=== PATIENT | male | born 1935 | race African-American/Black ===

== ENCOUNTER 2021-07-13 09:31 | Inpatient (IN) | payer MEDICARE, OTHER ==
[~2021-07-13] VITALS: Ht 167.6 cm; Wt 68.5 kg
[~2021-07-13 09:31] MED LIST: ASPI-394 PO; ATOR20TA50 PO
[2021-07-13 10:20] LABS: Basophils # (auto) 0.2 10 ^3/uL (0-0.2); Basophils % (auto) 1.5 % (0.0-2.0); Eosinophils # (auto) 0.4 10 ^3/uL (0-0.8); Eosinophils % (auto) 3.6 % (0.0-7.0); Hematocrit 29.1 % (41.0-53.0); Hemoglobin 9.2 g/dL (13.5-17.5); Lymphocytes # (auto) 0.8 10 ^3/uL (0.4-5.4); Lymphocytes % (auto) 7.7 % (10.0-50.0); Mean Corpuscular Hemoglobin 29.3 pg (28.0-32.0); Mean Corpuscular Hgb Conc. 31.7 g/dL (32.0-36.0); Mean Corpuscular Volume 92.7 fL (80.0-100.0); Monocytes # (auto) 1.7 10 ^3/uL (0-1.3); Monocytes % (auto) 16.2 % (0.0-12.0); Neutrophils # (auto) 7.5 10 ^3/uL (1.6-8.6); Nucleated Red Blood Cells % 0.1 %; Red Blood Cells 3.14 10^6/uL (4.5-5.90); Red Cell Distribution Width 19.3 % (11.8-14.3); White Blood Cell 10.6 10^3/uL (4.4-10.8)
[2021-07-13 10:37] LABS: Albumin 2.1 g/dL (3.4-5.0); BUN/Creatinine Ratio 4.1; Calcium 7.5 mg/dL (8.5-10.1)
[2021-07-13 10:42] LABS: Bilirubin, Total 0.6 mg/dL (0.2-1.0); Total Protein 7.2 g/dL (6.4-8.2)
[2021-07-13] MEDS ORDERED: dilTIAZem 25 MG/5 ML VIAL IV ONE (11:15)
[2021-07-13] MEDS ORDERED: POTASSIUM CHL 20 Meq TABLET PO ONE (12:15)
[2021-07-13] MEDS ORDERED: POTASSIUM CHL 20MEQ/100ML 100 ML IV ONE (15:45)
[2021-07-13] MEDS ORDERED: NITROGLYCERIN 0.4 MG SL TAB SL PRN ×2 (15:45→19:15)
[2021-07-13] MEDS ORDERED: MORPHINE SULFATE INJECTION 2 MG/ML SYRG IV PRN ×3 (15:45→19:15)
[2021-07-13] MEDS ORDERED: hydrALAZINE HCL 20 MG/ML VL IV PRN (19:15)
[2021-07-13] MEDS ORDERED: DOCUSATE SOD 100 MG CAP PO PRN (19:15)
[2021-07-13] MEDS ORDERED: ONDANSETRON HCL 4 MG/2 ML VIAL IV PRN (19:15)
[2021-07-13] MEDS ORDERED: HYDROcodone-ACET 5/325MG TAB PO PRN (19:15)
[2021-07-13] MEDS ORDERED: DEXTROSE (50%) 50ML SYRG IV PRN (19:15)
[2021-07-13] MEDS ORDERED: VANCOMYCIN PER PHARMACY 1,000 MG IV SCH (19:15)
[2021-07-13] MEDS ORDERED: ALUM & MAG HYDROX-SIMETH LIQ(MAALOX) 30 ML PO PRN (19:15)
[2021-07-13] MEDS ORDERED: ACETAMINOPHEN 325 MG TAB PO PRN (19:15)
[2021-07-13] MEDS ORDERED: MORPHINE SULFATE 4 MG/ML SYR/VIAL IV PRN (19:15)
[2021-07-13] MEDS ORDERED: LORazepam 2MG/ML-1ML VIAL IV PRN (19:15)
[2021-07-13] MEDS ORDERED: VANCOMYCIN 750mg/250ml 250 ML IV ONE (20:00)
[2021-07-13] MEDS ORDERED: MAGNESIUM SULFATE 1GM/100ML 100 ML IV ONE (20:00)
[2021-07-13] MEDS ORDERED: METOPROLOL SUCCINATE XL 50 MG TAB PO ONE (20:15)
[2021-07-13 20:36] LABS: Cholesterol 125 mg/dL (< 200)
[2021-07-13 20:39] LABS: HDL Cholesterol 32 mg/dL (40-59); LDL Cholesterol 85 mg/dL (< 100); Triglycerides 74 mg/dL (< 150)
[2021-07-13] MEDS ORDERED: VANCOMYCIN 1GM/250ML 250 ML IV ONE (21:18)
[2021-07-13] MEDS: ATORVASTATIN 20 MG TAB PO SCH (21:30)
[2021-07-13] MEDS: InsuLIN REG 1unit/0.01ml Soln (100units/ml) SC SCH (21:30)
[2021-07-13] MEDS: ACCU-CHEK COMFORT CURVE STRIP VI SCH (21:30)
[2021-07-13 22:00] VITALS: BP 117/76
[2021-07-13] MEDS ORDERED: ENOXAPARIN SOD 30 MG/0.3 ML SYRINGE SC SCH (22:00)
[2021-07-13] MEDS: PIPERACILLIN-TAZOB 2.25GM 50 ML IV SCH (23:29)
[2021-07-14 01:49] VITALS: BP 117/76
[2021-07-14] MEDS ORDERED: GUAISYP6 PO (02:44)
[2021-07-14] MEDS ORDERED: CINA30TA2 PO (02:44)
[2021-07-14] MEDS ORDERED: LANT1000 PO (02:44)
[2021-07-14] MEDS ORDERED: LATA0.0020 EACHEYE (02:44)
[2021-07-14] MEDS ORDERED: MELA3TAB27 PO (02:44)
[2021-07-14] MEDS ORDERED: MONT5CHW23 PO (02:44)
[2021-07-14] MEDS ORDERED: METO-289 PO (02:44)
[2021-07-14] MEDS ORDERED: BRIM0.159 OP (02:44)
[2021-07-14] MEDS ORDERED: APIX2.5T PO (02:44)
[2021-07-14] MEDS ORDERED: SIME80CH6 PO (02:44)
[2021-07-14] MEDS ORDERED: B-COCAP23 PO (02:44)
[2021-07-14] MEDS ORDERED: FLUT0.05 NAS (02:44)
[2021-07-14] MEDS ORDERED: SEVE800T8 PO (02:44)
[2021-07-14] MEDS ORDERED: FERR1TAB17 PO (02:44)
[2021-07-14] MEDS ORDERED: ACET-1156 PO (02:44)
[2021-07-14] MEDS ORDERED: NIFE1TAB36 PO (02:44)
[2021-07-14 05:00] VITALS: BP 144/69
[2021-07-14] MEDS: InsuLIN REG 1unit/0.01ml Soln (100units/ml) SC SCH ×4 (06:14→22:00)
[2021-07-14] MEDS: ACCU-CHEK COMFORT CURVE STRIP VI SCH ×4 (06:14→22:25)
[2021-07-14 09:00] VITALS: BP 130/92
[2021-07-14] MEDS: ASPirin 81 mg TAB PO SCH (10:16)
[2021-07-14] MEDS: PIPERACILLIN-TAZOB 2.25GM 50 ML IV SCH ×3 (10:20→23:22)
[2021-07-14 11:25] LABS: Basophils # (auto) 0.1 10 ^3/uL (0-0.2); Eosinophils # (auto) 0.4 10 ^3/uL (0-0.8); Hemoglobin 8.9 g/dL (13.5-17.5); Lymphocytes # (auto) 0.7 10 ^3/uL (0.4-5.4); Monocytes # (auto) 1.7 10 ^3/uL (0-1.3); Red Cell Distribution Width 19.1 % (11.8-14.3)
[2021-07-14 11:28] LABS: Eosinophils % (auto) 3.3 % (0.0-7.0); Hematocrit 28.5 % (41.0-53.0); Mean Corpuscular Hgb Conc. 31.3 g/dL (32.0-36.0); Mean Corpuscular Volume 92.7 fL (80.0-100.0); Monocytes % (auto) 15.3 % (0.0-12.0); Neutrophils # (auto) 8.4 10 ^3/uL (1.6-8.6); Neutrophils % (auto) 74.4 % (37.0-80.0); Red Blood Cells 3.07 10^6/uL (4.5-5.90); White Blood Cell 11.2 10^3/uL (4.4-10.8)
[2021-07-14 11:45] LABS: INR 1.27 (0.9-1.15); Partial Thromboplastin Time 41.3 sec (23.6-33.0)
[2021-07-14 11:53] LABS: Potassium 4.6 mmol/L (3.5-5.1)
[2021-07-14 12:10] LABS: Albumin 1.9 g/dL (3.4-5.0); BUN/Creatinine Ratio 4.5; Bilirubin, Total 0.6 mg/dL (0.2-1.0); Calcium 7.8 mg/dL (8.5-10.1); Magnesium 2.7 mg/dL (1.6-2.6); Phosphorus 4.2 mg/dL (2.5-4.90); Total Protein 6.8 g/dL (6.4-8.2)
[2021-07-14 13:00] VITALS: BP 130/72
[2021-07-14] MEDS ORDERED: IOHEXOL 350 MG/ML 100ML IJ ONE (15:35)
[2021-07-14] MEDS ORDERED: SIMETHICONE 80 MG CHEWABLE TABLET PO PRN (16:00)
[2021-07-14 17:00] VITALS: BP 131/71
[2021-07-14] MEDS ORDERED: DIGOXIN (250MCG/ML) 2 ML AMPULE IV ONE (17:15)
[2021-07-14 22:00] VITALS: BP 129/63
[2021-07-14] MEDS: ATORVASTATIN 20 MG TAB PO SCH (22:24)
[2021-07-14] MEDS: APIXABAN 2.5 MG TAB PO SCH (22:24)
[2021-07-14] MEDS: METOPROLOL SUCCINATE XL 50 MG TAB PO SCH (22:26)
[2021-07-15 05:00] VITALS: BP 113/64
[2021-07-15 05:30] LABS: Basophils # (auto) 0.1 10 ^3/uL (0-0.2); Basophils % (auto) 1.1 % (0.0-2.0); Eosinophils # (auto) 0.4 10 ^3/uL (0-0.8); Eosinophils % (auto) 3.6 % (0.0-7.0); Hematocrit 27.2 % (41.0-53.0); Hemoglobin 8.6 g/dL (13.5-17.5); Lymphocytes # (auto) 0.7 10 ^3/uL (0.4-5.4); Lymphocytes % (auto) 6.3 % (10.0-50.0); Mean Corpuscular Hemoglobin 29.7 pg (28.0-32.0); Mean Corpuscular Hgb Conc. 31.6 g/dL (32.0-36.0); Mean Corpuscular Volume 93.9 fL (80.0-100.0); Monocytes # (auto) 1.5 10 ^3/uL (0-1.3); Monocytes % (auto) 13.3 % (0.0-12.0); Neutrophils # (auto) 8.3 10 ^3/uL (1.6-8.6); Neutrophils % (auto) 75.7 % (37.0-80.0); Nucleated Red Blood Cells % 0.1 %; Red Blood Cells 2.89 10^6/uL (4.5-5.90); Red Cell Distribution Width 19.2 % (11.8-14.3)
[2021-07-15 05:44] LABS: INR 1.32 (0.9-1.15)
[2021-07-15] MEDS: InsuLIN REG 1unit/0.01ml Soln (100units/ml) SC SCH ×4 (05:46→21:51)
[2021-07-15] MEDS: ACCU-CHEK COMFORT CURVE STRIP VI SCH ×4 (05:46→21:44)
[2021-07-15 05:54] LABS: Calcium 7.4 mg/dL (8.5-10.1); Magnesium 2.1 mg/dL (1.6-2.6); Potassium 4.7 mmol/L (3.5-5.1)
[2021-07-15] MEDS: PIPERACILLIN-TAZOB 2.25GM 50 ML IV SCH (06:17)
[2021-07-15 09:00] VITALS: BP 111/71
[2021-07-15] MEDS: APIXABAN 2.5 MG TAB PO SCH ×2 (09:10→21:43)
[2021-07-15] MEDS ORDERED: DIGOXIN 0.125 MG TAB PO SCH (10:00)
[2021-07-15] MEDS: ASPirin 81 mg TAB PO SCH (10:00)
[2021-07-15 12:40] VITALS: BP 114/83
[2021-07-15 16:40] VITALS: BP 122/59
[2021-07-15 20:42] VITALS: BP 116/59
[2021-07-15] MEDS: METOPROLOL SUCCINATE XL 50 MG TAB PO SCH (21:44)
[2021-07-15] MEDS: ATORVASTATIN 20 MG TAB PO SCH (21:44)
[2021-07-15] MEDS: ALUM & MAG HYDROX-SIMETH LIQ(MAALOX) 30 ML PO PRN (21:44)
[2021-07-15] MEDS: guaiFENesin-DM 100/10mg/5ml SYR PO PRN (21:45)
[2021-07-16 05:43] LABS: Basophils # (auto) 0.1 10 ^3/uL (0-0.2); Basophils % (auto) 0.9 % (0.0-2.0); Eosinophils # (auto) 0.8 10 ^3/uL (0-0.8); Eosinophils % (auto) 6.5 % (0.0-7.0); Hematocrit 28.1 % (41.0-53.0); Hemoglobin 8.9 g/dL (13.5-17.5); Lymphocytes # (auto) 1.1 10 ^3/uL (0.4-5.4); Lymphocytes % (auto) 9.6 % (10.0-50.0); Mean Corpuscular Hemoglobin 29.3 pg (28.0-32.0); Mean Corpuscular Hgb Conc. 31.7 g/dL (32.0-36.0); Mean Corpuscular Volume 92.2 fL (80.0-100.0); Monocytes # (auto) 1.8 10 ^3/uL (0-1.3); Monocytes % (auto) 15.5 % (0.0-12.0); Neutrophils # (auto) 7.9 10 ^3/uL (1.6-8.6); Neutrophils % (auto) 67.5 % (37.0-80.0); Nucleated Red Blood Cells % 0.1 %; Red Blood Cells 3.04 10^6/uL (4.5-5.90); Red Cell Distribution Width 18.7 % (11.8-14.3); White Blood Cell 11.8 10^3/uL (4.4-10.8)
[2021-07-16 05:54] LABS: Potassium 4.7 mmol/L (3.5-5.1)
[2021-07-16 06:00] LABS: BUN/Creatinine Ratio 4.7; Calcium 7.6 mg/dL (8.5-10.1)
[2021-07-16 06:12] VITALS: BP 130/67
[2021-07-16] MEDS: ACCU-CHEK COMFORT CURVE STRIP VI SCH ×2 (06:15→11:48)
[2021-07-16] MEDS: InsuLIN REG 1unit/0.01ml Soln (100units/ml) SC SCH ×2 (06:21→11:30)
[2021-07-16 08:40] VITALS: BP 135/60
[2021-07-16] MEDS: guaiFENesin-DM 100/10mg/5ml SYR PO PRN (08:42)
[2021-07-16] MEDS: ALUM & MAG HYDROX-SIMETH LIQ(MAALOX) 30 ML PO PRN (08:42)
[2021-07-16] MEDS ORDERED: LIDOCAINE 1% (LOCAL ANESTH.) PF 5ml SDV IJ ONE (08:45)
[2021-07-16 09:40] VITALS: BP 135/60
[2021-07-16] MEDS: APIXABAN 2.5 MG TAB PO SCH (12:07)
[2021-07-16] MEDS: ASPirin 81 mg TAB PO SCH (12:07)
[2021-07-16 12:30] VITALS: BP 138/89
[2021-07-16 13:33] VITALS: BP 116/59
[2021-07-16] MEDS ORDERED: EPOETIN ALFA-EPBX 10,000 UNIT/1ML VIAL SC ONE (21:00)
[2021-07-17] MEDS ORDERED: DIGOXIN 0.125 MG TAB PO SCH (10:00)
== END 2021-07-16 15:30 | disposition home health service (06) | DRG 291 ==
LOC: ER 09:31 → EDBD 09:31 → TELE 15:41 → TELE-WESTW 21:25
PROVIDERS: ADMIT Hospitalist; ATTEND Internal Medicine
PROC: 5A1D70Z Performance of Urinary Filtration, Intermittent, Less than 6 Hours Per Day (ICD-10-PCS; principal; 2021-07-16)
DX: I13.2 Hypertensive heart and chronic kidney disease with heart failure and with stage 5 chronic kidney disease, or end stage renal disease (principal); I50.43 Acute on chronic combined systolic (congestive) and diastolic (congestive) heart failure; N18.6 End stage renal disease; J96.11 Chronic respiratory failure with hypoxia; R65.10 Systemic inflammatory response syndrome (SIRS) of non-infectious origin without acute organ dysfunction; J91.8 Pleural effusion in other conditions classified elsewhere; E88.09 Other disorders of plasma-protein metabolism, not elsewhere classified; I48.0 Paroxysmal atrial fibrillation; E87.6 Hypokalemia; Z99.2 Dependence on renal dialysis; E78.5 Hyperlipidemia, unspecified; D63.1 Anemia in chronic kidney disease; E11.22 Type 2 diabetes mellitus with diabetic chronic kidney disease; I27.20 Pulmonary hypertension, unspecified; R00.0 Tachycardia, unspecified; Z20.822 Contact with and (suspected) exposure to COVID-19; Z79.01 Long term (current) use of anticoagulants; Z82.49 Family history of ischemic heart disease and other diseases of the circulatory system; Z83.3 Family history of diabetes mellitus; Z98.41 Cataract extraction status, right eye; Z88.8 Allergy status to other drugs, medicaments and biological substances
CPT/HCPCS: 36415; 71045; 71275; 80048; 80053; 80061; 80162; 80202; 82306; 82962; 83036; 83605; 83735; 83880; 84100; 84443; 84484; 85025; 85379; 85610; 85730; 87040; 87081; 87426; 90935; 93005; 93306; 93971; 96365; 96375; G0378; J1815; J2405; J2543; J3480

== ENCOUNTER 2022-05-30 16:19 | Inpatient (IN) | payer MEDICARE, OTHER ==
[~2022-05-30] VITALS: Ht 182.9 cm; Wt 63.2 kg
[~2022-05-30 16:19] MED LIST changes: +ACET-1156 PO; +APIX2.5T PO; +B-COCAP23 PO; +BRIM0.159 OP; +CINA30TA2 PO; +FERR1TAB17 PO; +FLUT0.05 NAS; +GUAISYP6 PO; +LANT1000 PO; +LATA0.0020 EACHEYE; +MELA3TAB27 PO; +METO-289 PO; +MONT5CHW23 PO; +NIFE1TAB36 PO; +SEVE800T8 PO; +SIME80CH6 PO
[2022-05-30 17:51] LABS: Basophils # (auto) 0 10 ^3/uL (0-0.2); Basophils % (auto) 0.7 % (0.0-2.0); Eosinophils # (auto) 0.3 10 ^3/uL (0-0.8); Eosinophils % (auto) 3.6 % (0.0-7.0); Hematocrit 33.7 % (41.0-53.0); Lymphocytes # (auto) 0.8 10 ^3/uL (0.4-5.4); Lymphocytes % (auto) 10.9 % (10.0-50.0); Mean Corpuscular Hemoglobin 31.6 pg (28.0-32.0); Mean Corpuscular Hgb Conc. 32.6 g/dL (32.0-36.0); Mean Corpuscular Volume 96.9 fL (80.0-100.0); Monocytes # (auto) 1.2 10 ^3/uL (0-1.3); Monocytes % (auto) 16.6 % (0.0-12.0); Neutrophils # (auto) 4.9 10 ^3/uL (1.6-8.6); Neutrophils % (auto) 68.2 % (37.0-80.0); Nucleated Red Blood Cells % 0.1 %; Red Blood Cells 3.48 10^6/uL (4.5-5.90); Red Cell Distribution Width 19.1 % (11.8-14.3); White Blood Cell 7.1 10^3/uL (4.4-10.8)
[2022-05-30 18:18] LABS: Sodium 144 mmol/L (136-145)
[2022-05-30 18:19] LABS: Anion Gap 15 (5-15); BUN/Creatinine Ratio 5.8; Blood Urea Nitrogen 48 mg/dL (7-18); Carbon Dioxide 21 mmol/L (21-32); Chloride 108 mmol/L (98-107); GFR African American 8 mL/min; GFR Non-African American 7 mL/min; Glucose 145 mg/dL (74-106)
[2022-05-30 18:20] LABS: Alkaline Phosphatase 195 U/L (45-117)
[2022-05-30 18:21] LABS: Aspartate Aminotransferase 34 U/L (15-37)
[2022-05-30 18:22] LABS: Alanine Aminotransferase 32 U/L (16-61); Albumin 3.6 g/dL (3.4-5.0); Bilirubin, Total 0.6 mg/dL (0.2-1.0); Calcium 7.8 mg/dL (8.5-10.1); Total Protein 7.7 g/dL (6.4-8.2)
[2022-05-30 18:35] LABS: Magnesium 2.2 mg/dL (1.6-2.6)
[2022-05-30] MEDS ORDERED: NITROGLYCERIN 0.4 MG SL TAB SL PRN (21:15)
[2022-05-30] MEDS ORDERED: DEXTROSE (50%) 50ML SYRG IV PRN (21:15)
[2022-05-30] MEDS: ONDANSETRON HCL 4 MG/2 ML VIAL IV PRN (22:50)
[2022-05-30] MEDS: APIXABAN 2.5 MG TAB PO SCH (22:50)
[2022-05-30] MEDS: ATORVASTATIN 20 MG TAB PO SCH (22:50)
[2022-05-30] MEDS: MONTELUKAST SODIUM 10 MG TAB PO SCH (22:50)
[2022-05-30] MEDS: MORPHINE SULFATE INJ 2 MG/ml SYRG IV PRN (23:05)
[2022-05-30] MEDS: ACCU-CHEK COMFORT CURVE STRIP VI SCH (23:05)
[2022-05-30] MEDS: InsuLIN REG 1unit/0.01ml Soln (100units/ml) SC SCH (23:06)
[2022-05-31 02:15] LABS: Lactic Acid w/Reflex 2.2 mmol/L (0.4-2.0)
[2022-05-31] MEDS: ACETAMINOPHEN 325 MG TAB PO PRN ×2 (02:56→11:11)
[2022-05-31] MEDS: MORPHINE SULFATE INJ 2 MG/ml SYRG IV PRN (04:10)
[2022-05-31] MEDS: ONDANSETRON HCL 4 MG/2 ML VIAL IV PRN (04:11)
[2022-05-31 04:52] LABS: Basophils # (auto) 0.1 10 ^3/uL (0-0.2); Basophils % (auto) 0.7 % (0.0-2.0); Eosinophils # (auto) 0.4 10 ^3/uL (0-0.8); Eosinophils % (auto) 4.3 % (0.0-7.0); Hematocrit 31.4 % (41.0-53.0); Hemoglobin 10.1 g/dL (13.5-17.5); Lymphocytes # (auto) 1.2 10 ^3/uL (0.4-5.4); Lymphocytes % (auto) 13.2 % (10.0-50.0); Mean Corpuscular Hemoglobin 31.4 pg (28.0-32.0); Mean Corpuscular Hgb Conc. 32.3 g/dL (32.0-36.0); Mean Corpuscular Volume 97.2 fL (80.0-100.0); Monocytes # (auto) 1.5 10 ^3/uL (0-1.3); Monocytes % (auto) 17.2 % (0.0-12.0); Neutrophils # (auto) 5.7 10 ^3/uL (1.6-8.6); Neutrophils % (auto) 64.6 % (37.0-80.0); Red Blood Cells 3.23 10^6/uL (4.5-5.90); Red Cell Distribution Width 18.9 % (11.8-14.3); White Blood Cell 8.8 10^3/uL (4.4-10.8)
[2022-05-31] MEDS ORDERED: SUMAtriptan SUCCINATE 25 MG TAB PO ONE (06:00)
[2022-05-31] MEDS: InsuLIN REG 1unit/0.01ml Soln (100units/ml) SC SCH ×4 (07:00→22:00)
[2022-05-31] MEDS: ACCU-CHEK COMFORT CURVE STRIP VI SCH ×4 (07:05→22:06)
[2022-05-31 08:28] LABS: Albumin 3.2 g/dL (3.4-5.0); Potassium 4.9 mmol/L (3.5-5.1)
[2022-05-31 08:32] LABS: BUN/Creatinine Ratio 5.7; Bilirubin, Total 0.6 mg/dL (0.2-1.0); Total Protein 7.2 g/dL (6.4-8.2)
[2022-05-31] MEDS: SEVELAMER 800 MG TAB PO SCH ×4 (09:52→18:50)
[2022-05-31] MEDS: ASPirin 81 mg TAB PO SCH (11:10)
[2022-05-31] MEDS: NIFEdipine ER 30 MG TAB PO SCH (11:10)
[2022-05-31] MEDS: APIXABAN 2.5 MG TAB PO SCH ×2 (11:10→22:05)
[2022-05-31] MEDS: METOPROLOL SUCCINATE XL 50 MG TAB PO SCH (11:11)
[2022-05-31] MEDS: PANTOPRAZOLE 40 MG TAB PO SCH (11:11)
[2022-05-31] MEDS ORDERED: HYDROmorphone HCL 2 MG/ML VL/or syr IV PRN (15:00)
[2022-05-31] MEDS: MONTELUKAST SODIUM 10 MG TAB PO SCH (22:05)
[2022-05-31] MEDS: ATORVASTATIN 20 MG TAB PO SCH (22:05)
[2022-05-31] MEDS: MECLIZINE HCL 25 MG TAB PO PRN (23:43)
[2022-06-01] VITALS (7 sets, daily range): BP systolic 122–149; BP diastolic 66–82
[2022-06-01] MEDS: ACCU-CHEK COMFORT CURVE STRIP VI SCH ×4 (06:09→22:13)
[2022-06-01] MEDS: InsuLIN REG 1unit/0.01ml Soln (100units/ml) SC SCH ×4 (06:09→22:00)
[2022-06-01] MEDS ORDERED: SODIUM CHL 0.9% 1000 ML BAG XX ONE (07:00)
[2022-06-01 07:55] LABS: Basophils # (auto) 0.1 10 ^3/uL (0-0.2); Basophils % (auto) 0.8 % (0.0-2.0); Eosinophils # (auto) 0.3 10 ^3/uL (0-0.8); Eosinophils % (auto) 3.8 % (0.0-7.0); Hematocrit 33.7 % (41.0-53.0); Hemoglobin 10.9 g/dL (13.5-17.5); Lymphocytes # (auto) 0.8 10 ^3/uL (0.4-5.4); Lymphocytes % (auto) 8.9 % (10.0-50.0); Mean Corpuscular Hemoglobin 31.8 pg (28.0-32.0); Mean Corpuscular Hgb Conc. 32.3 g/dL (32.0-36.0); Mean Corpuscular Volume 98.6 fL (80.0-100.0); Monocytes # (auto) 1.2 10 ^3/uL (0-1.3); Monocytes % (auto) 13.3 % (0.0-12.0); Neutrophils # (auto) 6.5 10 ^3/uL (1.6-8.6); Neutrophils % (auto) 73.2 % (37.0-80.0); Red Blood Cells 3.41 10^6/uL (4.5-5.90); Red Cell Distribution Width 18.4 % (11.8-14.3); White Blood Cell 8.9 10^3/uL (4.4-10.8)
[2022-06-01] MEDS: SEVELAMER 800 MG TAB PO SCH ×3 (08:12→17:57)
[2022-06-01 09:42] LABS: Alanine Aminotransferase 22 U/L (16-61); Alkaline Phosphatase 152 U/L (45-117); Anion Gap 14 (5-15); Aspartate Aminotransferase 15 U/L (15-37); BUN/Creatinine Ratio 5.6; Blood Urea Nitrogen 61 mg/dL (7-18); Carbon Dioxide 21 mmol/L (21-32); Chloride 107 mmol/L (98-107); GFR African American 6 mL/min; GFR Non-African American 5 mL/min; Glucose 110 mg/dL (74-106); Sodium 142 mmol/L (136-145)
[2022-06-01 09:43] LABS: Albumin 3.4 g/dL (3.4-5.0); Bilirubin, Total 0.6 mg/dL (0.2-1.0); Calcium 7.9 mg/dL (8.5-10.1)
[2022-06-01 09:51] LABS: Potassium 5.7 mmol/L (3.5-5.1)
[2022-06-01] MEDS: PANTOPRAZOLE 40 MG TAB PO SCH (10:00)
[2022-06-01] MEDS: NIFEdipine ER 30 MG TAB PO SCH (10:00)
[2022-06-01] MEDS: ASPirin 81 mg TAB PO SCH (10:00)
[2022-06-01] MEDS: APIXABAN 2.5 MG TAB PO SCH ×2 (10:00→22:13)
[2022-06-01] MEDS: METOPROLOL SUCCINATE XL 50 MG TAB PO SCH (10:00)
[2022-06-01] MEDS ORDERED: EPOETIN ALFA-EPBX 10,000 UNIT/1ML VIAL SC ONE (21:00)
[2022-06-01] MEDS: ATORVASTATIN 20 MG TAB PO SCH (22:13)
[2022-06-01] MEDS: MONTELUKAST SODIUM 10 MG TAB PO SCH (22:13)
[2022-06-02] MEDS: MECLIZINE HCL 25 MG TAB PO PRN (00:24)
[2022-06-02 05:00] VITALS: BP 118/68
[2022-06-02 05:58] LABS: Hematocrit 35.5 % (41.0-53.0); Hemoglobin 11.7 g/dL (13.5-17.5); Mean Corpuscular Hemoglobin 31.9 pg (28.0-32.0); Mean Corpuscular Volume 96.8 fL (80.0-100.0); Red Blood Cells 3.67 10^6/uL (4.5-5.90); Red Cell Distribution Width 18.2 % (11.8-14.3); White Blood Cell 9.6 10^3/uL (4.4-10.8)
[2022-06-02 06:08] LABS: Basophils % (manual) 0 (0.0-2.0); Blast Cells 0; Metamyelocytes % 0; Myelocytes % 0; Promyelocytes % 0; Reactive Lymphocytes 0
[2022-06-02 06:11] LABS: Albumin 3.3 g/dL (3.4-5.0); Calcium 8.3 mg/dL (8.5-10.1)
[2022-06-02 06:15] LABS: BUN/Creatinine Ratio 4.7; Bilirubin, Total 1.1 mg/dL (0.2-1.0); Total Protein 7.1 g/dL (6.4-8.2)
[2022-06-02 06:41] LABS: Band Neutrophils % (manual) 1; Eosinophils % (manual) 4 (0-7); Lymphocytes % (manual) 11 (10.0-50.0); Monocytes % (manual) 16 (0-12)
[2022-06-02] MEDS: ACCU-CHEK COMFORT CURVE STRIP VI SCH ×4 (06:52→22:45)
[2022-06-02] MEDS: InsuLIN REG 1unit/0.01ml Soln (100units/ml) SC SCH ×4 (06:52→22:45)
[2022-06-02] MEDS: SEVELAMER 800 MG TAB PO SCH ×4 (07:53→18:00)
[2022-06-02 08:05] VITALS: BP 125/77
[2022-06-02 08:45] VITALS: BP 125/77
[2022-06-02] MEDS: APIXABAN 2.5 MG TAB PO SCH ×2 (09:06→22:30)
[2022-06-02] MEDS: ASPirin 81 mg TAB PO SCH (09:08)
[2022-06-02] MEDS: METOPROLOL SUCCINATE XL 50 MG TAB PO SCH (09:08)
[2022-06-02] MEDS: NIFEdipine ER 30 MG TAB PO SCH (09:08)
[2022-06-02] MEDS: PANTOPRAZOLE 40 MG TAB PO SCH (09:09)
[2022-06-02] MEDS ORDERED: DOCUSATE SOD 100 MG CAP PO PRN (14:15)
[2022-06-02] MEDS: SIMETHICONE 80 MG CHEWABLE TABLET PO PRN (16:38)
[2022-06-02 22:00] VITALS: BP 126/77
[2022-06-02] MEDS: MONTELUKAST SODIUM 10 MG TAB PO SCH (22:31)
[2022-06-02] MEDS: ATORVASTATIN 20 MG TAB PO SCH (22:31)
[2022-06-03 05:00] VITALS: BP 105/62
[2022-06-03] MEDS: InsuLIN REG 1unit/0.01ml Soln (100units/ml) SC SCH ×4 (06:37→21:28)
[2022-06-03] MEDS: ACCU-CHEK COMFORT CURVE STRIP VI SCH ×4 (06:38→21:28)
[2022-06-03 06:44] LABS: Hematocrit 34.3 % (41.0-53.0); Hemoglobin 11.3 g/dL (13.5-17.5); Mean Corpuscular Hemoglobin 31.5 pg (28.0-32.0); Mean Corpuscular Volume 95.3 fL (80.0-100.0); Red Cell Distribution Width 17.5 % (11.8-14.3); White Blood Cell 8.7 10^3/uL (4.4-10.8)
[2022-06-03 06:49] LABS: Band Neutrophils % (manual) 0; Basophils % (manual) 0 (0.0-2.0); Blast Cells 0; Metamyelocytes % 0; Myelocytes % 0; Promyelocytes % 0; Reactive Lymphocytes 0
[2022-06-03 07:00] LABS: Potassium 4.8 mmol/L (3.5-5.1)
[2022-06-03] MEDS ORDERED: SODIUM CHL 0.9% 1000 ML BAG XX ONE (07:00)
[2022-06-03 07:18] LABS: Albumin 3.1 g/dL (3.4-5.0); BUN/Creatinine Ratio 5.4; Bilirubin, Total 0.8 mg/dL (0.2-1.0); Calcium 8.7 mg/dL (8.5-10.1); Total Protein 6.9 g/dL (6.4-8.2)
[2022-06-03 07:26] LABS: Eosinophils % (manual) 3 (0-7); Lymphocytes % (manual) 10 (10.0-50.0); Monocytes % (manual) 13 (0-12)
[2022-06-03 08:00] VITALS: BP 123/69
[2022-06-03 09:00] VITALS: BP 123/69
[2022-06-03] MEDS: APIXABAN 2.5 MG TAB PO SCH ×2 (10:00→21:15)
[2022-06-03] MEDS: NIFEdipine ER 30 MG TAB PO SCH (10:00)
[2022-06-03] MEDS: ASPirin 81 mg TAB PO SCH (10:00)
[2022-06-03] MEDS: METOPROLOL SUCCINATE XL 50 MG TAB PO SCH (10:00)
[2022-06-03] MEDS: SEVELAMER 800 MG TAB PO SCH ×3 (10:53→17:56)
[2022-06-03] MEDS: PANTOPRAZOLE 40 MG TAB PO SCH (10:53)
[2022-06-03 13:00] VITALS: BP 104/56
[2022-06-03 17:00] VITALS: BP 98/50
[2022-06-03] MEDS ORDERED: POLYETHYLENE GLYCOL 17 GM PWDR PO PRN (17:00)
[2022-06-03] MEDS ORDERED: DOCUSATE SOD 100 MG CAP PO PRN (17:00)
[2022-06-03] MEDS ORDERED: EPOETIN ALFA-EPBX 10,000 UNIT/1ML VIAL SC ONE (21:00)
[2022-06-03] MEDS: MONTELUKAST SODIUM 10 MG TAB PO SCH (21:14)
[2022-06-03] MEDS: ATORVASTATIN 20 MG TAB PO SCH (21:15)
[2022-06-03 21:44] VITALS: BP 107/54
[2022-06-04] VITALS (7 sets, daily range): BP systolic 120–134; BP diastolic 55–77
[2022-06-04] MEDS: SIMETHICONE 80 MG CHEWABLE TABLET PO PRN ×3 (03:28→22:28)
[2022-06-04 05:36] LABS: Hemoglobin 11.5 g/dL (13.5-17.5); Mean Corpuscular Hemoglobin 32.2 pg (28.0-32.0); Mean Corpuscular Hgb Conc. 33.8 g/dL (32.0-36.0); Mean Corpuscular Volume 95.3 fL (80.0-100.0); Red Blood Cells 3.57 10^6/uL (4.5-5.90); Red Cell Distribution Width 17.8 % (11.8-14.3); White Blood Cell 9.5 10^3/uL (4.4-10.8)
[2022-06-04 05:38] LABS: Band Neutrophils % (manual) 0; Basophils % (manual) 0 (0.0-2.0); Blast Cells 0; Metamyelocytes % 0; Myelocytes % 0; Promyelocytes % 0; Reactive Lymphocytes 0
[2022-06-04 05:54] LABS: Potassium 5.2 mmol/L (3.5-5.1)
[2022-06-04 05:59] LABS: Eosinophils % (manual) 2 (0-7); Lymphocytes % (manual) 18 (10.0-50.0); Monocytes % (manual) 16 (0-12)
[2022-06-04 06:05] LABS: Bilirubin, Total 0.6 mg/dL (0.2-1.0); Calcium 8.4 mg/dL (8.5-10.1); Total Protein 6.7 g/dL (6.4-8.2)
[2022-06-04] MEDS: ACCU-CHEK COMFORT CURVE STRIP VI SCH ×4 (06:58→22:29)
[2022-06-04] MEDS: InsuLIN REG 1unit/0.01ml Soln (100units/ml) SC SCH ×4 (06:58→22:30)
[2022-06-04] MEDS: SEVELAMER 800 MG TAB PO SCH ×3 (08:00→16:47)
[2022-06-04] MEDS: METOPROLOL SUCCINATE XL 50 MG TAB PO SCH (10:00)
[2022-06-04] MEDS: PANTOPRAZOLE 40 MG TAB PO SCH (10:00)
[2022-06-04] MEDS: NIFEdipine ER 30 MG TAB PO SCH (10:00)
[2022-06-04] MEDS: APIXABAN 2.5 MG TAB PO SCH ×2 (10:00→22:29)
[2022-06-04] MEDS: ASPirin 81 mg TAB PO SCH (10:00)
[2022-06-04] MEDS: HYDROmorphone HCL 2 MG/ML VL/or syr IV PRN (11:02)
[2022-06-04] MEDS: ATORVASTATIN 20 MG TAB PO SCH (22:26)
[2022-06-04] MEDS: MONTELUKAST SODIUM 10 MG TAB PO SCH (22:28)
[2022-06-05] MEDS: ONDANSETRON HCL 4 MG/2 ML VIAL IV PRN (00:50)
[2022-06-05 05:00] VITALS: BP 103/52
[2022-06-05 06:32] LABS: Potassium 4.6 mmol/L (3.5-5.1)
[2022-06-05] MEDS: InsuLIN REG 1unit/0.01ml Soln (100units/ml) SC SCH ×4 (06:37→22:06)
[2022-06-05] MEDS: ACCU-CHEK COMFORT CURVE STRIP VI SCH ×4 (06:37→22:04)
[2022-06-05 06:45] LABS: Bilirubin, Total 0.8 mg/dL (0.2-1.0); Calcium 8.9 mg/dL (8.5-10.1); Total Protein 7.8 g/dL (6.4-8.2)
[2022-06-05 07:00] LABS: Hemoglobin 12.4 g/dL (13.5-17.5); Mean Corpuscular Hemoglobin 31.9 pg (28.0-32.0); Mean Corpuscular Hgb Conc. 33.5 g/dL (32.0-36.0); Red Blood Cells 3.89 10^6/uL (4.5-5.90); Red Cell Distribution Width 17.3 % (11.8-14.3); White Blood Cell 9.1 10^3/uL (4.4-10.8)
[2022-06-05 07:08] LABS: Band Neutrophils % (manual) 0; Basophils % (manual) 0 (0.0-2.0); Blast Cells 0; Metamyelocytes % 0; Myelocytes % 0; Promyelocytes % 0; Reactive Lymphocytes 0
[2022-06-05] MEDS: SEVELAMER 800 MG TAB PO SCH ×3 (08:00→17:19)
[2022-06-05 08:05] LABS: Eosinophils % (manual) 1 (0-7); Lymphocytes % (manual) 10 (10.0-50.0); Monocytes % (manual) 10 (0-12)
[2022-06-05] MEDS: NIFEdipine ER 30 MG TAB PO SCH (08:26)
[2022-06-05] MEDS: METOPROLOL SUCCINATE XL 50 MG TAB PO SCH (08:27)
[2022-06-05] MEDS: PANTOPRAZOLE 40 MG TAB PO SCH (08:40)
[2022-06-05] MEDS: ASPirin 81 mg TAB PO SCH (08:40)
[2022-06-05] MEDS: APIXABAN 2.5 MG TAB PO SCH ×2 (08:40→21:36)
[2022-06-05 08:56] VITALS: BP 90/54
[2022-06-05 12:50] VITALS: BP 97/55
[2022-06-05 16:50] VITALS: BP 102/55
[2022-06-05 20:00] VITALS: BP 106/67
[2022-06-05] MEDS: ATORVASTATIN 20 MG TAB PO SCH (21:36)
[2022-06-05] MEDS: MONTELUKAST SODIUM 10 MG TAB PO SCH (21:36)
[2022-06-05] MEDS: HYDROmorphone HCL 2 MG/ML VL/or syr IV PRN (21:36)
[2022-06-05 22:00] VITALS: BP 106/67
[2022-06-06 05:00] VITALS: BP 96/63
[2022-06-06] MEDS: ACCU-CHEK COMFORT CURVE STRIP VI SCH ×2 (06:49→11:32)
[2022-06-06] MEDS: InsuLIN REG 1unit/0.01ml Soln (100units/ml) SC SCH ×2 (06:49→12:05)
[2022-06-06 06:53] LABS: Albumin 2.9 g/dL (3.4-5.0); Calcium 8.9 mg/dL (8.5-10.1); Potassium 4.3 mmol/L (3.5-5.1)
[2022-06-06 06:54] LABS: Hematocrit 34.7 % (41.0-53.0); Hemoglobin 11.8 g/dL (13.5-17.5); Mean Corpuscular Hemoglobin 32.7 pg (28.0-32.0); Mean Corpuscular Hgb Conc. 34.1 g/dL (32.0-36.0); Red Blood Cells 3.61 10^6/uL (4.5-5.90); Red Cell Distribution Width 17.3 % (11.8-14.3); White Blood Cell 8.1 10^3/uL (4.4-10.8)
[2022-06-06 06:55] LABS: BUN/Creatinine Ratio 5.1
[2022-06-06 06:58] LABS: Bilirubin, Total 0.5 mg/dL (0.2-1.0); Total Protein 7.4 g/dL (6.4-8.2)
[2022-06-06 07:37] LABS: Band Neutrophils % (manual) 0; Basophils % (manual) 0 (0.0-2.0); Blast Cells 0; Metamyelocytes % 0; Myelocytes % 0; Promyelocytes % 0; Reactive Lymphocytes 0
[2022-06-06 08:51] VITALS: BP 139/67
[2022-06-06] MEDS: APIXABAN 2.5 MG TAB PO SCH (08:52)
[2022-06-06] MEDS: ASPirin 81 mg TAB PO SCH (08:52)
[2022-06-06] MEDS: SEVELAMER 800 MG TAB PO SCH ×2 (08:52→12:05)
[2022-06-06] MEDS: NIFEdipine ER 30 MG TAB PO SCH (08:53)
[2022-06-06] MEDS: METOPROLOL SUCCINATE XL 50 MG TAB PO SCH (08:53)
[2022-06-06 10:38] LABS: Eosinophils % (manual) 4 (0-7); Lymphocytes % (manual) 18 (10.0-50.0); Monocytes % (manual) 13 (0-12)
[2022-06-06 11:22] VITALS: BP 139/67
[2022-06-06 12:38] VITALS: BP 93/58
== END 2022-06-06 13:20 | disposition home health service (06) | DRG 91 ==
LOC: ER 16:19 → TELE 21:11 → TELE-WESTW 05-31 20:35 → WEST WING 06-02 01:10
PROVIDERS: ADMIT Nurse Practitioner; ATTEND Student in an Organized Health Care Education/Training Program
PROC: 5A1D70Z Performance of Urinary Filtration, Intermittent, Less than 6 Hours Per Day (ICD-10-PCS; 2022-06-01)
PROC: 5A1D70Z Performance of Urinary Filtration, Intermittent, Less than 6 Hours Per Day (ICD-10-PCS; principal; 2022-06-04)
DX: G92.8 Other toxic encephalopathy (principal); N18.6 End stage renal disease; J96.11 Chronic respiratory failure with hypoxia; I13.2 Hypertensive heart and chronic kidney disease with heart failure and with stage 5 chronic kidney disease, or end stage renal disease; D63.1 Anemia in chronic kidney disease; E11.22 Type 2 diabetes mellitus with diabetic chronic kidney disease; I50.9 Heart failure, unspecified; I48.91 Unspecified atrial fibrillation; Z20.822 Contact with and (suspected) exposure to COVID-19; E78.5 Hyperlipidemia, unspecified; E87.5 Hyperkalemia; R74.8 Abnormal levels of other serum enzymes; R51.9 Headache, unspecified; R41.0 Disorientation, unspecified; Z88.8 Allergy status to other drugs, medicaments and biological substances; Z82.49 Family history of ischemic heart disease and other diseases of the circulatory system; Z83.3 Family history of diabetes mellitus; Z99.2 Dependence on renal dialysis
CPT/HCPCS: 36415; 70450; 70551; 71045; 80053; 82962; 83605; 83735; 84484; 85007; 85025; 85027; 87426; 90935; 93005; 93886; 96374; 96375; G0378; J1815; J2405

== ENCOUNTER 2023-10-19 05:45 | Inpatient (IN) | payer OTHER ==
[~2023-10-19] VITALS: Ht 177.8 cm; Wt 74.0 kg
[~2023-10-19 05:45] MED LIST changes: -ACET-1156 PO; +ACET-1881 PO; +MONT5CHW12 PO; -MONT5CHW23 PO; +SIME80CH49 PO; -SIME80CH6 PO
[2023-10-19 06:15] VITALS: PULSE 80; RESP 20; O2SAT 100
[2023-10-19 07:12] LABS: Basophils # (auto) 0.1 10 ^3/uL (0-0.2); Basophils % (auto) 0.8 % (0.0-2.0); Eosinophils # (auto) 0.2 10 ^3/uL (0-0.8); Eosinophils % (auto) 2.2 % (0.0-7.0); Hematocrit 37.4 % (41.0-53.0); Hemoglobin 12.1 g/dL (13.5-17.5); Lymphocytes # (auto) 0.8 10 ^3/uL (0.4-5.4); Lymphocytes % (auto) 10.1 % (10.0-50.0); Mean Corpuscular Hemoglobin 30.7 pg (28.0-32.0); Mean Corpuscular Hgb Conc. 32.3 g/dL (32.0-36.0); Mean Corpuscular Volume 95.2 fL (80.0-100.0); Monocytes # (auto) 1.2 10 ^3/uL (0-1.3); Monocytes % (auto) 14.1 % (0.0-12.0); Neutrophils % (auto) 72.8 % (37.0-80.0); Nucleated Red Blood Cells % 0.1 %; Red Blood Cells 3.93 10^6/uL (4.5-5.90); Red Cell Distribution Width 17.5 % (11.8-14.3); White Blood Cell 8.2 10^3/uL (4.4-10.8)
[2023-10-19 07:30] LABS: Albumin 4.2 g/dL (3.2-4.8); Alkaline Phosphatase 215 U/L (46-116); Anion Gap 8 (5-15); Aspartate Aminotransferase 19 U/L (13-40); BUN/Creatinine Ratio 3.3 (10.0-20.0); Blood Alcohol < 3.0 mg/dL (<10); Blood Urea Nitrogen 22 mg/dL (9-23); Carbon Dioxide 26 mmol/L (20-30); Chloride 102 mmol/L (98-107); Glucose 136 mg/dL (74-106); Potassium 4.6 mmol/L (3.5-5.1); Sodium 136 mmol/L (136-145)
[2023-10-19 07:31] LABS: Alanine Aminotransferase < 9 U/L (7-40); Bilirubin, Total 0.7 mg/dL (0.2-1.0)
[2023-10-19 07:33] VITALS: PULSE 76; RESP 18; O2SAT 100
[2023-10-19 07:40] LABS: INR 1.26 (0.9-1.15); Partial Thromboplastin Time 34.5 SEC (24.5-34.5)
[2023-10-19] MEDS: SODIUM CHLORIDE 0.9% 500 ML IVB ONE (07:54)
[2023-10-19] MEDS ORDERED: guaiFENesin-CODEINE Liq 5 ML UD PO PRN (09:00)
[2023-10-19] MEDS ORDERED: MORPHINE SULFATE INJ 2 MG/ml SYRG IV PRN (09:00)
[2023-10-19] MEDS ORDERED: DEXTROSE (50%) 50ML SYRG IV PRN ×2 (09:00→09:45)
[2023-10-19] MEDS ORDERED: ONDANSETRON HCL 4 MG/2 ML VIAL IV PRN (09:00)
[2023-10-19] MEDS ORDERED: ACETAMINOPHEN 325 MG TAB PO PRN ×2 (09:00)
[2023-10-19] MEDS ORDERED: NITROGLYCERIN 0.4 MG SL TAB SL PRN (09:00)
[2023-10-19] MEDS ORDERED: APIXABAN 2.5 MG TAB PO PRN (09:00)
[2023-10-19] MEDS ORDERED: [UNRECOGNIZED DRUG - OTHER] OP SCH (10:00)
[2023-10-19] MEDS: FOLIC ACID PO SCH (10:00)
[2023-10-19] MEDS ORDERED: MONTELUKAST SODIUM PO SCH (10:00)
[2023-10-19] MEDS: [UNRECOGNIZED DRUG - OTHER] PO SCH (10:00)
[2023-10-19] MEDS ORDERED: FLUTICASONE PROPIONATE 50 MCG NAS SCH (10:00)
[2023-10-19] MEDS: B COMPLEX PO SCH (10:00)
[2023-10-19 10:28] VITALS: BP 129/61; PULSE 63; RESP 18; TEMP 97.5; O2SAT 100
[2023-10-19 10:47] LABS: COVID19 ANTIGEN SOFIA FIA NEGATIVE (NEGATIVE)
[2023-10-19 10:47] LABS: Rapid Influenza A Negative (Negative); Rapid Influenza B Negative (Negative)
[2023-10-19] MEDS: InsuLIN REG 1unit/0.01ml Soln (100units/ml) SC SCH (11:30)
[2023-10-19] MEDS ORDERED: ACCU-CHEK COMFORT CURVE STRIP VI SCH (11:30)
[2023-10-19] MEDS ORDERED: InsuLIN REG 1unit/0.01ml Soln (100units/ml) SC SCH (11:30)
[2023-10-19] MEDS: ACCU-CHEK COMFORT CURVE STRIP VI SCH (11:47)
[2023-10-19] MEDS: SEVELAMER 800 MG TAB PO SCH (12:00)
[2023-10-19] MEDS: LANTHANUM CARBONATE 1000 MG PO SCH (12:00)
[2023-10-19] MEDS: SIMETHICONE 80 MG CHEWABLE TABLET PO SCH (12:00)
[2023-10-19] MEDS ORDERED: PATIENTS OWN MEDICATION (Sevelamer Carbonate (Renvela) 2 TAB) PO SCH (12:00)
[2023-10-19] MEDS: NIFEdipine ER 30 MG TAB PO SCH (12:12)
[2023-10-19] MEDS: CINACALCET HYDROCHLORIDE 30 MG TAB PO SCH (12:12)
[2023-10-19] MEDS: ASPirin-EC 81 mg tab PO SCH (12:12)
[2023-10-19] MEDS: METOPROLOL SUCCINATE XL 50 MG TAB PO SCH (12:13)
[2023-10-19] MEDS: MORPHINE SULFATE INJ 2 MG/ml SYRG IV ONE (12:30)
[2023-10-19] MEDS: AMIODARONE BOLUS KIT 100 ML IV ONE (17:26)
[2023-10-19] MEDS: AMIODARONE 450mg/250ml AE 250 ML IV SCH (17:54)
[2023-10-19 19:30] VITALS: PULSE 80; RESP 20; O2SAT 100
[2023-10-19 19:42] VITALS: O2SAT 100
[2023-10-19] MEDS: LATANOPROST 0.005 % OPTH(EYE) SOL 2.5ML EACHEYE SCH (21:12)
[2023-10-19] MEDS: OPTH OP SCH (22:00)
[2023-10-19] MEDS: MELATONIN 5 MG PO SCH (22:00)
[2023-10-19] MEDS: BRIMONIDINE 0.15% OP SCH (22:00)
[2023-10-19] MEDS: ATORVASTATIN 20 MG TAB PO SCH (22:00)
[2023-10-19] MEDS: MORPHINE SULFATE INJ 2 MG/ml SYRG IV PRN (22:03)
[2023-10-20] MEDS: LORazepam 2MG/ML-1ML VIAL IV PRN (00:13)
[2023-10-20] MEDS: AMIODARONE 450mg/250ml AE 250 ML IV SCH (00:46)
[2023-10-20 05:47] LABS: Hematocrit 33.6 % (41.0-53.0); Hemoglobin 10.8 g/dL (13.5-17.5); Mean Corpuscular Hemoglobin 30.7 pg (28.0-32.0); Mean Corpuscular Hgb Conc. 32.1 g/dL (32.0-36.0); Mean Corpuscular Volume 95.7 fL (80.0-100.0); Red Blood Cells 3.51 10^6/uL (4.5-5.90); Red Cell Distribution Width 17.9 % (11.8-14.3); White Blood Cell 10.6 10^3/uL (4.4-10.8)
[2023-10-20 06:03] LABS: Band Neutrophils % (manual) 0
[2023-10-20 06:04] LABS: Basophils % (manual) 0 (0.0-2.0); Blast Cells 0; Metamyelocytes % 0; Myelocytes % 0; Promyelocytes % 0; Reactive Lymphocytes 0
[2023-10-20 06:18] LABS: Alkaline Phosphatase 182 U/L (46-116); Anion Gap 8 (5-15); Blood Urea Nitrogen 17 mg/dL (9-23); Calcium 8.3 mg/dL (8.7-10.4); Carbon Dioxide 28 mmol/L (20-30); Chloride 102 mmol/L (98-107); Glucose 101 mg/dL (74-106); Potassium 5.1 mmol/L (3.5-5.1); Sodium 138 mmol/L (136-145)
[2023-10-20 06:19] LABS: Albumin 4.1 g/dL (3.2-4.8); Aspartate Aminotransferase 14 U/L (13-40); Bilirubin, Total 0.6 mg/dL (0.2-1.0); Total Protein 6.9 g/dL (5.7-8.2)
[2023-10-20 06:22] LABS: Alanine Aminotransferase < 9 U/L (7-40)
[2023-10-20 07:50] VITALS: PULSE 92; RESP 16; O2SAT 99
[2023-10-20 07:57] LABS: Eosinophils % (manual) 3 (0-7)
[2023-10-20 07:58] LABS: Lymphocytes % (manual) 16 (10.0-50.0); Monocytes % (manual) 18 (0-12)
[2023-10-20 07:59] LABS: Anisocytosis Slight; Platelet Estimate Adequate
[2023-10-20] MEDS: MONTELUKAST SODIUM 10 MG TAB PO SCH (10:00)
[2023-10-20] MEDS ORDERED: ENOXAPARIN SOD 100 MG/1 ML SYRINGE SC SCH (10:00)
[2023-10-20] MEDS: FLUTICASONE PROP NASAL SPR 0.05 % (50MCG) 16GM EACHNOSTRI SCH (10:00)
[2023-10-20] MEDS: HEPARIN SODIUM (PORCINE) 5000 UNITS/ML 1ML VIAL SC SCH (10:53)
[2023-10-20 11:57] LABS: Lipase 36 U/L (12-53)
[2023-10-20 11:59] LABS: Amylase 162 U/L (30-118)
[2023-10-20 18:22] VITALS: O2SAT 100
[2023-10-20 19:11] VITALS: BP 148/58; PULSE 84; RESP 17; TEMP 97.5; O2SAT 100
[2023-10-20 20:00] VITALS: PULSE 117; PULSE 90; RESP 18; O2SAT 100
[2023-10-20 20:22] LABS: Erythrocyte Sedimentation Rate 21 mm/hr (0-20)
[2023-10-20] MEDS: FUROSEMIDE 40 MG/4 ML VIAL IV ONE (21:25)
[2023-10-21] VITALS (59 sets, daily range): BP systolic 80–176; BP diastolic 39–94; PULSE 74–122; RESP 15–20; TEMP 97.3–99; O2SAT 94–100
[2023-10-21] MEDS: FUROSEMIDE 20 MG/2 ML VIAL IV SCH (05:46)
[2023-10-21] MEDS: hydrALAZINE HCL 20 MG/ML VL IV PRN (05:47)
[2023-10-21 07:19] LABS: Hematocrit 33.4 % (41.0-53.0); Hemoglobin 10.4 g/dL (13.5-17.5); Mean Corpuscular Hemoglobin 30.6 pg (28.0-32.0); Mean Corpuscular Hgb Conc. 31.3 g/dL (32.0-36.0); Mean Corpuscular Volume 97.7 fL (80.0-100.0); Red Blood Cells 3.42 10^6/uL (4.5-5.90); Red Cell Distribution Width 18.3 % (11.8-14.3); White Blood Cell 12.2 10^3/uL (4.4-10.8)
[2023-10-21 07:31] LABS: Basophils % (manual) 0 (0.0-2.0); Blast Cells 0; Metamyelocytes % 0; Myelocytes % 0; Promyelocytes % 0; Reactive Lymphocytes 0
[2023-10-21 08:04] LABS: Band Neutrophils % (manual) 3; Eosinophils % (manual) 1 (0-7); Monocytes % (manual) 20 (0-12)
[2023-10-21 08:05] LABS: Anisocytosis Slight; Lymphocytes % (manual) 11 (10.0-50.0); Platelet Estimate Adequate
[2023-10-21 08:06] LABS: Hypochromia Slight
[2023-10-21] MEDS: METOPROLOL TARTRATE 1MG/1ML-5ML VIAL IV SCH (08:32)
[2023-10-21] MEDS ORDERED: PIPERACILLIN-TAZOB 0.75 GM in D5W 5% 50 ML IV SCH (10:00)
[2023-10-21] MEDS ORDERED: PIPERACILLIN-TAZOB 2.25GM 50 ML IV SCH (10:00)
[2023-10-21] MEDS: SUCCINYLCHOLINE CHLORIDE 20 MG/ML 10ML VIAL IV ONE ×2 (11:06→11:30)
[2023-10-21] MEDS: ETOMIDATE (2MG/ML) 20ML VIAL IV ONE ×2 (11:06→11:30)
[2023-10-21 11:09] LABS: Chloride 99 mmol/L (98-107); Sodium 137 mmol/L (136-145)
[2023-10-21 11:12] LABS: Anion Gap 17 (5-15); Calcium 8.6 mg/dL (8.7-10.4); Carbon Dioxide 21 mmol/L (20-30)
[2023-10-21 11:16] LABS: Lipase 34 U/L (12-53)
[2023-10-21 11:17] LABS: Alkaline Phosphatase 185 U/L (46-116); Glucose 124 mg/dL (74-106); Magnesium 2.2 mg/dL (1.6-2.6)
[2023-10-21 11:18] LABS: Amylase 238 U/L (30-118)
[2023-10-21 11:19] LABS: Alanine Aminotransferase 11 U/L (7-40); Albumin 4.2 g/dL (3.2-4.8); Aspartate Aminotransferase 18 U/L (13-40); Bilirubin, Total 0.8 mg/dL (0.2-1.0); Total Protein 7.3 g/dL (5.7-8.2)
[2023-10-21 11:21] LABS: Blood Urea Nitrogen 31 mg/dL (9-23)
[2023-10-21] MEDS: PROPOFOL 100 ML IV ONE (11:33)
[2023-10-21] MEDS ORDERED: VANCOMYCIN PER PHARMACY 0 MG IV SCH (11:45)
[2023-10-21] MEDS: SODIUM CHL 0.9% 1000 ML BAG XX ONE (12:00)
[2023-10-21] MEDS: MAGNESIUM SULFATE 1GM/100ML 100 ML IV SCH (12:18)
[2023-10-21 12:24] LABS: Base Excess -4.3 mmol/L (-2.0-2.0)
[2023-10-21] MEDS: NOREPINEPHRINE 8 MG/250ML KIT 250 ML IV SCH (12:30)
[2023-10-21] MEDS: EPOETIN ALFA-EPBX 10,000 UNIT/1ML VIAL SC ONE (15:11)
[2023-10-21] MEDS: VANCOMYCIN 1GM/200ML 200 ML IV ONE (15:23)
[2023-10-21] MEDS: MEROPENEM 500MG IVPB 50 ML IV SCH (16:22)
[2023-10-21] MEDS: PROPOFOL 100 ML IV SCH (17:11)
[2023-10-21] MEDS: NALOXONE HCL 1MG/ML 2ML SYRINGE ONE (18:23)
[2023-10-21] MEDS ORDERED: EPOETIN ALFA-EPBX 10,000 UNIT/1ML VIAL SC ONE (21:00)
[2023-10-22] VITALS (105 sets, daily range): BP systolic 73–138; BP diastolic 35–70; PULSE 64–98; RESP 10–18; TEMP 97.1–98.2; O2SAT 82–100
[2023-10-22 04:16] LABS: Basophils # (auto) 0.1 10 ^3/uL (0-0.2); Basophils % (auto) 0.7 % (0.0-2.0); Eosinophils # (auto) 0.3 10 ^3/uL (0-0.8); Eosinophils % (auto) 1.9 % (0.0-7.0); Hematocrit 32.6 % (41.0-53.0); Hemoglobin 10.5 g/dL (13.5-17.5); Lymphocytes # (auto) 1.2 10 ^3/uL (0.4-5.4); Mean Corpuscular Hemoglobin 30.8 pg (28.0-32.0); Mean Corpuscular Hgb Conc. 32.1 g/dL (32.0-36.0); Mean Corpuscular Volume 95.9 fL (80.0-100.0); Monocytes # (auto) 2.1 10 ^3/uL (0-1.3); Monocytes % (auto) 15.8 % (0.0-12.0); Neutrophils # (auto) 9.6 10 ^3/uL (1.6-8.6); Neutrophils % (auto) 72.6 % (37.0-80.0); White Blood Cell 13.2 10^3/uL (4.4-10.8)
[2023-10-22 04:38] LABS: Albumin 3.8 g/dL (3.2-4.8); Alkaline Phosphatase 170 U/L (46-116); Anion Gap 14 (5-15); Aspartate Aminotransferase 16 U/L (13-40); BUN/Creatinine Ratio 3.5 (10.0-20.0); Blood Urea Nitrogen 18 mg/dL (9-23); Carbon Dioxide 25 mmol/L (20-30); Chloride 97 mmol/L (98-107); Glucose 122 mg/dL (74-106); Potassium 4.2 mmol/L (3.5-5.1); Sodium 136 mmol/L (136-145)
[2023-10-22 04:39] LABS: Alanine Aminotransferase 9 U/L (7-40); Bilirubin, Total 0.8 mg/dL (0.2-1.0); Total Protein 6.7 g/dL (5.7-8.2)
[2023-10-22 07:49] LABS: Base Excess -0.1 mmol/L (-2.0-2.0)
[2023-10-22] MEDS ORDERED: MEROPENEM 500MG IVPB 50 ML IV SCH (10:00)
[2023-10-22 10:22] LABS: Folate (Folic Acid) > 24.00 ng/mL (>5.38)
[2023-10-22 11:29] LABS: INR 1.31 (0.9-1.15); Prothrombin Time 13.5 sec (9.3-11.8)
[2023-10-22] MEDS: fentaNYL Drip 2500mCg/250mlNS 250 ML IV SCH (11:30)
[2023-10-22] MEDS: HEPARIN DRIP/D5W 100UNITS/ML 250 ML IV SCH ×2 (12:14→22:24)
[2023-10-22] MEDS: HEPARIN SODIUM (PORCINE) 5000 UNITS/ML 1ML VIAL IV ONE (12:15)
[2023-10-22 13:04] LABS: Potassium 5.6 mmol/L (3.5-5.1)
[2023-10-22] MEDS ORDERED: CLINIMIX PER PHARMACY 0 ML IV SCH (13:15)
[2023-10-22 14:06] LABS: Magnesium 2.2 mg/dL (1.6-2.6)
[2023-10-22 14:07] LABS: Phosphorus 3.6 mg/dL (2.4-5.1)
[2023-10-22 14:37] LABS: Base Excess 1.4 mmol/L (-2.0-2.0)
[2023-10-22 18:54] LABS: INR 1.42 (0.9-1.15); Prothrombin Time 14.6 sec (9.3-11.8)
[2023-10-22 19:00] LABS: Partial Thromboplastin Time > 139.0 SEC (24.5-34.5)
[2023-10-22] MEDS: AMINO ACID INFUSION IN D10W 1,000 ML IV SCH (21:53)
[2023-10-22] MEDS: BRIMONIDINE 0.2% OPTH Soln 5ml EACHEYE SCH (22:13)
[2023-10-23] VITALS (108 sets, daily range): BP systolic 67–148; BP diastolic 35–69; PULSE 63–98; RESP 11–29; TEMP 96.3–99; O2SAT 100
[2023-10-23 03:54] LABS: Hemoglobin 10.7 g/dL (13.5-17.5); Mean Corpuscular Hemoglobin 31.1 pg (28.0-32.0); Mean Corpuscular Hgb Conc. 32.3 g/dL (32.0-36.0); Red Blood Cells 3.44 10^6/uL (4.5-5.90); Red Cell Distribution Width 18.3 % (11.8-14.3); White Blood Cell 8.7 10^3/uL (4.4-10.8)
[2023-10-23 03:55] LABS: Basophils % (manual) 0 (0.0-2.0); Blast Cells 0; Metamyelocytes % 0; Myelocytes % 0; Promyelocytes % 0; Reactive Lymphocytes 0
[2023-10-23 04:12] LABS: Albumin 3.6 g/dL (3.2-4.8); Alkaline Phosphatase 165 U/L (46-116); Anion Gap 10 (5-15); Aspartate Aminotransferase 18 U/L (13-40); Blood Urea Nitrogen 25 mg/dL (9-23); Calcium 8.5 mg/dL (8.7-10.4); Carbon Dioxide 26 mmol/L (20-30); Chloride 96 mmol/L (98-107); Glucose 130 mg/dL (74-106); Magnesium 2.1 mg/dL (1.6-2.6); Potassium 4.3 mmol/L (3.5-5.1); Sodium 132 mmol/L (136-145)
[2023-10-23 04:13] LABS: Bilirubin, Total 0.6 mg/dL (0.2-1.0); Phosphorus 4.4 mg/dL (2.4-5.1); Total Protein 6.4 g/dL (5.7-8.2)
[2023-10-23 04:14] LABS: Alanine Aminotransferase < 9 U/L (7-40)
[2023-10-23 05:01] LABS: Band Neutrophils % (manual) 1; Eosinophils % (manual) 2 (0-7); Lymphocytes % (manual) 10 (10.0-50.0)
[2023-10-23 05:02] LABS: Anisocytosis Slight; Large Platelets FEW; Monocytes % (manual) 15 (0-12); Ovalocytes FEW; Platelet Estimate Adequate
[2023-10-23] MEDS: SODIUM CHL 0.9% 1000 ML BAG XX ONE (07:00)
[2023-10-23] MEDS ORDERED: DEXTROSE (50%) 50ML SYRG IV SCH (09:15)
[2023-10-23] MEDS: ALBUMIN 25% 100 ML IV PRN (11:00)
[2023-10-23 11:22] LABS: INR 1.27 (0.9-1.15); Prothrombin Time 13.1 sec (9.3-11.8)
[2023-10-23] MEDS: ACCU-CHEK COMFORT CURVE STRIP VI SCH ×2 (11:31→18:04)
[2023-10-23] MEDS: InsuLIN REG 1unit/0.01ml Soln (100units/ml) SC SCH ×2 (11:47→18:07)
[2023-10-23 11:58] LABS: Partial Thromboplastin Time > 139.0 SEC (24.5-34.5)
[2023-10-23] MEDS: HEPARIN DRIP/D5W 100UNITS/ML 250 ML IV SCH ×2 (13:00→20:15)
[2023-10-23] MEDS ORDERED: DEXTROSE (50%) 50ML SYRG IV PRN (14:15)
[2023-10-23 15:22] LABS: Potassium 3.1 mmol/L (3.5-5.1)
[2023-10-23 15:29] LABS: Magnesium 2.1 mg/dL (1.6-2.6)
[2023-10-23 19:10] LABS: INR 1.21 (0.9-1.15); Prothrombin Time 12.5 sec (9.3-11.8)
[2023-10-23 19:17] LABS: Partial Thromboplastin Time > 139.0 SEC (24.5-34.5)
[2023-10-23] MEDS ORDERED: EPOETIN ALFA-EPBX 10,000 UNIT/1ML VIAL SC ONE (21:00)
[2023-10-23] MEDS: AMIODARONE HCL 200 MG TAB PO SCH (21:21)
[2023-10-23] MEDS: DOCUSATE ORAL LIQUID 100 MG/10 ML UD GT SCH (21:21)
[2023-10-24] VITALS (109 sets, daily range): BP systolic 84–140; BP diastolic 38–68; PULSE 62–95; RESP 13–23; TEMP 97.5–98.6; O2SAT 100
[2023-10-24 03:02] LABS: Hematocrit 31.1 % (41.0-53.0); Mean Corpuscular Hemoglobin 30.9 pg (28.0-32.0); Mean Corpuscular Hgb Conc. 32.1 g/dL (32.0-36.0); Mean Corpuscular Volume 96.4 fL (80.0-100.0); Red Blood Cells 3.23 10^6/uL (4.5-5.90)
[2023-10-24 03:05] LABS: Band Neutrophils % (manual) 0; Basophils % (manual) 0 (0.0-2.0); Blast Cells 0; Metamyelocytes % 0; Myelocytes % 0; Promyelocytes % 0; Reactive Lymphocytes 0
[2023-10-24 03:13] LABS: Calcium 9.3 mg/dL (8.7-10.4)
[2023-10-24 03:18] LABS: Magnesium 2.2 mg/dL (1.6-2.6)
[2023-10-24 03:28] LABS: Eosinophils % (manual) 5 (0-7); Lymphocytes % (manual) 14 (10.0-50.0); Monocytes % (manual) 14 (0-12); Platelet Estimate Adequate
[2023-10-24 03:30] LABS: INR 1.11 (0.9-1.15); Prothrombin Time 11.6 sec (9.3-11.8)
[2023-10-24] MEDS: HEPARIN DRIP/D5W 100UNITS/ML 250 ML IV SCH (03:56)
[2023-10-24 05:59] LABS: Chloride 96 mmol/L (98-107); Sodium 136 mmol/L (136-145)
[2023-10-24 06:00] LABS: Anion Gap 11 (5-15); Carbon Dioxide 29 mmol/L (20-30)
[2023-10-24 06:01] LABS: Calcium 9.2 mg/dL (8.5-10.1)
[2023-10-24 06:05] LABS: BUN/Creatinine Ratio 3.5 (10.0-20.0); Blood Urea Nitrogen 14 mg/dL (9-23); Glucose 128 mg/dL (74-106)
[2023-10-24 08:16] LABS: Base Excess 2.4 mmol/L (-2.0-2.0)
[2023-10-24 11:13] LABS: INR 1.12 (0.9-1.15); Prothrombin Time 11.7 sec (9.3-11.8)
[2023-10-24 11:16] LABS: Partial Thromboplastin Time 102.3 SEC (24.5-34.5)
[2023-10-24] MEDS: APIXABAN 2.5 MG TAB PO SCH (21:44)
[2023-10-24] MEDS ORDERED: APIXABAN 5 MG TAB PO SCH ×2 (22:00)
[2023-10-25] VITALS (105 sets, daily range): BP systolic 75–128; BP diastolic 38–65; PULSE 60–96; RESP 12–29; TEMP 96.6–99; O2SAT 92–100
[2023-10-25 04:07] LABS: Hematocrit 28.6 % (41.0-53.0); Hemoglobin 9.4 g/dL (13.5-17.5); Mean Corpuscular Hemoglobin 30.9 pg (28.0-32.0); Mean Corpuscular Hgb Conc. 32.7 g/dL (32.0-36.0); Mean Corpuscular Volume 94.7 fL (80.0-100.0); Red Blood Cells 3.02 10^6/uL (4.5-5.90); Red Cell Distribution Width 18.3 % (11.8-14.3); White Blood Cell 7.7 10^3/uL (4.4-10.8)
[2023-10-25 04:16] LABS: Chloride 97 mmol/L (98-107); Potassium 4.2 mmol/L (3.5-5.1); Sodium 135 mmol/L (136-145)
[2023-10-25 04:17] LABS: Anion Gap 10 (5-15); Calcium 8.7 mg/dL (8.5-10.1); Carbon Dioxide 28 mmol/L (20-30)
[2023-10-25 04:22] LABS: BUN/Creatinine Ratio 4.3 (10.0-20.0); Blood Urea Nitrogen 23 mg/dL (9-23); Glucose 96 mg/dL (74-106)
[2023-10-25 04:25] LABS: Band Neutrophils % (manual) 0; Basophils % (manual) 0 (0.0-2.0); Blast Cells 0; Metamyelocytes % 0; Myelocytes % 0; Promyelocytes % 0; Reactive Lymphocytes 0
[2023-10-25 04:57] LABS: Eosinophils % (manual) 1 (0-7); Hypochromia Slight; Lymphocytes % (manual) 15 (10.0-50.0); Monocytes % (manual) 16 (0-12); Platelet Estimate Adequate
[2023-10-25 06:45] LABS: Base Excess 3.1 mmol/L (-2.0-2.0)
[2023-10-25] MEDS: SODIUM CHL 0.9% 1000 ML BAG XX ONE (13:30)
[2023-10-25] MEDS: Nepro With Carb Steady 1 Liter Bottle GT SCH (16:00)
[2023-10-26] VITALS (108 sets, daily range): BP systolic 78–142; BP diastolic 38–72; PULSE 63–107; RESP 14–26; TEMP 98.4–99; O2SAT 99–100
[2023-10-26 04:13] LABS: Hemoglobin 9.7 g/dL (13.5-17.5); Mean Corpuscular Hemoglobin 30.8 pg (28.0-32.0); Mean Corpuscular Hgb Conc. 32.5 g/dL (32.0-36.0); Mean Corpuscular Volume 94.9 fL (80.0-100.0); Red Blood Cells 3.16 10^6/uL (4.5-5.90); Red Cell Distribution Width 18.7 % (11.8-14.3); White Blood Cell 8.7 10^3/uL (4.4-10.8)
[2023-10-26 04:17] LABS: Band Neutrophils % (manual) 0; Basophils % (manual) 0 (0.0-2.0); Blast Cells 0; Metamyelocytes % 0; Myelocytes % 0; Promyelocytes % 0; Reactive Lymphocytes 0
[2023-10-26 04:32] LABS: Alanine Aminotransferase 10 U/L (7-40); Albumin 3.8 g/dL (3.2-4.8); Alkaline Phosphatase 163 U/L (46-116); Anion Gap 7 (5-15); Aspartate Aminotransferase 15 U/L (13-40); BUN/Creatinine Ratio 4.7 (10.0-20.0); Bilirubin, Total 0.5 mg/dL (0.2-1.0); Blood Urea Nitrogen 19 mg/dL (9-23); Calcium 8.7 mg/dL (8.5-10.1); Carbon Dioxide 31 mmol/L (20-30); Chloride 100 mmol/L (98-107); Glucose 155 mg/dL (74-106); Potassium 4.1 mmol/L (3.5-5.1); Sodium 138 mmol/L (136-145); Total Protein 6.2 g/dL (5.7-8.2)
[2023-10-26 04:37] LABS: Eosinophils % (manual) 3 (0-7); Lymphocytes % (manual) 10 (10.0-50.0); Monocytes % (manual) 18 (0-12); Platelet Estimate Adequate
[2023-10-26 04:38] LABS: Hypochromia Slight
[2023-10-26 08:26] LABS: Base Excess 5.1 mmol/L (-2.0-2.0)
[2023-10-27] VITALS (90 sets, daily range): BP systolic 98–154; BP diastolic 39–77; PULSE 58–109; RESP 11–30; TEMP 97.9–99; O2SAT 99–100
[2023-10-27 04:53] LABS: Hematocrit 29.1 % (41.0-53.0); Hemoglobin 9.5 g/dL (13.5-17.5); Mean Corpuscular Hemoglobin 30.9 pg (28.0-32.0); Mean Corpuscular Hgb Conc. 32.6 g/dL (32.0-36.0); Mean Corpuscular Volume 94.8 fL (80.0-100.0); Red Blood Cells 3.07 10^6/uL (4.5-5.90); Red Cell Distribution Width 19.1 % (11.8-14.3); White Blood Cell 9.5 10^3/uL (4.4-10.8)
[2023-10-27 04:57] LABS: Band Neutrophils % (manual) 0; Basophils % (manual) 0 (0.0-2.0); Blast Cells 0; Metamyelocytes % 0; Myelocytes % 0; Promyelocytes % 0; Reactive Lymphocytes 0
[2023-10-27 05:17] LABS: Alkaline Phosphatase 141 U/L (46-116); Anion Gap 10 (5-15); BUN/Creatinine Ratio 4.4 (10.0-20.0); Blood Urea Nitrogen 25 mg/dL (9-23); Calcium 9.1 mg/dL (8.7-10.4); Carbon Dioxide 28 mmol/L (20-30); Chloride 100 mmol/L (98-107); Glucose 125 mg/dL (74-106); Potassium 3.9 mmol/L (3.5-5.1); Sodium 138 mmol/L (136-145)
[2023-10-27 05:18] LABS: Alanine Aminotransferase < 9 U/L (7-40); Albumin 3.7 g/dL (3.2-4.8); Aspartate Aminotransferase 15 U/L (13-40); Bilirubin, Total 0.5 mg/dL (0.2-1.0); Total Protein 6.5 g/dL (5.7-8.2)
[2023-10-27 05:51] LABS: Eosinophils % (manual) 9 (0-7); Lymphocytes % (manual) 13 (10.0-50.0); Monocytes % (manual) 17 (0-12); Platelet Estimate Adequate
[2023-10-27 07:37] LABS: Base Excess 2.9 mmol/L (-2.0-2.0)
[2023-10-27 12:49] LABS: Base Excess 3.3 mmol/L (-2.0-2.0)
[2023-10-28] VITALS (33 sets, daily range): BP systolic 108–153; BP diastolic 47–80; PULSE 68–108; RESP 15–23; TEMP 97.9–99.3; O2SAT 90–100
[2023-10-28 07:04] LABS: Hematocrit 29.3 % (41.0-53.0); Hemoglobin 9.5 g/dL (13.5-17.5); Mean Corpuscular Hemoglobin 31.2 pg (28.0-32.0); Mean Corpuscular Hgb Conc. 32.3 g/dL (32.0-36.0); Mean Corpuscular Volume 96.4 fL (80.0-100.0); Red Blood Cells 3.04 10^6/uL (4.5-5.90); Red Cell Distribution Width 19.3 % (11.8-14.3); White Blood Cell 8.7 10^3/uL (4.4-10.8)
[2023-10-28] MEDS: ERGOCALCIFEROL 50,000 UNIT(1.25MG) CAP PO SCH (07:10)
[2023-10-28 07:36] LABS: Albumin 3.8 g/dL (3.2-4.8); Alkaline Phosphatase 135 U/L (46-116); Anion Gap 10 (5-15); Aspartate Aminotransferase 23 U/L (13-40); BUN/Creatinine Ratio 4.7 (10.0-20.0); Calcium 9.2 mg/dL (8.5-10.1); Carbon Dioxide 29 mmol/L (20-30); Chloride 101 mmol/L (98-107); Cholesterol 115 mg/dL (< 200); Glucose 84 mg/dL (74-106); HDL Cholesterol 37 mg/dL (40-59); LDL Cholesterol 57 mg/dL (< 100); Potassium 4.2 mmol/L (3.5-5.1); Sodium 140 mmol/L (136-145); Triglycerides 93 mg/dL (< 150)
[2023-10-28 07:37] LABS: Bilirubin, Total 0.5 mg/dL (0.2-1.0); Phosphorus 4.7 mg/dL (2.4-5.1); Total Protein 6.2 g/dL (5.7-8.2)
[2023-10-28 07:38] LABS: % Iron Saturation 20.8 % (20-55)
[2023-10-28 07:40] LABS: Alanine Aminotransferase < 9 U/L (7-40); Blood Urea Nitrogen 36 mg/dL (9-23)
[2023-10-28 07:50] LABS: Magnesium 2.4 mg/dL (1.6-2.6)
[2023-10-28 08:22] LABS: Band Neutrophils % (manual) 0; Basophils % (manual) 0 (0.0-2.0); Blast Cells 0; INR 1.19 (0.9-1.15); Metamyelocytes % 0; Myelocytes % 0; Partial Thromboplastin Time 60.3 SEC (24.5-34.5); Promyelocytes % 0; Prothrombin Time 12.4 sec (9.3-11.8); Reactive Lymphocytes 0
[2023-10-28] MEDS: IRON SUCROSE COMPLEX 100 ML IV SCH (12:00)
[2023-10-28] MEDS: IPRATROPIUM BROM 0.5 MG/2.5ML INH SOL NEB SCH (12:14)
[2023-10-28] MEDS: BUDESONIDE (INHALATION) 0.5 MG/2 ML NEB NEB SCH (12:14)
[2023-10-28 14:54] LABS: Eosinophils % (manual) 4 (0-7); Lymphocytes % (manual) 15 (10.0-50.0); Monocytes % (manual) 19 (0-12)
[2023-10-28 14:55] LABS: Platelet Estimate Adequate
[2023-10-29] VITALS (23 sets, daily range): BP systolic 114–145; BP diastolic 60–75; PULSE 66–104; RESP 14–28; TEMP 97.8–99.5; O2SAT 94–100
[2023-10-29 03:14] LABS: Hematocrit 28.8 % (41.0-53.0); Hemoglobin 9.2 g/dL (13.5-17.5); Mean Corpuscular Hemoglobin 30.4 pg (28.0-32.0); Mean Corpuscular Hgb Conc. 32.1 g/dL (32.0-36.0); Mean Corpuscular Volume 94.8 fL (80.0-100.0); Red Blood Cells 3.03 10^6/uL (4.5-5.90); Red Cell Distribution Width 18.9 % (11.8-14.3); White Blood Cell 8.5 10^3/uL (4.4-10.8)
[2023-10-29 03:24] LABS: Basophils % (manual) 0 (0.0-2.0); Blast Cells 0; Metamyelocytes % 0; Myelocytes % 0; Promyelocytes % 0; Reactive Lymphocytes 0
[2023-10-29 03:29] LABS: Alanine Aminotransferase < 9 U/L (7-40); Albumin 3.7 g/dL (3.2-4.8); Alkaline Phosphatase 135 U/L (46-116); Anion Gap 9 (5-15); Aspartate Aminotransferase 24 U/L (13-40); BUN/Creatinine Ratio 4.6 (10.0-20.0); Bilirubin, Total 0.5 mg/dL (0.2-1.0); Blood Urea Nitrogen 29 mg/dL (9-23); Carbon Dioxide 29 mmol/L (20-30); Chloride 102 mmol/L (98-107); Glucose 95 mg/dL (74-106); Potassium 4.2 mmol/L (3.5-5.1); Sodium 140 mmol/L (136-145); Total Protein 6.6 g/dL (5.7-8.2)
[2023-10-29 03:51] LABS: Band Neutrophils % (manual) 1; Eosinophils % (manual) 1 (0-7); Lymphocytes % (manual) 15 (10.0-50.0)
[2023-10-29 03:52] LABS: Anisocytosis Slight; Monocytes % (manual) 23 (0-12); Platelet Estimate Adequate
[2023-10-29] MEDS: ALBUTEROL SULF 2.5 MG/0.5ML(0.5%) NEB SOLN NEB PRN (06:24)
[2023-10-29] MEDS: POLYETHYLENE GLYCOL 17 GM PWDR PO PRN (10:11)
[2023-10-30] VITALS (17 sets, daily range): BP systolic 87–137; BP diastolic 41–67; PULSE 73–103; RESP 15–20; TEMP 97.8–98.4; O2SAT 95–100
[2023-10-30] MEDS ORDERED: SODIUM CHL 0.9% 1000 ML BAG XX ONE (07:00)
[2023-10-30 07:13] LABS: Hematocrit 29.4 % (41.0-53.0); Hemoglobin 9.5 g/dL (13.5-17.5); Mean Corpuscular Hemoglobin 30.6 pg (28.0-32.0); Mean Corpuscular Hgb Conc. 32.3 g/dL (32.0-36.0); Mean Corpuscular Volume 94.8 fL (80.0-100.0); Red Cell Distribution Width 18.8 % (11.8-14.3); White Blood Cell 7.7 10^3/uL (4.4-10.8)
[2023-10-30 07:14] LABS: Albumin 3.8 g/dL (3.2-4.8); Alkaline Phosphatase 136 U/L (46-116); Anion Gap 12 (5-15); Aspartate Aminotransferase 24 U/L (13-40); BUN/Creatinine Ratio 4.9 (10.0-20.0); Bilirubin, Total 0.5 mg/dL (0.2-1.0); Calcium 9.1 mg/dL (8.5-10.1); Carbon Dioxide 29 mmol/L (20-30); Chloride 101 mmol/L (98-107); Glucose 93 mg/dL (74-106); Potassium 4.6 mmol/L (3.5-5.1); Sodium 142 mmol/L (136-145); Total Protein 6.4 g/dL (5.7-8.2)
[2023-10-30 07:17] LABS: Alanine Aminotransferase < 9 U/L (7-40); Blood Urea Nitrogen 41 mg/dL (9-23)
[2023-10-30 07:22] LABS: Basophils % (manual) 0 (0.0-2.0); Blast Cells 0; Metamyelocytes % 0; Myelocytes % 0; Promyelocytes % 0; Reactive Lymphocytes 0
[2023-10-30 11:55] LABS: Band Neutrophils % (manual) 2; Eosinophils % (manual) 10 (0-7); Lymphocytes % (manual) 13 (10.0-50.0); Monocytes % (manual) 28 (0-12)
[2023-10-30 11:57] LABS: Platelet Estimate Adequate
[2023-10-30] MEDS: EPOETIN ALFA-EPBX 10,000 UNIT/1ML VIAL SC ONE (21:31)
[2023-10-30] MEDS: ALBUMIN 5% 250 ML IV ONE (22:29)
[2023-10-31] VITALS (14 sets, daily range): BP systolic 90–112; BP diastolic 48–61; PULSE 76–93; RESP 14–20; TEMP 97.7–98.4; O2SAT 99–100
[2023-10-31] MEDS ORDERED: PHENYLEPHRINE IV 250 ML IV SCH (01:15)
[2023-10-31 06:11] LABS: Hematocrit 28.8 % (41.0-53.0); Hemoglobin 9.2 g/dL (13.5-17.5); Mean Corpuscular Hemoglobin 30.4 pg (28.0-32.0); Red Blood Cells 3.03 10^6/uL (4.5-5.90); Red Cell Distribution Width 18.9 % (11.8-14.3); White Blood Cell 7.3 10^3/uL (4.4-10.8)
[2023-10-31 06:17] LABS: Chloride 101 mmol/L (98-107); Potassium 4.3 mmol/L (3.5-5.1); Sodium 141 mmol/L (136-145)
[2023-10-31 06:18] LABS: Anion Gap 8 (5-15); Calcium 8.9 mg/dL (8.5-10.1); Carbon Dioxide 32 mmol/L (20-30)
[2023-10-31 06:22] LABS: Band Neutrophils % (manual) 0; Basophils % (manual) 0 (0.0-2.0); Blast Cells 0; Metamyelocytes % 0; Myelocytes % 0; Promyelocytes % 0; Reactive Lymphocytes 0
[2023-10-31 06:23] LABS: BUN/Creatinine Ratio 5.1 (10.0-20.0); Blood Urea Nitrogen 35 mg/dL (9-23); Glucose 92 mg/dL (74-106)
[2023-10-31 07:49] LABS: Eosinophils % (manual) 3 (0-7); Lymphocytes % (manual) 17 (10.0-50.0); Monocytes % (manual) 18 (0-12); Platelet Estimate Adequate
[2023-10-31 07:50] LABS: RBC Morphology Normal
[2023-10-31] MEDS ORDERED: MORPHINE SULFATE INJ 2 MG/ml SYRG IV PRN (18:15)
[2023-11-01] VITALS (10 sets, daily range): BP systolic 99–128; BP diastolic 54–74; PULSE 76–92; RESP 15–19; TEMP 97.6–98.2; O2SAT 97–100
[2023-11-01 06:40] LABS: Calcium 9.1 mg/dL (8.5-10.1); Chloride 100 mmol/L (98-107); Potassium 4.3 mmol/L (3.5-5.1); Sodium 137 mmol/L (136-145)
[2023-11-01 06:41] LABS: Anion Gap 12 (5-15); Carbon Dioxide 25 mmol/L (20-30)
[2023-11-01 06:43] LABS: Basophils # (auto) 0.1 10 ^3/uL (0-0.2); Basophils % (auto) 0.9 % (0.0-2.0); Eosinophils # (auto) 0.5 10 ^3/uL (0-0.8); Eosinophils % (auto) 5.6 % (0.0-7.0); Hematocrit 28.8 % (41.0-53.0); Hemoglobin 9.2 g/dL (13.5-17.5); Lymphocytes # (auto) 1.5 10 ^3/uL (0.4-5.4); Lymphocytes % (auto) 18.3 % (10.0-50.0); Mean Corpuscular Hemoglobin 31.4 pg (28.0-32.0); Mean Corpuscular Hgb Conc. 31.8 g/dL (32.0-36.0); Mean Corpuscular Volume 98.8 fL (80.0-100.0); Monocytes # (auto) 1.4 10 ^3/uL (0-1.3); Monocytes % (auto) 17.1 % (0.0-12.0); Neutrophils # (auto) 4.7 10 ^3/uL (1.6-8.6); Neutrophils % (auto) 58.1 % (37.0-80.0); Nucleated Red Blood Cells % 0.1 %; Red Blood Cells 2.92 10^6/uL (4.5-5.90); Red Cell Distribution Width 19.3 % (11.8-14.3); White Blood Cell 8.1 10^3/uL (4.4-10.8)
[2023-11-01 06:46] LABS: BUN/Creatinine Ratio 4.5 (10.0-20.0); Blood Urea Nitrogen 37 mg/dL (9-23); Glucose 85 mg/dL (74-106)
[2023-11-01] MEDS ORDERED: SODIUM CHL 0.9% 1000 ML BAG XX ONE (07:00)
[2023-11-01] MEDS ORDERED: EPOETIN ALFA-EPBX 10,000 UNIT/1ML VIAL SC ONE (21:00)
== END 2023-11-01 18:25 | disposition home health service (06) | DRG 870 ==
LOC: ER 05:45 → EDBD 05:45 → OVERFLOW 09:11 → TELE-EAST 10-20 18:34 → ICU WEST 10-21 11:35 → TELE-WESTW 10-29 13:50
PROVIDERS: ADMIT Internal Medicine; ATTEND Emergency Medicine
PROC: 5A1D70Z Performance of Urinary Filtration, Intermittent, Less than 6 Hours Per Day (ICD-10-PCS; 2023-10-19)
PROC: 5A1955Z Respiratory Ventilation, Greater than 96 Consecutive Hours (ICD-10-PCS; principal; 2023-10-21)
PROC: 0BH17EZ Insertion of Endotracheal Airway into Trachea, Via Natural or Artificial Opening (ICD-10-PCS; 2023-10-21)
PROC: 5A1D70Z Performance of Urinary Filtration, Intermittent, Less than 6 Hours Per Day (ICD-10-PCS; 2023-10-21)
PROC: 5A1D70Z Performance of Urinary Filtration, Intermittent, Less than 6 Hours Per Day (ICD-10-PCS; 2023-10-23)
PROC: 5A1D70Z Performance of Urinary Filtration, Intermittent, Less than 6 Hours Per Day (ICD-10-PCS; 2023-10-25)
PROC: 5A1D70Z Performance of Urinary Filtration, Intermittent, Less than 6 Hours Per Day (ICD-10-PCS; 2023-10-28)
PROC: 5A1D70Z Performance of Urinary Filtration, Intermittent, Less than 6 Hours Per Day (ICD-10-PCS; 2023-10-30)
PROC: 5A1D70Z Performance of Urinary Filtration, Intermittent, Less than 6 Hours Per Day (ICD-10-PCS; 2023-11-01)
DX: A41.89 Other specified sepsis (principal); G92.8 Other toxic encephalopathy; I50.33 Acute on chronic diastolic (congestive) heart failure; N18.6 End stage renal disease; R57.0 Cardiogenic shock; R65.21 Severe sepsis with septic shock; J96.21 Acute and chronic respiratory failure with hypoxia; J15.0 Pneumonia due to Klebsiella pneumoniae; I13.2 Hypertensive heart and chronic kidney disease with heart failure and with stage 5 chronic kidney disease, or end stage renal disease; I47.20 Ventricular tachycardia, unspecified; J44.1 Chronic obstructive pulmonary disease with (acute) exacerbation; J44.0 Chronic obstructive pulmonary disease with (acute) lower respiratory infection; K81.0 Acute cholecystitis; Z99.2 Dependence on renal dialysis; E11.22 Type 2 diabetes mellitus with diabetic chronic kidney disease; E21.1 Secondary hyperparathyroidism, not elsewhere classified; I48.0 Paroxysmal atrial fibrillation; I27.20 Pulmonary hypertension, unspecified; E78.5 Hyperlipidemia, unspecified; D63.1 Anemia in chronic kidney disease; Z20.822 Contact with and (suspected) exposure to COVID-19; I49.3 Ventricular premature depolarization; E55.9 Vitamin D deficiency, unspecified; Z88.8 Allergy status to other drugs, medicaments and biological substances; Z79.899 Other long term (current) drug therapy; Z79.1 Long term (current) use of non-steroidal anti-inflammatories (NSAID); Z99.81 Dependence on supplemental oxygen
CPT/HCPCS: 36415; 36556; 36600; 70450; 70551; 71045; 71260; 74177; 76705; 80048; 80053; 80061; 80202; 80307; 80320; 82140; 82150; 82306; 82310; 82607; 82728; 82746; 82805; 82962; 83036; 83540; 83550; 83605; 83615; 83690; 83735; 83880; 84100; 84132; 84436; 84443; 84480; 84484; 85007; 85025; 85027; 85045; 85610; 85652; 85730; 86141; 87040; 87070; 87077; 87081; 87186; 87205; 87340; 87426; 87804; 90935; 92610; 93005; 93306; 93886; 93970; 94002; 94003; 94640; 95819; 96361; 96365; 96375; 97110; 97116; 97163; 99291; G0378; J0330; J1642; J1756; J1815; J2185; J2405; J2704; P9047

== ENCOUNTER 2024-01-25 10:08 | Inpatient (IN) | payer MEDICARE, OTHER ==
[~2024-01-25] VITALS: Ht 170.2 cm; Wt 68.4 kg
[2024-01-25 11:12] LABS: Basophils # (auto) 0 10 ^3/uL (0-0.2); Basophils % (auto) 0.7 % (0.0-2.0); Eosinophils # (auto) 0.1 10 ^3/uL (0-0.8); Eosinophils % (auto) 1.6 % (0.0-7.0); Hematocrit 31.2 % (41.0-53.0); Hemoglobin 10.3 g/dL (13.5-17.5); Lymphocytes # (auto) 1.3 10 ^3/uL (0.4-5.4); Lymphocytes % (auto) 19.5 % (10.0-50.0); Mean Corpuscular Hemoglobin 31.4 pg (28.0-32.0); Mean Corpuscular Hgb Conc. 32.9 g/dL (32.0-36.0); Mean Corpuscular Volume 95.6 fL (80.0-100.0); Monocytes # (auto) 1.2 10 ^3/uL (0-1.3); Monocytes % (auto) 17.6 % (0.0-12.0); Neutrophils % (auto) 60.6 % (37.0-80.0); Nucleated Red Blood Cells % 0.2 %; Red Blood Cells 3.26 10^6/uL (4.5-5.90); Red Cell Distribution Width 17.8 % (11.8-14.3); White Blood Cell 6.6 10^3/uL (4.4-10.8)
[2024-01-25 11:33] LABS: Alanine Aminotransferase 13 U/L (7-40); Albumin 4.4 g/dL (3.2-4.8); Alkaline Phosphatase 191 U/L (46-116); Anion Gap 8 (5-15); Aspartate Aminotransferase 16 U/L (13-40); BUN/Creatinine Ratio 3.1 (10.0-20.0); Blood Urea Nitrogen 6 mg/dL (9-23); Calcium 9.3 mg/dL (8.7-10.4); Carbon Dioxide 31 mmol/L (20-30); Chloride 100 mmol/L (98-107); Glucose 91 mg/dL (74-106); Lipase 66 U/L (12-53); Potassium 3.9 mmol/L (3.5-5.1); Sodium 139 mmol/L (136-145)
[2024-01-25 11:34] LABS: Bilirubin, Total 0.6 mg/dL (0.2-1.0); Total Protein 7.4 g/dL (5.7-8.2)
[2024-01-25 15:38] VITALS: PULSE 80; RESP 17; O2SAT 96
[2024-01-25] MEDS ORDERED: ONDANSETRON HCL 4 MG/2 ML VIAL IV PRN (16:15)
[2024-01-25] MEDS ORDERED: NITROGLYCERIN 0.4 MG SL TAB SL PRN (16:15)
[2024-01-25] MEDS ORDERED: ACETAMINOPHEN 325 MG TAB PO PRN (16:15)
[2024-01-25] MEDS ORDERED: DOCUSATE SOD 100 MG CAP PO PRN (16:15)
[2024-01-25] MEDS ORDERED: APIXABAN 2.5 MG TAB PO PRN (16:15)
[2024-01-25] MEDS ORDERED: MORPHINE SULFATE INJ 2 MG/ml SYRG IV PRN (16:15)
[2024-01-25] MEDS ORDERED: MELATONIN 5 MG TAB PO PRN (17:00)
[2024-01-25] MEDS: HYDROcodone-ACET 5/325MG TAB PO PRN (17:46)
[2024-01-25] MEDS ORDERED: SIMETHICONE 80 MG CHEWABLE TABLET PO PRN (18:00)
[2024-01-25] MEDS: SEVELAMER 800 MG TAB PO SCH (18:42)
[2024-01-25 20:00] VITALS: PULSE 84; RESP 19; O2SAT 99
[2024-01-25] MEDS ORDERED: DEXTROSE (50%) 50ML SYRG IV PRN (20:00)
[2024-01-25 20:51] LABS: Magnesium 1.9 mg/dL (1.6-2.6)
[2024-01-25 20:53] LABS: Phosphorus 2.3 mg/dL (2.4-5.1)
[2024-01-25] MEDS: BRIMONIDINE 0.15% OP SCH (22:32)
[2024-01-25] MEDS: SODIUM CHLOR 0.9% PF (SALINE LOCK) 10ML VIAL/SYR IV SCH (22:32)
[2024-01-25] MEDS: EYE OP SCH (22:32)
[2024-01-25] MEDS: ACCU-CHEK COMFORT CURVE STRIP VI SCH (22:32)
[2024-01-25] MEDS: LATANOPROST 0.005 % OPTH(EYE) SOL 2.5ML EACHEYE SCH (22:33)
[2024-01-25] MEDS: InsuLIN REG 1unit/0.01ml Soln (100units/ml) SC SCH (22:35)
[2024-01-26] VITALS (9 sets, daily range): BP systolic 99–109; BP diastolic 41–60; PULSE 64–100; RESP 16–66; TEMP 97.5–98; O2SAT 66–100
[2024-01-26 05:46] LABS: Hemoglobin 9.4 g/dL (13.5-17.5); Mean Corpuscular Hemoglobin 31.9 pg (28.0-32.0); Mean Corpuscular Hgb Conc. 33.4 g/dL (32.0-36.0); Mean Corpuscular Volume 95.5 fL (80.0-100.0); Red Blood Cells 2.93 10^6/uL (4.5-5.90); White Blood Cell 6.7 10^3/uL (4.4-10.8)
[2024-01-26] MEDS: InsuLIN REG 1unit/0.01ml Soln (100units/ml) SC SCH (05:47)
[2024-01-26 05:52] LABS: Band Neutrophils % (manual) 0; Basophils % (manual) 0 (0.0-2.0); Blast Cells 0; Metamyelocytes % 0; Myelocytes % 0; Promyelocytes % 0; Reactive Lymphocytes 0
[2024-01-26 06:24] LABS: Alkaline Phosphatase 148 U/L (46-116); Anion Gap 6 (5-15); BUN/Creatinine Ratio 4.6 (10.0-20.0); Blood Urea Nitrogen 16 mg/dL (9-23); Calcium 8.9 mg/dL (8.5-10.1); Carbon Dioxide 32 mmol/L (20-30); Chloride 100 mmol/L (98-107); Glucose 85 mg/dL (74-106); Potassium 4.5 mmol/L (3.5-5.1); Sodium 138 mmol/L (136-145)
[2024-01-26 06:25] LABS: Alanine Aminotransferase < 9 U/L (7-40); Albumin 3.9 g/dL (3.2-4.8); Aspartate Aminotransferase 13 U/L (13-40)
[2024-01-26 06:26] LABS: Bilirubin, Total 0.5 mg/dL (0.2-1.0); Total Protein 6.4 g/dL (5.7-8.2)
[2024-01-26 06:51] LABS: Eosinophils % (manual) 2 (0-7); Lymphocytes % (manual) 17 (10.0-50.0); Monocytes % (manual) 19 (0-12)
[2024-01-26 06:52] LABS: Platelet Estimate Adequate
[2024-01-26] MEDS: MONTELUKAST SODIUM 10 MG TAB PO SCH (09:18)
[2024-01-26] MEDS: ASPirin-EC 81 mg tab PO SCH (09:18)
[2024-01-26] MEDS: B-COMPLEX W/ C & FOLIC ACID(NEPHROVITE TAB) PO SCH (09:18)
[2024-01-26] MEDS: METOPROLOL SUCCINATE XL 50 MG TAB PO SCH (09:19)
[2024-01-26] MEDS: NIFEdipine ER 30 MG TAB PO SCH (09:19)
[2024-01-26] MEDS: FLUTICASONE PROP NASAL SPR 0.05 % (50MCG) 16GM EACHNOSTRI SCH (10:00)
[2024-01-26] MEDS: MIDODRINE HCL 10 MG TAB PO SCH (11:58)
[2024-01-27 01:00] VITALS: BP 114/56; PULSE 65; RESP 18; TEMP 97.6; O2SAT 100
[2024-01-27 05:00] VITALS: BP 114/49; PULSE 62; RESP 18; TEMP 97.8; O2SAT 100
[2024-01-27 08:00] VITALS: PULSE 72
[2024-01-27 09:00] VITALS: BP 119/57; PULSE 64; RESP 18; TEMP 97.5; O2SAT 100
[2024-01-27 13:57] VITALS: BP 113/56; PULSE 76; RESP 18; TEMP 97.9; O2SAT 100
[2024-01-27 14:55] VITALS: BP 113/56; PULSE 76; RESP 18; TEMP 97.9; O2SAT 100
[2024-01-28] MEDS ORDERED: SODIUM CHL 0.9% 1000 ML BAG XX ONE (07:00)
[2024-01-28] MEDS ORDERED: CINACALCET HYDROCHLORIDE 30 MG TAB PO SCH (10:00)
[2024-01-28] MEDS ORDERED: EPOETIN ALFA-EPBX 10,000 UNIT/1ML VIAL SC ONE (21:00)
== END 2024-01-27 14:25 | disposition home or self-care (01) | DRG 70 ==
LOC: EDUNIT# 10:08 → EDBD 10:08 → ER 10:08 → TELE 16:12 → TELE-WESTW 23:43
PROVIDERS: ADMIT Nurse Practitioner Family; ATTEND Nurse Practitioner Family
DX: G93.41 Metabolic encephalopathy (principal); N18.6 End stage renal disease; I13.2 Hypertensive heart and chronic kidney disease with heart failure and with stage 5 chronic kidney disease, or end stage renal disease; I50.32 Chronic diastolic (congestive) heart failure; D63.1 Anemia in chronic kidney disease; E11.22 Type 2 diabetes mellitus with diabetic chronic kidney disease; E78.00 Pure hypercholesterolemia, unspecified; I48.91 Unspecified atrial fibrillation; Z79.01 Long term (current) use of anticoagulants; Z99.2 Dependence on renal dialysis; Z83.3 Family history of diabetes mellitus; Z82.49 Family history of ischemic heart disease and other diseases of the circulatory system
CPT/HCPCS: 36415; 70450; 71045; 80053; 82140; 82306; 82962; 83605; 83690; 83735; 83880; 83970; 84100; 84484; 85007; 85025; 85027; 87081; G0378; J1815

== ENCOUNTER 2024-03-20 06:52 | Inpatient (IN) | payer OTHER ==
[~2024-03-20] VITALS: Ht 177.8 cm; Wt 65.9 kg
[2024-03-20 07:10] VITALS: PULSE 86; RESP 16; O2SAT 98
[2024-03-20 07:41] LABS: Basophils # (auto) 0.1 10 ^3/uL (0-0.2); Basophils % (auto) 0.7 % (0.0-2.0); Eosinophils # (auto) 0.1 10 ^3/uL (0-0.8); Eosinophils % (auto) 1.3 % (0.0-7.0); Hematocrit 38.8 % (41.0-53.0); Hemoglobin 12.7 g/dL (13.5-17.5); Lymphocytes # (auto) 1.5 10 ^3/uL (0.4-5.4); Lymphocytes % (auto) 19.7 % (10.0-50.0); Mean Corpuscular Hemoglobin 32.4 pg (28.0-32.0); Mean Corpuscular Hgb Conc. 32.7 g/dL (32.0-36.0); Mean Corpuscular Volume 99.1 fL (80.0-100.0); Monocytes # (auto) 1.3 10 ^3/uL (0-1.3); Monocytes % (auto) 17.7 % (0.0-12.0); Neutrophils # (auto) 4.6 10 ^3/uL (1.6-8.6); Neutrophils % (auto) 60.6 % (37.0-80.0); Nucleated Red Blood Cells % 0.1 %; Platelet Count (auto) 161 10^3/uL (140-450); Red Blood Cells 3.91 10^6/uL (4.5-5.90); Red Cell Distribution Width 18.7 % (11.8-14.3); White Blood Cell 7.6 10^3/uL (4.4-10.8)
[2024-03-20 07:55] VITALS: PULSE 77; RESP 16; O2SAT 100
[2024-03-20 08:00] LABS: Alanine Aminotransferase 11 U/L (7-40); Albumin 4.3 g/dL (3.2-4.8); Alkaline Phosphatase 174 U/L (46-116); Anion Gap 12 (5-15); Aspartate Aminotransferase 10 U/L (13-40); BUN/Creatinine Ratio 4.1 (10.0-20.0); Bilirubin, Total 0.7 mg/dL (0.2-1.0); Blood Alcohol < 3.0 mg/dL (<10); Blood Urea Nitrogen 23 mg/dL (9-23); Calcium 8.8 mg/dL (8.7-10.4); Carbon Dioxide 27 mmol/L (20-30); Chloride 103 mmol/L (98-107); Glucose 138 mg/dL (74-106); Magnesium 2.1 mg/dL (1.6-2.6); Potassium 4.5 mmol/L (3.5-5.1); Sodium 142 mmol/L (136-145)
[2024-03-20 08:05] LABS: Lactic Acid w/Reflex 3.1 mmol/L (0.4-2.0)
[2024-03-20] MEDS: SODIUM CHLORIDE 0.9% 500 ML IV ONE (10:01)
[2024-03-20] MEDS ORDERED: cefTRIAXone SOD 1,000 MG VL IV ONE (13:30)
[2024-03-20] MEDS: cefTRIAXone 1GM/50ML D5W 50 ML IV ONE (13:51)
[2024-03-20] MEDS ORDERED: MORPHINE SULFATE INJ 2 MG/ml SYRG IV PRN (14:30)
[2024-03-20] MEDS ORDERED: NITROGLYCERIN 0.4 MG SL TAB SL PRN (14:30)
[2024-03-20] MEDS ORDERED: ACETAMINOPHEN 325 MG TAB PO PRN (14:30)
[2024-03-20] MEDS ORDERED: DEXTROSE (50%) 50ML SYRG IV PRN (15:00)
[2024-03-20] MEDS: APIXABAN 2.5 MG TAB PO SCH ×2 (16:42→21:52)
[2024-03-20] MEDS: AMIODARONE BOLUS KIT 100 ML IV ONE (16:44)
[2024-03-20] MEDS: AMIODARONE 450mg/250ml AE 250 ML IV SCH ×2 (16:52→22:40)
[2024-03-20] MEDS: METOPROLOL TARTRATE 1MG/1ML-5ML VIAL IV ONE (16:57)
[2024-03-20] MEDS: ACCU-CHEK COMFORT CURVE STRIP VI SCH (17:00)
[2024-03-20] MEDS: InsuLIN REG 1unit/0.01ml Soln (100units/ml) SC SCH (17:47)
[2024-03-20 17:50] VITALS: BP 158/79; PULSE 98; RESP 21; TEMP 98.6; O2SAT 100
[2024-03-20] MEDS: LATANOPROST 0.005 % OPTH(EYE) SOL 2.5ML EACHEYE SCH (18:00)
[2024-03-20] MEDS: SIMETHICONE 80 MG CHEWABLE TABLET PO SCH (18:00)
[2024-03-20] MEDS: SEVELAMER 800 MG TAB PO SCH (18:00)
[2024-03-20] MEDS: LANTHANUM CARBONATE 1000 MG PO SCH (18:00)
[2024-03-20 19:20] VITALS: PULSE 91; RESP 22; O2SAT 96
[2024-03-20 20:00] VITALS: PULSE 75; PULSE 99; RESP 22; O2SAT 96
[2024-03-20 21:00] VITALS: BP 135/69; PULSE 81; RESP 22; O2SAT 91
[2024-03-20] MEDS: BRIMONIDINE TARTRATE 0.15% OP SCH (21:50)
[2024-03-20] MEDS: ATORVASTATIN 20 MG TAB PO SCH (21:51)
[2024-03-20] MEDS: MONTELUKAST SODIUM 10 MG TAB PO SCH (21:51)
[2024-03-21] VITALS (12 sets, daily range): BP systolic 102–156; BP diastolic 50–77; PULSE 72–135; RESP 18–24; TEMP 97.9–99.4; O2SAT 94–100
[2024-03-21 00:20] LABS: Base Excess -7.9 mmol/L (-2.0-2.0)
[2024-03-21] MEDS ORDERED: ALBUTEROL SULF 2.5 MG/0.5ML(0.5%) NEB SOLN NEB SCH (02:00)
[2024-03-21] MEDS ORDERED: ALBUTEROL SULF 2.5 MG/0.5ML(0.5%) NEB SOLN NEB PRN (02:00)
[2024-03-21] MEDS ORDERED: IPRATROPIUM BROM 0.5 MG/2.5ML INH SOL NEB SCH (02:00)
[2024-03-21 06:52] LABS: Basophils # (auto) 0.1 10 ^3/uL (0-0.2); Basophils % (auto) 0.3 % (0.0-2.0); Eosinophils # (auto) 0 10 ^3/uL (0-0.8); Hematocrit 41.6 % (41.0-53.0); Hemoglobin 13.2 g/dL (13.5-17.5); Lymphocytes # (auto) 1.1 10 ^3/uL (0.4-5.4); Lymphocytes % (auto) 6.1 % (10.0-50.0); Mean Corpuscular Hemoglobin 31.8 pg (28.0-32.0); Mean Corpuscular Hgb Conc. 31.6 g/dL (32.0-36.0); Mean Corpuscular Volume 100.6 fL (80.0-100.0); Monocytes # (auto) 2.6 10 ^3/uL (0-1.3); Monocytes % (auto) 15.3 % (0.0-12.0); Neutrophils # (auto) 13.5 10 ^3/uL (1.6-8.6); Neutrophils % (auto) 78.3 % (37.0-80.0); Nucleated Red Blood Cells % 0.3 %; Platelet Count (auto) 203 10^3/uL (140-450); Red Blood Cells 4.13 10^6/uL (4.5-5.90); White Blood Cell 17.3 10^3/uL (4.4-10.8)
[2024-03-21 06:58] LABS: Alanine Aminotransferase 16 U/L (7-40); Albumin 4.7 g/dL (3.2-4.8); Alkaline Phosphatase 174 U/L (46-116); Anion Gap 19 (5-15); Aspartate Aminotransferase 33 U/L (13-40); BUN/Creatinine Ratio 3.6 (10.0-20.0); Bilirubin, Total 0.8 mg/dL (0.2-1.0); Blood Urea Nitrogen 26 mg/dL (9-23); Calcium 9.7 mg/dL (8.7-10.4); Carbon Dioxide 23 mmol/L (20-30); Chloride 104 mmol/L (98-107); Glucose 74 mg/dL (74-106); Sodium 146 mmol/L (136-145); Total Protein 7.7 g/dL (5.7-8.2)
[2024-03-21] MEDS: SODIUM CHL 0.9% 1000 ML BAG XX ONE (07:00)
[2024-03-21 07:16] LABS: Potassium 6.6 mmol/L (3.5-5.1)
[2024-03-21] MEDS: CINACALCET HYDROCHLORIDE 30 MG TAB PO SCH (10:00)
[2024-03-21] MEDS: B-COMPLEX W/ C & FOLIC ACID(NEPHROVITE TAB) PO SCH (10:00)
[2024-03-21] MEDS: NIFEdipine ER 30 MG TAB PO SCH (10:00)
[2024-03-21] MEDS: ASPirin-EC 81 mg tab PO SCH (10:00)
[2024-03-21] MEDS: METOPROLOL SUCCINATE XL 50 MG TAB PO SCH (10:00)
[2024-03-21 10:34] LABS: Basophils # (auto) 0 10 ^3/uL (0-0.2); Basophils % (auto) 0.2 % (0.0-2.0); Eosinophils # (auto) 0 10 ^3/uL (0-0.8); Hematocrit 41.7 % (41.0-53.0); Hemoglobin 13.4 g/dL (13.5-17.5); Lymphocytes # (auto) 0.7 10 ^3/uL (0.4-5.4); Lymphocytes % (auto) 3.8 % (10.0-50.0); Mean Corpuscular Hgb Conc. 32.1 g/dL (32.0-36.0); Mean Corpuscular Volume 99.6 fL (80.0-100.0); Monocytes % (auto) 15.9 % (0.0-12.0); Neutrophils # (auto) 15.1 10 ^3/uL (1.6-8.6); Neutrophils % (auto) 80.1 % (37.0-80.0); Nucleated Red Blood Cells % 0.1 %; Platelet Count (auto) 215 10^3/uL (140-450); Red Blood Cells 4.18 10^6/uL (4.5-5.90); Red Cell Distribution Width 18.9 % (11.8-14.3); White Blood Cell 18.8 10^3/uL (4.4-10.8)
[2024-03-21 11:21] LABS: Alanine Aminotransferase 16 U/L (7-40); Alkaline Phosphatase 191 U/L (46-116); Anion Gap 19 (5-15); Aspartate Aminotransferase 38 U/L (13-40); Blood Urea Nitrogen 10 mg/dL (9-23); Calcium 9.8 mg/dL (8.7-10.4); Carbon Dioxide 22 mmol/L (20-30); Chloride 99 mmol/L (98-107); Glucose 68 mg/dL (74-106); Magnesium 2.2 mg/dL (1.6-2.6); Potassium 4.2 mmol/L (3.5-5.1); Sodium 140 mmol/L (136-145)
[2024-03-21 11:22] LABS: Bilirubin, Total 1.4 mg/dL (0.2-1.0); Total Protein 8.7 g/dL (5.7-8.2)
[2024-03-21] MEDS: METOPROLOL TARTRATE 1MG/1ML-5ML VIAL IV ONE (11:45)
[2024-03-21] MEDS ORDERED: METOPROLOL TARTRATE 1MG/1ML-5ML VIAL IV PRN (11:45)
[2024-03-21 13:29] LABS: Lactic Acid w/Reflex 6.9 mmol/L (0.4-2.0)
[2024-03-21] MEDS ORDERED: PIPERACILLIN-TAZOB 3.375GM 100 ML IV SCH (14:00)
[2024-03-21] MEDS ORDERED: PIPERACILLIN-TAZOB 2.25GM 0.75 GM in D5W 5% 50 ML IV SCH (14:15)
[2024-03-21] MEDS: cefTRIAXone 1GM/50ML D5W 50 ML IV SCH (14:22)
[2024-03-21] MEDS: LORazepam 2MG/ML-1ML VIAL IV PRN (14:22)
[2024-03-21] MEDS: HEPARIN SODIUM (PORCINE) 5000 UNITS/ML 1ML VIAL SC SCH (14:44)
[2024-03-21] MEDS ORDERED: LABETALOL HCL 20 MG/4 ML VL IV PRN (18:00)
[2024-03-21] MEDS: PIPERACILLIN-TAZOB 2.25GM 50 ML IV SCH (22:21)
[2024-03-21] MEDS: EPOETIN ALFA-EPBX 4,000 UNIT/ML VIAL SC ONE (22:21)
[2024-03-21] MEDS: AMIODARONE BOLUS KIT 50 ML IV ONE (22:41)
[2024-03-22] VITALS (47 sets, daily range): BP systolic 77–156; BP diastolic 39–88; PULSE 95–140; RESP 16–33; TEMP 97.7–99.1; O2SAT 81–100
[2024-03-22 00:46] LABS: Base Excess -10.2 mmol/L (-2.0-2.0)
[2024-03-22 06:04] LABS: Eosinophils # (auto) 0 10 ^3/uL (0-0.8); Lymphocytes # (auto) 0.8 10 ^3/uL (0.4-5.4); Nucleated Red Blood Cells % 0.1 %
[2024-03-22 06:07] LABS: Basophils # (auto) 0.1 10 ^3/uL (0-0.2); Basophils % (auto) 0.4 % (0.0-2.0); Hematocrit 42.2 % (41.0-53.0); Hemoglobin 13.2 g/dL (13.5-17.5); Mean Corpuscular Hemoglobin 32.1 pg (28.0-32.0); Mean Corpuscular Hgb Conc. 31.4 g/dL (32.0-36.0); Mean Corpuscular Volume 102.5 fL (80.0-100.0); Monocytes # (auto) 1.8 10 ^3/uL (0-1.3); Monocytes % (auto) 13.6 % (0.0-12.0); Neutrophils # (auto) 10.8 10 ^3/uL (1.6-8.6); Platelet Count (auto) 159 10^3/uL (140-450); Red Blood Cells 4.12 10^6/uL (4.5-5.90); Red Cell Distribution Width 19.6 % (11.8-14.3); White Blood Cell 13.5 10^3/uL (4.4-10.8)
[2024-03-22 06:18] LABS: Chloride 101 mmol/L (98-107); Sodium 142 mmol/L (136-145)
[2024-03-22 06:19] LABS: Anion Gap 25 (5-15); Carbon Dioxide 16 mmol/L (20-30)
[2024-03-22 06:25] LABS: Blood Urea Nitrogen 24 mg/dL (9-23); Glucose 108 mg/dL (74-106)
[2024-03-22 06:28] LABS: Potassium 5.7 mmol/L (3.5-5.1)
[2024-03-22] MEDS: InsuLIN REG 1unit/0.01ml Soln (100units/ml) IV ONE (07:19)
[2024-03-22] MEDS: SODIUM BICARB 8.4% 50Meq/50ml SYR INJ IV ONE (07:21)
[2024-03-22] MEDS: DEXTROSE (50%) 50ML SYRG IV ONE (07:21)
[2024-03-22] MEDS: ALBUTEROL SULF 2.5 MG/0.5ML(0.5%) NEB SOLN NEB ONE (07:52)
[2024-03-22] MEDS: SODIUM ZIRCONIUM CYCL 10 GM PAK PO ONE (08:30)
[2024-03-22] MEDS: METOPROLOL TARTRATE 1MG/1ML-5ML VIAL IV ONE ×2 (08:36→12:00)
[2024-03-22] MEDS: AMIODARONE BOLUS KIT 100 ML IV ONE (09:42)
[2024-03-22] MEDS: cefTRIAXone 1GM/50ML D5W 50 ML IV SCH (09:42)
[2024-03-22 10:04] LABS: Chloride 96 mmol/L (98-107); Potassium 4.5 mmol/L (3.5-5.1); Sodium 144 mmol/L (136-145)
[2024-03-22 10:05] LABS: Anion Gap 27 (5-15); Carbon Dioxide 21 mmol/L (20-30)
[2024-03-22] MEDS: AMIODARONE 450mg/250ml AE 250 ML IV SCH (10:05)
[2024-03-22 10:06] LABS: Calcium 9.1 mg/dL (8.7-10.4)
[2024-03-22 10:10] LABS: Glucose 188 mg/dL (74-106)
[2024-03-22 10:13] LABS: Blood Urea Nitrogen 37 mg/dL (9-23)
[2024-03-22] MEDS: NOREPINEPHRINE 8 MG/250ML KIT 250 ML IV SCH ×2 (11:15→21:14)
[2024-03-22] MEDS ORDERED: METOPROLOL TARTRATE 1MG/1ML-5ML VIAL IV SCH (12:00)
[2024-03-22] MEDS: ACETAMINOPHEN 650 MG RECT SUPP PR PRN (16:55)
[2024-03-22] MEDS: METOPROLOL TARTRATE 1MG/1ML-5ML VIAL IV SCH (17:10)
[2024-03-22 17:28] LABS: Lactic Acid w/Reflex 4.3 mmol/L (0.4-2.0)
[2024-03-23] VITALS (96 sets, daily range): BP systolic 74–206; BP diastolic 40–94; PULSE 87–125; RESP 14–40; TEMP 97.5–98.1; O2SAT 67–100
[2024-03-23 05:33] LABS: Basophils # (auto) 0 10 ^3/uL (0-0.2); Basophils % (auto) 0.3 % (0.0-2.0); Eosinophils # (auto) 0 10 ^3/uL (0-0.8); Hematocrit 37.4 % (41.0-53.0); Hemoglobin 12.2 g/dL (13.5-17.5); Lymphocytes # (auto) 0.6 10 ^3/uL (0.4-5.4); Lymphocytes % (auto) 4.5 % (10.0-50.0); Mean Corpuscular Hemoglobin 32.1 pg (28.0-32.0); Mean Corpuscular Hgb Conc. 32.7 g/dL (32.0-36.0); Mean Corpuscular Volume 98.2 fL (80.0-100.0); Monocytes # (auto) 1.9 10 ^3/uL (0-1.3); Monocytes % (auto) 15.2 % (0.0-12.0); Neutrophils # (auto) 9.8 10 ^3/uL (1.6-8.6); Nucleated Red Blood Cells % 0.1 %; Platelet Count (auto) 150 10^3/uL (140-450); Red Blood Cells 3.81 10^6/uL (4.5-5.90); Red Cell Distribution Width 18.8 % (11.8-14.3); White Blood Cell 12.3 10^3/uL (4.4-10.8)
[2024-03-23 05:52] LABS: Alanine Aminotransferase 28 U/L (7-40); Albumin 3.5 g/dL (3.2-4.8); Alkaline Phosphatase 152 U/L (46-116); Anion Gap 15 (5-15); Aspartate Aminotransferase 50 U/L (13-40); BUN/Creatinine Ratio 7.5 (10.0-20.0); Calcium 8.6 mg/dL (8.7-10.4); Carbon Dioxide 29 mmol/L (20-30); Chloride 101 mmol/L (98-107); Glucose 160 mg/dL (74-106); Sodium 145 mmol/L (136-145)
[2024-03-23 05:53] LABS: Bilirubin, Total 0.7 mg/dL (0.2-1.0); Blood Urea Nitrogen 54 mg/dL (9-23); Total Protein 5.8 g/dL (5.7-8.2)
[2024-03-23] MEDS ORDERED: Nepro With Carb Steady 1 Liter Bottle GT SCH (13:15)
[2024-03-23] MEDS: MIDODRINE HCL 10 MG TAB PO SCH (18:00)
[2024-03-23] MEDS: NOREPINEPHRINE 8 MG/250ML KIT 250 ML IV SCH (18:45)
[2024-03-24] VITALS (103 sets, daily range): BP systolic 77–171; BP diastolic 41–102; PULSE 82–128; RESP 14–43; TEMP 97–97.9; O2SAT 88–100
[2024-03-24 05:17] LABS: Basophils # (auto) 0.1 10 ^3/uL (0-0.2); Basophils % (auto) 0.6 % (0.0-2.0); Eosinophils # (auto) 0 10 ^3/uL (0-0.8); Eosinophils % (auto) 0.3 % (0.0-7.0); Hematocrit 38.8 % (41.0-53.0); Hemoglobin 12.5 g/dL (13.5-17.5); Lymphocytes # (auto) 0.7 10 ^3/uL (0.4-5.4); Lymphocytes % (auto) 6.8 % (10.0-50.0); Mean Corpuscular Hemoglobin 32.2 pg (28.0-32.0); Mean Corpuscular Hgb Conc. 32.3 g/dL (32.0-36.0); Mean Corpuscular Volume 99.7 fL (80.0-100.0); Monocytes # (auto) 1.4 10 ^3/uL (0-1.3); Monocytes % (auto) 12.8 % (0.0-12.0); Neutrophils # (auto) 8.5 10 ^3/uL (1.6-8.6); Neutrophils % (auto) 79.5 % (37.0-80.0); Nucleated Red Blood Cells % 0.1 %; Platelet Count (auto) 147 10^3/uL (140-450); Red Blood Cells 3.89 10^6/uL (4.5-5.90); Red Cell Distribution Width 19.4 % (11.8-14.3); White Blood Cell 10.6 10^3/uL (4.4-10.8)
[2024-03-24 08:34] LABS: Hepatitis B Surface Antibody Positive (Negative)
[2024-03-24 08:44] LABS: Hepatitis B Surface Antigen Negative (Negative)
[2024-03-24] MEDS: SIMBRINZA EACHEYE SCH (10:09)
[2024-03-24] MEDS ORDERED: levoFLOXacin 250MG 50 ML IV SCH (12:15)
[2024-03-24] MEDS ORDERED: CLINIMIX PER PHARMACY 0 ML IV SCH (12:15)
[2024-03-24] MEDS ORDERED: DEXTROSE (50%) 50ML SYRG IV SCH (15:00)
[2024-03-24] MEDS: SODIUM CHL 0.9% 1000 ML BAG XX ONE (17:20)
[2024-03-24] MEDS: ACCU-CHEK COMFORT CURVE STRIP VI SCH (17:37)
[2024-03-24] MEDS: InsuLIN REG 1unit/0.01ml Soln (100units/ml) SC SCH (17:38)
[2024-03-24] MEDS: AMINO ACID INFUSION IN D10W 1,000 ML IV SCH (20:00)
[2024-03-25] VITALS (90 sets, daily range): BP systolic 117–159; BP diastolic 57–97; PULSE 77–108; RESP 12–35; TEMP 97–98.4; O2SAT 97–100
[2024-03-25 05:22] LABS: Basophils # (auto) 0 10 ^3/uL (0-0.2); Basophils % (auto) 0.4 % (0.0-2.0); Eosinophils # (auto) 0 10 ^3/uL (0-0.8); Eosinophils % (auto) 0.4 % (0.0-7.0); Hematocrit 37.4 % (41.0-53.0); Lymphocytes # (auto) 0.6 10 ^3/uL (0.4-5.4); Lymphocytes % (auto) 5.5 % (10.0-50.0); Mean Corpuscular Hemoglobin 31.2 pg (28.0-32.0); Mean Corpuscular Volume 97.6 fL (80.0-100.0); Monocytes # (auto) 1.8 10 ^3/uL (0-1.3); Monocytes % (auto) 15.5 % (0.0-12.0); Neutrophils # (auto) 9.1 10 ^3/uL (1.6-8.6); Neutrophils % (auto) 78.2 % (37.0-80.0); Nucleated Red Blood Cells % 0.3 %; Platelet Count (auto) 140 10^3/uL (140-450); Red Blood Cells 3.83 10^6/uL (4.5-5.90); Red Cell Distribution Width 18.5 % (11.8-14.3); White Blood Cell 11.6 10^3/uL (4.4-10.8)
[2024-03-25 05:29] LABS: Chloride 100 mmol/L (98-107); Potassium 4.1 mmol/L (3.5-5.1); Sodium 142 mmol/L (136-145)
[2024-03-25 05:30] LABS: Anion Gap 11 (5-15); Carbon Dioxide 31 mmol/L (20-30)
[2024-03-25 05:35] LABS: Glucose 157 mg/dL (74-106)
[2024-03-25 05:36] LABS: BUN/Creatinine Ratio 5.8 (10.0-20.0); Magnesium 2.1 mg/dL (1.6-2.6)
[2024-03-25 05:38] LABS: Phosphorus 3.2 mg/dL (2.4-5.1)
[2024-03-25 05:49] LABS: Blood Urea Nitrogen 33 mg/dL (9-23)
[2024-03-25] MEDS ORDERED: TPN PER PHARMACY 0 ML IV SCH (10:30)
[2024-03-25] MEDS: DOXYCYCLINE 100MG/250ML 250 ML IV SCH (11:53)
[2024-03-25] MEDS: TPN PER PHARMACY IV NR (20:45)
[2024-03-26] VITALS (39 sets, daily range): BP systolic 97–152; BP diastolic 47–82; PULSE 67–92; RESP 16–28; TEMP 97.3–97.8; O2SAT 100
[2024-03-26 06:09] LABS: Basophils # (auto) 0 10 ^3/uL (0-0.2); Basophils % (auto) 0.5 % (0.0-2.0); Eosinophils # (auto) 0.2 10 ^3/uL (0-0.8); Eosinophils % (auto) 1.7 % (0.0-7.0); Hematocrit 35.1 % (41.0-53.0); Hemoglobin 11.7 g/dL (13.5-17.5); Lymphocytes % (auto) 10.8 % (10.0-50.0); Mean Corpuscular Hemoglobin 32.2 pg (28.0-32.0); Mean Corpuscular Hgb Conc. 33.4 g/dL (32.0-36.0); Mean Corpuscular Volume 96.5 fL (80.0-100.0); Monocytes # (auto) 1.7 10 ^3/uL (0-1.3); Monocytes % (auto) 17.9 % (0.0-12.0); Neutrophils # (auto) 6.4 10 ^3/uL (1.6-8.6); Neutrophils % (auto) 69.1 % (37.0-80.0); Nucleated Red Blood Cells % 0.3 %; Platelet Count (auto) 129 10^3/uL (140-450); Red Blood Cells 3.64 10^6/uL (4.5-5.90); Red Cell Distribution Width 18.1 % (11.8-14.3); White Blood Cell 9.3 10^3/uL (4.4-10.8)
[2024-03-26 06:24] LABS: Alanine Aminotransferase 24 U/L (7-40); Albumin 3.4 g/dL (3.2-4.8); Alkaline Phosphatase 132 U/L (46-116); Anion Gap 9 (5-15); Aspartate Aminotransferase 25 U/L (13-40); BUN/Creatinine Ratio 7.1 (10.0-20.0); Bilirubin, Total 0.4 mg/dL (0.2-1.0); Calcium 8.9 mg/dL (8.7-10.4); Carbon Dioxide 30 mmol/L (20-30); Chloride 97 mmol/L (98-107); Glucose 110 mg/dL (74-106); Phosphorus 3.9 mg/dL (2.4-5.1); Potassium 3.6 mmol/L (3.5-5.1); Sodium 136 mmol/L (136-145); Triglycerides 84 mg/dL (< 150)
[2024-03-26 06:28] LABS: Blood Urea Nitrogen 48 mg/dL (9-23)
[2024-03-26] MEDS: SODIUM CHL 0.9% 1000 ML BAG XX ONE (07:00)
[2024-03-26] MEDS: ALBUMIN 25% 100 ML IV ONE ×2 (09:43→09:45)
[2024-03-26] MEDS: TPN PER PHARMACY IV NR (20:06)
[2024-03-26] MEDS: MELATONIN 5 MG TAB PO PRN (21:28)
[2024-03-27] VITALS (16 sets, daily range): BP systolic 97–157; BP diastolic 49–84; PULSE 57–79; RESP 16–22; TEMP 97.2–98.5; O2SAT 98–100
[2024-03-27 05:56] LABS: Hematocrit 34.2 % (41.0-53.0); Hemoglobin 11.3 g/dL (13.5-17.5); Mean Corpuscular Hemoglobin 32.2 pg (28.0-32.0); Mean Corpuscular Hgb Conc. 33.1 g/dL (32.0-36.0); Mean Corpuscular Volume 97.4 fL (80.0-100.0); Platelet Count (auto) 117 10^3/uL (140-450); Red Blood Cells 3.51 10^6/uL (4.5-5.90); Red Cell Distribution Width 18.3 % (11.8-14.3); White Blood Cell 8.9 10^3/uL (4.4-10.8)
[2024-03-27 06:20] LABS: Alanine Aminotransferase 22 U/L (7-40); Albumin 3.5 g/dL (3.2-4.8); Alkaline Phosphatase 117 U/L (46-116); Anion Gap 7 (5-15); Aspartate Aminotransferase 25 U/L (13-40); BUN/Creatinine Ratio 8.5 (10.0-20.0); Bilirubin, Direct 0.2 mg/dL (<0.3); Bilirubin, Total 0.5 mg/dL (0.2-1.0); Blood Urea Nitrogen 42 mg/dL (9-23); Carbon Dioxide 31 mmol/L (20-30); Chloride 98 mmol/L (98-107); Glucose 132 mg/dL (74-106); Phosphorus 3.1 mg/dL (2.4-5.1); Potassium 3.7 mmol/L (3.5-5.1); Sodium 136 mmol/L (136-145); Total Protein 6.1 g/dL (5.7-8.2)
[2024-03-27 06:22] LABS: Band Neutrophils % (manual) 0; Basophils % (manual) 0 (0.0-2.0); Blast Cells 0; Eosinophils % (manual) 0 (0-7); Metamyelocytes % 0; Promyelocytes % 0; Reactive Lymphocytes 0
[2024-03-27 08:23] LABS: Lymphocytes % (manual) 11 (10.0-50.0); Monocytes % (manual) 15 (0-12); Myelocytes % 1
[2024-03-27 08:24] LABS: Platelet Estimate Decreased
[2024-03-27] MEDS: IPRATROPIUM BROM 0.5 MG/2.5ML INH SOL NEB PRN (11:08)
[2024-03-27] MEDS: Ensure Pudding Vanilla 4 oz Cup PO SCH (12:00)
[2024-03-27] MEDS: AMIODARONE HCL 200 MG TAB PO SCH (13:09)
[2024-03-27] MEDS: METOPROLOL TARTRATE 25 MG TAB PO SCH (13:11)
[2024-03-28] VITALS (9 sets, daily range): BP systolic 105–150; BP diastolic 56–68; PULSE 57–85; RESP 14–18; TEMP 97–98.3; O2SAT 94–100
[2024-03-28 06:11] LABS: Basophils # (auto) 0 10 ^3/uL (0-0.2); Basophils % (auto) 0.5 % (0.0-2.0); Eosinophils # (auto) 0.2 10 ^3/uL (0-0.8); Eosinophils % (auto) 2.6 % (0.0-7.0); Hematocrit 37.8 % (41.0-53.0); Hemoglobin 12.7 g/dL (13.5-17.5); Lymphocytes # (auto) 1.2 10 ^3/uL (0.4-5.4); Mean Corpuscular Hemoglobin 31.9 pg (28.0-32.0); Mean Corpuscular Hgb Conc. 33.5 g/dL (32.0-36.0); Mean Corpuscular Volume 95.4 fL (80.0-100.0); Monocytes # (auto) 1.7 10 ^3/uL (0-1.3); Monocytes % (auto) 17.3 % (0.0-12.0); Neutrophils # (auto) 6.4 10 ^3/uL (1.6-8.6); Neutrophils % (auto) 66.6 % (37.0-80.0); Nucleated Red Blood Cells % 0.1 %; Platelet Count (auto) 131 10^3/uL (140-450); Red Blood Cells 3.97 10^6/uL (4.5-5.90); Red Cell Distribution Width 18.4 % (11.8-14.3); White Blood Cell 9.6 10^3/uL (4.4-10.8)
[2024-03-28 06:20] LABS: Anion Gap 5 (5-15); Calcium 9.8 mg/dL (8.7-10.4); Carbon Dioxide 29 mmol/L (20-30); Chloride 102 mmol/L (98-107); Potassium 3.7 mmol/L (3.5-5.1); Sodium 136 mmol/L (136-145)
[2024-03-28 06:26] LABS: BUN/Creatinine Ratio 8.1 (10.0-20.0); Glucose 98 mg/dL (74-106)
[2024-03-28 06:36] LABS: Blood Urea Nitrogen 26 mg/dL (9-23)
[2024-03-28] MEDS ORDERED: SODIUM CHL 0.9% 1000 ML BAG XX ONE (07:00)
[2024-03-28] MEDS: ASPirin 81 mg TAB PO SCH (09:29)
[2024-03-28] MEDS: Nepro With Carbsteady ButterPecan 8oz Carton PO SCH (18:10)
[2024-03-28] MEDS ORDERED: EPOETIN ALFA-EPBX 10,000 UNIT/1ML VIAL SC ONE (21:00)
[2024-03-28] MEDS: APIXABAN 2.5 MG TAB PO SCH (22:36)
[2024-03-29] VITALS (12 sets, daily range): BP systolic 125–155; BP diastolic 65–90; PULSE 70–81; RESP 16–20; TEMP 97.4–98.3; O2SAT 93–100
[2024-03-29 06:11] LABS: Basophils # (auto) 0.1 10 ^3/uL (0-0.2); Basophils % (auto) 0.7 % (0.0-2.0); Eosinophils # (auto) 0.2 10 ^3/uL (0-0.8); Eosinophils % (auto) 2.5 % (0.0-7.0); Hematocrit 38.4 % (41.0-53.0); Hemoglobin 12.5 g/dL (13.5-17.5); Lymphocytes # (auto) 1.3 10 ^3/uL (0.4-5.4); Lymphocytes % (auto) 15.2 % (10.0-50.0); Mean Corpuscular Hemoglobin 31.8 pg (28.0-32.0); Mean Corpuscular Hgb Conc. 32.4 g/dL (32.0-36.0); Mean Corpuscular Volume 98.2 fL (80.0-100.0); Monocytes # (auto) 1.9 10 ^3/uL (0-1.3); Monocytes % (auto) 22.6 % (0.0-12.0); Neutrophils # (auto) 5.1 10 ^3/uL (1.6-8.6); Nucleated Red Blood Cells % 0.2 %; Platelet Count (auto) 135 10^3/uL (140-450); Red Blood Cells 3.91 10^6/uL (4.5-5.90); Red Cell Distribution Width 18.6 % (11.8-14.3); White Blood Cell 8.6 10^3/uL (4.4-10.8)
[2024-03-29 06:23] LABS: Chloride 100 mmol/L (98-107); Potassium 4.3 mmol/L (3.5-5.1); Sodium 134 mmol/L (136-145)
[2024-03-29 06:24] LABS: Anion Gap 6 (5-15); Calcium 9.6 mg/dL (8.7-10.4); Carbon Dioxide 28 mmol/L (20-30)
[2024-03-29 06:29] LABS: BUN/Creatinine Ratio 8.7 (10.0-20.0); Glucose 94 mg/dL (74-106)
[2024-03-29 06:30] LABS: Blood Urea Nitrogen 45 mg/dL (9-23)
[2024-03-29] MEDS: APIXABAN 5 MG TAB PO SCH ×2 (11:51→21:37)
[2024-03-29] MEDS: ACETAMINOPHEN 650 mg PER 20.3 mL UD PO PRN (14:51)
[2024-03-29] MEDS: DOXYCYCLINE 100 MG TAB/CAP PO SCH (21:37)
[2024-03-30] VITALS (11 sets, daily range): BP systolic 123–159; BP diastolic 7–75; PULSE 66–72; RESP 16–18; TEMP 97.6–98.7; O2SAT 94–100
[2024-03-30] MEDS ORDERED: BACL10TA PO (12:07)
[2024-03-30] MEDS ORDERED: APIX2.5T PO (12:07)
[2024-03-30] MEDS: LOSARTAN POTASSIUM 50 MG TAB PO SCH (13:42)
[2024-03-30] MEDS ORDERED: ONDANSETRON ODT 4 MG TAB PO PRN (16:15)
[2024-03-30] MEDS: ONDANSETRON ODT 4 MG TAB PO ONE (17:42)
[2024-03-30] MEDS ORDERED: BISMUTH SUBSALICYLATE 262MG/15ml ORAL Susp PO ONE (18:15)
[2024-03-30] MEDS: METOPROLOL TARTRATE 25 MG TAB PO SCH (22:07)
[2024-03-31] VITALS (9 sets, daily range): BP systolic 100–147; BP diastolic 46–73; PULSE 61–73; RESP 15–20; TEMP 97.7–98.4; O2SAT 93–100
[2024-03-31 06:28] LABS: Basophils # (auto) 0.1 10 ^3/uL (0-0.2); Basophils % (auto) 0.8 % (0.0-2.0); Eosinophils # (auto) 0.2 10 ^3/uL (0-0.8); Eosinophils % (auto) 2.6 % (0.0-7.0); Hematocrit 35.2 % (41.0-53.0); Hemoglobin 11.6 g/dL (13.5-17.5); Lymphocytes # (auto) 1.2 10 ^3/uL (0.4-5.4); Lymphocytes % (auto) 12.1 % (10.0-50.0); Mean Corpuscular Hemoglobin 31.9 pg (28.0-32.0); Mean Corpuscular Hgb Conc. 32.9 g/dL (32.0-36.0); Mean Corpuscular Volume 97.1 fL (80.0-100.0); Monocytes # (auto) 1.6 10 ^3/uL (0-1.3); Monocytes % (auto) 16.7 % (0.0-12.0); Neutrophils # (auto) 6.6 10 ^3/uL (1.6-8.6); Neutrophils % (auto) 67.8 % (37.0-80.0); Nucleated Red Blood Cells % 0.2 %; Platelet Count (auto) 187 10^3/uL (140-450); Red Blood Cells 3.62 10^6/uL (4.5-5.90); Red Cell Distribution Width 18.7 % (11.8-14.3); White Blood Cell 9.7 10^3/uL (4.4-10.8)
[2024-03-31] MEDS ORDERED: SODIUM CHL 0.9% 1000 ML BAG XX ONE (07:00)
[2024-03-31 07:04] LABS: Chloride 102 mmol/L (98-107); Potassium 4.9 mmol/L (3.5-5.1)
[2024-03-31 07:05] LABS: Calcium 9.6 mg/dL (8.7-10.4); Carbon Dioxide 28 mmol/L (20-30)
[2024-03-31 07:10] LABS: BUN/Creatinine Ratio 7.8 (10.0-20.0); Blood Urea Nitrogen 63 mg/dL (9-23); Glucose 104 mg/dL (74-106)
[2024-03-31 07:22] LABS: Anion Gap 8 (5-15); Sodium 138 mmol/L (136-145)
[2024-03-31] MEDS: LOSARTAN POTASSIUM 50 MG TAB PO SCH (08:09)
[2024-03-31 21:16] LABS: Hematocrit 37.5 % (41.0-53.0); Hemoglobin 12.1 g/dL (13.5-17.5)
[2024-04-01] VITALS (9 sets, daily range): BP systolic 92–162; BP diastolic 40–69; PULSE 65–78; RESP 17–19; TEMP 97.2–97.9; O2SAT 99–100
[2024-04-01] MEDS: METOPROLOL TARTRATE 25 MG TAB PO SCH (10:39)
[2024-04-01] MEDS: LIDOCAINE HCL 5 % TOP OINT 35 GM TOP ONE (17:30)
[2024-04-01] MEDS: LIDOCAINE 2% TOPICAL JELLY 5 ML URJT TOP ONE (17:57)
[2024-04-01] MEDS: SODIUM CHLORIDE 0.9% 250 ML IV ONE (18:33)
[2024-04-02] VITALS (9 sets, daily range): BP systolic 97–167; BP diastolic 56–77; PULSE 64–81; RESP 16–20; TEMP 97.7–98.1; O2SAT 93–100
[2024-04-02 09:10] LABS: Basophils # (auto) 0.1 10 ^3/uL (0-0.2); Basophils % (auto) 0.6 % (0.0-2.0); Eosinophils # (auto) 0.1 10 ^3/uL (0-0.8); Hematocrit 32.8 % (41.0-53.0); Hemoglobin 10.5 g/dL (13.5-17.5); Lymphocytes # (auto) 1.3 10 ^3/uL (0.4-5.4); Lymphocytes % (auto) 10.4 % (10.0-50.0); Mean Corpuscular Hemoglobin 31.5 pg (28.0-32.0); Mean Corpuscular Hgb Conc. 32.1 g/dL (32.0-36.0); Mean Corpuscular Volume 98.1 fL (80.0-100.0); Monocytes # (auto) 1.7 10 ^3/uL (0-1.3); Monocytes % (auto) 13.9 % (0.0-12.0); Neutrophils # (auto) 9.1 10 ^3/uL (1.6-8.6); Neutrophils % (auto) 74.1 % (37.0-80.0); Nucleated Red Blood Cells % 0.1 %; Platelet Count (auto) 235 10^3/uL (140-450); Red Blood Cells 3.34 10^6/uL (4.5-5.90); Red Cell Distribution Width 19.2 % (11.8-14.3); White Blood Cell 12.3 10^3/uL (4.4-10.8)
[2024-04-02 09:22] LABS: INR 1.21 (0.9-1.15); Partial Thromboplastin Time 30.5 SEC (24.5-34.5); Prothrombin Time 12.6 sec (9.3-11.8)
[2024-04-02] MEDS: MIDAZOLAM HCL 2MG/2ML 2ml VIAL (1mg/ml) ONE (13:47)
[2024-04-02] MEDS: fentaNYL CITRATE 100 MCG/2 ML VL ONE (13:47)
[2024-04-02] MEDS: LIDOCAINE 2%HCL (LOCAL ANESTH.) INJ 20ML MDV ONE (13:47)
[2024-04-02] MEDS: IODIXANOL 320MG/ML 100ML BTL IV ONE (13:49)
[2024-04-03] VITALS (7 sets, daily range): BP systolic 101–158; BP diastolic 44–72; PULSE 62–81; RESP 16–20; TEMP 36.8; O2SAT 96–100
[2024-04-03 06:38] LABS: Hematocrit 32.7 % (41.0-53.0); Hemoglobin 10.4 g/dL (13.5-17.5)
[2024-04-03] MEDS ORDERED: LABETALOL HCL 20 MG/4 ML VL IV PRN (09:45)
[2024-04-03] MEDS: METOPROLOL TARTRATE 25 MG TAB PO SCH (10:00)
[2024-04-03] MEDS ORDERED: CATHFLO ACTIVASE (ALTEPLASE) 2 MG VIAL IV ONE (13:45)
[2024-04-05] MEDS ORDERED: APIXABAN 5 MG TAB PO SCH ×2 (10:00→22:00)
== END 2024-04-03 17:50 | disposition home health service (06) | DRG 853 ==
LOC: EDBD 06:52 → ER 06:52 → EDSEX 06:52 → TELE 14:28 → TELE-CENTR 18:34 → DOU IN ICU 03-22 10:31 → ICU CENTRL 03-22 22:12 → DOU IN ICU 03-27 00:35 → TELE-EAST 03-27 08:41
PROVIDERS: ADMIT Nurse Practitioner Family; ATTEND Nurse Practitioner Acute Care
PROC: 05H933Z Insertion of Infusion Device into Right Brachial Vein, Percutaneous Approach (ICD-10-PCS; 2024-03-21)
PROC: B54MZZA Ultrasonography of Right Upper Extremity Veins, Guidance (ICD-10-PCS; 2024-03-21)
PROC: 5A1D70Z Performance of Urinary Filtration, Intermittent, Less than 6 Hours Per Day (ICD-10-PCS; 2024-03-21)
PROC: 02HV33Z Insertion of Infusion Device into Superior Vena Cava, Percutaneous Approach (ICD-10-PCS; 2024-03-24)
PROC: B548ZZA Ultrasonography of Superior Vena Cava, Guidance (ICD-10-PCS; 2024-03-24)
PROC: 5A1D70Z Performance of Urinary Filtration, Intermittent, Less than 6 Hours Per Day (ICD-10-PCS; 2024-03-24)
PROC: 5A1D70Z Performance of Urinary Filtration, Intermittent, Less than 6 Hours Per Day (ICD-10-PCS; 2024-03-26)
PROC: 5A1D70Z Performance of Urinary Filtration, Intermittent, Less than 6 Hours Per Day (ICD-10-PCS; 2024-03-28)
PROC: 057A3ZZ Dilation of Left Brachial Vein, Percutaneous Approach (ICD-10-PCS; principal; 2024-04-02)
PROC: B51WYZZ Fluoroscopy of Dialysis Shunt/Fistula using Other Contrast (ICD-10-PCS; 2024-04-02)
PROC: 5A1D70Z Performance of Urinary Filtration, Intermittent, Less than 6 Hours Per Day (ICD-10-PCS; 2024-04-03)
DX: A41.9 Sepsis, unspecified organism (principal); G93.41 Metabolic encephalopathy; N18.6 End stage renal disease; I50.43 Acute on chronic combined systolic (congestive) and diastolic (congestive) heart failure; R65.21 Severe sepsis with septic shock; J15.9 Unspecified bacterial pneumonia; J96.11 Chronic respiratory failure with hypoxia; I47.20 Ventricular tachycardia, unspecified; E87.20 Acidosis, unspecified; I13.2 Hypertensive heart and chronic kidney disease with heart failure and with stage 5 chronic kidney disease, or end stage renal disease; I82.621 Acute embolism and thrombosis of deep veins of right upper extremity; T82.858A Stenosis of other vascular prosthetic devices, implants and grafts, initial encounter; E11.22 Type 2 diabetes mellitus with diabetic chronic kidney disease; D64.9 Anemia, unspecified; I48.0 Paroxysmal atrial fibrillation; E78.5 Hyperlipidemia, unspecified; E87.5 Hyperkalemia; I07.1 Rheumatic tricuspid insufficiency; I27.20 Pulmonary hypertension, unspecified; Z99.81 Dependence on supplemental oxygen; Z99.2 Dependence on renal dialysis; Z82.3 Family history of stroke; Z79.899 Other long term (current) drug therapy; Z79.84 Long term (current) use of oral hypoglycemic drugs; Z79.82 Long term (current) use of aspirin; Z79.01 Long term (current) use of anticoagulants; Z83.3 Family history of diabetes mellitus; Z82.49 Family history of ischemic heart disease and other diseases of the circulatory system; Y84.8 Other medical procedures as the cause of abnormal reaction of the patient, or of later complication, without mention of misadventure at the time of the procedure; Y92.238 Other place in hospital as the place of occurrence of the external cause
CPT/HCPCS: 36415; 36600; 70450; 71045; 80048; 80053; 80076; 80320; 82140; 82805; 82962; 83036; 83605; 83735; 83880; 84100; 84478; 85007; 85014; 85018; 85025; 85027; 85610; 85730; 86706; 86850; 86900; 86901; 87040; 87081; 87340; 90935; 92610; 93005; 93306; 93886; 93970; 93971; 94640; 95819; 97110; 97116; 97163; 97530; 99152; A4565; C1894; G0378; J1815; J2250; J2543; J3490; P9047; Q0162; Q9967

== ENCOUNTER 2024-04-13 18:27 | Inpatient (IN) | payer OTHER ==
[~2024-04-13] VITALS: Ht 177.8 cm; Wt 73.3 kg
[~2024-04-13 18:27] MED LIST changes: +BACL10TA PO
[2024-04-13 20:28] LABS: Basophils # (auto) 0.1 10 ^3/uL (0-0.2); Basophils % (auto) 1.1 % (0.0-2.0); Eosinophils # (auto) 0.3 10 ^3/uL (0-0.8); Eosinophils % (auto) 5.2 % (0.0-7.0); Hematocrit 32.3 % (41.0-53.0); Hemoglobin 9.9 g/dL (13.5-17.5); Lymphocytes # (auto) 1.2 10 ^3/uL (0.4-5.4); Lymphocytes % (auto) 17.8 % (10.0-50.0); Mean Corpuscular Hemoglobin 32.4 pg (28.0-32.0); Mean Corpuscular Hgb Conc. 30.6 g/dL (32.0-36.0); Mean Corpuscular Volume 105.8 fL (80.0-100.0); Monocytes # (auto) 1.1 10 ^3/uL (0-1.3); Monocytes % (auto) 17.6 % (0.0-12.0); Neutrophils # (auto) 3.8 10 ^3/uL (1.6-8.6); Neutrophils % (auto) 58.3 % (37.0-80.0); Nucleated Red Blood Cells % 0.3 %; Platelet Count (auto) 191 10^3/uL (140-450); Red Blood Cells 3.05 10^6/uL (4.5-5.90); Red Cell Distribution Width 19.1 % (11.8-14.3); White Blood Cell 6.5 10^3/uL (4.4-10.8)
[2024-04-13 20:53] LABS: Alanine Aminotransferase 14 U/L (7-40); Albumin 3.4 g/dL (3.2-4.8); Alkaline Phosphatase 155 U/L (46-116); Anion Gap 8 (5-15); Aspartate Aminotransferase 23 U/L (13-40); BUN/Creatinine Ratio 2.9 (10.0-20.0); Blood Urea Nitrogen 20 mg/dL (9-23); Calcium 7.9 mg/dL (8.7-10.4); Carbon Dioxide 26 mmol/L (20-30); Chloride 104 mmol/L (98-107); Glucose 109 mg/dL (74-106); Magnesium 2.1 mg/dL (1.6-2.6); Sodium 138 mmol/L (136-145)
[2024-04-13 20:54] LABS: Bilirubin, Total 0.5 mg/dL (0.2-1.0); Phosphorus 3.9 mg/dL (2.4-5.1); Total Protein 6.2 g/dL (5.7-8.2)
[2024-04-13 22:00] VITALS: PULSE 64; RESP 17; O2SAT 100
[2024-04-14] VITALS (7 sets, daily range): BP systolic 90–103; BP diastolic 44–51; PULSE 58–69; RESP 17–20; TEMP 97.3–97.6; O2SAT 90–100
[2024-04-14] MEDS ORDERED: ONDANSETRON HCL 4 MG/2 ML VIAL IV PRN
[2024-04-14] MEDS ORDERED: HYDROmorphone HCL 2 MG/ML VL/or syr IV PRN
[2024-04-14] MEDS ORDERED: ACETAMINOPHEN 325 MG TAB PO PRN
[2024-04-14] MEDS ORDERED: HYDROcodone-ACET 5/325MG TAB PO PRN
[2024-04-14] MEDS ORDERED: DOCUSATE SOD 100 MG CAP PO PRN
[2024-04-14] MEDS ORDERED: guaiFENesin-CODEINE Liq 5 ML UD PO PRN (00:15)
[2024-04-14 05:58] LABS: Alanine Aminotransferase 14 U/L (7-40); Albumin 3.3 g/dL (3.2-4.8); Alkaline Phosphatase 150 U/L (46-116); Anion Gap 8 (5-15); Aspartate Aminotransferase 16 U/L (13-40); BUN/Creatinine Ratio 3.9 (10.0-20.0); Basophils # (auto) 0.1 10 ^3/uL (0-0.2); Basophils % (auto) 0.8 % (0.0-2.0); Blood Urea Nitrogen 28 mg/dL (9-23); Calcium 7.9 mg/dL (8.7-10.4); Carbon Dioxide 28 mmol/L (20-30); Chloride 103 mmol/L (98-107); Eosinophils # (auto) 0.4 10 ^3/uL (0-0.8); Eosinophils % (auto) 5.7 % (0.0-7.0); Glucose 94 mg/dL (74-106); Hematocrit 25.8 % (41.0-53.0); Hemoglobin 8.7 g/dL (13.5-17.5); Lymphocytes # (auto) 1.1 10 ^3/uL (0.4-5.4); Lymphocytes % (auto) 15.9 % (10.0-50.0); Mean Corpuscular Hemoglobin 33.3 pg (28.0-32.0); Mean Corpuscular Hgb Conc. 33.8 g/dL (32.0-36.0); Mean Corpuscular Volume 98.6 fL (80.0-100.0); Monocytes # (auto) 1.2 10 ^3/uL (0-1.3); Neutrophils % (auto) 59.6 % (37.0-80.0); Platelet Count (auto) 214 10^3/uL (140-450); Potassium 4.8 mmol/L (3.5-5.1); Red Blood Cells 2.62 10^6/uL (4.5-5.90); Red Cell Distribution Width 18.8 % (11.8-14.3); Sodium 139 mmol/L (136-145); White Blood Cell 6.7 10^3/uL (4.4-10.8)
[2024-04-14 05:59] LABS: Bilirubin, Total 0.4 mg/dL (0.2-1.0)
[2024-04-14] MEDS ORDERED: BACLOFEN 10 MG TAB PO SCH (06:00)
[2024-04-14] MEDS: SODIUM CHLOR 0.9% PF (SALINE LOCK) 10ML VIAL/SYR IV SCH (06:17)
[2024-04-14] MEDS: SIMETHICONE 80 MG CHEWABLE TABLET PO SCH (06:17)
[2024-04-14] MEDS: PANTOPRAZOLE 40 MG/10 ML VIAL INJ IV SCH (09:00)
[2024-04-14] MEDS: ASPirin-EC 81 mg tab PO SCH (09:01)
[2024-04-14] MEDS: MONTELUKAST SODIUM 10 MG TAB PO SCH (09:01)
[2024-04-14] MEDS: APIXABAN 2.5 MG TAB PO SCH (09:01)
[2024-04-14] MEDS: LATANOPROST 0.005 % OPTH(EYE) SOL 2.5ML EACHEYE SCH (09:01)
[2024-04-14] MEDS: SEVELAMER 800 MG TAB PO SCH (09:01)
[2024-04-14] MEDS: CINACALCET HYDROCHLORIDE 30 MG TAB PO SCH (09:02)
[2024-04-14] MEDS: FLUTICASONE PROP NASAL SPR 0.05 % (50MCG) 16GM EACHNOSTRI SCH (09:03)
[2024-04-14] MEDS: METOPROLOL SUCCINATE XL 50 MG TAB PO SCH (09:06)
[2024-04-14] MEDS: NIFEdipine ER 30 MG TAB PO SCH (09:07)
[2024-04-14] MEDS: B-COMPLEX W/ C & FOLIC ACID(NEPHROVITE TAB) PO SCH (09:08)
[2024-04-14] MEDS: BRIMONIDINE 0.2% OPTH Soln 5ml EACHEYE SCH (10:11)
[2024-04-14] MEDS: LANTHANUM CARBONATE 1000 MG PO SCH (11:38)
[2024-04-14 11:44] LABS: Hepatitis B Surface Antibody Positive (Negative)
[2024-04-14] MEDS ORDERED: BACLOFEN 10 MG TAB PO PRN (11:45)
[2024-04-14 11:56] LABS: Hepatitis B Surface Antigen Negative (Negative)
[2024-04-14] MEDS: ALBUMIN 25% 100 ML IV ONE (12:35)
[2024-04-14] MEDS: ALBUMIN 25% 100 ML IV PRN (13:10)
[2024-04-14] MEDS: EPOETIN ALFA-EPBX 4,000 UNIT/ML VIAL SC ONE (20:53)
[2024-04-14] MEDS: ATORVASTATIN 20 MG TAB PO SCH (20:54)
[2024-04-15] VITALS (8 sets, daily range): BP systolic 90–106; BP diastolic 50–59; PULSE 60–72; RESP 17–18; TEMP 98–98.5; O2SAT 92–100
[2024-04-15 15:30] LABS: Basophils # (auto) 0 10 ^3/uL (0-0.2); Basophils % (auto) 0.5 % (0.0-2.0); Eosinophils # (auto) 0.3 10 ^3/uL (0-0.8); Eosinophils % (auto) 5.3 % (0.0-7.0); Hemoglobin 9.4 g/dL (13.5-17.5); Lymphocytes # (auto) 0.7 10 ^3/uL (0.4-5.4); Lymphocytes % (auto) 13.2 % (10.0-50.0); Mean Corpuscular Hemoglobin 32.6 pg (28.0-32.0); Mean Corpuscular Hgb Conc. 32.3 g/dL (32.0-36.0); Mean Corpuscular Volume 100.9 fL (80.0-100.0); Monocytes # (auto) 0.9 10 ^3/uL (0-1.3); Monocytes % (auto) 16.8 % (0.0-12.0); Neutrophils # (auto) 3.4 10 ^3/uL (1.6-8.6); Neutrophils % (auto) 64.2 % (37.0-80.0); Nucleated Red Blood Cells % 0.1 %; Platelet Count (auto) 176 10^3/uL (140-450); Red Blood Cells 2.87 10^6/uL (4.5-5.90); Red Cell Distribution Width 19.2 % (11.8-14.3); White Blood Cell 5.4 10^3/uL (4.4-10.8)
[2024-04-15 15:52] LABS: Alanine Aminotransferase 11 U/L (7-40); Alkaline Phosphatase 127 U/L (46-116); Anion Gap 10 (5-15); Aspartate Aminotransferase 9 U/L (13-40); BUN/Creatinine Ratio 3.2 (10.0-20.0); Bilirubin, Total 0.6 mg/dL (0.2-1.0); Blood Urea Nitrogen 19 mg/dL (9-23); Calcium 8.8 mg/dL (8.7-10.4); Carbon Dioxide 26 mmol/L (20-30); Chloride 102 mmol/L (98-107); Glucose 135 mg/dL (74-106); Potassium 4.7 mmol/L (3.5-5.1); Sodium 138 mmol/L (136-145); Total Protein 6.6 g/dL (5.7-8.2)
[2024-04-16 01:00] VITALS: BP 103/57; PULSE 61; RESP 18; TEMP 97.7; O2SAT 100
[2024-04-16 05:00] VITALS: BP 107/51; PULSE 67; RESP 18; TEMP 97.9; O2SAT 100
[2024-04-16] MEDS: SODIUM CHL 0.9% 1000 ML BAG XX ONE (07:15)
[2024-04-16 08:00] VITALS: PULSE 70; RESP 18; O2SAT 100
[2024-04-16 08:24] LABS: Basophils # (auto) 0 10 ^3/uL (0-0.2); Basophils % (auto) 0.9 % (0.0-2.0); Eosinophils # (auto) 0.3 10 ^3/uL (0-0.8); Eosinophils % (auto) 5.7 % (0.0-7.0); Hematocrit 27.4 % (41.0-53.0); Hemoglobin 9.3 g/dL (13.5-17.5); Lymphocytes % (auto) 18.8 % (10.0-50.0); Mean Corpuscular Hemoglobin 33.6 pg (28.0-32.0); Monocytes # (auto) 0.8 10 ^3/uL (0-1.3); Monocytes % (auto) 15.8 % (0.0-12.0); Neutrophils # (auto) 3.1 10 ^3/uL (1.6-8.6); Neutrophils % (auto) 58.8 % (37.0-80.0); Nucleated Red Blood Cells % 0.1 %; Platelet Count (auto) 154 10^3/uL (140-450); Red Blood Cells 2.76 10^6/uL (4.5-5.90); Red Cell Distribution Width 18.7 % (11.8-14.3); White Blood Cell 5.3 10^3/uL (4.4-10.8)
[2024-04-16 09:00] VITALS: BP 116/66; PULSE 64; RESP 18; TEMP 97.5; O2SAT 100
[2024-04-16 09:29] LABS: Alanine Aminotransferase 14 U/L (7-40); Albumin 4.1 g/dL (3.2-4.8); Alkaline Phosphatase 126 U/L (46-116); Anion Gap 6 (5-15); Aspartate Aminotransferase < 8 U/L (13-40); BUN/Creatinine Ratio 3.9 (10.0-20.0); Bilirubin, Total 0.8 mg/dL (0.2-1.0); Blood Urea Nitrogen 16 mg/dL (9-23); Carbon Dioxide 29 mmol/L (20-30); Chloride 103 mmol/L (98-107); Glucose 85 mg/dL (74-106); Potassium 3.8 mmol/L (3.5-5.1); Sodium 138 mmol/L (136-145); Total Protein 6.7 g/dL (5.7-8.2)
[2024-04-16 12:59] VITALS: BP 109/42; PULSE 80; RESP 16; TEMP 98; O2SAT 90
[2024-04-16 14:33] VITALS: BP 123/63; PULSE 67; RESP 14; TEMP 97.1; O2SAT 96
[2024-04-16] MEDS ORDERED: EPOETIN ALFA-EPBX 10,000 UNIT/1ML VIAL SC ONE (21:00)
== END 2024-04-16 16:15 | disposition home or self-care (01) | DRG 640 ==
LOC: ER 18:27 → EDBD 18:27 → UNDOADMIN 23:50 → TELE 23:50 → TELE-CENTR 04-14 11:16
PROVIDERS: ADMIT Internal Medicine; ATTEND Internal Medicine
PROC: 5A1D70Z Performance of Urinary Filtration, Intermittent, Less than 6 Hours Per Day (ICD-10-PCS; principal; 2024-04-14)
DX: E87.70 Fluid overload, unspecified (principal); J96.21 Acute and chronic respiratory failure with hypoxia; N18.6 End stage renal disease; I13.2 Hypertensive heart and chronic kidney disease with heart failure and with stage 5 chronic kidney disease, or end stage renal disease; I48.20 Chronic atrial fibrillation, unspecified; I50.32 Chronic diastolic (congestive) heart failure; E11.22 Type 2 diabetes mellitus with diabetic chronic kidney disease; I95.9 Hypotension, unspecified; D63.1 Anemia in chronic kidney disease; E78.5 Hyperlipidemia, unspecified; Z83.3 Family history of diabetes mellitus; Z99.2 Dependence on renal dialysis; Z86.718 Personal history of other venous thrombosis and embolism; Z79.01 Long term (current) use of anticoagulants; Z82.49 Family history of ischemic heart disease and other diseases of the circulatory system; Z79.4 Long term (current) use of insulin; Z79.899 Other long term (current) drug therapy
CPT/HCPCS: 36415; 71045; 80053; 82962; 83735; 83880; 84100; 84484; 85025; 86706; 87081; 87340; 90935; 93005; 93970; 96374; G0378; J1642; J2470; P9047

== ENCOUNTER 2024-04-19 10:09 | Emergency (ER) | payer OTHER ==
[~2024-04-19] VITALS: Ht 170.2 cm; Wt 70.0 kg
[2024-04-19 11:12] LABS: Basophils # (auto) 0.1 10 ^3/uL (0-0.2); Basophils % (auto) 0.6 % (0.0-2.0); Eosinophils # (auto) 0.3 10 ^3/uL (0-0.8); Eosinophils % (auto) 3.6 % (0.0-7.0); Hematocrit 28.1 % (41.0-53.0); Lymphocytes # (auto) 0.7 10 ^3/uL (0.4-5.4); Lymphocytes % (auto) 8.2 % (10.0-50.0); Mean Corpuscular Hemoglobin 31.8 pg (28.0-32.0); Mean Corpuscular Hgb Conc. 32.1 g/dL (32.0-36.0); Mean Corpuscular Volume 98.9 fL (80.0-100.0); Monocytes # (auto) 1.1 10 ^3/uL (0-1.3); Monocytes % (auto) 13.2 % (0.0-12.0); Neutrophils # (auto) 6.4 10 ^3/uL (1.6-8.6); Neutrophils % (auto) 74.4 % (37.0-80.0); Platelet Count (auto) 158 10^3/uL (140-450); Red Blood Cells 2.85 10^6/uL (4.5-5.90); Red Cell Distribution Width 18.7 % (11.8-14.3); White Blood Cell 8.6 10^3/uL (4.4-10.8)
[2024-04-19 11:23] VITALS: PULSE 62; RESP 19; TEMP 98.4; O2SAT 100
[2024-04-19 11:29] LABS: Alanine Aminotransferase 15 U/L (7-40); Albumin 4.1 g/dL (3.2-4.8); Alkaline Phosphatase 171 U/L (46-116); Anion Gap 8 (5-15); Aspartate Aminotransferase 24 U/L (13-40); BUN/Creatinine Ratio 5.4 (10.0-20.0); Blood Urea Nitrogen 27 mg/dL (9-23); Calcium 8.4 mg/dL (8.7-10.4); Carbon Dioxide 28 mmol/L (20-30); Chloride 101 mmol/L (98-107); Glucose 108 mg/dL (74-106); Potassium 4.4 mmol/L (3.5-5.1); Sodium 137 mmol/L (136-145)
[2024-04-19 11:30] LABS: Bilirubin, Total 0.3 mg/dL (0.2-1.0); Total Protein 6.7 g/dL (5.7-8.2)
[2024-04-19 13:34] LABS: Urine Bacteria FEW /hpf (None Seen); Urine Blood 2+ /uL (Negative); Urine Clarity Turbid (Clear); Urine Protein, UAD 1+ (Negative); Urine Specific Gravity 1.026 (1.001-1.035); Urine Urobilinogen Normal (Negative); Urine WBC 56 /hpf (0 - 3); Urine pH 5.5 (5.0-9.0)
[2024-04-19 13:36] LABS: Urine Color Light Yellow (Yellow)
[2024-04-19 16:41] VITALS: BP 117/44; PULSE 61; RESP 12; O2SAT 100
[2024-04-19] MEDS: ONDANSETRON HCL 4 MG/2 ML VIAL IV ONE (17:11)
== END 2024-04-19 17:29 | disposition home or self-care (01) ==
LOC: EDUNIT# 10:09 → EDBD 10:09 → ER 10:09
DX: E11.649 Type 2 diabetes mellitus with hypoglycemia without coma (principal); N39.0 Urinary tract infection, site not specified; I13.2 Hypertensive heart and chronic kidney disease with heart failure and with stage 5 chronic kidney disease, or end stage renal disease; E11.22 Type 2 diabetes mellitus with diabetic chronic kidney disease; N18.6 End stage renal disease; I50.9 Heart failure, unspecified; E78.5 Hyperlipidemia, unspecified; I48.91 Unspecified atrial fibrillation; Z86.2 Personal history of diseases of the blood and blood-forming organs and certain disorders involving the immune mechanism; Z88.8 Allergy status to other drugs, medicaments and biological substances; Z79.899 Other long term (current) drug therapy
CPT/HCPCS: 36415; 71045; 80053; 81001; 83605; 83735; 83880; 84484; 85025; 93005; 96374; 99285; J2405

== ENCOUNTER 2024-05-20 06:52 | Inpatient (IN) | payer OTHER ==
[~2024-05-20] VITALS: Ht 177.8 cm; Wt 76.9 kg
[2024-05-20 07:40] VITALS: PULSE 69; RESP 12; O2SAT 100
[2024-05-20 08:01] LABS: Hematocrit 35.9 % (41.0-53.0); Hemoglobin 11.5 g/dL (13.5-17.5); Mean Corpuscular Hemoglobin 32.2 pg (28.0-32.0); Mean Corpuscular Hgb Conc. 32.1 g/dL (32.0-36.0); Mean Corpuscular Volume 100.5 fL (80.0-100.0); Platelet Count (auto) 155 10^3/uL (140-450); Red Blood Cells 3.58 10^6/uL (4.5-5.90); White Blood Cell 6.8 10^3/uL (4.4-10.8)
[2024-05-20 08:08] LABS: Red Cell Distribution Width 21.4 % (11.8-14.3)
[2024-05-20 08:09] LABS: Band Neutrophils % (manual) 0; Basophils % (manual) 0 (0.0-2.0); Blast Cells 0; Eosinophils % (manual) 0 (0-7); Metamyelocytes % 0; Myelocytes % 0; Promyelocytes % 0; Reactive Lymphocytes 0
[2024-05-20 08:15] LABS: Alkaline Phosphatase 187 U/L (46-116); Anion Gap 10 (5-15); Aspartate Aminotransferase 13 U/L (13-40); BUN/Creatinine Ratio 3.8 (10.0-20.0); Bilirubin, Total 0.6 mg/dL (0.2-1.0); Blood Urea Nitrogen 17 mg/dL (9-23); Calcium 8.4 mg/dL (8.7-10.4); Carbon Dioxide 30 mmol/L (20-31); Chloride 99 mmol/L (98-107); Glucose 123 mg/dL (74-106); Potassium 4.1 mmol/L (3.5-5.1); Sodium 139 mmol/L (136-145); Total Protein 7.1 g/dL (5.7-8.2)
[2024-05-20 08:19] LABS: Alanine Aminotransferase < 9 U/L (7-40)
[2024-05-20] MEDS: MORPHINE SULFATE INJ 2 MG/ml SYRG IV ONE ×2 (08:42→11:02)
[2024-05-20 09:02] LABS: Albumin 4.2 g/dL (3.2-4.8)
[2024-05-20 09:24] LABS: Lymphocytes % (manual) 14 (10.0-50.0); Monocytes % (manual) 21 (0-12)
[2024-05-20 09:25] LABS: Platelet Estimate Adequate
[2024-05-20 11:23] LABS: INR 1.37 (0.9-1.15); Partial Thromboplastin Time 33.3 SEC (24.5-34.5); Prothrombin Time 14.2 sec (9.3-11.8)
[2024-05-20] MEDS ORDERED: DEXTROSE (50%) 50ML SYRG IV PRN (12:00)
[2024-05-20] MEDS: ACCU-CHEK COMFORT CURVE STRIP VI SCH (12:53)
[2024-05-20] MEDS: InsuLIN REG 1unit/0.01ml Soln (100units/ml) SC SCH (12:53)
[2024-05-20 15:30] VITALS: BP 105/47; PULSE 66; RESP 16; TEMP 97.6; O2SAT 100
[2024-05-20] MEDS: MORPHINE SULFATE INJ 2 MG/ml SYRG IV PRN (16:52)
[2024-05-20 17:00] VITALS: BP 103/69; PULSE 71; RESP 18; TEMP 97.3; O2SAT 97
[2024-05-20 17:25] LABS: Magnesium 2.1 mg/dL (1.6-2.6)
[2024-05-20 17:27] LABS: Phosphorus 3.3 mg/dL (2.4-5.1)
[2024-05-20 20:00] VITALS: RESP 20; O2SAT 95
[2024-05-20 21:00] VITALS: BP 106/68; PULSE 75; RESP 19; TEMP 97.8; O2SAT 98
[2024-05-20] MEDS: ATORVASTATIN 20 MG TAB PO SCH (21:30)
[2024-05-21] VITALS (9 sets, daily range): BP systolic 95–119; BP diastolic 50–72; PULSE 69–91; RESP 17–20; TEMP 97.5–98.6; O2SAT 94–100
[2024-05-21] MEDS: ONDANSETRON HCL 4 MG/2 ML VIAL IV PRN (01:17)
[2024-05-21] MEDS: METOPROLOL SUCCINATE XL 50 MG TAB PO SCH (10:00)
[2024-05-21] MEDS: ceFAZolin 2 GM/D5W50ml 50 ML IV SCH (16:19)
[2024-05-21] MEDS: SODIUM CHL 0.9% 1000 ML BAG XX ONE (16:20)
[2024-05-21 18:38] LABS: Basophils # (auto) 0.1 10 ^3/uL (0-0.2); Basophils % (auto) 0.7 % (0.0-2.0); Eosinophils # (auto) 0.1 10 ^3/uL (0-0.8); Eosinophils % (auto) 0.8 % (0.0-7.0); Hematocrit 41.9 % (41.0-53.0); Hemoglobin 13.2 g/dL (13.5-17.5); Lymphocytes # (auto) 0.8 10 ^3/uL (0.4-5.4); Lymphocytes % (auto) 9.4 % (10.0-50.0); Mean Corpuscular Hemoglobin 32.6 pg (28.0-32.0); Mean Corpuscular Hgb Conc. 31.5 g/dL (32.0-36.0); Mean Corpuscular Volume 103.5 fL (80.0-100.0); Monocytes # (auto) 1.5 10 ^3/uL (0-1.3); Monocytes % (auto) 17.1 % (0.0-12.0); Neutrophils # (auto) 6.4 10 ^3/uL (1.6-8.6); Nucleated Red Blood Cells % 0.2 %; Platelet Count (auto) 148 10^3/uL (140-450); Red Blood Cells 4.05 10^6/uL (4.5-5.90); White Blood Cell 8.8 10^3/uL (4.4-10.8)
[2024-05-21 18:39] LABS: Red Cell Distribution Width 21.4 % (11.8-14.3)
[2024-05-21] MEDS ORDERED: ALBUMIN 25% 100 ML IV ONE (18:45)
[2024-05-21 18:48] LABS: INR 1.3 (0.9-1.15); Partial Thromboplastin Time 30.4 SEC (24.5-34.5); Prothrombin Time 13.5 sec (9.3-11.8)
[2024-05-21 18:51] LABS: Chloride 99 mmol/L (98-107); Potassium 5.3 mmol/L (3.5-5.1); Sodium 138 mmol/L (136-145)
[2024-05-21 18:52] LABS: Anion Gap 13 (5-15); Calcium 8.4 mg/dL (8.7-10.4); Carbon Dioxide 26 mmol/L (20-31)
[2024-05-21 18:57] LABS: BUN/Creatinine Ratio 3.5 (10.0-20.0); Blood Urea Nitrogen 20 mg/dL (9-23); Glucose 66 mg/dL (74-106)
[2024-05-22 01:00] VITALS: BP 104/64; PULSE 69; RESP 18; TEMP 98.2; O2SAT 97
[2024-05-22 05:00] VITALS: BP 104/56; PULSE 87; RESP 18; TEMP 98.5; O2SAT 95
[2024-05-22 08:00] VITALS: PULSE 88; RESP 15; O2SAT 95
[2024-05-22 09:00] VITALS: BP 109/60; PULSE 88; RESP 15; TEMP 97.8; O2SAT 95
[2024-05-22] MEDS ORDERED: MORP15TA PO (10:13)
[2024-05-22 13:09] VITALS: BP 109/60; PULSE 88; RESP 15; TEMP 97.8; O2SAT 95
== END 2024-05-22 13:58 | disposition home or self-care (01) | DRG 393 ==
LOC: ER 06:52 → EDBD 06:52 → CENTRAL 11:54 → OVERFLOW 11:54 → CENTRAL 15:10
PROVIDERS: ADMIT Registered Nurse General Practice; ATTEND Family Medicine
PROC: 5A1D70Z Performance of Urinary Filtration, Intermittent, Less than 6 Hours Per Day (ICD-10-PCS; principal; 2024-05-21)
DX: K40.30 Unilateral inguinal hernia, with obstruction, without gangrene, not specified as recurrent (principal); I50.33 Acute on chronic diastolic (congestive) heart failure; N18.6 End stage renal disease; R18.8 Other ascites; J96.11 Chronic respiratory failure with hypoxia; I13.2 Hypertensive heart and chronic kidney disease with heart failure and with stage 5 chronic kidney disease, or end stage renal disease; K74.60 Unspecified cirrhosis of liver; D63.1 Anemia in chronic kidney disease; I48.0 Paroxysmal atrial fibrillation; E78.5 Hyperlipidemia, unspecified; E87.5 Hyperkalemia; I27.20 Pulmonary hypertension, unspecified; I36.1 Nonrheumatic tricuspid (valve) insufficiency; E11.22 Type 2 diabetes mellitus with diabetic chronic kidney disease; I25.10 Atherosclerotic heart disease of native coronary artery without angina pectoris; Z88.8 Allergy status to other drugs, medicaments and biological substances; Z79.899 Other long term (current) drug therapy; Z79.82 Long term (current) use of aspirin; Z79.1 Long term (current) use of non-steroidal anti-inflammatories (NSAID); Z82.3 Family history of stroke; Z79.01 Long term (current) use of anticoagulants; Z99.2 Dependence on renal dialysis; Z99.81 Dependence on supplemental oxygen; Z83.3 Family history of diabetes mellitus; Z82.49 Family history of ischemic heart disease and other diseases of the circulatory system; Z98.61 Coronary angioplasty status
CPT/HCPCS: 36415; 71045; 74176; 76775; 80048; 80053; 82962; 83735; 84100; 85007; 85025; 85027; 85610; 85730; 86850; 86900; 86901; 87081; 90935; 96374; 96376; G0378; J1642; J2405; P9047

== ENCOUNTER 2024-06-08 17:51 | Inpatient (IN) | payer MEDICARE, OTHER ==
[~2024-06-08] VITALS: Ht 165.1 cm; Wt 63.8 kg
[~2024-06-08 17:51] MED LIST changes: +MORP15TA PO
--- NOTE | 2024-06-08 18:34 | ED.PDOC ---
History of Present Illness HPI Comments 88 y/o M, Hx of AFIB, anemia, CA, CHF, DM, PTCA, ESRD on HD M/W/F, HLD, and HTN, is BIBA for c/o diarrhea and blood w/bowel movement, today. Patient endorses onset of symptoms, recently, following intake of 2x stool softeners and laxatives to aid with constipation symptom he has been having for the several d ays prior. Patient comments on stool being liquid and having bowel movements 3-4 hours in addition to his abdomen "gripes." Patient denies having any abdomen pain, nausea, vomiting, urinary symptoms, fever, chills, or other associated symptoms or modifiers at this time. Chief Complaint: GI Bleed Time Seen by MD: 18:10 Primary Care Provider: ELIZA [facility] Reviewed Notes: Nurses Notes, Intelligence Support Officer Notes, Medications, Allergies Allergies: Coded Allergies: Amlodipine (Verified Allergy, Unknown, 05/20/24) Home Meds Active Scripts Morphine Sulfate (Morphine Sulfate) 15 Mg Tab, 1 TAB PO TID PRN, #60 TAB Prov:DEBORAH MCCARTY MD 05/22/24 Atorvastatin Calcium (ATORVASTATIN CALCIUM) 20 Mg Tab, 40 MG PO HS for 20 Days, #40 TAB Prov:ESTELLA FREEMAN MD 02/19/19 Aspirin (Aspir-Low Ec) 81 Mg Tb, 81 MG PO DAILY for 20 Days, #60 Prov:ESTELLA FREEMAN MD 02/19/19 Reported Medications Baclofen (Baclofen) 10 Mg Tab, 10 MG PO TID, TAB 03/30/24 Apixaban Base (ELIQUIS) 2.5 Mg Tab, 2.5 MG PO BID, TAB 03/30/24 Simethicone (Simethicone) 80 Mg Chw, 80 MG PO Q6HPRN, MG 07/14/21 Sevelamer Carbonate (Renvela) 800 Mg Tab, 2 TAB PO TIDWM, #540 TAB 3 Refills 07/14/21 B-Complex W/ C & Folic Acid (Renal) Softgel Cap, 1 TAB PO DAILY, #30 CAP 5 Refills 07/14/21 Montelukast Sodium (Singulair) 5 Mg Chw, 2 TAB PO DAILY, #30 TAB 5 Refills 07/14/21 Metoprolol Succinate (Metoprolol Succinate Er) 50 Mg Tab, 50 MG PO DAILY for 30 Days, MG 07/14/21 Melatonin (KP MELATONIN) 3 Mg Tab, 5 MG PO HSPRN, TAB 07/14/21 Nifedipine (Nifedipine ER) 30 Mg Tab, 60 MG PO DAILY, TAB 07/14/21 Latanoprost (Xalatan) 0.005 % Milady, 1 DROP EACHEYE QPM, #2.5 ML 6 Refills 07/14/21 Guaifenesin-Codeine (Guaifenesin Ac) Ac Syp, 10 ML PO Q6HPRN PRN for FOR COUGH, #240 ML 07/14/21 Lanthanum Carbonate (Fosrenol) 1,000 Mg Chw, 1000 MG PO TIDWM, TAB.CHEW 07/14/21 Fluticasone Propionate (Fluticasone Propionate) 0.05 % Cre, 50 MCG LUKE DAILY for 30 Days, MCG 07/14/21 Cinacalcet Hydrochloride (Sensipar) 30 Mg Tab, 1 TAB PO MWF, #30 TAB 11 Refills 07/14/21 Brimonidine Tartrate (Brimonidine Tartrate) 0.15 % Milady, 1 DROP OP BID, DROP 07/14/21 Ferric Citrate (Auryxia) 210 Mg Tab, 210 MG PO TID, TAB 07/14/21 Apixaban Base (ELIQUIS) 2.5 Mg Tab, 2.5 MG PO BID PRN for QD, TAB 07/14/21 Acetaminophen (Acetaminophen) 325 Mg Tab, 500 MG PO TID PRN for MILD PAIN (1-3 PAIN SCALE) for 30 Days, MG 0 Refills 07/14/21 Information Source: Patient, Emergency Med Personnel Mode of Arrival: EMS Severity: Moderate Timing: Days Duration: Since onset Prehospital treatment: 12 Lead EKG, Bookkeeper Assistant, IVF (500ml NS), Other (24 G right hand ) Past Medical History PAST MEDICAL HISTORY: AFIB (on Eliquis), Anemia, Cancer, CHF, DM (on HD M/W/F), ESRD, High Lipids, HTN Past Medical History (Other): inguinal hernia Surgical History: PTCA Family History Family History: No family hx of DM, No family hx ofKidney timoteo, Family hx of stroke Social History Smoker: Non-Smoker Alcohol: Denies ETOH Use Drugs: Denies Drug Use Lives In: Home Constitutional: denies: chills, diaphoresis, fatigue, fever, malaise, sweats, weakness, others EENTM: denies: blurred vision, double vision, ear bleeding, ear discharge, ear drainage, ear pain, ear ringing, eye pain, eye redness, hearing loss, mouth pain, mouth swelling, nasal discharge, nose bleeding, nose congestion, nose pain, photophobia, tearing, throat pain, throat swelling, voice changes, others Respiratory: denies: cough, hemoptysis, orthopnea, SOB at rest, shortness of breath, SOB with excertion, stridor, wheezing, others Cardiovascular: denies: chest pain, dizzy spells, diaphoresis, Dyspnea on exertion, edema, irregular heart beat, left arm pain, lightheadedness, palpitations, PND, syncope, others Gastrointestinal: reports: blood streaked bowels, diarrhea; denies: abdomen distended, abdominal pain, constipated, dysphagia, difficulty swallowing, hematemesis, melena, nausea, poor appetite, poor fluid intake, rectal bleeding, rectal pain, vomiting, others Genitourinary: denies: burning, dysuria, flank pain, frequency, hematuria, incontinence, penile discharge, penile sore, pain, testicle pain, testicle swelling, urgency, others Neurological: denies: dizziness, fainting, headache, left sided numbness, left sided weakness, numbness, paresthesia, pre-existing deficit, right sided numbness, right sided weakness, seizure, speech problems, tingling, tremors, weakness, others Musculoskeletal: denies: back pain, gout, joint pain, joint swelling, muscle pain, muscle stiffness, neck pain, others Integumetry: denies: bruises, change in color, change in hair/nails, dryness, laceration, lesions, lumps, rash, wounds, others Allergic/Immunocompromised: denies: Difficulty Healing, Frequent Infections, Hives, Itching, others Hematologic/Lymphatic: denies: anemia, blood clots, easy bleeding, easy bruising, swollen glands, others Endocrine: denies: excessive hunger, excessive sweating, excessive thirst, excessive urination, flushing, intolerance to cold, intolerance to heat, unexplained weight gain, unexplained weight loss, others Psychiatric: denies: anxiety, bipolar disorder, depression, hopeless, panic disorder, schizophrenia, sleepless, suicidal, others All Other Systems: Reviewed and Negative Physical Exam Exam Comments General Appearance: No Apparent Distress, Normal HEENT: Normal ENT Inspection, Pharynx Normal, TMs Normal Neck: Full Range of Motion, Non-Tender, Normal, Normal Inspection Respiratory: Chest Non-Tender, Lungs Clear, No Accessory Muscle Use, No Respiratory Distress, Normal Breath Sounds Cardiovascular: No Edema, No JVD, No Murmur, No Gallop, Normal Peripheral Pulses, Regular Rate/Rhythm Breast Exam: Deferred Gastrointestinal: Distended (abdomen distended and tympanic), No Organomegaly, Non Tender, No Pulsatile Mass, Normal Bowel Sounds, Soft Genitalia: Deferred Pelvic: Deferred Rectal: Other (red blood found and guaiac positive, wearing adult diaper ) Extremities: No calf tenderness, Normal capillary refill, Normal inspection, Normal range of motion, Non-tender, No pedal edema Musculoskeletal : Apperance: Normal Neurologic: Alert, pipe line repairer II-XII nml as Tested, No Motor Deficits, Normal Affect, Normal Mood, No Sensory Deficits Cerebellar Function: Normal Reflexes: Normal Skin: Dry, Normal Color, Warm Lymphatic: No Adenopathy Was a procedure done? Was a procedure done?: No Differential Dx Considerations may include: avm, diverticulosis, gastritis, intestinal mass, rectal bleed, coagulopathy, GI bleed, hemorrhoids, SBO, constipation X-Ray, Labs, Meds, VS Vital Signs Date Time Temp Pulse Resp B/P (MAP) Pulse Ox O2 Delivery O2 Flow Rate FiO2 06/08/24 17:53 97.8 64 18 97/59 (72) 99 Lab Test 06/08/24 18:42 Range/Units White Blood Count 6.2 4.4-10.8 10^3/uL Red Blood Count 3.64 L 4.5-5.90 10^6/uL Hemoglobin 11.6 L 13.5-17.5 g/dL Hematocrit 36.7 L 41.0-53.0 % Mean Corpuscular Volume 100.9 H 80.0-100.0 fL Mean Corpuscular Hemoglobin 31.8 28.0-32.0 pg Mean Corpuscular Hemoglobin Concent 31.5 L 32.0-36.0 g/dL Red Cell Distribution Width 20.2 H 11.8-14.3 % Platelet Count 133 L 140-450 10^3/uL Mean Platelet Volume 8.7 6.9-10.8 fL Neutrophils (%) (Auto) 61.6 37.0-80.0 % Lymphocytes (%) (Auto) 16.0 10.0-50.0 % Monocytes (%) (Auto) 19.2 H 0.0-12.0 % Eosinophils (%) (Auto) 2.1 0.0-7.0 % Basophils (%) (Auto) 1.1 0.0-2.0 % Neutrophils # (Auto) 3.8 1.6-8.6 10 ^3/uL Lymphocytes # (Auto) 1.0 0.4-5.4 10 ^3/uL Monocytes # (Auto) 1.2 0-1.3 10 ^3/uL Eosinophils # (Auto) 0.1 0-0.8 10 ^3/uL Basophils # (Auto) 0.1 0-0.2 10 ^3/uL Nucleated Red Blood Cells 0.2 % Prothrombin Time 14.1 H 9.3-11.8 sec Prothrombin Time INR 1.36 H 0.9-1.15 Activated Partial Thromboplast Time 33.0 24.5-34.5 SEC Sodium Level 141 136-145 mmol/L Potassium Level 4.2 3.5-5.1 mmol/L Chloride Level 101 98-107 mmol/L Carbon Dioxide Level 26 20-31 mmol/L Anion Gap 14 5-15 Blood Urea Nitrogen 24 H 9-23 mg/dL Creatinine 5.61 H 0.700-1.30 mg/dL Glomerular Filtration Rate Calc 9 >90 mL/min BUN/Creatinine Ratio 4.3 L 10.0-20.0 Serum Glucose 106 74-106 mg/dL Calcium Level 8.3 L 8.7-10.4 mg/dL Time of 1ST Reevaluation: 18:40 Reevaluation 1ST: Unchanged Time of 2ND Reevaluation: 20:30 Reevaluation 2ND: Improved (color television console monitor- nsr) Consultation: Other (hospitalist) Patient Education/Counseling: Diagnosis, Treatment Family Education/Counseling: No Family Present Additional Information pt presents with complaint of GIB, which is confirmed not only be digital rectal exam , but also ct findings, but the source is not identified. pt does not have an obvious hemorrhoid, fissure, or injury of the rectum. he is frail and elderly. we will admit him to provide close monitoring, gi consult. i will also have nephrology consulted to have his scheduled HD tomorrow Departure 1 Departure Time of Disposition: 20:35 Impression: Primary Impression: GIB (gastrointestinal bleeding) Qualified Codes: K92.2 - Gastrointestinal hemorrhage, unspecified Additional Impression: Renal failure Qualified Codes: N18.6 - End stage renal disease; Z99.2 - Dependence on bessie l dialysis Disposition: ADMITTED INPATIENT Condition: Serious Discharged With: Self Critical Care Note Critical Care Time?: Yes (55 min-critical care time only) Critical care comment: due to the possibility of acute hemorrhage and deterioration of pt's condition, his care required my highest level of attention. i assessed him and formulated a care plan, communicated with medical personnel, and reviewed his results, reassessed him and provided updates. total time excludes any procedures Stability Stability form required: No Heart Score Heart Score: Heart Score Response (Comments) Value History N/A 0 EKG N/A 0 Age N/A 0 Risk Factors N/A 0 Troponin N/A 0 Total 0 I personally scribed for CHELI JADE MD ([email or web address]) on 06/08/24 at 18:34. Electronically submitted by Marcell Acuna ([email or web address]). I personally scribed for CHELI JADE MD ([email or web address]) on 06/08/24 at 18:59. Electronically submitted by Marcell Acuna ([email or web address]). CHELI JADE MD Jun 08, 2024 18:34
[2024-06-08 18:49] LABS: Basophils # (auto) 0.1 10 ^3/uL (0-0.2); Basophils % (auto) 1.1 % (0.0-2.0); Eosinophils # (auto) 0.1 10 ^3/uL (0-0.8); Eosinophils % (auto) 2.1 % (0.0-7.0); Hematocrit 36.7 % (41.0-53.0); Hemoglobin 11.6 g/dL (13.5-17.5); Mean Corpuscular Hemoglobin 31.8 pg (28.0-32.0); Mean Corpuscular Hgb Conc. 31.5 g/dL (32.0-36.0); Mean Corpuscular Volume 100.9 fL (80.0-100.0); Monocytes # (auto) 1.2 10 ^3/uL (0-1.3); Neutrophils # (auto) 3.8 10 ^3/uL (1.6-8.6); Neutrophils % (auto) 61.6 % (37.0-80.0); Nucleated Red Blood Cells % 0.2 %; Platelet Count (auto) 133 10^3/uL (140-450); Red Blood Cells 3.64 10^6/uL (4.5-5.90); White Blood Cell 6.2 10^3/uL (4.4-10.8)
[2024-06-08 18:52] LABS: Monocytes % (auto) 19.2 % (0.0-12.0); Red Cell Distribution Width 20.2 % (11.8-14.3)
[2024-06-08 18:59] LABS: Chloride 101 mmol/L (98-107); Potassium 4.2 mmol/L (3.5-5.1); Sodium 141 mmol/L (136-145)
[2024-06-08 19:00] LABS: Anion Gap 14 (5-15); Calcium 8.3 mg/dL (8.7-10.4); Carbon Dioxide 26 mmol/L (20-31)
[2024-06-08 19:05] LABS: BUN/Creatinine Ratio 4.3 (10.0-20.0); Blood Urea Nitrogen 24 mg/dL (9-23); Glucose 106 mg/dL (74-106)
[2024-06-08 19:20] LABS: INR 1.36 (0.9-1.15); Prothrombin Time 14.1 sec (9.3-11.8)
--- NOTE | 2024-06-08 19:35 | DVH ---
Exam: CT CT AB PEL WO CON-NO ORAL OR IV History: gib Comparison Study: CT CT AB PEL WO CON-NO ORAL OR IV on DOS: 05/20/24, MBHL on DOS: 05/31/22 TECHNIQUE: Multidetector CT of the abdomen and pelvis was performed from lung bases to pubic symphysi s. Imaging was performed without IV contrast. Axial, coronal, and sagittal multiplanar reformats were obtained from the axial data set by the technologist. RADIATION DOSE: DLP 738.17 mGy.cm; CTDI vol 15.51 mGy. Findings: Lungs: The lung bases are clear. Heart: Mild cardiomegaly. No pericardial effusion. Liver: Unremarkable. Gallbladder: Unremarkable. Spleen: Unremarkable Pancreas: Unremarkable Adrenals: Unremarkable Kidneys: Bilatearl renal cysts and atrophy. GI tract: Unremarkable. Increased intraluminal attenuation of the ascending and transverse colons. : Unremarkable. Prostate brachytherapy seeds. Vasculature: Mild aortoiliac atherosclerosis. Lymphadenopathy: Absent Peritoneum: Trace ascites Musculoskeletal: Moderate multilevel degenerative changes of the thoracolumbar spine Soft tissues: Moderate to large bilateral inguinal hernias containing free fluid. Mild anasarca. Impression: 1. No definite acute abdominopelvic abnormalities. 2. Increased intraluminal attenuation of the ascending and transverse colons may reflect a nonlocaliz ed hemorrhage. Consider a nuclear medicine GI bleeding scan for further evaluation. 3. Other non-acute, ancillary findings as described above.
[2024-06-08 21:42] LABS: Hematocrit 34.7 % (41.0-53.0); Hemoglobin 11.2 g/dL (13.5-17.5)
[2024-06-08] MEDS: PANTOPRAZOLE 40 MG/10 ML VIAL INJ IV SCH (22:47)
--- NOTE | 2024-06-08 22:52 | DVHHP2 ---
History of Present Illness Reason for Visit: GI bleed History of Present Illness 88-year-old male presents for evaluation of possible GI bleed. The patient reports noticing dark-colored stools over the past one-week. He does have a history of atrial fibrillation and is currently taking Eliquis twice a day. He denies hematemesis or hematuria. Reports occasional lower abdominal cramps. Denies nausea or vomiting. No cardiac or respiratory complaints. Past Medical History End-stage renal disease, atrial fibrillation, diabetes mellitus, anemia and hypertension Past Surgical History Dialysis access, hernia repair and PTCA Family History Noncontributory Smoke: No ALCOHOL: none Drugs: None Lives: with Family Review of Systems Review of Systems Review of systems are currently negative otherwise addressed in HPI. Allergies: Coded Allergies: Amlodipine (Verified Allergy, Unknown, 05/20/24) Medications Current Medications Medications Dose Ordered Sig/Deann Route Start Time Stop Time Status Last Admin Dose Admin Pantoprazole Sodium 40 mg BID IV 06/08/24 22:00 Ondansetron HCl 4 mg Q4HP PRN IV 06/08/24 21:00 Exam Vital Signs Vital Signs Date Time Temp Pulse Resp B/P (MAP) Pulse Ox O2 Delivery O2 Flow Rate FiO2 06/08/24 17:53 97.8 64 18 97/59 (72) 99 Exam Gen: 88-year-old male in mild distress Skin: Warm, dry, normal color and texture, no rash. HEENT: Normocephalic atraumatic, mucous membranes moist and pink. Neck: Cervical and supraclavicular nodes normal without enlargement, trachea is midline, thyroid gland is normal without masses. Pulmonary: Clear to auscultation and percussion bilaterally. Cardiac: Regular rate and rhythm. No murmur Abdomen: Soft, nontender, nondistended, bowel sounds present all 4 quadrants, no guarding, no rigidity, no organomegaly. Extremities: No cyanosis, clubbing, no edema Neuro: Cranial nerves II through XII grossly intact, normal affect and speech, no focal motor deficits. Labs/Xrays ORDERING PHYSICIAN: CHELI JADE MD PROCEDURE(s): ABPL - CT AB PEL WO CON-NO ORAL OR IV REASON: gib ORDER NUMBER(s): [id number], ACCESSION NUMBER(s): [id number] Exam: CT CT AB PEL WO CON-NO ORAL OR IV History: gib Comparison Study: CT CT AB PEL WO CON-NO ORAL OR IV on DOS: 05/20/24, MBHL on DOS: 05/31/22 TECHNIQUE: Multidetector CT of the abdomen and pelvis was performed from lung bases to pubic symphysis. Imaging was performed without IV contrast. Axial, coronal, and sagittal multiplanar reformats were obtained from the axial data set by the technologist. RADIATION DOSE: DLP 738.17 mGy.cm; CTDI vol 15.51 mGy. Findings: Lungs: The lung bases are clear. Heart: Mild cardiomegaly. No pericardial effusion. Liver: Unremarkable. Gallbladder: Unremarkable. Spleen: Unremarkable Pancreas: Unremarkable Adrenals: Unremarkable Kidneys: Bilatearl renal cysts and atrophy. GI tract: Unremarkable. Increased intraluminal attenuation of the ascending and transverse colons. : Unremarkable. Prostate brachytherapy seeds. Vasculature: Mild aortoiliac atherosclerosis. Lymphadenopathy: Absent Peritoneum: Trace ascites Musculoskeletal: Moderate multilevel degenerative changes of the thoracolumbar spine Soft tissues: Moderate to large bilateral inguinal hernias containing free fluid. Mild anasarca. Impression: 1. No definite acute abdominopelvic abnormalities. 2. Increased intraluminal attenuation of the ascending and transverse colons may reflect a nonlocalized hemorrhage. Consider a nuclear medicine GI bleeding scan for further evaluation. 3. Other non-acute, ancillary findings as described above. Labs Test 06/08/24 21:20 06/08/24 18:42 Range/Units Hemoglobin 11.2 L 13.5-17.5 g/dL Hematocrit 34.7 L 41.0-53.0 % White Blood Count 6.2 4.4-10.8 10^3/uL Red Blood Count 3.64 L 4.5-5.90 10^6/uL Mean Corpuscular Volume 100.9 H 80.0-100.0 fL Mean Corpuscular Hemoglobin 31.8 28.0-32.0 pg Mean Corpuscular Hemoglobin Concent 31.5 L 32.0-36.0 g/dL Red Cell Distribution Width 20.2 H 11.8-14.3 % Platelet Count 133 L 140-450 10^3/uL Mean Platelet Volume 8.7 6.9-10.8 fL Neutrophils (%) (Auto) 61.6 37.0-80.0 % Lymphocytes (%) (Auto) 16.0 10.0-50.0 % Monocytes (%) (Auto) 19.2 H 0.0-12.0 % Eosinophils (%) (Auto) 2.1 0.0-7.0 % Basophils (%) (Auto) 1.1 0.0-2.0 % Neutrophils # (Auto) 3.8 1.6-8.6 10 ^3/uL Lymphocytes # (Auto) 1.0 0.4-5.4 10 ^3/uL Monocytes # (Auto) 1.2 0-1.3 10 ^3/uL Eosinophils # (Auto) 0.1 0-0.8 10 ^3/uL Basophils # (Auto) 0.1 0-0.2 10 ^3/uL Nucleated Red Blood Cells 0.2 % Prothrombin Time 14.1 H 9.3-11.8 sec Prothrombin Time INR 1.36 H 0.9-1.15 Activated Partial Thromboplast Time 33.0 24.5-34.5 SEC Sodium Level 141 136-145 mmol/L Potassium Level 4.2 3.5-5.1 mmol/L Chloride Level 101 98-107 mmol/L Carbon Dioxide Level 26 20-31 mmol/L Anion Gap 14 5-15 Blood Urea Nitrogen 24 H 9-23 mg/dL Creatinine 5.61 H 0.700-1.30 mg/dL Glomerular Filtration Rate Calc 9 >90 mL/min BUN/Creatinine Ratio 4.3 L 10.0-20.0 Serum Glucose 106 74-106 mg/dL Calcium Level 8.3 L 8.7-10.4 mg/dL Assessment/Plan Assessment/Plan Assessment GI bleed End-stage renal disease Anemia Hypotension Plan Admit the patient to telemetry to the hospitalist GI consultation Nephrology consult Maintenance IV fluids Clear liquid diet Continue treatment per orders. Plan discussed with: Patient My Orders Orders - NATALI CRISSOTOMO Procedure Category Date Status Time * Gi [facility] Senior Media Buyer CONS 06/08/24 Transmitted 20:57 Stool Occult Blood LAB 06/08/24 Logged 20:57 *[facility] CONS 06/08/24 Transmitted -[place] 20:57 Basic Metabolic Panel LAB 06/09/24 Verified 04:00 Pantoprazole PHA 06/08/24 In Process (Protonix) 22:00 Admit ADMIT 06/08/24 Transmitted 20:57 Ondansetron Hcl PHA 06/08/24 In Process (Zofran) 21:00 Complete Blood Count LAB 06/09/24 Verified 04:00 Condition: Stable PARTHA 06/08/24 In Process 20:57 Clear Liq Diet DIET 06/09/24 Transmitted Breakfast Bedrest With Bathroom PARTHA 06/08/24 In Process Privileg 20:57 Date of Service: Jun 08, 2024 Billing Provider: NATALI CRISOSTOMO Common Visit Codes: [id number] INP/OBS CARE (HIGH) NATALI CRISOSTOMO Jun 08, 2024 22:52
[2024-06-09] VITALS (8 sets, daily range): BP systolic 100–124; BP diastolic 47–70; PULSE 60–76; RESP 15–21; TEMP 97.3–98.1; O2SAT 95–100
[2024-06-09 07:23] LABS: Anion Gap 12 (5-15); Carbon Dioxide 26 mmol/L (20-31); Chloride 103 mmol/L (98-107); Hematocrit 36.2 % (41.0-53.0); Hemoglobin 11.6 g/dL (13.5-17.5); Mean Corpuscular Hemoglobin 32.5 pg (28.0-32.0); Mean Corpuscular Hgb Conc. 32.1 g/dL (32.0-36.0); Mean Corpuscular Volume 101.2 fL (80.0-100.0); Platelet Count (auto) 132 10^3/uL (140-450); Potassium 4.5 mmol/L (3.5-5.1); Red Blood Cells 3.58 10^6/uL (4.5-5.90); Red Cell Distribution Width 19.7 % (11.8-14.3); Sodium 141 mmol/L (136-145); White Blood Cell 6.1 10^3/uL (4.4-10.8)
[2024-06-09 07:24] LABS: Calcium 8.5 mg/dL (8.7-10.4)
[2024-06-09 07:28] LABS: Glucose 85 mg/dL (74-106)
[2024-06-09 07:29] LABS: BUN/Creatinine Ratio 4.5 (10.0-20.0); Blood Urea Nitrogen 27 mg/dL (9-23)
[2024-06-09 07:31] LABS: Band Neutrophils % (manual) 0; Basophils % (manual) 0 (0.0-2.0); Blast Cells 0; Metamyelocytes % 0; Myelocytes % 0; Promyelocytes % 0; Reactive Lymphocytes 0
[2024-06-09 09:32] LABS: Eosinophils % (manual) 3 (0-7); Lymphocytes % (manual) 23 (10.0-50.0); Monocytes % (manual) 11 (0-12); Platelet Estimate Decreased
--- NOTE | 2024-06-09 11:38 | DVHCONRES ---
Date Seen: Jun 09, 2024 Resident Creating Document: JHAJJ,SARPUNEET RESIDENT Referring Physician PATRICIA Cancino Reason for Consultation ESRD History of Present Illness Patient is a 88-year-old male with a past medical history of atrial fibrillation, end-stage renal disease, congestive heart failure, type 2 diabetes mellitus, hypertension, hyperlipidemia, glaucoma came to the ED with a chief complaint of dark-colored stools for 1 week. Patient reports since the past 2 days having bright red blood per rectum associated with occasional lower abdominal cramps. Patient does not report of hematemesis, hematuria. Patient reports mild nausea but no episode of vomiting. Patient denied chest pain, shortness of breath, palpitations, dizziness. Abdomen pelvic CT without contrast was done which showed increased intraluminal attenuation of the ascending and the transverse colon which may reflect a non localized hemorrhage. Patient's blood pressure on arrival is 97/59 mmHg, heart rate 64 beats per minute, respiratory rate 16 per minute, SpO2 96% on room air. Patient's recent echocardiogram from 03/20/2024 shows left ventricular ejection fraction 55% with grade 1 diastolic dysfunction, severely elevated right ventricular systolic pressure 92 mmHg. Past Medical History atrial fibrillation, end-stage renal disease, congestive heart failure, type 2 diabetes mellitus, hypertension, hyperlipidemia, glaucoma Past Surgical History ? PTCA Family History: Cerebrovascular accident (CVA) G8 FATHER, Onset:Unknown Diabetes mellitus G8 FATHER, Onset:Unknown FH: hypertension G8 FATHER, Onset:Unknown Hypertension G8 FATHER, Onset:Unknown Social History Denies smoking, alcohol, drug use Allergies: Coded Allergies: Amlodipine (Verified Allergy, Unknown, 05/20/24) Home Meds Active Scripts Morphine Sulfate (Morphine Sulfate) 15 Mg Tab, 1 TAB PO TID PRN, #60 TAB Prov:DEBORAH MCCARTY MD 05/22/24 Atorvastatin Calcium (ATORVASTATIN CALCIUM) 20 Mg Tab, 40 MG PO HS for 20 Days, #40 TAB Prov:ESTELLA FREEMAN MD 02/19/19 Aspirin (Aspir-Low Ec) 81 Mg Tb, 81 MG PO DAILY for 20 Days, #60 Prov:ESTELLA FREEMAN MD 02/19/19 Reported Medications Baclofen (Baclofen) 10 Mg Tab, 10 MG PO TID, TAB 03/30/24 Apixaban Base (ELIQUIS) 2.5 Mg Tab, 2.5 MG PO BID, TAB 03/30/24 Simethicone (Simethicone) 80 Mg Chw, 80 MG PO Q6HPRN, MG 07/14/21 Sevelamer Carbonate (Renvela) 800 Mg Tab, 2 TAB PO TIDWM, #540 TAB 3 Refills 07/14/21 B-Complex W/ C & Folic Acid (Renal) Softgel Cap, 1 TAB PO DAILY, #30 CAP 5 Refills 07/14/21 Montelukast Sodium (Singulair) 5 Mg Chw, 2 TAB PO DAILY, #30 TAB 5 Refills 07/14/21 Metoprolol Succinate (Metoprolol Succinate Er) 50 Mg Tab, 50 MG PO DAILY for 30 Days, MG 07/14/21 Melatonin (KP MELATONIN) 3 Mg Tab, 5 MG PO HSPRN, TAB 07/14/21 Nifedipine (Nifedipine ER) 30 Mg Tab, 60 MG PO DAILY, TAB 07/14/21 Latanoprost (Xalatan) 0.005 % Milady, 1 DROP EACHEYE QPM, #2.5 ML 6 Refills 07/14/21 Guaifenesin-Codeine (Guaifenesin Ac) Ac Syp, 10 ML PO Q6HPRN PRN for FOR COUGH, #240 ML 07/14/21 Lanthanum Carbonate (Fosrenol) 1,000 Mg Chw, 1000 MG PO TIDWM, TAB.CHEW 07/14/21 Fluticasone Propionate (Fluticasone Propionate) 0.05 % Cre, 50 MCG LUKE DAILY for 30 Days, MCG 07/14/21 Cinacalcet Hydrochloride (Sensipar) 30 Mg Tab, 1 TAB PO MWF, #30 TAB 11 Refills 07/14/21 Brimonidine Tartrate (Brimonidine Tartrate) 0.15 % Milady, 1 DROP OP BID, DROP 07/14/21 Ferric Citrate (Auryxia) 210 Mg Tab, 210 MG PO TID, TAB 07/14/21 Acetaminophen (Acetaminophen) 325 Mg Tab, 500 MG PO TID PRN for MILD PAIN (1-3 PAIN SCALE) for 30 Days, MG 0 Refills 07/14/21 Discontinued Reported Medications Apixaban Base (ELIQUIS) 2.5 Mg Tab, 2.5 MG PO BID PRN for QD, TAB 07/14/21 Current Medications Current Medications Medications (Trade) Dose Ordered Sig/Deann Route PRN Reason Start Time Stop Time Status Last Admin Pantoprazole Sodium (Protonix) 40 mg BID IV 06/08/24 22:00 06/09/24 09:37 Ondansetron HCl (Zofran) 4 mg Q4HP PRN IV NAUSEA / VOMITING 06/08/24 21:00 Review of Systems Patient was seen and examined at the bedside. Patient is alert and oriented to time, place and person. Patient's blood pressure is 100/68 mmHg, pulse 76/min irregular SpO2 96% on room air. Patient reports diffuse abdominal discomfort with feeling "pre nausea". Patient reported bowel movement in the morning with passing bright red blood per rectum. Patient does not report any shortness of breath, chest pain, dizziness. Patient reported ESRD with dialysis Sunday. Vital Signs Vital Signs Date Time Temp Pulse Resp B/P (MAP) Pulse Ox O2 Delivery O2 Flow Rate FiO2 06/09/24 09:00 97.8 76 18 100/68 (79) 96 97.8 06/09/24 08:00 Room Air* 0 21 Physical Exam Physical Examination Gen - no pallor, no icterus, no cyanosis, no clubbing, no LAD, 2+ bilateral lower extremity pitting edema. Skin - Patients skin is warm and dry. HEENT - normocephalic, atraumatic, moist mucous membranes. Neck - full ROM, no LAD, no JVD. Pulmonary - B/L decreased breath sounds with bibasilar coarse crackles, no wheezing, no stridor. cardiovascular - normal S1,S2 heard. no murmurs heard. peripheral pulses normal radial 2+, pedal 2+. capillary refill normal <2 secs. GI - distended abdomen without tenderness to palpation. no hepatospleenomegaly. Bowel sounds+ Neurological - Patient is A/O X 3 . Bilateral upper extremity strength 5/5, b ilateral lower extremity strength 5/5, no facial droop, normal speech, no tremor, no sensory deficiets. Labs/Diagnostic Data Labs Test 06/09/24 06:06 06/08/24 18:42 Range/Units White Blood Count 6.1 4.4-10.8 10^3/uL Red Blood Count 3.58 L 4.5-5.90 10^6/uL Hemoglobin 11.6 L 13.5-17.5 g/dL Hematocrit 36.2 L 41.0-53.0 % Mean Corpuscular Volume 101.2 H 80.0-100.0 fL Mean Corpuscular Hemoglobin 32.5 H 28.0-32.0 pg Mean Corpuscular Hemoglobin Concent 32.1 32.0-36.0 g/dL Red Cell Distribution Width 19.7 H 11.8-14.3 % Platelet Count 132 L 140-450 10^3/uL Mean Platelet Volume 9.0 6.9-10.8 fL Neutrophils (%) (Auto) 37.0-80.0 % Lymphocytes (%) (Auto) 10.0-50.0 % Monocytes (%) (Auto) 0.0-12.0 % Basophils (%) (Auto) 0.0-2.0 % Neutrophils # (Auto) 1.6-8.6 10 ^3/uL Lymphocytes # (Auto) 0.4-5.4 10 ^3/uL Monocytes # (Auto) 0-1.3 10 ^3/uL Differential Total Cells Counted 100.0 100 Neutrophils % (Manual) 63 37.0-80.0 Band Neutrophils % (Manual) 0 Lymphocytes % (Manual) 23 10.0-50.0 Monocytes % (Manual) 11 0-12 Eosinophils % (Manual) 3 0-7 Basophils % (Manual) 0 0.0-2.0 Metamyelocytes % (manual) 0 Myelocytes % (Manual) 0 Promyelocytes % (Manual) 0 Blast Cells % (Manual) 0 Reactive Lymphocytes 0 Platelet Estimate Decreased Sodium Level 141 136-145 mmol/L Potassium Level 4.5 3.5-5.1 mmol/L Chloride Level 103 98-107 mmol/L Carbon Dioxide Level 26 20-31 mmol/L Anion Gap 12 5-15 Blood Urea Nitrogen 27 H 9-23 mg/dL Creatinine 6.03 H 0.700-1.30 mg/dL Glomerular Filtration Rate Calc 8 >90 mL/min BUN/Creatinine Ratio 4.5 L 10.0-20.0 Serum Glucose 85 74-106 mg/dL Calcium Level 8.5 L 8.7-10.4 mg/dL Eosinophils (%) (Auto) 2.1 0.0-7.0 % Eosinophils # (Auto) 0.1 0-0.8 10 ^3/uL Basophils # (Auto) 0.1 0-0.2 10 ^3/uL Nucleated Red Blood Cells 0.2 % Prothrombin Time 14.1 H 9.3-11.8 sec Prothrombin Time INR 1.36 H 0.9-1.15 Activated Partial Thromboplast Time 33.0 24.5-34.5 SEC Plan/Recommendation Assessment and plan # End stage renal disease - on dialysis MWF - serum creatinine 5.61--> 6.03 - BUN 24--> 27 - serum potassium 4.5 - GFR 9 - renal ultrasound from 05/20 shows moderately atrophic kidneys with bilateral cysts. - fluid restriction 1200 mL - patient was on clear liquid diet given the history of bright red blood per rectum - dialysis to be done # GI bleed likely lower GI - episodes of bright red blood per rectum - 1 episode in the morning today on 06/09 - patient on clear lq diet - Further management as per GI # history of atrial fib. # history of heart failure with preserved ejection( elevated RVSP) # type 2 diabetes mellitus # hypertension # hyperlipidemia Goals care discussed with the patient and the for over 20 minutes. Plan discussed with Dr. Orlando Patient seen and examined by myself today med in rounds with the medicine resident I agree with the medicine resident assessment and plan as documented above Plan discussed with: Patient, Spouse JANICE ABREU RESIDENT Jun 09, 2024 11:38 DOM ORLANDO MD Jun 09, 2024 16:17
--- NOTE | 2024-06-09 11:43 | DVHPN2 ---
Progress Note Date Seen: Jun 09, 2024 Medical Necessity Reason Pt with a Central, PICC or Fol: No Subjective Patient reports: No new complaints Review of Systems: HEENT:Normal, CVS:Normal, RESPIRATORY:Normal, GI:Normal, :Normal, MSK:Normal, NEURO:Normal Objective vital signs Vital Sign Date Time Temp Pulse Resp B/P (MAP) Pulse Ox O2 Delivery O2 Flow Rate FiO2 06/09/24 09:00 97.8 76 18 100/68 (79) 96 97.8 06/09/24 08:00 Room Air* 0 21 Total Intake and Output 06/08/24 06/08/24 06/09/24 15:00 23:00 07:00 Intake Total 100 ml Balance 100 ml medications Current Medications Medications Dose Ordered Sig/Deann Route Start Time Stop Time Status Last Admin Dose Admin Pantoprazole Sodium 40 mg BID IV 06/08/24 22:00 06/09/24 09:37 40 MG Ondansetron HCl 4 mg Q4HP PRN IV 06/08/24 21:00 Examination: GENERAL:Normal, HEENT:Normal, NECK:Normal, LUNGS:Normal, CVS:Normal, ABDOMEN:Normal, MSK:Normal, SKIN:Normal, NEURO:Normal, :Normal laboratory and microbiology Laboratory Tests 06/09/24 06:06 Test 06/09/24 06:06 Range/Units Serum Glucose 85 74-106 mg/dL Problem List/Assessment/Plan Problem List/Assessment/Plan #1 gi bleed: gi eval #2 dm: ssi #3 esrd: dialysis today #4 htn #5 hyperlipidemia #6 acute on chronic diastolic heart failure: dialysis #7 inguinal hernias #8 a fib: hold eliquis #9 ?cad/ptca advance care planning- full code- time spent 19 mins Plan discussed with: Patient, Spouse Date of Service: Jun 09, 2024 Billing Provider: NATALI MOYA MD Common Visit Codes: 96748-[id number] INP/OBS CARE(HIGH) Secondary Visit Codes: [id number] CARE PLAN 30 MINUTES NATALI MOYA MD Jun 09, 2024 11:43
[2024-06-09] MEDS ORDERED: DEXTROSE (50%) 50ML SYRG IV PRN (11:45)
[2024-06-09] MEDS: ACCU-CHEK COMFORT CURVE STRIP VI SCH (12:00)
[2024-06-09] MEDS: InsuLIN REG 1unit/0.01ml Soln (100units/ml) SC SCH (12:00)
--- NOTE | 2024-06-09 12:41 | DVH ---
Chest x-ray Technique: AP portable REASON FOR EXAM: chf Comparison: 05/20/2020 FINDINGS: Heart size is enlarged. There are no infiltrates or effusions. Degenerative changes in the thoracic spine. IMPRESSION: 1. Cardiomegaly. No acute cardiopulmonary pathology.
[2024-06-09 13:07] LABS: Magnesium 2.2 mg/dL (1.6-2.6)
[2024-06-09 13:09] LABS: Phosphorus 4.1 mg/dL (2.4-5.1)
[2024-06-09] MEDS: MIDODRINE HCL 10 MG TAB PO SCH (13:29)
[2024-06-09] MEDS: ONDANSETRON HCL 4 MG/2 ML VIAL IV PRN (13:29)
[2024-06-09 13:35] LABS: Hepatitis B Surface Antigen Negative (Negative)
[2024-06-09 13:56] LABS: Hepatitis C Antibody Negative (Negative)
[2024-06-10] VITALS (7 sets, daily range): BP systolic 108–138; BP diastolic 54–76; PULSE 64–82; RESP 16–19; TEMP 98.1–98.8; O2SAT 96–100
[2024-06-10 05:10] LABS: Hematocrit 32.7 % (41.0-53.0); Hemoglobin 10.6 g/dL (13.5-17.5); Mean Corpuscular Hemoglobin 32.2 pg (28.0-32.0); Mean Corpuscular Hgb Conc. 32.4 g/dL (32.0-36.0); Mean Corpuscular Volume 99.6 fL (80.0-100.0); Platelet Count (auto) 142 10^3/uL (140-450); Red Blood Cells 3.28 10^6/uL (4.5-5.90); Red Cell Distribution Width 19.8 % (11.8-14.3); White Blood Cell 6.7 10^3/uL (4.4-10.8)
[2024-06-10 05:20] LABS: Band Neutrophils % (manual) 0; Basophils % (manual) 0 (0.0-2.0); Blast Cells 0; Metamyelocytes % 0; Myelocytes % 0; Promyelocytes % 0; Reactive Lymphocytes 0
[2024-06-10 05:29] LABS: Albumin 3.7 g/dL (3.2-4.8); Alkaline Phosphatase 119 U/L (46-116); Anion Gap 13 (5-15); Aspartate Aminotransferase 16 U/L (13-40); BUN/Creatinine Ratio 4.7 (10.0-20.0); Blood Urea Nitrogen 33 mg/dL (9-23); Calcium 8.3 mg/dL (8.7-10.4); Carbon Dioxide 24 mmol/L (20-31); Chloride 103 mmol/L (98-107); Glucose 79 mg/dL (74-106); Potassium 4.9 mmol/L (3.5-5.1); Sodium 140 mmol/L (136-145)
[2024-06-10 05:30] LABS: Bilirubin, Total 0.6 mg/dL (0.2-1.0); Total Protein 6.5 g/dL (5.7-8.2)
[2024-06-10 05:31] LABS: Alanine Aminotransferase < 9 U/L (7-40)
--- NOTE | 2024-06-10 06:03 | PRN ---
Misceleneous Note Note Note 06/09/2024 GI consultation Patient is a 88-year-old male with a history of hypertension, hyperlipidemia, coronary artery disease, CHF, end-stage renal disease, history of atrial fi brillation on Eliquis who was admitted with melena. Patient denies any prior history of GI bleed. He has had endoscopy and colonoscopy more than 10 years ago. Patient denies any fevers or chills. She has had some shortness of breath and fatigue. No history of NSAID use. Patient has been also having some bright red blood over the last few days. He denies any significant abdominal pain. GI consultation was obtained for evaluation given the patient's findings. Past medical history: As above, history of glaucoma as well As surgical history: PTCA Allergies: Amlodipine Current Medications Medications (Trade) Dose Ordered Sig/Deann Route Start Time Stop Time Status Last Admin Dose Admin Pantoprazole Sodium (Protonix) 40 mg BID IV 06/08/24 22:00 06/09/24 22:05 40 MG Ondansetron HCl (Zofran) 4 mg Q4HP PRN IV 06/08/24 21:00 06/09/24 22:05 4 MG Diagnostic Test (Pha) (Accu-Chek Comfort Curve T) 1 strip Q6HR 06/09/24 12:00 06/10/24 00:00 1 STRIP Insulin Human Regular (InsuLIN R) Q6HR SC 06/09/24 12:00 Dextrose 50 ml UD PRN IV 06/09/24 11:45 Morphine Sulfate 1 mg Q4HP PRN IV 06/09/24 11:45 Acetaminophen/ Hydrocodone Bitart ([place] 5/325MG Tab) 1 tab Q6HPRN PRN PO 06/09/24 11:45 Acetaminophen (Tylenol Tablet) 500 mg Q6HP PRN PO 06/09/24 11:45 Midodrine (Proamatine Tablet) 10 mg TID@0600,1200,1800 PO 06/09/24 12:00 06/09/24 17:25 10 MG Current Medications Medications (Trade) Dose Ordered Sig/Deann Route PRN Reason Start Time Stop Time Status Last Admin Diagnostic Test (Pha) (Accu-Chek Comfort Curve T) 1 strip Q6HR 06/09/24 12:00 06/10/24 00:00 Insulin Human Regular (InsuLIN R) Q6HR SC 06/09/24 12:00 Dextrose 50 ml UD PRN IV Blood Sugar LESS THAN 60 06/09/24 11:45 Morphine Sulfate 1 mg Q4HP PRN IV SEVERE PAIN (7-10 PAIN SCALE) 06/09/24 11:45 Acetaminophen/ Hydrocodone Bitart ([place] 5/325MG Tab) 1 tab Q6HPRN PRN PO MODERATE PAIN (4-6 PAIN SCALE) 06/09/24 11:45 Acetaminophen (Tylenol Tablet) 500 mg Q6HP PRN PO MILD PAIN (1-3 PAIN SCALE) 06/09/24 11:45 Midodrine (Proamatine Tablet) 10 mg TID@0600,1200,1800 PO 06/09/24 12:00 06/09/24 17:25 Review of systems: Twelve point review of systems as per HPI. Vital Signs Date Time Temp Pulse Resp B/P (MAP) Pulse Ox O2 Delivery O2 Flow Rate FiO2 06/10/24 05:00 98.1 65 19 134/59 (84) 96 98.1 06/09/24 20:00 Room Air* 0 21 Vital Signs Date Time Temp Pulse Resp B/P (MAP) Pulse Ox O2 Delivery O2 Flow Rate FiO2 06/10/24 05:00 98.1 65 19 134/59 (84) 96 98.1 06/09/24 22:00 97.5 60 19 105/47 (66) 100 97.5 06/09/24 20:00 99 Room Air* 0 21 06/09/24 17:00 98.1 62 21 104/54 (71) 95 98.1 06/09/24 13:00 97.8 64 15 124/70 (88) 98 97.8 06/09/24 09:00 97.8 76 18 100/68 (79) 96 97.8 06/09/24 08:00 68 17 99 Room Air* 0 21 Physical examination: Alert, elderly male lying in bed no distress Normocephalic atraumatic extraocular muscles intact oropharynx clear Regular rate and rhythm Soft nontender nondistended abdomen No clubbing cyanosis or edema Neurologically moves all 4 extremities Lab Test 06/10/24 04:30 06/10/24 01:21 06/09/24 16:59 06/09/24 13:20 Range/Units White Blood Count 6.7 4.4-10.8 10^3/uL Red Blood Count 3.28 L 4.5-5.90 10^6/uL Hemoglobin 10.6 L 13.5-17.5 g/dL Hematocrit 32.7 L 41.0-53.0 % Mean Corpuscular Volume 99.6 80.0-100.0 fL Mean Corpuscular Hemoglobin 32.2 H 28.0-32.0 pg Mean Corpuscular Hemoglobin Concent 32.4 32.0-36.0 g/dL Red Cell Distribution Width 19.8 H 11.8-14.3 % Platelet Count 142 140-450 10^3/uL Mean Platelet Volume 8.9 6.9-10.8 fL Neutrophils (%) (Auto) 37.0-80.0 % Lymphocytes (%) (Auto) 10.0-50.0 % Monocytes (%) (Auto) 0.0-12.0 % Basophils (%) (Auto) 0.0-2.0 % Neutrophils # (Auto) 1.6-8.6 10 ^3/uL Lymphocytes # (Auto) 0.4-5.4 10 ^3/uL Monocytes # (Auto) 0-1.3 10 ^3/uL Differential Total Cells Counted Pending Neutrophils % (Manual) Pending Band Neutrophils % (Manual) Pending Lymphocytes % (Manual) Pending Monocytes % (Manual) Pending Eosinophils % (Manual) Pending Basophils % (Manual) Pending Metamyelocytes % (manual) Pending Myelocytes % (Manual) Pending Promyelocytes % (Manual) Pending Blast Cells % (Manual) Pending Reactive Lymphocytes Pending Platelet Estimate Pending Sodium Level 140 136-145 mmol/L Potassium Level 4.9 3.5-5.1 mmol/L Chloride Level 103 98-107 mmol/L Carbon Dioxide Level 24 20-31 mmol/L Anion Gap 13 5-15 Blood Urea Nitrogen 33 H 9-23 mg/dL Creatinine 7.04 H 0.700-1.30 mg/dL Glomerular Filtration Rate Calc 7 >90 mL/min BUN/Creatinine Ratio 4.7 L 10.0-20.0 Serum Glucose 79 74-106 mg/dL Calcium Level 8.3 L 8.7-10.4 mg/dL Total Bilirubin 0.6 0.2-1.0 mg/dL Aspartate Amino Transferase (AST) 16 13-40 U/L Alanine Aminotransferase (ALT) < 9 7-40 U/L Alkaline Phosphatase 119 H 46-116 U/L Total Protein 6.5 5.7-8.2 g/dL Albumin 3.7 3.2-4.8 g/dL POC Glucose 83 96 126 H 70-106 mg/dl Test 06/09/24 13:00 06/09/24 06:06 Range/Units Stool Occult Blood Positive Negative Stool Occult Blood Sample #3 Negative White Blood Count 6.1 4.4-10.8 10^3/uL Red Blood Count 3.58 L 4.5-5.90 10^6/uL Hemoglobin 11.6 L 13.5-17.5 g/dL Hematocrit 36.2 L 41.0-53.0 % Mean Corpuscular Volume 101.2 H 80.0-100.0 fL Mean Corpuscular Hemoglobin 32.5 H 28.0-32.0 pg Mean Corpuscular Hemoglobin Concent 32.1 32.0-36.0 g/dL Red Cell Distribution Width 19.7 H 11.8-14.3 % Platelet Count 132 L 140-450 10^3/uL Mean Platelet Volume 9.0 6.9-10.8 fL Neutrophils (%) (Auto) 37.0-80.0 % Lymphocytes (%) (Auto) 10.0-50.0 % Monocytes (%) (Auto) 0.0-12.0 % Basophils (%) (Auto) 0.0-2.0 % Neutrophils # (Auto) 1.6-8.6 10 ^3/uL Lymphocytes # (Auto) 0.4-5.4 10 ^3/uL Monocytes # (Auto) 0-1.3 10 ^3/uL Differential Total Cells Counted 100.0 100 Neutrophils % (Manual) 63 37.0-80.0 Band Neutrophils % (Manual) 0 Lymphocytes % (Manual) 23 10.0-50.0 Monocytes % (Manual) 11 0-12 Eosinophils % (Manual) 3 0-7 Basophils % (Manual) 0 0.0-2.0 Metamyelocytes % (manual) 0 Myelocytes % (Manual) 0 Promyelocytes % (Manual) 0 Blast Cells % (Manual) 0 Reactive Lymphocytes 0 Platelet Estimate Decreased Sodium Level 141 136-145 mmol/L Potassium Level 4.5 3.5-5.1 mmol/L Chloride Level 103 98-107 mmol/L Carbon Dioxide Level 26 20-31 mmol/L Anion Gap 12 5-15 Blood Urea Nitrogen 27 H 9-23 mg/dL Creatinine 6.03 H 0.700-1.30 mg/dL Glomerular Filtration Rate Calc 8 >90 mL/min BUN/Creatinine Ratio 4.5 L 10.0-20.0 Serum Glucose 85 74-106 mg/dL Uric Acid 5.2 3.7-9.2 mg/dL Calcium Level 8.5 L 8.7-10.4 mg/dL Phosphorus Level 4.1 2.4-5.1 mg/dL Magnesium Level 2.2 1.6-2.6 mg/dL B-Type Natriuretic Peptide 965.98 0-100 pg/mL Vitamin D 25-Hydroxy 79.7 30.0-100 ng/mL Parathyroid Hormone (Intact) 398.1 H 18.4-80.1 pg/mL Hepatitis B Surface Antigen Negative Negative Hepatitis C Antibody Negative Negative Current Medications Medications (Trade) Dose Ordered Sig/Deann Route Start Time Stop Time Status Last Admin Diagnostic Test (Pha) (Accu-Chek Comfort Curve T) 1 strip Q6HR 06/09/24 12:00 06/10/24 00:00 Midodrine (Proamatine Tablet) 10 mg TID@0600,1200,1800 PO 06/09/24 12:00 06/09/24 17:25 1. No definite acute abdominopelvic abnormalities. 2. Increased intraluminal attenuation of the ascending and transverse colons may reflect a nonlocalized hemorrhage. Consider a nuclear medicine GI bleeding scan for further evaluation. 3. Other non-acute, ancillary findings as described above. Impression: 88-year-old male with hypertension, hyperlipidemia, end-stage renal disease, HC of atrial fibrillation on Eliquis admitted with GI bleed. Patient had melena as well as bright red blood per rectum. CT scan findings so possible hemorrhage. Recommendation: 1. Follow H&H 2. Transfused as needed if hemoglobin continues to drop 3. Patient will need endoscopy and possible colonoscopy 4. IV fluids and clear liquid diet BOB SEGOVIA MD Jun 10, 2024 06:03
[2024-06-10 08:18] LABS: Eosinophils % (manual) 2 (0-7); Lymphocytes % (manual) 27 (10.0-50.0); Monocytes % (manual) 6 (0-12); Platelet Estimate Adequate
--- NOTE | 2024-06-10 10:15 | DVHPN2 ---
Progress Note Date Seen: Jun 10, 2024 Resident Creating Document: ANANYATAMMYBLAIREHUNTER RESIDENT Medical Necessity Reason Pt with a Central, PICC or Fol: No Subjective Review of Systems Patient is a 88-year-old male with a past medical history of atrial fibrillation, end-stage renal disease, congestive heart failure, type 2 diabetes mellitus, hypertension, hyperlipidemia, glaucoma came to the ED with a chief complaint of dark-colored stools for 1 week. Patient reports since the past 2 days having bright red blood per rectum associated with occasional lower abdominal cramps. Patient does not report of hematemesis, hematuria. Patient reports mild nausea but no episode of vomiting. Patient denied chest pain, shortness of breath, palpitations, dizziness. Abdomen pelvic CT without contrast was done which showed increased intraluminal attenuation of the ascending and the transverse colon which may reflect a non localized hemorrhage. Patient's blood pressure on arrival is 97/59 mmHg, heart rate 64 beats per minute, respiratory rate 16 per minute, SpO2 96% on room air. Patient's recent echocardiogram from 03/20/2024 shows left ventricular ejection fraction 55% with grade 1 diastolic dysfunction, severely elevated right ventricular systolic pressure 92 mmHg. Review of Systems Patient was seen and examined at the bedside. Patient is alert and oriented to time, place and person. Patient's blood pressure is 108/72 mmHg, pulse 64/min irregular SpO2 99% on room air. Patient does not report abdominal discomfort or pain. Patient reported bowel movement in the morning with passing bright red blood per rectum. Patient does not report any shortness of breath, chest pain, dizziness. Patient reported ESRD with dialysis Sunday. Other Systems: Patient examined hemodialysis, blood pressure stable Objective vital signs Vital Sign Date Time Temp Pulse Resp B/P (MAP) Pulse Ox O2 Delivery O2 Flow Rate FiO2 06/10/24 09:00 98.8 64 18 108/72 (84) 100 98.8 06/10/24 08:00 Room Air* 0 21 Total Intake and Output 06/09/24 06/09/24 06/10/24 15:00 23:00 07:00 Intake Total 120 ml 125 ml Output Total 0 ml Balance 120 ml 125 ml medications Current Medications Medications Dose Ordered Sig/Deann Route Start Time Stop Time Status Last Admin Dose Admin Pantoprazole Sodium 40 mg BID IV 06/08/24 22:00 06/10/24 08:51 40 MG Ondansetron HCl 4 mg Q4HP PRN IV 06/08/24 21:00 06/09/24 22:05 4 MG Diagnostic Test (Pha) 1 strip Q6HR 06/09/24 12:00 06/10/24 06:03 1 STRIP Insulin Human Regular Q6HR SC 06/09/24 12:00 Dextrose 50 ml UD PRN IV 06/09/24 11:45 Morphine Sulfate 1 mg Q4HP PRN IV 06/09/24 11:45 Acetaminophen/ Hydrocodone Bitart 1 tab Q6HPRN PRN PO 06/09/24 11:45 Acetaminophen 500 mg Q6HP PRN PO 06/09/24 11:45 Midodrine 10 mg TID@0600,1200,1800 PO 06/09/24 12:00 06/09/24 17:25 10 MG Examination Gen - no pallor, no icterus, no cyanosis, no clubbing, no LAD, 2+ bilateral lower extremity pitting edema. Skin - Patients skin is warm and dry. HEENT - normocephalic, atraumatic, moist mucous membranes. Neck - full ROM, no LAD, no JVD. Pulmonary - B/L decreased breath sounds (right worse than left) with bibasilar crackles, no wheezing, no stridor. cardiovascular - normal S1,S2 heard. no murmurs heard. peripheral pulses normal radial 2+, pedal 2+. capillary refill normal <2 secs. GI - distended abdomen without tenderness to palpation. no hepatospleenomegaly. Bowel sounds+ Neurological - Patient is A/O X 3 . Bilateral upper extremity strength 5/5, bilateral lower extremity strength 5/5, no facial droop, normal speech, no tremor, no sensory deficiets. laboratory and microbiology Laboratory Tests 06/10/24 04:30 Test 06/10/24 04:30 Range/Units Serum Glucose 79 74-106 mg/dL Problem List/Assessment/Plan Problem List/Assessment/Plan Assessment and plan # End stage renal disease - on dialysis MWF - serum creatinine 5.61--> 6.03-->7.04 - BUN 24--> 27-->33 - serum potassium 4.5-->4.9 - GFR 9 - renal ultrasound from 05/20 shows moderately atrophic kidneys with bilateral cysts. - fluid restriction 1200 mL - patient on clear liquid diet given the history of bright red blood per rectum - PTH elevated at 398 pg/ml - dialysis to be done today 06/10- remove 4-5L as tolerated # GI bleed likely lower GI - episodes of bright red blood per rectum - 1 episode in the morning today on 06/10 - patient on clear lq diet - Further management as per GI # acute on chronic heart failure with preserved ejection fraction( elevated RVSP) # history of atrial fib. # type 2 diabetes mellitus # hypertension # hyperlipidemia Goals care discussed with the patient for over 15 minutes. Plan discussed with Dr. Lugo Patient seen and examined by myself with the medicine resident rounds today. I agree with the assessment and plan as documented above Plan discussed with: Patient JANICE ABREU RESIDENT Jun 10, 2024 10:15 DOM LUGO MD Jun 10, 2024 13:52
[2024-06-10] MEDS: ALBUMIN 25% 100 ML IV SCH (11:58)
--- NOTE | 2024-06-10 14:26 | DVHPN2 ---
Progress Note - Dictate Date Seen: Jun 10, 2024 Medical Necessity Reason Pt with a Central, PICC or Fol: No Subjective Patient seen at bedside Receiving hemodialysis No active GI bleeding reported at this time vital signs Vital Sign Date Time Temp Pulse Resp B/P (MAP) Pulse Ox O2 Delivery O2 Flow Rate FiO2 06/10/24 13:00 98.4 68 16 138/64 (88) 98 98.4 06/10/24 08:00 Room Air* 0 21 Total Intake and Output 06/09/24 06/09/24 06/10/24 15:00 23:00 07:00 Intake Total 120 ml 125 ml Output Total 0 ml Balance 120 ml 125 ml medications Current Medications Medications Dose Ordered Sig/Deann Route Start Time Stop Time Status Last Admin Dose Admin Pantoprazole Sodium 40 mg BID IV 06/08/24 22:00 06/10/24 08:51 40 MG Ondansetron HCl 4 mg Q4HP PRN IV 06/08/24 21:00 06/09/24 22:05 4 MG Diagnostic Test (Pha) 1 strip Q6HR 06/09/24 12:00 06/10/24 12:10 1 STRIP Insulin Human Regular Q6HR SC 06/09/24 12:00 Dextrose 50 ml UD PRN IV 06/09/24 11:45 Morphine Sulfate 1 mg Q4HP PRN IV 06/09/24 11:45 Acetaminophen/ Hydrocodone Bitart 1 tab Q6HPRN PRN PO 06/09/24 11:45 Acetaminophen 500 mg Q6HP PRN PO 06/09/24 11:45 Midodrine 10 mg TID@0600,1200,1800 PO 06/09/24 12:00 06/09/24 17:25 10 MG objective Gen - no pallor, no icterus, no cyanosis, Skin - Patients skin is warm and dry. HEENT - normocephalic, atraumatic, moist mucous membranes. Neck - full ROM, no LAD, no JVD. Pulmonary - B/L decreased breath sounds with bibasilar crackles, no wheezing, no stridor. cardiovascular - normal S1,S2 heard. no murmurs heard. GI -soft distended abdomen without tenderness to palpation. no hepatospleenomegaly. Bowel sounds+ Neurological - Patient is A/O X 3 . Extremity bilateral pedal edema laboratory and microbiology Laboratory Tests 06/10/24 04:30 Test 06/10/24 04:30 Range/Units Serum Glucose 79 74-106 mg/dL Problems(with codes): (1) GIB (gastrointestinal bleeding) (2) Renal failure (3) Shortness of breath Prognosis Plan Patient was seen by my colleague Dr. Cisneros for GI consult, see note in documents H&H appears to be stable I will tentatively panendoscopy on 06/11/2024 If the patient continues to show signs of bleeding we will order a bleeding scan Decision regarding colonoscopy will be made after the above Prognosis remains guarded Plan discussed with: Patient DUONG MCCULLOUGH MD Jun 10, 2024 14:26
--- NOTE | 2024-06-10 16:11 | DVHPN2 ---
Progress Note Date Seen: Jun 10, 2024 Medical Necessity Reason Pt with a Central, PICC or Fol: No Subjective Patient reports: No new complaints Review of Systems: HEENT:Normal, CVS:Normal, RESPIRATORY:Normal, GI:Normal, :Normal, MSK:Normal, NEURO:Normal Objective vital signs Vital Sign Date Time Temp Pulse Resp B/P (MAP) Pulse Ox O2 Delivery O2 Flow Rate FiO2 06/10/24 13:00 98.4 68 16 138/64 (88) 98 98.4 06/10/24 08:00 Room Air* 0 21 Total Intake and Output 06/09/24 06/09/24 06/10/24 15:00 23:00 07:00 Intake Total 120 ml 125 ml Output Total 0 ml Balance 120 ml 125 ml medications Current Medications Medications Dose Ordered Sig/Deann Route Start Time Stop Time Status Last Admin Dose Admin Pantoprazole Sodium 40 mg BID IV 06/08/24 22:00 06/10/24 08:51 40 MG Ondansetron HCl 4 mg Q4HP PRN IV 06/08/24 21:00 06/09/24 22:05 4 MG Diagnostic Test (Pha) 1 strip Q6HR 06/09/24 12:00 06/10/24 12:10 1 STRIP Insulin Human Regular Q6HR SC 06/09/24 12:00 Dextrose 50 ml UD PRN IV 06/09/24 11:45 Morphine Sulfate 1 mg Q4HP PRN IV 06/09/24 11:45 Acetaminophen/ Hydrocodone Bitart 1 tab Q6HPRN PRN PO 06/09/24 11:45 Acetaminophen 500 mg Q6HP PRN PO 06/09/24 11:45 Midodrine 10 mg TID@0600,1200,1800 PO 06/09/24 12:00 06/09/24 17:25 10 MG Examination: GENERAL:Normal, HEENT:Normal, NECK:Normal, LUNGS:Normal, CVS:Normal, ABDOMEN:Normal, MSK:Normal, SKIN:Normal, NEURO:Normal, :Normal laboratory and microbiology Laboratory Tests 06/10/24 04:30 Test 06/10/24 04:30 Range/Units Serum Glucose 79 74-106 mg/dL Problem List/Assessment/Plan Problem List/Assessment/Plan #1 gi bleed: endoscopy in am #2 dm: ssi #3 esrd: dialysis today #4 htn #5 hyperlipidemia #6 acute on chronic diastolic heart failure: dialysis #7 inguinal hernias #8 a fib: hold eliquis #9 ?cad/ptca advance care planning- full code- time spent 19 mins Plan discussed with: Patient Date of Service: Jun 10, 2024 Billing Provider: NATALI MOYA MD Common Visit Codes: [id number] INP/OBS CARE(HIGH) NATALI MOYA MD Jun 10, 2024 16:11
[2024-06-10] MEDS: HYDROcodone-ACET 5/325MG TAB PO PRN (20:22)
[2024-06-11] VITALS (7 sets, daily range): BP systolic 108–133; BP diastolic 52–65; PULSE 71–86; RESP 17–22; TEMP 97.4–97.8; O2SAT 95–99
[2024-06-11 05:28] LABS: Hematocrit 33.8 % (41.0-53.0); Hemoglobin 10.8 g/dL (13.5-17.5); Mean Corpuscular Hemoglobin 32.1 pg (28.0-32.0); Mean Corpuscular Hgb Conc. 31.9 g/dL (32.0-36.0); Mean Corpuscular Volume 100.6 fL (80.0-100.0); Platelet Count (auto) 133 10^3/uL (140-450); Red Blood Cells 3.35 10^6/uL (4.5-5.90); White Blood Cell 6.1 10^3/uL (4.4-10.8)
[2024-06-11 05:32] LABS: Red Cell Distribution Width 20.1 % (11.8-14.3)
[2024-06-11 05:33] LABS: Band Neutrophils % (manual) 0; Basophils % (manual) 0 (0.0-2.0); Blast Cells 0; Metamyelocytes % 0; Myelocytes % 0; Promyelocytes % 0; Reactive Lymphocytes 0
[2024-06-11 05:40] LABS: Alkaline Phosphatase 119 U/L (46-116); Anion Gap 13 (5-15); Aspartate Aminotransferase 14 U/L (13-40); BUN/Creatinine Ratio 3.4 (10.0-20.0); Bilirubin, Total 0.8 mg/dL (0.2-1.0); Blood Urea Nitrogen 18 mg/dL (9-23); Calcium 8.8 mg/dL (8.7-10.4); Carbon Dioxide 26 mmol/L (20-31); Chloride 104 mmol/L (98-107); Glucose 85 mg/dL (74-106); Potassium 4.4 mmol/L (3.5-5.1); Sodium 143 mmol/L (136-145)
[2024-06-11 05:41] LABS: Total Protein 6.8 g/dL (5.7-8.2)
[2024-06-11 05:53] LABS: Alanine Aminotransferase < 9 U/L (7-40)
[2024-06-11 08:31] LABS: Eosinophils % (manual) 2 (0-7); Lymphocytes % (manual) 22 (10.0-50.0); Monocytes % (manual) 9 (0-12); Platelet Estimate Adequate
--- NOTE | 2024-06-11 11:21 | CONS ---
Pharmacy Clinical Information: Patient from [facility] HF application. Patient does not qualify for a lipid lowering drug at this time due to NPO status (GI bleed). JAMAAL REY PHARMACIST Jun 11, 2024 11:21
[2024-06-11] MEDS ORDERED: PROPOFOL 10 MG/ML 20 ML IV ONE (11:59)
--- NOTE | 2024-06-11 12:57 | DVHPN2 ---
Progress Note Date Seen: Jun 11, 2024 Resident Creating Document: ANANYATAMMYBLAIREHUNTER RESIDENT Medical Necessity Reason Pt with a Central, PICC or Fol: No Subjective Review of Systems Patient is a 88-year-old male with a past medical history of atrial fibrillation, end-stage renal disease, congestive heart failure, type 2 diabetes mellitus, hypertension, hyperlipidemia, glaucoma came to the ED with a chief complaint of dark-colored stools for 1 week. Patient reports since the past 2 days having bright red blood per rectum associated with occasional lower abdominal cramps. Patient does not report of hematemesis, hematuria. Patient reports mild nausea but no episode of vomiting. Patient denied chest pain, shortness of breath, palpitations, dizziness. Abdomen pelvic CT without contrast was done which showed increased intraluminal attenuation of the ascending and the transverse colon which may reflect a non localized hemorrhage. Patient's blood pressure on arrival is 97/59 mmHg, heart rate 64 beats per minute, respiratory rate 16 per minute, SpO2 96% on room air. Patient's recent echocardiogram from 03/20/2024 shows left ventricular ejection fraction 55% with grade 1 diastolic dysfunction, severely elevated right ventricular systolic pressure 92 mmHg. Review of Systems Patient was seen and examined at the bedside. Patient is alert and oriented to time, place and person. Patient's blood pressure is 112/52 mmHg, pulse 76/min irregular SpO2 97% on room air. Patient reports mild abdominal discomfort and bloating with gas. Patient does not report any shortness of breath, chest pain, dizziness. Patient reported ESRD with dialysis Sunday. Other Systems: Patient seen and examined by myself in rounds with the resident, I agree with his assement and plan Objective vital signs Vital Sign Date Time Temp Pulse Resp B/P (MAP) Pulse Ox O2 Delivery O2 Flow Rate FiO2 06/11/24 09:02 97.4 76 18 109/55 (73) 97 97.4 06/11/24 08:00 Room Air* 0 21 Total Intake and Output 06/10/24 06/10/24 06/11/24 15:00 23:00 07:00 Intake Total 850 ml 100 ml Output Total 200 ml Balance 650 ml 100 ml medications Current Medications Medications Dose Ordered Sig/Deann Route Start Time Stop Time Status Last Admin Dose Admin Pantoprazole Sodium 40 mg BID IV 06/08/24 22:00 06/11/24 08:21 40 MG Ondansetron HCl 4 mg Q4HP PRN IV 06/08/24 21:00 06/09/24 22:05 4 MG Diagnostic Test (Pha) 1 strip Q6HR 06/09/24 12:00 06/11/24 12:09 1 STRIP Insulin Human Regular Q6HR SC 06/09/24 12:00 Dextrose 50 ml UD PRN IV 06/09/24 11:45 Morphine Sulfate 1 mg Q4HP PRN IV 06/09/24 11:45 Acetaminophen/ Hydrocodone Bitart 1 tab Q6HPRN PRN PO 06/09/24 11:45 06/11/24 09:02 1 TAB Acetaminophen 500 mg Q6HP PRN PO 06/09/24 11:45 Midodrine 10 mg TID@0600,1200,1800 PO 06/09/24 12:00 06/11/24 05:58 10 MG Examination Gen - no pallor, no icterus, no cyanosis, no clubbing, no LAD, 1+ bilateral lower extremity pitting edema. Skin - Patients skin is warm and dry. HEENT - normocephalic, atraumatic, moist mucous membranes. Neck - full ROM, no LAD, no JVD. Pulmonary - B/L decreased breath sounds in the middle and lower areas with bibasilar crackles, no wheezing, no stridor. cardiovascular - normal S1,S2 heard. no murmurs heard. peripheral pulses normal radial 2+, pedal 2+. capillary refill normal <2 secs. GI - distended abdomen without tenderness to palpation. no hepatospleenomegaly. Bowel sounds+ Neurological - Patient is A/O X 3 . Bilateral upper extremity strength 5/5, bilateral lower extremity strength 5/5, no facial droop, normal speech, no tremor, no sensory deficiets. laboratory and microbiology Laboratory Tests 06/11/24 04:48 Test 06/11/24 04:48 Range/Units Serum Glucose 85 74-106 mg/dL Problem List/Assessment/Plan Problem List/Assessment/Plan Assessment and plan # End stage renal disease - on dialysis MWF - serum creatinine 5.61--> 6.03-->7.04 - BUN 24--> 27-->33 - serum potassium 4.5-->4.9 - GFR 9 - renal ultrasound from 05/20 shows moderately atrophic kidneys with bilateral cysts. - fluid restriction 1200 mL - patient on clear liquid diet given the history of bright red blood per rectum - PTH elevated at 398 pg/ml - dialysis to done on 06/10- removed 4600 ml fluid, - serum BUN 18 and creatinine 5.27 after dialysis. - patient still has 2+ bilateral pitting edema and bibasilar lung crackles . Dialysis to be planned for tomorrow - Avoid nephrotoxic medication - advised low sodium and low potassium diet. # GI bleed likely lower GI - episodes of bright red blood per rectum - 1 episode in the morning today on 06/10 - patient on clear lq diet - Further management as per GI- patient is due for endoscopy on 06/11 # acute on chronic heart failure with preserved ejection fraction( elevated RVSP) # history of atrial fib. # type 2 diabetes mellitus # hypertension # hyperlipidemia Goals care discussed with the patient for over 15 minutes. Plan discussed with Dr. Lugo Plan discussed with: Patient, Spouse JANICE ABREU RESIDENT Jun 11, 2024 12:57 DOM LUGO MD Jun 11, 2024 17:27
[2024-06-11] MEDS ORDERED: LIDOCAINE VISCOUS 2% 15ML UD ONE (14:05)
[2024-06-11] MEDS ORDERED: fentaNYL CITRATE 100 MCG/2 ML VL ONE (14:12)
--- NOTE | 2024-06-11 14:25 | DVHOP2 ---
Operative Report DATE OF OPERATION: 06/11/24 PROCEDURE: Upper Endoscopy with biopsy. PREOPERATIVE INDICATION: The patient is a 88 -year-old male undergoing endoscopy for melena and anemia POSTOPERATIVE DIAGNOSES: 1. Moderate diffuse gastritis with hyperemia erythema and superficial erosions 2. 2 cm sliding-type hiatal hernia with slightly irregular squamocolumnar junction but no significant erosive esophagitis 3. Otherwise normal examination up to the 2nd and 3rd part of the duodenum with no active bleeding and no fresh or old blood in the upper GI tract PROCEDURE PERFORMED BY: Duong Mcdaniels GI NURSE: Kayleen SCOPE: Olympus videoendoscope. ASA CLASS: PREOPERATIVE MEDICATIONS: Mac sedationDr. La PROCEDURE IN DETAIL: After obtaining an informed consent, the patient was placed on left lateral decubitus position. The patient was then sedated with the above medications. A bite block was placed between his teeth. The endoscope was then passed through the oropharynx, into the esophagus, and through the stomach and pylorus up to the second and third part of the duodenum. The endoscope was then withdrawn. The 2nd and 3rd part of the duodenum were normal. Duodenal bulb showed minimal duodenitis. Duodenal biopsies were obtained. The pre-pyloric area antrum and body showed gastritis with hyperemia erythema and superficial antral gastric erosions. Gastric biopsies were obtained. On retroflexion the fundus and cardia also shows evidence of gastritis otherwise were normal. The endoscope was then withdrawn into the distal esophagus. Patient had a 2 cm sliding-type hiatal hernia with slightly irregular squamocolumnar junction no significant erosive esophagitis. The remaining distal and proximal esophagus and oropharynx were unremarkable. There was no fresh or old blood in the UGI tract The patient tolerated the procedure well without difficulty. COMPLICATIONS : None SPECIMENS: Duodenal biopsies Gastric biopsies DISPOSITION: Transfer back to the floor Stable PLAN: 1. Await for biopsy result 2. Will place pt on Protonix 40 mg bid 3. Carafate 1 g p.o. twice a day 4. Resume renal diet 5. Monitor labs 6. Outpatient follow up with GI Services to discuss elective colonoscopy if not previously done DUONG MCDANIELS MD Jun 11, 2024 14:25
[2024-06-11] MEDS ORDERED: DexAMETHasone SOD PHOS 10MG/1ML VIAL INJ ONE (14:53)
--- NOTE | 2024-06-11 15:17 | DVHPN2 ---
Progress Note Date Seen: Jun 11, 2024 Medical Necessity Reason Pt with a Central, PICC or Fol: No Subjective Patient reports: No new complaints Review of Systems: HEENT:Normal, CVS:Normal, RESPIRATORY:Normal, GI:Normal, :Normal, MSK:Normal, NEURO:Normal Objective vital signs Vital Sign Date Time Temp Pulse Resp B/P (MAP) Pulse Ox O2 Delivery O2 Flow Rate FiO2 06/11/24 13:00 97.5 76 18 109/63 (78) 98 97.5 06/11/24 08:00 Room Air* 0 21 Total Intake and Output 06/10/24 06/10/24 06/11/24 15:00 23:00 07:00 Intake Total 850 ml 100 ml Output Total 200 ml Balance 650 ml 100 ml medications Current Medications Medications Dose Ordered Sig/Deann Route Start Time Stop Time Status Last Admin Dose Admin Pantoprazole Sodium 40 mg BID IV 06/08/24 22:00 06/11/24 08:21 40 MG Ondansetron HCl 4 mg Q4HP PRN IV 06/08/24 21:00 06/09/24 22:05 4 MG Diagnostic Test (Pha) 1 strip Q6HR 06/09/24 12:00 06/11/24 12:09 1 STRIP Insulin Human Regular Q6HR SC 06/09/24 12:00 Dextrose 50 ml UD PRN IV 06/09/24 11:45 Morphine Sulfate 1 mg Q4HP PRN IV 06/09/24 11:45 Acetaminophen/ Hydrocodone Bitart 1 tab Q6HPRN PRN PO 06/09/24 11:45 06/11/24 09:02 1 TAB Acetaminophen 500 mg Q6HP PRN PO 06/09/24 11:45 Midodrine 10 mg TID@0600,1200,1800 PO 06/09/24 12:00 06/11/24 05:58 10 MG Examination: GENERAL:Normal, HEENT:Normal, NECK:Normal, LUNGS:Normal, CVS:Normal, ABDOMEN:Normal, MSK:Normal, SKIN:Normal, NEURO:Normal, :Normal laboratory and microbiology Laboratory Tests 06/11/24 04:48 Test 06/11/24 04:48 Range/Units Serum Glucose 85 74-106 mg/dL Problem List/Assessment/Plan Problem List/Assessment/Plan #1 gi bleed with gastritis/erosions: ppi, carafate #2 dm: ssi #3 esrd: dialysis today #4 htn #5 hyperlipidemia #6 acute on chronic diastolic heart failure: dialysis #7 inguinal hernias #8 a fib: hold eliquis #9 ?cad/ptca advance care planning- full code- time spent 19 mins Plan discussed with: Patient Dietary Evaluation Review Comments: 1) Advance pt diet when mediclly feasible to a Renal Standard diet 2) Continue current plan of care Expected Outcomes/Goals: 1) F/U in 2-3 days Date of Service: Jun 11, 2024 Billing Provider: NATALI MOYA MD Common Visit Codes: [id number] INP/OBS CARE(HIGH) NATALI MOYA MD Jun 11, 2024 15:17
[2024-06-11] MEDS: PANTOPRAZOLE 40 MG TAB PO SCH (17:41)
[2024-06-11] MEDS: ACETAMINOPHEN 500 MG TAB PO PRN (20:57)
[2024-06-11] MEDS: SUCRALFATE 1 GM TAB PO SCH (20:57)
[2024-06-12] VITALS (9 sets, daily range): BP systolic 114–152; BP diastolic 57–97; PULSE 71–96; RESP 17–21; TEMP 97.8–98.3; O2SAT 91–100
[2024-06-12 07:00] LABS: Basophils # (auto) 0 10 ^3/uL (0-0.2); Basophils % (auto) 0.3 % (0.0-2.0); Eosinophils # (auto) 0.1 10 ^3/uL (0-0.8); Hematocrit 35.3 % (41.0-53.0); Hemoglobin 11.3 g/dL (13.5-17.5); Lymphocytes # (auto) 0.9 10 ^3/uL (0.4-5.4); Lymphocytes % (auto) 10.8 % (10.0-50.0); Mean Corpuscular Hemoglobin 31.9 pg (28.0-32.0); Mean Corpuscular Hgb Conc. 31.9 g/dL (32.0-36.0); Mean Corpuscular Volume 100.1 fL (80.0-100.0); Monocytes # (auto) 1.2 10 ^3/uL (0-1.3); Monocytes % (auto) 15.3 % (0.0-12.0); Neutrophils # (auto) 5.8 10 ^3/uL (1.6-8.6); Neutrophils % (auto) 72.6 % (37.0-80.0); Platelet Count (auto) 158 10^3/uL (140-450); Red Blood Cells 3.53 10^6/uL (4.5-5.90); Red Cell Distribution Width 19.7 % (11.8-14.3)
[2024-06-12 07:13] LABS: Anion Gap 13 (5-15); Calcium 8.7 mg/dL (8.7-10.4); Carbon Dioxide 27 mmol/L (20-31); Chloride 103 mmol/L (98-107); Potassium 4.2 mmol/L (3.5-5.1); Sodium 143 mmol/L (136-145)
[2024-06-12 07:19] LABS: BUN/Creatinine Ratio 3.6 (10.0-20.0); Blood Urea Nitrogen 24 mg/dL (9-23); Glucose 99 mg/dL (74-106)
[2024-06-12] MEDS: SODIUM CHL 0.9% 1000 ML BAG XX ONE (10:18)
[2024-06-12] MEDS: MORPHINE SULFATE INJ 2 MG/ml SYRG IV PRN (10:18)
--- NOTE | 2024-06-12 12:15 | DVHPN2 ---
Progress Note Date Seen: Jun 12, 2024 Resident Creating Document: BLAIRE ABREUHUNTER RESIDENT Medical Necessity Reason Pt with a Central, PICC or Fol: No Subjective Review of Systems Patient is a 88-year-old male with a past medical history of atrial fibrillation, end-stage renal disease, congestive heart failure, type 2 diabetes mellitus, hypertension, hyperlipidemia, glaucoma came to the ED with a chief complaint of dark-colored stools for 1 week. Patient reports since the past 2 days having bright red blood per rectum associated with occasional lower abdominal cramps. Patient does not report of hematemesis, hematuria. Patient reports mild nausea but no episode of vomiting. Patient denied chest pain, shortness of breath, palpitations, dizziness. Abdomen pelvic CT without contrast was done which showed increased intraluminal attenuation of the ascending and the transverse colon which may reflect a non localized hemorrhage. Patient's blood pressure on arrival is 97/59 mmHg, heart rate 64 beats per minute, respiratory rate 16 per minute, SpO2 96% on room air. Patient's recent echocardiogram from 03/20/2024 shows left ventricular ejection fraction 55% with grade 1 diastolic dysfunction, severely elevated right ventricular systolic pressure 92 mmHg. Review of Systems Patient was seen and examined at the bedside. Patient is alert and oriented to time, place and person. Patient's blood pressure is 125/65 mmHg, pulse 84/min irregular SpO2 97% on room air. Patient reports abdominal pain and tenderness. Patient does not report any shortness of breath, chest pain, dizziness. Patient reported ESRD with dialysis Sunday. Other Systems: Patient seen and examined by myself today in follow-up with the medicine resident I agree with his assessment and plan Patient examined hemodialysis, blood pressure stable Objective vital signs Vital Sign Date Time Temp Pulse Resp B/P (MAP) Pulse Ox O2 Delivery O2 Flow Rate FiO2 06/12/24 10:18 71 18 122/68 06/12/24 09:00 98.2 98 98.2 06/11/24 20:00 Room Air* 0 21 Total Intake and Output 06/11/24 06/11/24 06/12/24 15:00 23:00 07:00 Intake Total 0 ml 225 ml 585 ml Output Total 200 ml 250 ml Balance 0 ml 25 ml 335 ml medications Current Medications Medications Dose Ordered Sig/Deann Route Start Time Stop Time Status Last Admin Dose Admin Ondansetron HCl 4 mg Q4HP PRN IV 06/08/24 21:00 06/12/24 03:11 4 MG Diagnostic Test (Pha) 1 strip Q6HR 06/09/24 12:00 06/12/24 05:48 1 STRIP Insulin Human Regular Q6HR SC 06/09/24 12:00 Dextrose 50 ml UD PRN IV 06/09/24 11:45 Morphine Sulfate 1 mg Q4HP PRN IV 06/09/24 11:45 06/12/24 10:18 1 MG Acetaminophen 500 mg Q6HP PRN PO 06/09/24 11:45 06/11/24 20:57 500 MG Midodrine 10 mg TID@0600,1200,1800 PO 06/09/24 12:00 06/11/24 05:58 10 MG Pantoprazole Sodium 40 mg BID@0600,1700 PO 06/11/24 17:00 06/12/24 05:59 40 MG Sucralfate 1 gm BID PO 06/11/24 22:00 06/12/24 10:04 1 GM Examination Gen - no pallor, no icterus, no cyanosis, no clubbing, no LAD, 2+ bilateral lower extremity pitting edema. Skin - Patients skin is warm and dry. HEENT - normocephalic, atraumatic, moist mucous membranes. Neck - full ROM, no LAD, no JVD. Pulmonary - B/L decreased breath sounds in the middle and lower areas with bibasilar crackles, no wheezing, no stridor. cardiovascular - normal S1,S2 heard. no murmurs heard. peripheral pulses normal radial 2+, pedal 2+. capillary refill normal <2 secs. GI - distended abdomen with guarding and tenderness to palpation. no hepatospleenomegaly. Bowel sounds+ Neurological - Patient is A/O X 3 . Bilateral upper extremity strength 5/5, bilateral lower extremity strength 5/5, no facial droop, normal speech, no tremor, no sensory deficiets. laboratory and microbiology Laboratory Tests 06/12/24 06:20 Test 06/12/24 06:20 Range/Units Serum Glucose 99 74-106 mg/dL Problem List/Assessment/Plan Problem List/Assessment/Plan Assessment and plan # End stage renal disease - on dialysis MWF - serum creatinine 5.61--> 6.03-->7.04--> 5.27--> 6.58 - BUN 24--> 27-->33--> 18--> 24 - serum potassium 4.5-->4.9--> 4.4--> 4.2 - GFR 9 - renal ultrasound from 05/20 shows moderately atrophic kidneys with bilateral cysts. - fluid restriction 1200 mL - patient on clear liquid diet given the history of bright red blood per rectum - PTH elevated at 398 pg/ml - dialysis to done on 06/10- removed 4600 ml fluid. serum BUN 18 and creatinine 5.27 after dialysis. - patient still has 2+ bilateral pitting edema and bibasilar lung crackles . Dialysis to be done today on 06/12 - Avoid nephrotoxic medication - advised low sodium and low potassium diet. # GI bleed likely lower GI - episodes of bright red blood per rectum - 1 episode in the morning today on 06/10 - patient on clear lq diet - Further management as per GI- patient is due for endoscopy on 06/11 # acute on chronic heart failure with preserved ejection fraction( elevated RVSP) # history of atrial fib. # type 2 diabetes mellitus # hypertension # hyperlipidemia Goals care discussed with the patient for over 15 minutes. Plan discussed with Dr. Lugo Plan discussed with: Patient Dietary Evaluation Review Comments: 1) Advance pt diet when mediclly feasible to a Renal Standard diet 2) Continue current plan of care Expected Outcomes/Goals: 1) F/U in 2-3 days JANICE ABREU Jun 12, 2024 12:14 DOM LUGO MD Jun 12, 2024 14:37
--- NOTE | 2024-06-12 15:04 | DVHPN2 ---
Progress Note Date Seen: Jun 12, 2024 Medical Necessity Reason Pt with a Central, PICC or Fol: No Subjective Patient reports: No new complaints Review of Systems: HEENT:Normal, CVS:Normal, RESPIRATORY:Normal, GI:Normal, :Normal, MSK:Normal, NEURO:Normal Objective vital signs Vital Sign Date Time Temp Pulse Resp B/P (MAP) Pulse Ox O2 Delivery O2 Flow Rate FiO2 06/12/24 13:00 97.9 88 18 128/79 (95) 95 97.9 06/12/24 08:00 Room Air* 0 21 Total Intake and Output 06/11/24 06/11/24 06/12/24 15:00 23:00 07:00 Intake Total 0 ml 225 ml 585 ml Output Total 200 ml 250 ml Balance 0 ml 25 ml 335 ml medications Current Medications Medications Dose Ordered Sig/Deann Route Start Time Stop Time Status Last Admin Dose Admin Ondansetron HCl 4 mg Q4HP PRN IV 06/08/24 21:00 06/12/24 03:11 4 MG Diagnostic Test (Pha) 1 strip Q6HR 06/09/24 12:00 06/12/24 12:27 1 STRIP Insulin Human Regular Q6HR SC 06/09/24 12:00 Dextrose 50 ml UD PRN IV 06/09/24 11:45 Morphine Sulfate 1 mg Q4HP PRN IV 06/09/24 11:45 06/12/24 10:18 1 MG Acetaminophen 500 mg Q6HP PRN PO 06/09/24 11:45 06/11/24 20:57 500 MG Midodrine 10 mg TID@0600,1200,1800 PO 06/09/24 12:00 06/11/24 05:58 10 MG Pantoprazole Sodium 40 mg BID@0600,1700 PO 06/11/24 17:00 06/12/24 05:59 40 MG Sucralfate 1 gm BID PO 06/11/24 22:00 06/12/24 10:04 1 GM Examination: GENERAL:Normal, HEENT:Normal, NECK:Normal, LUNGS:Normal, CVS:Normal, ABDOMEN:Normal, MSK:Normal, SKIN:Normal, NEURO:Normal, :Normal laboratory and microbiology Laboratory Tests 06/12/24 06:20 Test 06/12/24 06:20 Range/Units Serum Glucose 99 74-106 mg/dL Problem List/Assessment/Plan Problem List/Assessment/Plan #1 gi bleed with gastritis/erosions: ppi, carafate, colonoscopy in am #2 dm: ssi #3 esrd: dialysis today #4 htn #5 hyperlipidemia #6 acute on chronic diastolic heart failure: dialysis #7 inguinal hernias #8 a fib: hold eliquis #9 ?cad/ptca advance care planning- full code- time spent 19 mins Plan discussed with: Patient My Orders My Orders Orders - NATALI MOYA MD Procedure Category Date Status Time Pantoprazole Tablet PHA 06/11/24 In Process (Protonix Tablet) 17:00 Sucralfate Tab PHA 06/11/24 In Process (Carafate Tab) 22:00 Pt Request For Service PT 06/11/24 Logged 15:14 * Shake Cutter CONS 06/11/24 Transmitted Consult Hemoglobin & LAB 06/13/24 Verified Hematocrit 06:00 Dietary Evaluation Review Comments: 1) Advance pt diet when mediclly feasible to a Renal Standard diet 2) Continue current plan of care Expected Outcomes/Goals: 1) F/U in 2-3 days Date of Service: Jun 12, 2024 Billing Provider: NATALI MOYA MD Common Visit Codes: [id number] INP/OBS CARE(HIGH) NATALI MOYA MD Jun 12, 2024 15:04
--- NOTE | 2024-06-12 19:22 | DVHPN2 ---
Progress Note Date Seen: Jun 12, 2024 Resident Creating Document: ANAYA HOPE RESIDENT Medical Necessity Reason Pt with a Central, PICC or Fol: No Medical Necessity Reason This is an 88-year-old male presents for evaluation of possible GI bleed. Patient reports noticing dark-colored stools over the past one-week. He does have a history of atrial fibrillation and is currently taking Eliquis twice a day. He denies hematemesis or hematuria. Reports occasional lower abdominal cramps. Denies nausea or vomiting. No cardiac or respiratory complaints. Subjective Review of Systems Constitutional: Status post EGD yesterday, denies fever, chills, o feeling of malaise HEENT: No headache, no ear pain, no ear discharges no conjunctivitis, the triachiatic lashes, no nasal discharge no throat pain Cardiovascular: Denies chest pain, palpitation, orthopnea, PND, pedal edema Respiratory: Denies cough, sputum production, shortness of breath, hemoptysis, Gastric intestinal: Abdominal pain, abdominal distention, nausea, : No frequency, no urgency, no hematuria, Endocrine: no abdominal weight gain or weight loss, no feeling of hot flashes, Jacques: Denied easy bruising, bleeding disorders, epistasis, Psych: Denies depression, elisabeth, suicidal ideation Objective vital signs Vital Sign Date Time Temp Pulse Resp B/P (MAP) Pulse Ox O2 Delivery O2 Flow Rate FiO2 06/12/24 18:12 94 18 105/52 06/12/24 17:00 97.8 100 97.8 06/12/24 08:00 Room Air* 0 21 Total Intake and Output 06/11/24 06/11/24 06/12/24 15:00 23:00 07:00 Intake Total 0 ml 225 ml 585 ml Output Total 200 ml 250 ml Balance 0 ml 25 ml 335 ml medications Current Medications Medications Dose Ordered Sig/Deann Route Start Time Stop Time Status Last Admin Dose Admin Ondansetron HCl 4 mg Q4HP PRN IV 06/08/24 21:00 06/12/24 03:11 4 MG Diagnostic Test (Pha) 1 strip Q6HR 06/09/24 12:00 06/12/24 17:44 1 STRIP Insulin Human Regular Q6HR SC 06/09/24 12:00 Dextrose 50 ml UD PRN IV 06/09/24 11:45 Morphine Sulfate 1 mg Q4HP PRN IV 06/09/24 11:45 06/12/24 18:12 1 MG Acetaminophen 500 mg Q6HP PRN PO 06/09/24 11:45 06/11/24 20:57 500 MG Midodrine 10 mg TID@0600,1200,1800 PO 06/09/24 12:00 06/11/24 05:58 10 MG Pantoprazole Sodium 40 mg BID@0600,1700 PO 06/11/24 17:00 06/12/24 17:00 40 MG Sucralfate 1 gm BID PO 06/11/24 22:00 06/12/24 10:04 1 GM Examination Gen - no pallor, no icterus, no cyanosis, HEENT - normocephalic, atraumatic, moist mucous membranes. Neck - full ROM, no LAD, no JVD. Pulmonary - B/L decreased breath sounds with bibasilar crackles, no wheezing, no stridor. cardiovascular - normal S1,S2 heard. no murmurs heard. GI - distended abdomen, tenderness to palpation. no hepatospleenomegaly. Bowel sounds+ Neurological - Patient is A/O X 3 . Extremity: bilateral pedal edema Skin - Patients skin is warm and dry. laboratory and microbiology Laboratory Tests 06/12/24 06:20 Test 06/12/24 06:20 Range/Units Serum Glucose 99 74-106 mg/dL Problem List/Assessment/Plan Problem List/Assessment/Plan (1) Moderate diffuse gastritis with hyperemia erythema and superficial erosions on EGD (2) Sliding-type hiatal hernia with slightly irregular squamocolumnar junction but no significant erosive esophagitis on EGD (3) Melena ---> For colonoscopy (4). Abdominal pain and distension --> Abdominal x-ray -->KUB -->Abdominal ultrasound (5) Renal failure Plan 1. Await for biopsy result from EGD 2. Protonix 40 mg bid 3. Carafate 1 g p.o. twice a day 4. For colonoscopy tomorrow, preop preparation ordered 5. Clear liquid diet 6. Resume renal diet Goal of care discussed for more than 19 minutes: Full code Case and plan discussed with Dr. Mcdaniels Plan discussed with: Patient Dietary Evaluation Review Comments: 1) Advance pt diet when mediclly feasible to a Renal Standard diet 2) Continue current plan of care Expected Outcomes/Goals: 1) F/U in 2-3 days ANAYA HOPE RESIDENT Jun 12, 2024 19:22
--- NOTE | 2024-06-12 20:44 | DVH ---
INDICATION: Pain. TECHNIQUE: Multiple real-time sonographic images of the abdomen were obtained. COMPARISON: CT abdomen and pelvis 06/08/2024 FINDINGS: The liver is homogenous in echogenicity. The liver measures 14 .4 cm. No intrahepatic bili jc ductal dilatation is noted. The gallbladder wall measures 0.2 cm and is unremarkable. No gallstones or sludge is seen. The com mon duct is not visualized. No pericholecystic fluid is noted. The right kidney measures 8.1 cm with increased echogenicity. No hydronephrosis. The left kidney is not visualized. The spleen measures 11 cm, within normal limits. The echogenicity is within normal limits. The pancreas is not well visualized due to obscuration from bowel gas. The visualized portions of the IVC and aorta are grossly unremarkable. IMPRESSION: Atrophic right kidney with increased cortical echogenicity. Correlate for medical renal disease. Th e left kidney is not visualized. Pancreas is obscured by bowel gas.
--- NOTE | 2024-06-12 20:45 | DVH ---
Date: 06/12/2024 08:10 PM Examination: XY ABDOMEN 2 VIEW History: abdominal painn Comparison: None TECHNIQUE: Frontal views of the abdomen was obtained. FINDINGS: Gas distended colon. There are no findings to suggest free air. There is no significant dilatation of the small bowel. If obstruction is present this would be a distal colonic obstruction rectosigmoid. The lung bases are unremarkable. No acute osseous abnormality identified. IMPRESSION: 1. Unusual gas distended colon from the cecum to the sigmoid. Distal colonic obstruction is in the di fferential. 2. There is no free air in the diaphragms. 3. There is no findings of small-bowel obstruction.
[2024-06-12] MEDS: GOLYTELY 4L KIT PO ONE (20:50)
[2024-06-13 01:00] VITALS: BP 118/68; PULSE 91; RESP 18; TEMP 98.3; O2SAT 96
[2024-06-13] MEDS: ONDANSETRON ODT 4 MG TAB PO ONE (01:24)
[2024-06-13 05:00] VITALS: BP 116/52; PULSE 88; RESP 19; TEMP 98; O2SAT 96
[2024-06-13] MEDS: MAGNESIUM CITRATE SOLUTION 300 ML BTL PO ONE (06:28)
[2024-06-13] MEDS: GOLYTELY 4L KIT PO ONE (06:28)
[2024-06-13 07:20] LABS: Hematocrit 37.7 % (41.0-53.0)
[2024-06-13 09:00] VITALS: BP 122/61; PULSE 92; RESP 17; TEMP 98.2; O2SAT 95
--- NOTE | 2024-06-13 11:38 | DVHPN2 ---
Progress Note Date Seen: Jun 13, 2024 Resident Creating Document: HERMELINDARADHAJANICE RESIDENT Medical Necessity Reason Pt with a Central, PICC or Fol: No Subjective Review of Systems Patient is a 88-year-old male with a past medical history of atrial fibrillation, end-stage renal disease, congestive heart failure, type 2 diabetes mellitus, hypertension, hyperlipidemia, glaucoma came to the ED with a chief complaint of dark-colored stools for 1 week. Patient reports since the past 2 days having bright red blood per rectum associated with occasional lower abdominal cramps. Patient does not report of hematemesis, hematuria. Patient reports mild nausea but no episode of vomiting. Patient denied chest pain, shortness of breath, palpitations, dizziness. Abdomen pelvic CT without contrast was done which showed increased intraluminal attenuation of the ascending and the transverse colon which may reflect a non localized hemorrhage. Patient's blood pressure on arrival is 97/59 mmHg, heart rate 64 beats per minute, respiratory rate 16 per minute, SpO2 96% on room air. Patient's recent echocardiogram from 03/20/2024 shows left ventricular ejection fraction 55% with grade 1 diastolic dysfunction, severely elevated right ventricular systolic pressure 92 mmHg. Review of Systems Patient was seen and examined at the bedside. Patient is alert and oriented to time, place and person. Patient's blood pressure is 122/61 mmHg, pulse 90/min irregular SpO2 95% on room air. Patient reports mild abdominal pain and tenderness. Patient does not report any shortness of breath, chest pain, dizziness. Objective vital signs Vital Sign Date Time Temp Pulse Resp B/P (MAP) Pulse Ox O2 Delivery O2 Flow Rate FiO2 06/13/24 09:00 98.2 92 17 122/61 (81) 95 98.2 06/13/24 08:00 Room Air* 0 21 Total Intake and Output 06/12/24 06/12/24 06/13/24 15:00 23:00 07:00 Intake Total 150 ml 800 ml Balance 150 ml 800 ml medications Current Medications Medications Dose Ordered Sig/Deann Route Start Time Stop Time Status Last Admin Dose Admin Ondansetron HCl 4 mg Q4HP PRN IV 06/08/24 21:00 06/12/24 03:11 4 MG Diagnostic Test (Pha) 1 strip Q6HR 06/09/24 12:00 06/13/24 11:29 1 STRIP Insulin Human Regular Q6HR SC 06/09/24 12:00 Dextrose 50 ml UD PRN IV 06/09/24 11:45 Morphine Sulfate 1 mg Q4HP PRN IV 06/09/24 11:45 06/12/24 18:12 1 MG Acetaminophen 500 mg Q6HP PRN PO 06/09/24 11:45 06/11/24 20:57 500 MG Midodrine 10 mg TID@0600,1200,1800 PO 06/09/24 12:00 06/13/24 11:29 10 MG Pantoprazole Sodium 40 mg BID@0600,1700 PO 06/11/24 17:00 06/12/24 17:00 40 MG Sucralfate 1 gm BID PO 06/11/24 22:00 06/13/24 11:29 1 GM Examination Gen - no pallor, no icterus, no cyanosis, no clubbing, no LAD, 2+ bilateral lower extremity pitting edema. Skin - Patients skin is warm and dry. HEENT - normocephalic, atraumatic, moist mucous membranes. Neck - full ROM, no LAD, no JVD. Pulmonary - B/L decreased breath sounds in the lower lobes with bibasilar crackles, no wheezing, no stridor. cardiovascular - normal S1,S2 heard. no murmurs heard. peripheral pulses normal radial 2+, pedal 2+. capillary refill normal <2 secs. GI - distended abdomen with mild tenderness to palpation. no hepatospleenomegaly. Bowel sounds+ Neurological - Patient is A/O X 3 . Bilateral upper extremity strength 5/5, bilateral lower extremity strength 5/5, no facial droop, normal speech, no tremor, no sensory deficiets. laboratory and microbiology Laboratory Tests 06/13/24 06:22 06/12/24 06:20 Test 06/13/24 06:22 Range/Units Serum Glucose Pending Problem List/Assessment/Plan Problem List/Assessment/Plan Assessment and plan # End stage renal disease - on dialysis MWF - serum creatinine 5.61--> 6.03-->7.04--> 5.27--> 6.58-->5.54 - BUN 24--> 27-->33--> 18-->24--> 15 - serum potassium 4.5-->4.9--> 4.4--> 4.2-->3.4 - GFR 9 - renal ultrasound from 05/20 shows moderately atrophic kidneys with bilateral cysts. - fluid restriction 1200 mL - patient on clear liquid diet given the history of bright red blood per rectum - PTH elevated at 398 pg/ml - dialysis to done on 06/10- removed 4600 ml fluid. serum BUN 18 and creatinine 5.27 after dialysis. - patient still has 2+ bilateral pitting edema and bibasilar lung crackles . - Dialysis to be planned after patient gets colonoscopy done. - Avoid nephrotoxic medication - advised low sodium and low potassium diet. # GI bleed likely lower GI - episodes of bright red blood per rectum - 1 episode in the morning today on 06/10 - patient on clear lq diet - Further management as per GI- patient is due for endoscopy on 06/11 - 06/12 Abd X ray showing distended colon with ?distal colonic obstruction # acute on chronic heart failure with preserved ejection fraction( elevated RVSP) # history of atrial fib. # type 2 diabetes mellitus # hypertension # hyperlipidemia Goals care discussed with the patient for over 15 minutes. Plan discussed with Dr. Jordan Plan discussed with: Patient My Orders My Orders Orders - JANICE ABREU RESIDENT Procedure Category Date Status Time Basic Metabolic Panel LAB 06/13/24 In Process 11:07 Dietary Evaluation Review Comments: 1) Advance pt diet when mediclly feasible to a Renal Standard diet 2) Continue current plan of care Expected Outcomes/Goals: 1) F/U in 2-3 days JANICE ABREU RESIDENT Jun 13, 2024 11:38
[2024-06-13 11:52] LABS: Chloride 102 mmol/L (98-107); Potassium 3.4 mmol/L (3.5-5.1); Sodium 144 mmol/L (136-145)
[2024-06-13 11:53] LABS: Anion Gap 14 (5-15); Carbon Dioxide 28 mmol/L (20-31)
[2024-06-13 11:58] LABS: BUN/Creatinine Ratio 2.7 (10.0-20.0); Blood Urea Nitrogen 15 mg/dL (9-23); Glucose 72 mg/dL (74-106)
[2024-06-13 13:00] VITALS: BP 138/68; PULSE 88; RESP 17; TEMP 97.7; O2SAT 94
[2024-06-13 17:00] VITALS: BP 125/64; PULSE 85; RESP 18; TEMP 97.7; O2SAT 98
--- NOTE | 2024-06-13 19:40 | DVHPN2 ---
Progress Note Date Seen: Jun 13, 2024 Resident Creating Document: ANAYA HOPE Medical Necessity Reason Pt with a Central, PICC or Fol: No Medical Necessity Reason This is an 88-year-old male presents for evaluation of possible GI bleed. Patient reports noticing dark-colored stools over the past one-week. He does have a history of atrial fibrillation and is currently taking Eliquis twice a day. He denies hematemesis or hematuria. Reports occasional lower abdominal cramps. Denies nausea or vomiting. Abdomen x-ray: Unusual gas distended colon from the cecum to the sigmoid. Distal colonic obstruction is in the differential. Abdominal US revealed Pancreas is obscured by bowel gas. Patient was supposed to have had a colonoscopy today; however, patient did not complete the bowel prep for colonoscopy. He was unable to drink the GoLYTELY fluid. Patient said he was feeling nauseous whilst drinking it and he did not feel like continuing. Subjective Review of Systems Constitutional: Status post EGD yesterday, denies fever, chills, feeling of malaise HEENT: No headache, no ear pain, no ear discharges no conjunctivitis, the triachiatic lashes, no nasal discharge no throat pain Cardiovascular: Denies chest pain, palpitation, orthopnea, PND, pedal edema Respiratory: Denies cough, sputum production, shortness of breath, hemoptysis, GI: Generalized Abdominal pain, abdominal distention, nausea, : No frequency, no urgency, no hematuria, Endocrine: no abdominal weight gain or weight loss, no feeling of hot flashes, Hem/Onc: Denied easy bruising, bleeding disorders, epistasis, Psych: Denies depression, elisabeth, suicidal ideation Objective vital signs Vital Sign Date Time Temp Pulse Resp B/P (MAP) Pulse Ox O2 Delivery O2 Flow Rate FiO2 06/13/24 17:00 97.7 85 18 125/64 (84) 98 97.7 06/13/24 08:00 Room Air* 0 21 Total Intake and Output 06/12/24 06/12/24 06/13/24 15:00 23:00 07:00 Intake Total 150 ml 800 ml Balance 150 ml 800 ml medications Current Medications Medications Dose Ordered Sig/Deann Route Start Time Stop Time Status Last Admin Dose Admin Ondansetron HCl 4 mg Q4HP PRN IV 06/08/24 21:00 06/12/24 03:11 4 MG Diagnostic Test (Pha) 1 strip Q6HR 06/09/24 12:00 06/13/24 17:41 1 STRIP Insulin Human Regular Q6HR SC 06/09/24 12:00 Dextrose 50 ml UD PRN IV 06/09/24 11:45 Morphine Sulfate 1 mg Q4HP PRN IV 06/09/24 11:45 06/12/24 18:12 1 MG Acetaminophen 500 mg Q6HP PRN PO 06/09/24 11:45 06/11/24 20:57 500 MG Midodrine 10 mg TID@0600,1200,1800 PO 06/09/24 12:00 06/13/24 17:41 10 MG Pantoprazole Sodium 40 mg BID@0600,1700 PO 06/11/24 17:00 06/13/24 17:41 40 MG Sucralfate 1 gm BID PO 06/11/24 22:00 06/13/24 11:29 1 GM Examination General- no pallor, no icterus, no cyanosis, HEENT - normocephalic, atraumatic, moist mucous membranes.Neck - full ROM, no LAD, no JVD. lung - B/L decreased breath sounds with bibasilar crackles, no wheezing, no stridor. Cardiovascular - normal S1,S2 heard. no murmurs heard. abdomen- distended abdomen, tenderness to palpation. no hepatospleenomegaly. Bowel sounds+ Neurological - Patient is A/O X 3 . Extremity: bilateral pedal edema Skin - Patients skin is warm and dry. laboratory and microbiology Laboratory Tests 06/13/24 06:22 06/12/24 06:20 Test 06/13/24 06:22 Range/Units Serum Glucose 72 L 74-106 mg/dL Problem List/Assessment/Plan Problem List/Assessment/Plan (1) Moderate diffuse gastritis with hyperemia erythema and superficial erosions on EGD (2) Sliding-type hiatal hernia with slightly irregular squamocolumnar junction but no significant erosive esophagitis on EGD (3) Melena (4). Abdominal pain and distension --> Abdominal x-ray revealed : Unusual gas distended colon from the cecum to the sigmoid. Distal colonic obstruction is in the differential -->Abdominal ultrasound: Pancreas is obscured by bowel gas (5) Renal failure Plan 1. Await for biopsy result from EGD 2. Protonix 40 mg bid 3. Carafate 1 g p.o. twice a day 4. Advance diet as tolerated 5. Resume renal diet 6. Outpatient follow up with Dr. Mcdaniels. We will consider colonoscopy next week or on outpatient basis Goal of care discussed for more than 19 minutes: Full code Case and plan discussed with Dr. Mcdaniels Plan discussed with: Patient, Spouse () My Orders My Orders Orders - ANAYA HOPE Procedure Category Date Status Time Npo (Nothing By DIET 06/13/24 Transmitted Mouth) Diet Breakfast Dietary Evaluation Review Comments: 1) Advance pt diet when mediclly feasible to a Renal Standard diet 2) Continue current plan of care Expected Outcomes/Goals: 1) F/U in 2-3 days ANAYA HOPE RESIDENT Jun 13, 2024 19:40
[2024-06-13 21:00] VITALS: BP 112/54; PULSE 98; RESP 18; TEMP 98.2; O2SAT 98
--- NOTE | 2024-06-13 23:46 | DVHPN2 ---
Subjective Update 06/13-Patient was supposed to go for colonoscopy today but did not take his GoLYTELY. After colonoscopy canceled he tries to take old likely he is advised that he is not guaranteed to get colonoscopy tomorrow. Continue PPI b.i.d.. Abdomen soft nontender but no bowel sounds present Reviewed: H&P Changes from previous H/P or p: No Changes General: Per HPI Objective Vitals Vital Signs Date Time Temp Pulse Resp B/P (MAP) Pulse Ox O2 Delivery O2 Flow Rate FiO2 06/13/24 21:00 98.2 98 18 112/54 (73) 98 98.2 06/13/24 08:00 Room Air* 0 21 Intake/Output Intake and Output 06/13/24 07:00 Intake Total 950 ml Balance 950 ml Intake Oral 950 ml # Voids 1 # Bowel Movements 1 Exam GEN: Healthy appearing, well-developed, NAD. HEENT: NC/AT; MMM. CV: RRR, no m/r/g. Bibasilar rales LUNGS: CTAB, no w/r/c. ABD: Soft, NT/ND, no BS heard, no masses or organomegaly. EXT: skin Warm, well perfused. no rashes. No clubbing, cyanosis, or edema. NEURO: Ambulating with no limitations. No focal deficits. Medications Current Medications Medications Dose Ordered Sig/Deann Route Start Time Stop Time Status Last Admin Dose Admin Ondansetron HCl 4 mg Q4HP PRN IV 06/08/24 21:00 06/12/24 03:11 4 MG Diagnostic Test (Pha) 1 strip Q6HR 06/09/24 12:00 06/13/24 17:41 1 STRIP Insulin Human Regular Q6HR SC 06/09/24 12:00 Dextrose 50 ml UD PRN IV 06/09/24 11:45 Morphine Sulfate 1 mg Q4HP PRN IV 06/09/24 11:45 06/12/24 18:12 1 MG Acetaminophen 500 mg Q6HP PRN PO 06/09/24 11:45 06/11/24 20:57 500 MG Midodrine 10 mg TID@0600,1200,1800 PO 06/09/24 12:00 06/13/24 17:41 10 MG Pantoprazole Sodium 40 mg BID@0600,1700 PO 06/11/24 17:00 06/13/24 17:41 40 MG Sucralfate 1 gm BID PO 06/11/24 22:00 06/13/24 20:46 1 GM Laboratory Results Laboratory Tests 06/12/24 06:20 06/13/24 06:22 Chemistry Test 06/13/24 06:22 Calcium Level 9.0 mg/dL (8.7-10.4) Labs and/or images reviewed: Labs reviewed by me, Image(s) reviewed by me Assessment/Plan Assessment/Plan Update 06/13-Patient was supposed to go for colonoscopy today but did not take his GoLYTELY. After colonoscopy canceled he tries to take old likely he is advised that he is not guaranteed to get colonoscopy tomorrow. . Stat GI may want to do it next week versus outpatient. Continue PPI b.i.d.. Abdomen soft nontender but no bowel sounds present. Renal ultrasound shows gas obscuring pancreas, CT abdomen shows distal colonic gas. Abdomen appears to be soft but distended and minimal to none bowel sounds heard. They might be early ileus or some sort of obstruction. # gi bleed with gastritis/erosions: ppi, carafate, colonoscopy cancelled (pt denied glytely) # dm: ssi # esrd: dialysis: Sunday # htn # hyperlipidemia # acute on chronic diastolic heart failure: dialysis # inguinal hernias # a fib: hold eliquis # ?cad/ptca #Sliding hiatal hernia noted on EGD # Distal colonic gas/ gas obscuring pancreas Renal diet GI prophylaxis: On Protonix b.i.d. and Carafate DVT prophylaxis: SCDs Plan discussed with: Patient Date of Service: Jun 13, 2024 Billing Provider: CAYETANO SHORE MD Common Visit Codes: [id number] INP/OBS CARE(HIGH) CAYETANO SHORE MD Jun 13, 2024 23:46
[2024-06-14 01:00] VITALS: BP_SYST 113; BP_SYST 124; BP_DIAS 54; BP_DIAS 75; PULSE 72; PULSE 88; RESP 18; TEMP 97.7; TEMP 98.3; O2SAT 93; O2SAT 98
[2024-06-14 05:00] VITALS: BP 108/57; PULSE 85; RESP 18; TEMP 98.1; O2SAT 96
[2024-06-14 09:00] VITALS: BP 122/56; PULSE 76; RESP 18; TEMP 97.7; O2SAT 97
[2024-06-14 10:29] LABS: White Blood Cell 7.8 10^3/uL (4.4-10.8)
[2024-06-14 10:31] LABS: Hematocrit 31.4 % (41.0-53.0); Mean Corpuscular Hemoglobin 32.3 pg (28.0-32.0); Mean Corpuscular Hgb Conc. 31.9 g/dL (32.0-36.0); Mean Corpuscular Volume 101.3 fL (80.0-100.0); Platelet Count (auto) 191 10^3/uL (140-450); Red Cell Distribution Width 19.5 % (11.8-14.3)
[2024-06-14 10:39] LABS: Chloride 104 mmol/L (98-107); Potassium 3.4 mmol/L (3.5-5.1); Sodium 145 mmol/L (136-145)
[2024-06-14 10:40] LABS: Anion Gap 15 (5-15); Calcium 8.4 mg/dL (8.7-10.4); Carbon Dioxide 26 mmol/L (20-31)
[2024-06-14 10:43] LABS: Band Neutrophils % (manual) 0; Basophils % (manual) 0 (0.0-2.0); Blast Cells 0; Eosinophils % (manual) 0 (0-7); Metamyelocytes % 0; Myelocytes % 0; Promyelocytes % 0; Reactive Lymphocytes 0
[2024-06-14 10:45] LABS: BUN/Creatinine Ratio 2.6 (10.0-20.0); Blood Urea Nitrogen 19 mg/dL (9-23); Glucose 73 mg/dL (74-106)
[2024-06-14 11:30] LABS: Lymphocytes % (manual) 38 (10.0-50.0); Monocytes % (manual) 6 (0-12); Platelet Estimate Adequate
[2024-06-14] MEDS: SODIUM CHL 0.9% 1000 ML BAG XX ONE ×2 (12:30→16:15)
[2024-06-14 12:34] VITALS: BP 117/53; PULSE 56; RESP 16; TEMP 97.8; O2SAT 94
--- NOTE | 2024-06-14 14:47 | DVHPN2 ---
Progress Note Date Seen: Jun 14, 2024 Medical Necessity Reason Pt with a Central, PICC or Fol: No Subjective Review of Systems Pt resting in bed. No acute distress noted. Colonoscopy has been rescheduled, per pt spouse. Patient reports: No new complaints, Feels better Objective vital signs Vital Sign Date Time Temp Pulse Resp B/P (MAP) Pulse Ox O2 Delivery O2 Flow Rate FiO2 06/14/24 12:34 97.8 56 16 117/53 (74) 94 97.8 06/14/24 08:21 Room Air* 0 21 Total Intake and Output 06/13/24 06/13/24 06/14/24 15:00 23:00 07:00 Intake Total 0 ml 30 ml 400 ml Balance 0 ml 30 ml 400 ml medications Current Medications Medications Dose Ordered Sig/Deann Route Start Time Stop Time Status Last Admin Dose Admin Ondansetron HCl 4 mg Q4HP PRN IV 06/08/24 21:00 06/12/24 03:11 4 MG Diagnostic Test (Pha) 1 strip Q6HR 06/09/24 12:00 06/14/24 11:28 1 STRIP Insulin Human Regular Q6HR SC 06/09/24 12:00 Dextrose 50 ml UD PRN IV 06/09/24 11:45 Morphine Sulfate 1 mg Q4HP PRN IV 06/09/24 11:45 06/12/24 18:12 1 MG Acetaminophen 500 mg Q6HP PRN PO 06/09/24 11:45 06/11/24 20:57 500 MG Midodrine 10 mg TID@0600,1200,1800 PO 06/09/24 12:00 06/14/24 11:27 10 MG Pantoprazole Sodium 40 mg BID@0600,1700 PO 06/11/24 17:00 06/14/24 05:35 40 MG Sucralfate 1 gm BID PO 06/11/24 22:00 06/14/24 09:19 1 GM Examination General: Appears stated age, obese, in no acute distress Pulm: Clear to auscultation bilaterally CVS: RRR, normal S1 and S2 Ext: + BLE edema Neuro: Alert and oriented laboratory and microbiology Laboratory Tests 06/14/24 10:20 Test 06/14/24 10:20 Range/Units Serum Glucose 73 L 74-106 mg/dL Labs and/or images reviewed: Labs reviewed by me Problem List/Assessment/Plan Problem List/Assessment/Plan ESRD on hemodialysis GI bleed Type 2 DM HTN Acute on chronic heart failure with preserved ejection fraction REC Serial chemistry panels Hemodialysis planned for today GI consult- on case pending colonoscopy Avoid nephrotoxic medications/CT scan with contrast if able Will continue to follow Plan discussed with: Patient, Other (case discussed with Dr. Jordan) Dietary Evaluation Review Comments: 1) Advance pt diet when mediclly feasible to a Renal Standard diet 2) Continue current plan of care Expected Outcomes/Goals: 1) F/U in 2-3 days [facility] Jun 14, 2024 14:47
[2024-06-14 16:47] VITALS: BP 115/71; PULSE 82; RESP 16; TEMP 97.1; O2SAT 98
--- NOTE | 2024-06-14 18:17 | DVHPN2 ---
Progress Note Date Seen: Jun 14, 2024 Resident Creating Document: ANAYA HOPE RESIDENT Medical Necessity Reason Pt with a Central, PICC or Fol: No Medical Necessity Reason Abdominal distension and melena stool. S/P EGD awaiting biopsy report. Patient was unable to undergo bowel prep for colonoscopy yesterday. However, patient is now willing to do whatever it takes to have the colonoscopy early next week. We will start him on Mag citrate today and continue with the GoLYTELY prep for tomorrow. Subjective Review of Systems Constitutional: Status post EGD, denies fever, chills, feeling of malaise HEENT: No headache, no ear pain, no ear discharges no conjunctivitis Cardiovascular: Denies chest pain, palpitation, orthopnea, PND, pedal edema Respiratory: Denies cough, sputum production, shortness of breath, hemoptysis, GI: Generalized Abdominal pain, abdominal distention, nausea : No frequency, no urgency, no hematuria, Endocrine: no abdominal weight gain or weight loss, no feeling of hot flashes, Hem/Onc: Denied easy bruising, bleeding disorders, epistasis, Psych: Denies depression, elisabeth, suicidal ideation Objective vital signs Vital Sign Date Time Temp Pulse Resp B/P (MAP) Pulse Ox O2 Delivery O2 Flow Rate FiO2 06/14/24 16:47 97.1 82 16 115/71 (86) 98 97.1 06/14/24 08:21 Room Air* 0 21 Total Intake and Output 06/13/24 06/13/24 06/14/24 15:00 23:00 07:00 Intake Total 0 ml 30 ml 400 ml Balance 0 ml 30 ml 400 ml medications Current Medications Medications Dose Ordered Sig/Deann Route Start Time Stop Time Status Last Admin Dose Admin Ondansetron HCl 4 mg Q4HP PRN IV 06/08/24 21:00 06/12/24 03:11 4 MG Diagnostic Test (Pha) 1 strip Q6HR 06/09/24 12:00 06/14/24 17:48 1 STRIP Insulin Human Regular Q6HR SC 06/09/24 12:00 Dextrose 50 ml UD PRN IV 06/09/24 11:45 Morphine Sulfate 1 mg Q4HP PRN IV 06/09/24 11:45 06/12/24 18:12 1 MG Acetaminophen 500 mg Q6HP PRN PO 06/09/24 11:45 06/11/24 20:57 500 MG Midodrine 10 mg TID@0600,1200,1800 PO 06/09/24 12:00 06/14/24 17:48 10 MG Pantoprazole Sodium 40 mg BID@0600,1700 PO 06/11/24 17:00 06/14/24 17:00 40 MG Sucralfate 1 gm BID PO 06/11/24 22:00 06/14/24 09:19 1 GM Examination General- no pallor, no icterus, no cyanosis HEENT - normocephalic, atraumatic, moist mucous membranes.Neck - full ROM, no LAD, no JVD. Lung - B/L decreased breath sounds with bibasilar crackles, no wheezing, no stridor. Cardiovascular - normal S1,S2 heard. no murmurs heard. Abdomen- Distended abdomen, tenderness to palpation. no hepatosplenomegaly, Bowel sounds+ Neurological - Patient is A/O X 3 . Extremity: bilateral pedal edema Skin - Patients skin is warm and dry. laboratory and microbiology Laboratory Tests 06/14/24 10:20 Test 06/14/24 10:20 Range/Units Serum Glucose 73 L 74-106 mg/dL Problem List/Assessment/Plan Problem List/Assessment/Plan (1) Moderate diffuse gastritis with hyperemia erythema and superficial erosions on EGD (2) Sliding-type hiatal hernia with slightly irregular squamocolumnar junction but no significant erosive esophagitis on EGD (3) Melena (4). Abdominal pain and distension --> Abdominal x-ray revealed : Unusual gas distended colon from the cecum to the sigmoid. Distal colonic obstruction is in the differential -->Abdominal ultrasound: Pancreas is obscured by bowel gas --> For Colonoscopy early next week (5) Renal failure Plan 1. Await for biopsy result from EGD 2. Protonix 40 mg bid 3. Carafate 1 g p.o. twice a day 4. Advance diet as tolerated 5. Resume renal diet 6. For colonoscopy early next week. Will start bowel prep with mag citrate 7. For Dialysis today Goal of care discussed for more than 19 minutes: Full code Case and plan discussed with Dr. Mcdaniels Plan discussed with: Patient, Spouse Dietary Evaluation Review Comments: 1) Advance pt diet when mediclly feasible to a Renal Standard diet 2) Continue current plan of care Expected Outcomes/Goals: 1) F/U in 2-3 days ANAYA HOPE RESIDENT Jun 14, 2024 18:17
[2024-06-14] MEDS: MAGNESIUM CITRATE SOLUTION 300 ML BTL PO ONE (20:11)
[2024-06-14] MEDS: EPOETIN ALFA-EPBX 4,000 UNIT/ML VIAL SC ONE (20:29)
[2024-06-14] MEDS ORDERED: EPOETIN ALFA-EPBX 10,000 UNIT/1ML VIAL SC ONE (21:00)
[2024-06-14 22:00] VITALS: BP 112/49; PULSE 79; RESP 19; TEMP 98; O2SAT 99
--- NOTE | 2024-06-14 23:22 | DVHPN2 ---
Subjective History of Present Illness 88-year-old male w pmhx End-stage renal disease, atrial fibrillation, diabetes mellitus, anemia and hypertension presents for evaluation of possible GI bleed. The patient reports noticing dark-colored stools over the past one-week. He does have a history of atrial fibrillation and is currently taking Eliquis twice a day. He denies hematemesis or hematuria. Reports occasional lower abdominal cramps. Denies nausea or vomiting. No cardiac or respiratory complaints. Update - 06/13- Patient was supposed to go for colonoscopy today but did not take his GoLYTELY. After colonoscopy canceled he tries to take old likely he is advised that he is not guaranteed to get colonoscopy tomorrow. Continue PPI b.i.d.. Abdomen soft nontender but no bowel sounds present -06/14- Plan made with GI to keep patient until Sunday and will proceed to colonoscopy. Patient agrees to take bowel prep agent as will be advised by GI team. GI team is planning for mag citrate Reviewed: H&P Changes from previous H/P or p: No Changes General: Per HPI Objective Vitals Vital Signs Date Time Temp Pulse Resp B/P (MAP) Pulse Ox O2 Delivery O2 Flow Rate FiO2 06/14/24 22:00 98.0 79 19 112/49 (70) 99 98.0 06/14/24 08:21 Room Air* 0 21 Intake/Output Intake and Output 06/14/24 07:00 Intake Total 430 ml Balance 430 ml Intake Oral 430 ml # Voids 1 # Bowel Movements 3 Exam GEN: Healthy appearing, well-developed, NAD. HEENT: NC/AT; MMM. CV: RRR, no m/r/g. Bibasilar rales LUNGS: CTAB, no w/r/c. ABD: Soft, NT/ND, normoactive BS heard, no masses or organomegaly. EXT: skin Warm, well perfused. no rashes. No clubbing, cyanosis, or edema. NEURO: Ambulating with no limitations. No focal deficits. Medications Current Medications Medications Dose Ordered Sig/Deann Route Start Time Stop Time Status Last Admin Dose Admin Ondansetron HCl 4 mg Q4HP PRN IV 06/08/24 21:00 06/14/24 20:28 4 MG Diagnostic Test (Pha) 1 strip Q6HR 06/09/24 12:00 06/14/24 17:48 1 STRIP Insulin Human Regular Q6HR SC 06/09/24 12:00 Dextrose 50 ml UD PRN IV 06/09/24 11:45 Morphine Sulfate 1 mg Q4HP PRN IV 06/09/24 11:45 06/12/24 18:12 1 MG Acetaminophen 500 mg Q6HP PRN PO 06/09/24 11:45 06/11/24 20:57 500 MG Midodrine 10 mg TID@0600,1200,1800 PO 06/09/24 12:00 06/14/24 17:48 10 MG Pantoprazole Sodium 40 mg BID@0600,1700 PO 06/11/24 17:00 06/14/24 17:00 40 MG Sucralfate 1 gm BID PO 06/11/24 22:00 06/14/24 20:30 1 GM Laboratory Results Laboratory Tests 06/14/24 10:20 Chemistry Test 06/14/24 10:20 Calcium Level 8.4 mg/dL (8.7-10.4) L Labs and/or images reviewed: Labs reviewed by me, Image(s) reviewed by me Assessment/Plan Assessment/Plan Update 06/14- Plan made with GI to keep patient until Sunday and will proceed to colonoscopy. Patient agrees to take bowel prep agent as will be advised by GI team. GI team is planning for mag citrate # gi bleed with gastritis/erosions: ppi, carafate, colonoscopy sunday w prep by mag cit. # dm: ssi # esrd: dialysis: Sunday # htn # hyperlipidemia # acute on chronic diastolic heart failure: dialysis # inguinal hernias # a fib: hold eliquis # ?cad/ptca #Sliding hiatal hernia noted on EGD # Distal colonic gas/ gas obscuring pancreas Renal diet GI prophylaxis: On Protonix b.i.d. and Carafate DVT prophylaxis: SCDs Plan discussed with: Patient, Spouse My Orders Orders - CAYETANO SHORE MD Procedure Category Date Status Time Full Liq Diet DIET 06/14/24 Transmitted Lunch Date of Service: Jun 14, 2024 Billing Provider: CAYETANO SHORE MD Common Visit Codes: [id number] INP/OBS CARE(HIGH) CAYETANO SHORE MD Jun 14, 2024 23:22
[2024-06-15] VITALS (7 sets, daily range): BP systolic 108–127; BP diastolic 50–65; PULSE 76–96; RESP 17–19; TEMP 97.4–98.2; O2SAT 94–100
[2024-06-15 07:18] LABS: Hematocrit 33.5 % (41.0-53.0); Hemoglobin 10.9 g/dL (13.5-17.5); Mean Corpuscular Hgb Conc. 32.6 g/dL (32.0-36.0); Mean Corpuscular Volume 98.1 fL (80.0-100.0); Platelet Count (auto) 160 10^3/uL (140-450); Red Blood Cells 3.42 10^6/uL (4.5-5.90); Red Cell Distribution Width 19.5 % (11.8-14.3); White Blood Cell 7.4 10^3/uL (4.4-10.8)
[2024-06-15 07:25] LABS: Band Neutrophils % (manual) 0; Basophils % (manual) 0 (0.0-2.0); Blast Cells 0; Metamyelocytes % 0; Myelocytes % 0; Promyelocytes % 0; Reactive Lymphocytes 0
[2024-06-15 07:37] LABS: Albumin 3.9 g/dL (3.2-4.8); Alkaline Phosphatase 113 U/L (46-116); Anion Gap 15 (5-15); Aspartate Aminotransferase 16 U/L (13-40); BUN/Creatinine Ratio 2.4 (10.0-20.0); Bilirubin, Total 0.8 mg/dL (0.2-1.0); Blood Urea Nitrogen 15 mg/dL (9-23); Calcium 9.2 mg/dL (8.7-10.4); Carbon Dioxide 27 mmol/L (20-31); Chloride 102 mmol/L (98-107); Glucose 79 mg/dL (74-106); Sodium 144 mmol/L (136-145); Total Protein 6.4 g/dL (5.7-8.2)
[2024-06-15 07:40] LABS: Alanine Aminotransferase < 9 U/L (7-40)
[2024-06-15 08:31] LABS: Eosinophils % (manual) 3 (0-7); Lymphocytes % (manual) 25 (10.0-50.0); Monocytes % (manual) 7 (0-12); Platelet Estimate Adequate
[2024-06-15] MEDS: MAGNESIUM CITRATE SOLUTION 300 ML BTL PO ONE ×2 (13:30→21:05)
[2024-06-15] MEDS: GOLYTELY 4L KIT PO ONE (15:38)
--- NOTE | 2024-06-15 15:49 | DVHPN2 ---
Progress Note Date Seen: Jun 15, 2024 Medical Necessity Reason Pt with a Central, PICC or Fol: No Subjective Review of Systems Pt resting in bed. Pt had dialysis yesterday and tolerated well. Scheduled for colonoscopy tomorrow. Patient reports: No new complaints Objective vital signs Vital Sign Date Time Temp Pulse Resp B/P (MAP) Pulse Ox O2 Delivery O2 Flow Rate FiO2 06/15/24 08:10 76 17 98 Room Air* 0 21 06/15/24 05:00 98.1 113/56 (75) 98.1 Total Intake and Output 06/14/24 06/14/24 06/15/24 15:00 23:00 07:00 Intake Total 500 ml 125 ml Balance 500 ml 125 ml medications Current Medications Medications Dose Ordered Sig/Deann Route Start Time Stop Time Status Last Admin Dose Admin Ondansetron HCl 4 mg Q4HP PRN IV 06/08/24 21:00 06/14/24 20:28 4 MG Diagnostic Test (Pha) 1 strip Q6HR 06/09/24 12:00 06/15/24 11:42 1 STRIP Insulin Human Regular Q6HR SC 06/09/24 12:00 Dextrose 50 ml UD PRN IV 06/09/24 11:45 Morphine Sulfate 1 mg Q4HP PRN IV 06/09/24 11:45 06/12/24 18:12 1 MG Acetaminophen 500 mg Q6HP PRN PO 06/09/24 11:45 06/11/24 20:57 500 MG Midodrine 10 mg TID@0600,1200,1800 PO 06/09/24 12:00 06/15/24 12:11 10 MG Pantoprazole Sodium 40 mg BID@0600,1700 PO 06/11/24 17:00 06/15/24 05:33 40 MG Sucralfate 1 gm BID PO 06/11/24 22:00 06/15/24 10:02 1 GM Examination General: Appears stated age, in no acute distress Pulm: Clear to auscultation bilaterally CVS: RRR, normal S1 and S2 Ext: + BLE edema Neuro: Alert laboratory and microbiology Laboratory Tests 06/15/24 06:30 Test 06/15/24 06:30 Range/Units Serum Glucose 79 74-106 mg/dL Labs and/or images reviewed: Labs reviewed by me Problem List/Assessment/Plan Problem List/Assessment/Plan ESRD on hemodialysis GI bleed Type 2 DM HTN Acute on chronic heart failure with preserved ejection fraction REC Chemistry panel Hemodialysis planned for 06/15 GI consult- on case pending colonoscopy Avoid nephrotoxic medications/CT scan with contrast if able Potassium supplementation as needed. Will continue to follow Plan discussed with: Patient, Spouse, Other (Dr. Huy Jordan) Dietary Evaluation Review Comments: 1) Advance pt diet when mediclly feasible to a Renal Standard diet 2) Continue current plan of care Expected Outcomes/Goals: 1) F/U in 2-3 days DARLINE SOSA Jun 15, 2024 15:48
[2024-06-15] MEDS: POTASSIUM CHL 20 Meq TABLET PO ONE (17:42)
[2024-06-15] MEDS: POTASSIUM EFFERVESENT TAB 25 MEQ PO ONE (18:49)
--- NOTE | 2024-06-15 20:05 | DVHPN2 ---
Progress Note - Dictate Date Seen: Jun 15, 2024 Medical Necessity Reason Pt with a Central, PICC or Fol: No Subjective Patient seen at bedside Patient ambulating with the assistance Patient would like to proceed with bowel prep No active GI bleeding reported at this time vital signs Vital Sign Date Time Temp Pulse Resp B/P (MAP) Pulse Ox O2 Delivery O2 Flow Rate FiO2 06/15/24 17:00 97.4 80 17 108/53 (71) 97 97.4 06/15/24 08:10 Room Air* 0 21 Total Intake and Output 06/14/24 06/14/24 06/15/24 15:00 23:00 07:00 Intake Total 500 ml 125 ml Balance 500 ml 125 ml medications Current Medications Medications Dose Ordered Sig/Deann Route Start Time Stop Time Status Last Admin Dose Admin Ondansetron HCl 4 mg Q4HP PRN IV 06/08/24 21:00 06/14/24 20:28 4 MG Diagnostic Test (Pha) 1 strip Q6HR 06/09/24 12:00 06/15/24 17:44 1 STRIP Insulin Human Regular Q6HR SC 06/09/24 12:00 Dextrose 50 ml UD PRN IV 06/09/24 11:45 Morphine Sulfate 1 mg Q4HP PRN IV 06/09/24 11:45 06/12/24 18:12 1 MG Acetaminophen 500 mg Q6HP PRN PO 06/09/24 11:45 06/11/24 20:57 500 MG Midodrine 10 mg TID@0600,1200,1800 PO 06/09/24 12:00 06/15/24 17:44 10 MG Pantoprazole Sodium 40 mg BID@0600,1700 PO 06/11/24 17:00 06/15/24 17:37 40 MG Sucralfate 1 gm BID PO 06/11/24 22:00 06/15/24 10:02 1 GM objective Gen - no pallor, no icterus, no cyanosis, Skin - Patients skin is warm and dry. HEENT - normocephalic, atraumatic, moist mucous membranes. Neck - full ROM, no LAD, no JVD. Pulmonary - B/L decreased breath sounds with bibasilar crackles, no wheezing, no stridor. cardiovascular - normal S1,S2 heard. no murmurs heard. GI -soft distended abdomen without tenderness to palpation. no hepatospleenomegaly. Bowel sounds+ Neurological - Patient is A/O X 3 . Extremity bilateral pedal edema laboratory and microbiology Laboratory Tests 06/15/24 06:30 Test 06/15/24 06:30 Range/Units Serum Glucose 79 74-106 mg/dL Problems(with codes): (1) GIB (gastrointestinal bleeding) (2) Renal failure (3) Weakness (4) Anemia Prognosis Plan Proceed with bowel prep tonight Bedside commode Tentatively scheduled for colonoscopy on 06/16/2024 Continue hemodialysis as scheduled Dietary Evaluation Review Comments: 1) Advance pt diet when mediclly feasible to a Renal Standard diet 2) Continue current plan of care Expected Outcomes/Goals: 1) F/U in 2-3 days Plan discussed with: Patient, Spouse DUONG MCCULLOUGH MD Jun 15, 2024 20:05
--- NOTE | 2024-06-15 23:35 | DVHPN2 ---
Subjective History of Present Illness 88-year-old male w pmhx End-stage renal disease, atrial fibrillation, diabetes mellitus, anemia and hypertension presents for evaluation of possible GI bleed. The patient reports noticing dark-colored stools over the past one-week. He does have a history of atrial fibrillation and is currently taking Eliquis twice a day. He denies hematemesis or hematuria. Reports occasional lower abdominal cramps. Denies nausea or vomiting. No cardiac or respiratory complaints. Update - 06/13- Patient was supposed to go for colonoscopy today but did not take his GoLYTELY. After colonoscopy canceled he tries to take old likely he is advised that he is not guaranteed to get colonoscopy tomorrow. Continue PPI b.i.d.. Abdomen soft nontender but no bowel sounds present -06/14- Plan made with GI to keep patient until Sunday and will proceed to colonoscopy. Patient agrees to take bowel prep agent as will be advised by GI team. GI team is planning for mag citrate - 06/15 patient remains stable he is asking for laxatives though keep him pain for the colonoscopy tomorrow. Reviewed: H&P Changes from previous H/P or p: No Changes General: Per HPI Objective Vitals Vital Signs Date Time Temp Pulse Resp B/P (MAP) Pulse Ox O2 Delivery O2 Flow Rate FiO2 06/15/24 22:00 97.5 80 18 112/54 (73) 94 97.5 06/15/24 20:00 Room Air* 0 21 Intake/Output Intake and Output 06/15/24 07:00 Intake Total 625 ml Balance 625 ml Intake Oral 625 ml # Voids 1 # Bowel Movements 1 Exam GEN: Healthy appearing, well-developed, NAD. HEENT: NC/AT; MMM. CV: RRR, no m/r/g. Bibasilar rales LUNGS: CTAB, no w/r/c. ABD: Soft, NT/ND, normoactive BS heard, no masses or organomegaly. EXT: skin Warm, well perfused. no rashes. No clubbing, cyanosis, or edema. NEURO: Ambulating with no limitations. No focal deficits. Medications Current Medications Medications Dose Ordered Sig/Deann Route Start Time Stop Time Status Last Admin Dose Admin Ondansetron HCl 4 mg Q4HP PRN IV 06/08/24 21:00 06/14/24 20:28 4 MG Diagnostic Test (Pha) 1 strip Q6HR 06/09/24 12:00 06/15/24 17:44 1 STRIP Insulin Human Regular Q6HR SC 06/09/24 12:00 Dextrose 50 ml UD PRN IV 06/09/24 11:45 Morphine Sulfate 1 mg Q4HP PRN IV 06/09/24 11:45 06/12/24 18:12 1 MG Acetaminophen 500 mg Q6HP PRN PO 06/09/24 11:45 06/11/24 20:57 500 MG Midodrine 10 mg TID@0600,1200,1800 PO 06/09/24 12:00 06/15/24 17:44 10 MG Pantoprazole Sodium 40 mg BID@0600,1700 PO 06/11/24 17:00 06/15/24 17:37 40 MG Sucralfate 1 gm BID PO 06/11/24 22:00 06/15/24 10:02 1 GM Laboratory Results Laboratory Tests 06/15/24 06:30 Chemistry Test 06/15/24 06:30 Albumin 3.9 g/dL (3.2-4.8) Calcium Level 9.2 mg/dL (8.7-10.4) Total Protein 6.4 g/dL (5.7-8.2) LFT Test 06/15/24 06:30 Alanine Aminotransferase (ALT) < 9 U/L (7-40) Alkaline Phosphatase 113 U/L (46-116) Aspartate Amino Transferase (AST) 16 U/L (13-40) Total Bilirubin 0.8 mg/dL (0.2-1.0) Labs and/or images reviewed: Labs reviewed by me, Image(s) reviewed by me Assessment/Plan Assessment/Plan Update - 06/15 patient remains stable he is asking for laxatives though keep him pain for the colonoscopy tomorrow. GI team is planning for mag citrate. If prep goes well plan is for colonoscopy on 06/16/24 # gi bleed with gastritis/erosions: ppi, carafate, colonoscopy sunday w prep by mag cit. # dm: ssi # esrd: dialysis: Sunday # htn # hyperlipidemia # acute on chronic diastolic heart failure: dialysis # inguinal hernias # a fib: hold eliquis # ?cad/ptca #Sliding hiatal hernia noted on EGD # Distal colonic gas/ gas obscuring pancreas Renal diet GI prophylaxis: On Protonix b.i.d. and Carafate DVT prophylaxis: SCDs Plan discussed with: Patient Date of Service: Jun 15, 2024 Billing Provider: CAYETANO SHORE MD Common Visit Codes: [id number] INP/OBS CARE(HIGH) CAYETANO SHORE MD Jun 15, 2024 23:35
[2024-06-16] VITALS (7 sets, daily range): BP systolic 102–128; BP diastolic 54–76; PULSE 67–125; RESP 16–22; TEMP 97.3–99; O2SAT 90–100
[2024-06-16] MEDS: GOLYTELY 4L KIT PO ONE (06:00)
[2024-06-16] MEDS: MAGNESIUM CITRATE SOLUTION 300 ML BTL PO ONE (07:33)
[2024-06-16 10:45] LABS: Basophils # (auto) 0.1 10 ^3/uL (0-0.2); Basophils % (auto) 0.6 % (0.0-2.0); Eosinophils # (auto) 0 10 ^3/uL (0-0.8); Eosinophils % (auto) 0.2 % (0.0-7.0); Hematocrit 36.3 % (41.0-53.0); Hemoglobin 11.6 g/dL (13.5-17.5); Lymphocytes # (auto) 0.7 10 ^3/uL (0.4-5.4); Lymphocytes % (auto) 4.6 % (10.0-50.0); Mean Corpuscular Hemoglobin 31.5 pg (28.0-32.0); Mean Corpuscular Hgb Conc. 31.9 g/dL (32.0-36.0); Mean Corpuscular Volume 98.8 fL (80.0-100.0); Monocytes # (auto) 1.9 10 ^3/uL (0-1.3); Monocytes % (auto) 12.3 % (0.0-12.0); Neutrophils # (auto) 12.4 10 ^3/uL (1.6-8.6); Neutrophils % (auto) 82.3 % (37.0-80.0); Platelet Count (auto) 191 10^3/uL (140-450); Red Blood Cells 3.67 10^6/uL (4.5-5.90); Red Cell Distribution Width 19.6 % (11.8-14.3)
[2024-06-16 10:52] LABS: Anion Gap 19 (5-15); Calcium 9.8 mg/dL (8.7-10.4); Carbon Dioxide 25 mmol/L (20-31); Chloride 103 mmol/L (98-107); Sodium 147 mmol/L (136-145)
[2024-06-16 10:58] LABS: BUN/Creatinine Ratio 2.2 (10.0-20.0); Blood Urea Nitrogen 18 mg/dL (9-23); Glucose 121 mg/dL (74-106)
--- NOTE | 2024-06-16 11:52 | DVHPN2 ---
Progress Note Date Seen: Jun 16, 2024 Resident Creating Document: ANANYATAMMYJANICE RESIDENT Medical Necessity Reason Pt with a Central, PICC or Fol: No Subjective Review of Systems Patient is a 88-year-old male with a past medical history of atrial fibrillation, end-stage renal disease, congestive heart failure, type 2 diabetes mellitus, hypertension, hyperlipidemia, glaucoma came to the ED with a chief complaint of dark-colored stools for 1 week. Patient reports since the past 2 days having bright red blood per rectum associated with occasional lower abdominal cramps. Patient does not report of hematemesis, hematuria. Patient reports mild nausea but no episode of vomiting. Patient denied chest pain, shortness of breath, palpitations, dizziness. Abdomen pelvic CT without contrast was done which showed increased intraluminal attenuation of the ascending and the transverse colon which may reflect a non localized hemorrhage. Patient's blood pressure on arrival is 97/59 mmHg, heart rate 64 beats per minute, respiratory rate 16 per minute, SpO2 96% on room air. Patient's recent echocardiogram from 03/20/2024 shows left ventricular ejection fraction 55% with grade 1 diastolic dysfunction, severely elevated right ventricular systolic pressure 92 mmHg. Review of Systems Patient was seen and examined at the bedside. Patient is alert and oriented to time, place and person. Patient's blood pressure is 122/59 mmHg, pulse 90/min irregular SpO2 95% on room air. Patient does not report of abdominal pain. Patient does not report any shortness of breath, chest pain, dizziness. Objective vital signs Vital Sign Date Time Temp Pulse Resp B/P (MAP) Pulse Ox O2 Delivery O2 Flow Rate FiO2 06/16/24 08:00 18 Room Air* 0 21 06/16/24 08:00 98.4 67 119/58 (78) 90 98.4 Total Intake and Output 06/15/24 06/15/24 06/16/24 15:00 23:00 07:00 Intake Total 120 ml 600 ml 400 ml Output Total 0 ml Balance 120 ml 600 ml 400 ml medications Current Medications Medications Dose Ordered Sig/Deann Route Start Time Stop Time Status Last Admin Dose Admin Ondansetron HCl 4 mg Q4HP PRN IV 06/08/24 21:00 06/14/24 20:28 4 MG Diagnostic Test (Pha) 1 strip Q6HR 06/09/24 12:00 06/16/24 06:00 1 STRIP Insulin Human Regular Q6HR SC 06/09/24 12:00 Dextrose 50 ml UD PRN IV 06/09/24 11:45 Morphine Sulfate 1 mg Q4HP PRN IV 06/09/24 11:45 06/12/24 18:12 1 MG Acetaminophen 500 mg Q6HP PRN PO 06/09/24 11:45 06/11/24 20:57 500 MG Midodrine 10 mg TID@0600,1200,1800 PO 06/09/24 12:00 06/15/24 17:44 10 MG Pantoprazole Sodium 40 mg BID@0600,1700 PO 06/11/24 17:00 06/15/24 17:37 40 MG Sucralfate 1 gm BID PO 06/11/24 22:00 06/16/24 09:15 1 GM Examination Gen - no pallor, no icterus, no cyanosis, no clubbing, no LAD, 2+ bilateral lower extremity pitting edema. Skin - Patients skin is warm and dry. HEENT - normocephalic, atraumatic, moist mucous membranes. Neck - full ROM, no LAD, no JVD. Pulmonary - B/L decreased breath sounds in the lower lobes with bibasilar crackles, no wheezing, no stridor. cardiovascular - normal S1,S2 heard. no murmurs heard. peripheral pulses normal radial 2+, pedal 2+. capillary refill normal <2 secs. GI - distended abdomen without tenderness to palpation. no hepatospleenomegaly. Bowel sounds+ Neurological - Patient is A/O X 3 . Bilateral upper extremity strength 5/5, bilateral lower extremity strength 5/5, no facial droop, normal speech, no tremor, no sensory deficiets. laboratory and microbiology Laboratory Tests 06/16/24 10:25 Test 06/16/24 10:25 Range/Units Serum Glucose 121 H 74-106 mg/dL Problem List/Assessment/Plan Problem List/Assessment/Plan Assessment and plan # End stage renal disease - on dialysis MWF - serum creatinine 8.10 - BUN 18 - serum potassium 3 - GFR 9 - renal ultrasound from 05/20 shows moderately atrophic kidneys with bilateral cysts. - patient started on renal diet - PTH elevated at 398 pg/ml - last dialysis on 06/14 removed 2000 mL fluid - patient has 1+ bilateral pitting edema and bibasilar lung crackles . - Dialysis done today on 06/16 - Avoid nephrotoxic medication - strict I&Os with fluid restriction 1200 mL # GI bleed likely lower GI - episodes of bright red blood per rectum - 1 episode in the morning today on 06/10 - patient on clear lq diet - Further management as per GI- patient is due for endoscopy on 06/11 - 06/12 Abd X ray showing distended colon with ?distal colonic obstruction - colonoscopy done on 06/16 # acute on chronic heart failure with preserved ejection fraction( elevated RVSP) # history of atrial fib. # type 2 diabetes mellitus # hypertension # hyperlipidemia Goals care discussed with the patient for over 15 minutes. Plan discussed with Dr. Rivera Plan discussed with: Patient Dietary Evaluation Review Comments: 1) Advance pt diet when mediclly feasible to a Renal Standard diet 2) Continue current plan of care Expected Outcomes/Goals: 1) F/U in 2-3 days JANICE ABREU Jun 16, 2024 11:52 ESTELLA RIVERA MD Jun 16, 2024 19:33
--- NOTE | 2024-06-16 11:58 | DVHPN2 ---
Progress Note Date Seen: Jun 16, 2024 Medical Necessity Reason Pt with a Central, PICC or Fol: No Subjective Patient reports: No new complaints Review of Systems: HEENT:Normal, CVS:Normal, RESPIRATORY:Normal, GI:Normal, :Normal, MSK:Normal, NEURO:Normal Objective vital signs Vital Sign Date Time Temp Pulse Resp B/P (MAP) Pulse Ox O2 Delivery O2 Flow Rate FiO2 06/16/24 08:00 18 Room Air* 0 21 06/16/24 08:00 98.4 67 119/58 (78) 90 98.4 Total Intake and Output 06/15/24 06/15/24 06/16/24 15:00 23:00 07:00 Intake Total 120 ml 600 ml 400 ml Output Total 0 ml Balance 120 ml 600 ml 400 ml medications Current Medications Medications Dose Ordered Sig/Deann Route Start Time Stop Time Status Last Admin Dose Admin Ondansetron HCl 4 mg Q4HP PRN IV 06/08/24 21:00 06/14/24 20:28 4 MG Diagnostic Test (Pha) 1 strip Q6HR 06/09/24 12:00 06/16/24 06:00 1 STRIP Insulin Human Regular Q6HR SC 06/09/24 12:00 Dextrose 50 ml UD PRN IV 06/09/24 11:45 Morphine Sulfate 1 mg Q4HP PRN IV 06/09/24 11:45 06/12/24 18:12 1 MG Acetaminophen 500 mg Q6HP PRN PO 06/09/24 11:45 06/11/24 20:57 500 MG Midodrine 10 mg TID@0600,1200,1800 PO 06/09/24 12:00 06/15/24 17:44 10 MG Pantoprazole Sodium 40 mg BID@0600,1700 PO 06/11/24 17:00 06/15/24 17:37 40 MG Sucralfate 1 gm BID PO 06/11/24 22:00 06/16/24 09:15 1 GM Examination: GENERAL:Normal, HEENT:Normal, NECK:Normal, LUNGS:Normal, CVS:Normal, ABDOMEN:Normal, MSK:Normal, SKIN:Normal, NEURO:Normal, :Normal laboratory and microbiology Laboratory Tests 06/16/24 10:25 Test 06/16/24 10:25 Range/Units Serum Glucose 121 H 74-106 mg/dL Problem List/Assessment/Plan Problem List/Assessment/Plan #1 gi bleed with gastritis/erosions: ppi, carafate, colonoscopy today #2 dm: ssi #3 esrd: dialysis #4 htn #5 hyperlipidemia #6 acute on chronic diastolic heart failure: dialysis #7 inguinal hernias #8 a fib: hold eliquis #9 ?cad/ptca advance care planning- full code- time spent 19 mins Plan discussed with: Other (rn) Dietary Evaluation Review Comments: 1) Advance pt diet when mediclly feasible to a Renal Standard diet 2) Continue current plan of care Expected Outcomes/Goals: 1) F/U in 2-3 days Date of Service: Jun 16, 2024 Billing Provider: NATALI MOYA MD Common Visit Codes: [id number] INP/OBS CARE(HIGH) NATALI MOYA MD Jun 16, 2024 11:58
[2024-06-16] MEDS ORDERED: ePHEDrine SULFATE 50 MG/ML AMP IV ONE (12:05)
--- NOTE | 2024-06-16 12:56 | DVHOP2 ---
Operative Report DATE OF OPERATION: 06/16/24 PROCEDURE: Colonoscopy with cold biopsy polypectomy. PREOPERATIVE INDICATION: The patient is a 88 -year-old male undergoing colonoscopy for history of anemia and GI bleed POSTOPERATIVE DIAGNOSES: 1. 3 less than 5 mm benign-appearing ascending colon polyps were seen and remove d by cold biopsy forceps 2. 4 less than 5 mm benign-appearing polyps were seen and removed completely via cold biopsy forceps 3. 2+ engorged internal hemorrhoids otherwise normal examination up to the cecum and terminal ileum with no fresh or old blood in the colon PROCEDURE PERFORMED BY: Duong Mcdaniels M.D. SCOPE: Olympus videocolonoscope. ASA CLASS: 3. PREOPERATIVE MEDICATIONS: Mac sedation, PROCEDURE IN DETAIL: After obtaining an informed consent, the patient was placed on left lateral decubitus position. He was then sedated with the above medications. A rectal examination was performed that was normal. The colonoscope was then passed through the anus into the rectosigmoid and through the descending, transverse, and ascending colon up to the cecum with visualization of the appendiceal orifice, base of the cecum and the ileoce hannah valve. The colonoscope was then withdrawn. The distal 3-5 cm of the terminal ileum were normal. On the ileocecal valve there was a 2 mm benign-appearing polyp that was seen and removed by cold biopsy forceps There were other two less than 5 mm benign-appearing ascending colon polyps that were seen and removed by cold biopsy forceps. In the transverse colon there were four less than 5 mm benign-appearing polyps which were removed what cold biopsy forceps completely and the specimens were retrieved There was no clear-cut diverticular disease. No fresh or old blood in the stomach. On retroflexion and straight on view the patient had slightly engorged 2+ internal hemorrhoids The patient tolerated the procedure well without difficulty. WITHDRAWAL TIME: 13 minutes QUALITY OF THE PREP: Milo Bowel Prep score: 9. COMPLICATIONS : None SPECIMENS: Ascending colon polyps Transverse colon polyps DISPOSITION: Transfer back to the floor Stable PLAN: 1. Repeat colonoscopy based on biopsy result likely in 2-3 years 2. Resume GI soft diet advance as tolerated 3. Local anorectal hemorrhoidal care 4. Outpatient follow up with GI Services as needed DUONG MCDANIELS MD Jun 16, 2024 12:56
[2024-06-16] MEDS ORDERED: MIDAZOLAM HCL 2MG/2ML 2ml VIAL (1mg/ml) ONE (13:15)
[2024-06-16] MEDS ORDERED: fentaNYL CITRATE 100 MCG/2 ML VL ONE (13:15)
[2024-06-16] MEDS ORDERED: PROPOFOL 10 MG/ML 20 ML IV ONE (13:16)
[2024-06-16] MEDS ORDERED: DexAMETHasone SOD PHOS 10MG/1ML VIAL INJ ONE (13:16)
[2024-06-16] MEDS: POTASSIUM CHL 20 Meq TABLET PO ONE (18:30)
[2024-06-16] MEDS: POTASSIUM CHL 20 Meq TABLET PO SCH (21:37)
[2024-06-17 01:00] VITALS: BP 127/58; PULSE 79; RESP 17; TEMP 97.8; O2SAT 96
[2024-06-17 04:57] VITALS: BP 110/56; PULSE 86; RESP 17; TEMP 98; O2SAT 97
[2024-06-17 07:39] LABS: Anion Gap 11 (5-15); Carbon Dioxide 30 mmol/L (20-31); Chloride 102 mmol/L (98-107); Potassium 3.4 mmol/L (3.5-5.1); Sodium 143 mmol/L (136-145)
[2024-06-17 07:40] LABS: Calcium 10.1 mg/dL (8.7-10.4)
[2024-06-17 07:45] LABS: BUN/Creatinine Ratio 2.4 (10.0-20.0); Blood Urea Nitrogen 13 mg/dL (9-23); Glucose 122 mg/dL (74-106)
[2024-06-17 07:47] LABS: Basophils # (auto) 0 10 ^3/uL (0-0.2); Basophils % (auto) 0.2 % (0.0-2.0); Eosinophils # (auto) 0 10 ^3/uL (0-0.8); Hematocrit 33.5 % (41.0-53.0); Hemoglobin 10.6 g/dL (13.5-17.5); Lymphocytes # (auto) 0.8 10 ^3/uL (0.4-5.4); Lymphocytes % (auto) 11.6 % (10.0-50.0); Mean Corpuscular Hemoglobin 31.1 pg (28.0-32.0); Mean Corpuscular Hgb Conc. 31.6 g/dL (32.0-36.0); Mean Corpuscular Volume 98.7 fL (80.0-100.0); Monocytes % (auto) 14.6 % (0.0-12.0); Neutrophils # (auto) 5.1 10 ^3/uL (1.6-8.6); Neutrophils % (auto) 73.6 % (37.0-80.0); Platelet Count (auto) 187 10^3/uL (140-450); Red Blood Cells 3.39 10^6/uL (4.5-5.90); Red Cell Distribution Width 19.5 % (11.8-14.3); White Blood Cell 6.9 10^3/uL (4.4-10.8)
[2024-06-17 09:00] VITALS: BP 123/60; PULSE 71; RESP 18; TEMP 96.3; O2SAT 99
[2024-06-17 13:00] VITALS: BP 121/62; PULSE 92; RESP 20; TEMP 97.8; O2SAT 100
--- NOTE | 2024-06-17 15:02 | DVHDS2 ---
Discharge Summary Date of Admission Jun 08, 2024 at 20:57 Date of Discharge: Jun 17, 2024 Labs/Diagnostic Data: Laboratory Results Test 06/17/24 11:08 06/17/24 06:43 06/15/24 06:30 06/09/24 13:00 POC Glucose 198 mg/dl (70-106) White Blood Count 6.9 10^3/uL (4.4-10.8) Red Blood Count 3.39 10^6/uL (4.5-5.90) Hemoglobin 10.6 g/dL (13.5-17.5) Hematocrit 33.5 % (41.0-53.0) Mean Corpuscular Volume 98.7 fL (80.0-100.0) Mean Corpuscular Hemoglobin 31.1 pg (28.0-32.0) Mean Corpuscular Hemoglobin Concent 31.6 g/dL (32.0-36.0) Red Cell Distribution Width 19.5 % (11.8-14.3) Platelet Count 187 10^3/uL (140-450) Mean Platelet Volume 8.9 fL (6.9-10.8) Neutrophils (%) (Auto) 73.6 % (37.0-80.0) Lymphocytes (%) (Auto) 11.6 % (10.0-50.0) Monocytes (%) (Auto) 14.6 % (0.0-12.0) Eosinophils (%) (Auto) 0.0 % (0.0-7.0) Basophils (%) (Auto) 0.2 % (0.0-2.0) Neutrophils # (Auto) 5.1 10 ^3/uL (1.6-8.6) Lymphocytes # (Auto) 0.8 10 ^3/uL (0.4-5.4) Monocytes # (Auto) 1.0 10 ^3/uL (0-1.3) Eosinophils # (Auto) 0 10 ^3/uL (0-0.8) Basophils # (Auto) 0 10 ^3/uL (0-0.2) Nucleated Red Blood Cells 0.0 % Sodium Level 143 mmol/L (136-145) Potassium Level 3.4 mmol/L (3.5-5.1) Chloride Level 102 mmol/L (98-107) Carbon Dioxide Level 30 mmol/L (20-31) Anion Gap 11 (5-15) Blood Urea Nitrogen 13 mg/dL (9-23) Creatinine 5.33 mg/dL (0.700-1.30) Glomerular Filtration Rate Calc 10 mL/min (>90) BUN/Creatinine Ratio 2.4 (10.0-20.0) Serum Glucose 122 mg/dL (74-106) Calcium Level 10.1 mg/dL (8.7-10.4) Magnesium Level 3.0 mg/dL (1.6-2.6) Differential Total Cells Counted 100.0 (100) Neutrophils % (Manual) 65 (37.0-80.0) Band Neutrophils % (Manual) 0 Lymphocytes % (Manual) 25 (10.0-50.0) Monocytes % (Manual) 7 (0-12) Eosinophils % (Manual) 3 (0-7) Basophils % (Manual) 0 (0.0-2.0) Metamyelocytes % (manual) 0 Myelocytes % (Manual) 0 Promyelocytes % (Manual) 0 Blast Cells % (Manual) 0 Reactive Lymphocytes 0 Platelet Estimate Adequate Total Bilirubin 0.8 mg/dL (0.2-1.0) Aspartate Amino Transferase (AST) 16 U/L (13-40) Alanine Aminotransferase (ALT) < 9 U/L (7-40) Alkaline Phosphatase 113 U/L (46-116) Total Protein 6.4 g/dL (5.7-8.2) Albumin 3.9 g/dL (3.2-4.8) Stool Occult Blood Positive (Negative) Stool Occult Blood Sample #3 (Negative) Test 06/09/24 06:06 06/08/24 18:42 Uric Acid 5.2 mg/dL (3.7-9.2) Phosphorus Level 4.1 mg/dL (2.4-5.1) B-Type Natriuretic Peptide 965.98 pg/mL (0-100) Vitamin D 25-Hydroxy 79.7 ng/mL (30.0-100) Parathyroid Hormone (Intact) 398.1 pg/mL (18.4-80.1) Hepatitis B Surface Antigen Negative (Negative) Hepatitis C Antibody Negative (Negative) Prothrombin Time 14.1 sec (9.3-11.8) Prothrombin Time INR 1.36 (0.9-1.15) Activated Partial Thromboplast Time 33.0 SEC (24.5-34.5) Other Laboratory Tests 06/17/24 06:43 Brief Hx & Hospital Course: see dictated note Condition at Discharge: Fair Final Diagnosis/Problems List gi bleed Discharge Disposition: Home Discharge Instruct/Medications Diet: Renal Activity: No Restrictions, As Tolerated Follow Up/Referral: fu with dialysis clinic/pcp Medications: resume home meds script in chart avoid asa/nsaids Discharge Statement: "Patient was advised to return to the ER or call 911 if any headaches, dizziness, shortness of breath, chest pain, abdominal pain, bleeding, fevers, or worsening of medical condition. Patient was counseled about treatment plan, medications, possible side effects, patientverbalized understanding. All questions were answered to the best of my ability. This discharge took greater then 30 minutes in planning, reviewing documentation, counseling the patient, and discussing with other team members." ASSESSMENT ASSESSMENT Assessment gi bleed Date of Service: Jun 17, 2024 Billing Provider: NATALI MOYA MD Common Visit Codes: 96964-LUQ/OBS DISCH DAY >30min NATALI MOYA MD Jun 17, 2024 15:02
--- NOTE | 2024-06-17 16:46 | DVHDS ---
DATE OF DISCHARGE: 06/17/2024 HISTORY OF PRESENT ILLNESS: The patient is an 88-year-old gentleman who was admitted with dark stools and was on Eliquis. The patient has history of end-stage renal disease, on hemodialysis, atrial fibrillation, diabetes and hypertension as well as coronary artery disease. HOSPITAL COURSE: The patient's hemoglobin was stable at 10.6 at time of discharge. The patient was seen in GI consult by Dr. Divine Mcdaniels. The patient underwent upper endoscopy that showed evidence of moderate diffuse gastritis with superficial erosions and hiatal hernia. The patient underwent colonoscopy that showed polyps that were removed. The patient was continued on hemodialysis during his hospital stay. The patient had a CT of abdomen and pelvis that showed no acute abnormality. The patient had abdominal ultrasound that showed atrophic right kidney, left kidney was not visualized. The patient will now be discharged home to resume his home medications except for Eliquis. The patient will also be on Protonix 40 mg b.i.d. and Carafate 1 gram p.o. b.i.d. [facility] in the next 1-2 weeks. He will also follow up with the dialysis center. FINAL DIAGNOSES: Therefore, * Gastrointestinal bleeding with gastritis and erosions. * Diabetes mellitus. * End-stage renal disease, on hemodialysis. * Hypertension. * Hyperlipidemia. * Acute on chronic diastolic heart failure. * Atrial fibrillation. * History of coronary artery disease. * Inguinal hernias. Time spent in discharge planning and review of plan with the patient and nursing and family was 39 minutes. MD SHERLEY Monique/DARIAN TID: [id number] RECEIPT: [id number]
--- NOTE | 2024-06-17 20:00 | DVHPN2 ---
Progress Note - Dictate Date Seen: Jun 17, 2024 (Patient seen at 3:00 p.m. late entry) Medical Necessity Reason Pt with a Central, PICC or Fol: No Subjective Patient seen at bedside , awake alert He has no nausea or vomiting or GI bleeding He is tolerating diet Colonoscopy results reviewed with the patient and at bedside vital signs Vital Sign Date Time Temp Pulse Resp B/P (MAP) Pulse Ox O2 Delivery O2 Flow Rate FiO2 06/17/24 13:00 97.8 92 20 121/62 (81) 100 97.8 06/17/24 08:00 Room Air* 0 21 Total Intake and Output 06/16/24 06/16/24 06/17/24 15:00 23:00 07:00 Intake Total 120 ml 880 ml 450 ml Output Total 200 ml Balance 120 ml 880 ml 250 ml objective Gen - no pallor, no icterus, no cyanosis, Skin - Patients skin is warm and dry. HEENT - normocephalic, atraumatic, moist mucous membranes. Neck - full ROM, no LAD, no JVD. Pulmonary - B/L decreased breath sounds with bibasilar crackles, no wheezing, no stridor. cardiovascular - normal S1,S2 heard. no murmurs heard. GI -soft distended abdomen without tenderness to palpation. no hepatospleenomegaly. Bowel sounds+ Neurological - Patient is A/O X 3 . Extremity bilateral pedal edema laboratory and microbiology Laboratory Tests 06/17/24 06:43 Test 06/17/24 06:43 Range/Units Serum Glucose 122 H 74-106 mg/dL Problems(with codes): (1) Colon polyps (2) Weakness (3) Anemia (4) GIB (gastrointestinal bleeding) (5) Renal failure Prognosis Plan Discharge planning is in progress Patient was advised repeat colonoscopy in 3-5 years Maintain on PPI Outpatient follow up with GI Services as needed Dietary Evaluation Review Comments: 1) Advance pt diet when mediclly feasible to a Renal Standard diet 2) Continue current plan of care Expected Outcomes/Goals: 1) F/U in 2-3 days Plan discussed with: Patient, Spouse DUONG MCCULLOUGH MD Jun 17, 2024 20:00
== END 2024-06-17 17:00 | disposition home or self-care (01) | DRG 347 ==
LOC: EDBD 17:51 → EDUNIT# 17:51 → ER 17:51 → OVERFLOW 20:57 → WEST WING 21:01
PROVIDERS: ADMIT Student in an Organized Health Care Education/Training Program; ATTEND Internal Medicine
PROC: 5A1D70Z Performance of Urinary Filtration, Intermittent, Less than 6 Hours Per Day (ICD-10-PCS; 2024-06-10)
PROC: 0DB68ZX Excision of Stomach, Via Natural or Artificial Opening Endoscopic, Diagnostic (ICD-10-PCS; 2024-06-11)
PROC: 0DB98ZX Excision of Duodenum, Via Natural or Artificial Opening Endoscopic, Diagnostic (ICD-10-PCS; principal; 2024-06-11 14:04)
PROC: 5A1D70Z Performance of Urinary Filtration, Intermittent, Less than 6 Hours Per Day (ICD-10-PCS; 2024-06-12)
PROC: 5A1D70Z Performance of Urinary Filtration, Intermittent, Less than 6 Hours Per Day (ICD-10-PCS; 2024-06-14)
PROC: 0DBC8ZZ Excision of Ileocecal Valve, Via Natural or Artificial Opening Endoscopic (ICD-10-PCS; 2024-06-16)
PROC: 5A1D70Z Performance of Urinary Filtration, Intermittent, Less than 6 Hours Per Day (ICD-10-PCS; 2024-06-16)
PROC: 0DBK8ZZ Excision of Ascending Colon, Via Natural or Artificial Opening Endoscopic (ICD-10-PCS; 2024-06-16)
PROC: 0DBL8ZZ Excision of Transverse Colon, Via Natural or Artificial Opening Endoscopic (ICD-10-PCS; 2024-06-16)
DX: K29.71 Gastritis, unspecified, with bleeding (principal); I50.33 Acute on chronic diastolic (congestive) heart failure; N18.6 End stage renal disease; I13.2 Hypertensive heart and chronic kidney disease with heart failure and with stage 5 chronic kidney disease, or end stage renal disease; K25.4 Chronic or unspecified gastric ulcer with hemorrhage; D64.9 Anemia, unspecified; E11.22 Type 2 diabetes mellitus with diabetic chronic kidney disease; K44.9 Diaphragmatic hernia without obstruction or gangrene; E78.5 Hyperlipidemia, unspecified; I48.91 Unspecified atrial fibrillation; K40.90 Unilateral inguinal hernia, without obstruction or gangrene, not specified as recurrent; N28.1 Cyst of kidney, acquired; I25.10 Atherosclerotic heart disease of native coronary artery without angina pectoris; K63.5 Polyp of colon; K64.8 Other hemorrhoids; Z99.2 Dependence on renal dialysis; Z98.61 Coronary angioplasty status; Z79.01 Long term (current) use of anticoagulants; Z82.3 Family history of stroke
CPT/HCPCS: 36415; 71045; 74021; 74176; 76700; 80048; 80053; 82270; 82306; 82962; 83735; 83880; 83970; 84100; 84550; 85007; 85014; 85018; 85025; 85027; 85610; 85730; 86803; 86850; 86900; 86901; 87340; 90935; 97110; 97116; 97163; 97530; 99291; G0378; J1100; J1815; J2250; J2405; J2470; J2704; P9047; Q0162

== ENCOUNTER 2024-06-22 18:38 | Inpatient (IN) | payer OTHER ==
[~2024-06-22] VITALS: Ht 175.3 cm; Wt 74.9 kg
--- NOTE | 2024-06-22 19:34 | ED.PDOC ---
GI ASSESSMENT HPI Comments 88-year-old male brought in by EMS presents with a chief complaint of blood in his stool x onset 2 weeks. Patient is a poor historian. According to EMS triage notes, patient had polyps removed x 3 weeks ago and is on Eliquis for "blood clot". No specification as to whether the blood clot is a PE or DVT. Patient currently denies any active pain at this time. Patient reports that his rectal bleeding is "medium red" in color. Denies abdominal pain, nausea, vomiting, or diarrhea. Patient was hypotensive on arrival at 99/53. No other symptoms or modifying factors present at this time. Chief Complaint: GI Bleed Time Seen by MD: 19:07 [facility] Reviewed Notes: Medications, Allergies Allergies: Coded Allergies: Amlodipine (Verified Allergy, Unknown, 05/20/24) Home Meds Active Scripts Morphine Sulfate (Morphine Sulfate) 15 Mg Tab, 1 TAB PO TID PRN, #60 TAB Prov:DEBORAH MCCARTY MD 05/22/24 Atorvastatin Calcium (ATORVASTATIN CALCIUM) 20 Mg Tab, 40 MG PO HS for 20 Days, #40 TAB Prov:ESTELLA FREEMAN MD 02/19/19 Aspirin (Aspir-Low Ec) 81 Mg Tb, 81 MG PO DAILY for 20 Days, #60 Prov:ESTELLA FREEMAN MD 02/19/19 Reported Medications Baclofen (Baclofen) 10 Mg Tab, 10 MG PO TID, TAB 03/30/24 Apixaban Base (ELIQUIS) 2.5 Mg Tab, 2.5 MG PO BID, TAB 03/30/24 Simethicone (Simethicone) 80 Mg Chw, 80 MG PO Q6HPRN, MG 07/14/21 Sevelamer Carbonate (Renvela) 800 Mg Tab, 2 TAB PO TIDWM, #540 TAB 3 Refills 07/14/21 B-Complex W/ C & Folic Acid (Renal) Softgel Cap, 1 TAB PO DAILY, #30 CAP 5 Refills 07/14/21 Montelukast Sodium (Singulair) 5 Mg Chw, 2 TAB PO DAILY, #30 TAB 5 Refills 07/14/21 Metoprolol Succinate (Metoprolol Succinate Er) 50 Mg Tab, 50 MG PO DAILY for 30 Days, MG 07/14/21 Melatonin (KP MELATONIN) 3 Mg Tab, 5 MG PO HSPRN, TAB 07/14/21 Nifedipine (Nifedipine ER) 30 Mg Tab, 60 MG PO DAILY, TAB 07/14/21 Latanoprost (Xalatan) 0.005 % Milady, 1 DROP EACHEYE QPM, #2.5 ML 6 Refills 07/14/21 Guaifenesin-Codeine (Guaifenesin Ac) Ac Syp, 10 ML PO Q6HPRN PRN for FOR COUGH, #240 ML 07/14/21 Lanthanum Carbonate (Fosrenol) 1,000 Mg Chw, 1000 MG PO TIDWM, TAB.CHEW 07/14/21 Fluticasone Propionate (Fluticasone Propionate) 0.05 % Cre, 50 MCG LUKE DAILY for 30 Days, MCG 07/14/21 Cinacalcet Hydrochloride (Sensipar) 30 Mg Tab, 1 TAB PO MWF, #30 TAB 11 Refills 07/14/21 Brimonidine Tartrate (Brimonidine Tartrate) 0.15 % Milady, 1 DROP OP BID, DROP 07/14/21 Ferric Citrate (Auryxia) 210 Mg Tab, 210 MG PO TID, TAB 07/14/21 Acetaminophen (Acetaminophen) 325 Mg Tab, 500 MG PO TID PRN for MILD PAIN (1-3 PAIN SCALE) for 30 Days, MG 0 Refills 07/14/21 Information Source: Patient Mode of Arrival: EMS Timing: Weeks Duration: Since onset Prehospital treatment: None Quality: None Vomitus: None Stool: Normal, Blood Streaked Severity: Moderate Recent: None Recent Hx of: None Pain Location: None Past Medical History PAST MEDICAL HISTORY: AFIB, Anemia, Cancer, CHF, DM, ESRD, High Lipids, HTN Surgical History: PTCA Family History Family History: No family hx of DM, No family hx ofKidney timoteo, Family hx of stroke Social History Smoker: Non-Smoker Alcohol: Denies ETOH Use Drugs: Denies Drug Use Lives In: Home Constitutional: denies: chills, diaphoresis, fatigue, fever, malaise, sweats, weakness, others EENTM: denies: blurred vision, double vision, ear bleeding, ear discharge, ear drainage, ear pain, ear ringing, eye pain, eye redness, hearing loss, mouth pain , mouth swelling, nasal discharge, nose bleeding, nose congestion, nose pain, photophobia, tearing, throat pain, throat swelling, voice changes, others Respiratory: denies: cough, hemoptysis, orthopnea, SOB at rest, shortness of breath, SOB with excertion, stridor, wheezing, others Cardiovascular: denies: chest pain, dizzy spells, diaphoresis, Dyspnea on exertion, edema, irregular heart beat, left arm pain, lightheadedness, palpitations, PND, syncope, others Gastrointestinal: reports: rectal bleeding; denies: abdomen distended, abdominal pain, blood streaked bowels, constipated, diarrhea, dysphagia, difficulty swallowing, hematemesis, melena, nausea, poor appetite, poor fluid intake, rectal pain, vomiting, others Genitourinary: denies: burning, dysuria, flank pain, frequency, hematuria, incontinence, penile discharge, penile sore, pain, testicle pain, testicle swelling, urgency, others Neurological: denies: dizziness, fainting, headache, left sided numbness, left sided weakness, numbness, paresthesia, pre-existing deficit, right sided numbness, right sided weakness, seizure, speech problems, tingling, tremors, weakness, others Musculoskeletal: denies: back pain, gout, joint pain, joint swelling, muscle pain, muscle stiffness, neck pain, others Integumetry: denies: bruises, change in color, change in hair/nails, dryness, laceration, lesions, lumps, rash, wounds, others Allergic/Immunocompromised: denies: Difficulty Healing, Frequent Infections, Hives, Itching, others Hematologic/Lymphatic: denies: anemia, blood clots, easy bleeding, easy bruising, swollen glands, others Endocrine: denies: excessive hunger, excessive sweating, excessive thirst, excessive urination, flushing, intolerance to cold, intolerance to heat, unexplained weight gain, unexplained weight loss, others Psychiatric: denies: anxiety, bipolar disorder, depression, hopeless, panic disorder, schizophrenia, sleepless, suicidal, others All Other Systems: Reviewed and Negative Physical Exam General Appearance: No Apparent Distress HEENT: Normal ENT Inspection Neck: Full Range of Motion, Normal Inspection Respiratory: Lungs Clear, No Accessory Muscle Use, No Respiratory Distress, Normal Breath Sounds Cardiovascular: No Edema, No JVD, Regular Rate/Rhythm Breast Exam: Deferred Gastrointestinal: Non Tender, Soft Genitalia: Deferred Pelvic: Deferred Rectal: Deferred Extremities: Normal inspection, Normal range of motion, Non-tender, Pedal edema Neurologic: Alert, No Motor Deficits, Normal Affect, Normal Mood, No Sensory Deficits Cerebellar Function: NOT DONE Reflexes: NOT DONE Skin: Dry, Normal Color, Warm Lymphatic: NOT DONE Was a procedure done? Was a procedure done?: No GI differential Dx Differential Diagnosis: Bowel Obstruction, Constipation, Diverticular disease, Inflammatory BD, Ischemic Bowel, Food Poisoning, Bacterial, Parasitic, Viral, Impaction, Renal Failure, Anemia, Stress Ulcer Other Differential Diagnosis colitis, perforated bowel, among others X-Ray, Labs, Meds, VS Vital Signs Date Time Temp Pulse Resp B/P (MAP) Pulse Ox O2 Delivery O2 Flow Rate FiO2 06/22/24 18:48 97.7 62 16 99/53 (68) 97 Lab Test 06/22/24 23:30 06/22/24 19:03 Range/Units White Blood Count 9.1 # 4.4-10.8 10^3/uL Red Blood Count 3.26 L 4.5-5.90 10^6/uL Hemoglobin 10.1 L 13.5-17.5 g/dL Hematocrit 31.8 L 41.0-53.0 % Mean Corpuscular Volume 97.7 80.0-100.0 fL Mean Corpuscular Hemoglobin 31.0 28.0-32.0 pg Mean Corpuscular Hemoglobin Concent 31.8 L 32.0-36.0 g/dL Red Cell Distribution Width 18.6 H 11.8-14.3 % Platelet Count 141 140-450 10^3/uL Mean Platelet Volume 8.2 6.9-10.8 fL Neutrophils (%) (Auto) 37.0-80.0 % Lymphocytes (%) (Auto) 10.0-50.0 % Monocytes (%) (Auto) 0.0-12.0 % Basophils (%) (Auto) 0.0-2.0 % Neutrophils # (Auto) 1.6-8.6 10 ^3/uL Lymphocytes # (Auto) 0.4-5.4 10 ^3/uL Monocytes # (Auto) 0-1.3 10 ^3/uL Differential Total Cells Counted Pending Neutrophils % (Manual) Pending Band Neutrophils % (Manual) Pending Lymphocytes % (Manual) Pending Monocytes % (Manual) Pending Eosinophils % (Manual) Pending Basophils % (Manual) Pending Metamyelocytes % (manual) Pending Myelocytes % (Manual) Pending Promyelocytes % (Manual) Pending Blast Cells % (Manual) Pending Reactive Lymphocytes Pending Platelet Estimate Pending Prothrombin Time 11.9 H 9.3-11.8 sec Prothrombin Time INR 1.13 0.9-1.15 Activated Partial Thromboplast Time 26.1 24.5-34.5 SEC Sodium Level 138 # 136-145 mmol/L Potassium Level 4.8 3.5-5.1 mmol/L Chloride Level 101 98-107 mmol/L Carbon Dioxide Level 30 20-31 mmol/L Anion Gap 7 5-15 Blood Urea Nitrogen 33 H 9-23 mg/dL Creatinine 5.45 H 0.700-1.30 mg/dL Glomerular Filtration Rate Calc 10 >90 mL/min BUN/Creatinine Ratio 6.1 L 10.0-20.0 Serum Glucose 120 H 74-106 mg/dL Calcium Level 8.5 L 8.7-10.4 mg/dL Current Medications Medications (Trade) Dose Ordered Sig/Deann Route Start Time Stop Time Status Last Admin Pantoprazole Sodium (Protonix) 40 mg ONCE ONCE IV 06/22/24 19:00 06/22/24 19:01 DC 06/22/24 23:31 X-Ray, Labs, Meds, VS Comment 88-year-old male with a history of AFib, anemia, CHF, diabetes, hypertension, end-stage renal disease on dialysis and dyslipidemia presenting with blood in his stool status post colon polypectomy 3 weeks ago Vitals remarkable for BP 99/[address] abdomen and pelvis: Results pending CBC remarkable for hemoglobin 10.1, hematocrit 31 point 2 5, basic metabolic panel remarkable for BUN 33, creatinine 5.45, lactate and UA pending Patient was treated with the following in the ED: Protonix 40 mg IV On re-evaluation, patient is resting comfortably with stable vitals. No acute hemorrhage noted. Plan is to admit the patient for GI evaluation. Time of 1ST Reevaluation: 19:37 Reevaluation 1ST: Unchanged Time of 2ND Reevaluation: 00:13 Reevaluation 2ND: Unchanged Patient Education/Counseling: Diagnosis, Treatment, Prognosis Family Education/Counseling: No Family Present Departure 1 Departure Time of Disposition: 00:13 Impression: Primary Impression: GI bleeding Qualified Codes: K92.2 - Gastrointestinal hemorrhage, unspecified Disposition: 09 ADMITTED INPATIENT Admit to: Tele Condition: Guarded Critical Care Note Critical Care Time?: No Stability Stability form required: No Heart Score Heart Score: Heart Score Response (Comments) Value History N/A 0 EKG N/A 0 Age N/A 0 Risk Factors N/A 0 Troponin N/A 0 Total 0 I personally scribed for DEISY POWELL MD ([email or web address]) on 06/22/24 at 19:34. Electronically submitted by Uvaldo Byrne ([email or web address]). DEISY POWELL MD Jun 22, 2024 19:34
[2024-06-22 19:44] LABS: Chloride 101 mmol/L (98-107); Potassium 4.8 mmol/L (3.5-5.1); Sodium 138 mmol/L (136-145)
[2024-06-22 19:45] LABS: Carbon Dioxide 30 mmol/L (20-31)
[2024-06-22 19:46] LABS: Anion Gap 7 (5-15); Calcium 8.5 mg/dL (8.7-10.4)
[2024-06-22 19:51] LABS: BUN/Creatinine Ratio 6.1 (10.0-20.0); Blood Urea Nitrogen 33 mg/dL (9-23); Glucose 120 mg/dL (74-106)
[2024-06-22 20:11] LABS: INR 1.13 (0.9-1.15); Partial Thromboplastin Time 26.1 SEC (24.5-34.5); Prothrombin Time 11.9 sec (9.3-11.8)
[2024-06-22] MEDS: PANTOPRAZOLE 40 MG/10 ML VIAL INJ IV ONE (23:31)
[2024-06-22 23:48] LABS: Hematocrit 31.8 % (41.0-53.0); Hemoglobin 10.1 g/dL (13.5-17.5); Mean Corpuscular Hgb Conc. 31.8 g/dL (32.0-36.0); Mean Corpuscular Volume 97.7 fL (80.0-100.0); Platelet Count (auto) 141 10^3/uL (140-450); Red Blood Cells 3.26 10^6/uL (4.5-5.90); Red Cell Distribution Width 18.6 % (11.8-14.3); White Blood Cell 9.1 10^3/uL (4.4-10.8)
[2024-06-22 23:53] LABS: Band Neutrophils % (manual) 0; Basophils % (manual) 0 (0.0-2.0); Blast Cells 0; Eosinophils % (manual) 0 (0-7); Metamyelocytes % 0; Monocytes % (manual) 0 (0-12); Myelocytes % 0; Promyelocytes % 0; Reactive Lymphocytes 0
[2024-06-23 00:12] LABS: Lymphocytes % (manual) 14 (10.0-50.0)
[2024-06-23 00:13] LABS: Anisocytosis Slight; Ovalocytes FEW; Platelet Estimate Adequate
[2024-06-23 03:50] VITALS: PULSE 73; RESP 13; O2SAT 100
[2024-06-23] MEDS ORDERED: NITROGLYCERIN 0.4 MG SL TAB SL PRN (04:15)
--- NOTE | 2024-06-23 04:30 | DVH ---
Examination: ABPL CLINICAL INDICATION:ABD PAIN COMPARISON: None. CONTRAST USED: None. TECHNIQUE: A plain CT study of the abdomen and pelvis is performed. The examination was performed w ith [address] scan is done according to ALARA (As Low as Reasonably Achievable). Multipl leslie reconstructions were obtained. FINDINGS: The lack of intravenous contrast limits evaluation of solid organ and other structures, differentiati on/separation and intraluminal evaluation of vessels and ureter from surrounding structures, and eval uation of organ or abnormal enhancement. CT ABDOMEN Visualized lower thorax: The evaluation of lung bases demonstrates no focal infiltrates or pleural e ffusion. Mild cardiomegaly in the visualized lower thoracic sections. Mild left pleural effusion. Subtle mosaic attenuation in visualized both lower lungs, due to small vessel/airway disease. Atelectatic bands and/or scarring scattered in visualized both lower pulmonary lobes. Unenhanced liver: The liver is normal in size. There is no intrahepatic biliary radicle dilatation. Gallbladder: The gallbladder is normal and reveals no intrinsic abnormality. The common bile duct is not dilated. Unenhanced pancreas: The pancreas is normal in size and shape. No focal lesion is seen within. The peripancreatic fat planes are normal. Unenhanced spleen: The spleen is normal in size and does not show any focal abnormality. Retroperitoneum: Both adrenal glands are normal in size and morphology in this unenhanced CT scan. There is no significant retroperitoneal lymphadenopathy. Right kidney measures approximately 6.4 x 3.2 x 3.4 cm, volume approximately 36 mL. Left kidney measures approximately 7.2 x 4 x 4 cm, volume approximately 60 mL. Small-sized both kidneys with cortical thinning and multiple hypodense cystic lesions within, largest of approximate size 66 x 38 mm at the lower pole of left kidney. Advised further evaluation with ul trasound abdomen. No renal calculi. Vessels: Calcific atherosclerotic aorto-iliac plaques noted. Otherwise, the aorta, IVC and the mese nteric vessels cannot be commented in this unenhanced CT scan. Stomach and bowel: Bilateral inguinal herniae noted with defects measuring approximately 28 mm on th e right side and 25 mm on the left side, with herniation of small bowel loops in the hernia sacs. No evidence of bowel dilatation or bowel wall thickening or any signs of inflammation. Hypodense fluid noted in the right inguinal canal and in the left inguinal canal extending inferiorly to the left scrotal sac, probable ascitic fluid/hydroceles. Long segment circumferential wall thickening involving the jejunal and proximal ileum loops in left l umbar region, suggestive of enteritis, infective/inflammatory etiology. The rest of the bowel loops are unremarkable. Mild free fluid and diffuse mesenteric fat stranding in abdomen and pelvis. Skeletal system: Degenerative changes in the visualized thoracolumbar spine. The pelvic bones are unremarkable. CT PELVIS Appendix: The appendix is not distinctly visualized. Colon: The ascending, transverse, descending, sigmoid colon and rectum are unremarkable. Urinary bladder: The urinary bladder is unremarkable. Pelvic organs: The prostate is normal in size with multiple radiotherapy beads within. No significant pelvic lymphadenopathy is identified. Subcutaneous fat stranding and hypodense material (likely fluid) noted in the bilateral lateral and p osterior aspects of the abdominal wall, along with a tiny calcific focus in the subcutaneous plane of lower posterior abdominal wall. IMPRESSION: 1. Small-sized both kidneys with cortical thinning and multiple hypodense cystic lesions within, lar gest of approximate size 66 x 38 mm at the lower pole of left kidney. Advised further evaluation wit h ultrasound abdomen. 2. Long segment circumferential wall thickening involving the jejunal and proximal ileum loops in le ft lumbar region, suggestive of enteritis, infective/inflammatory etiology. 3. Mild ascites with diffuse mesenteric fat stranding in abdomen and pelvis, infective/inflammatory etiology. 4. Bilateral inguinal herniae. 5. Hypodense fluid noted in the right inguinal canal and in the left inguinal canal, extending infer iorly to the left scrotal sac, probable ascitic fluid/hydroceles. 6. Mild left pleural effusion. 7. No abdominal mass or adenopathy. 8. No free air. 9. Chronic and/or ancillary findings as described above. Electronically Signed 06/23/2024 04:22 Dk Lewis
--- NOTE | 2024-06-23 06:36 | DVHHP2 ---
History of Present Illness Reason for Visit: GI bleed History of Present Illness 88-year-old presents for evaluation of GI bleed. Patient reports two day history of bright red blood noticing his stool. Of note he was discharged on 06/17/2024 with similar complaints and after undergoing an endoscopy which was essentially negative. Denies shortness or breath or chest pain. No other acute complaints. Past Medical History Atrial fibrillation, anemia, cancer, CHF, diabetes mellitus, end-stage renal disease, dyslipidemia and hypertension Past Surgical History PTCA Family History Noncontributory Smoke: No ALCOHOL: none Drugs: None Lives: with Family Review of Systems Review of Systems Review of systems are currently negative otherwise addressed in HPI. Allergies: Coded Allergies: Amlodipine (Verified Allergy, Unknown, 05/20/24) Medications Current Medications Medications Dose Ordered Sig/Deann Route Start Time Stop Time Status Last Admin Dose Admin Pantoprazole Sodium 40 mg BID IV 06/23/24 10:00 Ondansetron HCl 4 mg Q4HP PRN IV 06/23/24 04:15 Nitroglycerin 0.4 mg Q5MINP PRN SL 06/23/24 04:15 Morphine Sulfate 2 mg Q30M PRN IV 06/23/24 04:15 Exam Vital Signs Vital Signs Date Time Temp Pulse Resp B/P (MAP) Pulse Ox O2 Delivery O2 Flow Rate FiO2 06/23/24 03:50 73 13 100 Nasal Cannula* 2 28 06/23/24 02:41 97.7 109/56 (73) 97.7 Exam Gen: 88-year-old male in no apparent distress Skin: Warm, dry, normal color and texture, no rash. HEENT: Normocephalic atraumatic, mucous membranes moist and pink. Neck: Cervical and supraclavicular nodes normal without enlargement, trachea is midline, thyroid gland is normal without masses. Pulmonary: Clear to auscultation and percussion bilaterally. Cardiac: Regular rate and rhythm. No murmur Abdomen: Soft, nontender, nondistended, bowel sounds present all 4 quadrants, no guarding, no rigidity, no organomegaly. Extremities: No cyanosis, clubbing, no edema Neuro: Cranial nerves II through XII grossly intact, normal affect and speech, no focal motor deficits. Labs/Xrays ORDERING PHYSICIAN: DEISY POWELL MD PROCEDURE(s): ABPL - CT AB PEL WO CON-NO ORAL OR IV REASON: ABD PAIN ORDER NUMBER(s): [id number], ACCESSION NUMBER(s): [id number] Examination: ABPL CLINICAL INDICATION:ABD PAIN COMPARISON: None. CONTRAST USED: None. TECHNIQUE: A plain CT study of the abdomen and pelvis is performed. The examination was performed with [address] scan is done according to ALARA (As Low as Reasonably Achievable). Multiplanar reconstructions were obtained. FINDINGS: The lack of intravenous contrast limits evaluation of solid organ and other structures, differentiation/separation and intraluminal evaluation of vessels and ureter from surrounding structures, and evaluation of organ or abnormal enhancement. CT ABDOMEN Visualized lower thorax: The evaluation of lung bases demonstrates no focal infiltrates or pleural effusion. Mild cardiomegaly in the visualized lower thoracic sections. Mild left pleural effusion. Subtle mosaic attenuation in visualized both lower lungs, due to small vessel/airway disease. Atelectatic bands and/or scarring scattered in visualized both lower pulmonary lobes. Unenhanced liver: The liver is normal in size. There is no intrahepatic biliary radicle dilatation. Gallbladder: The gallbladder is normal and reveals no intrinsic abnormality. The common bile duct is not dilated. Unenhanced pancreas: The pancreas is normal in size and shape. No focal lesion is seen within. The peripancreatic fat planes are normal. Unenhanced spleen: The spleen is normal in size and does not show any focal abnormality. Retroperitoneum: Both adrenal glands are normal in size and morphology in this unenhanced CT scan. There is no significant retroperitoneal lymphadenopathy. Right kidney measures approximately 6.4 x 3.2 x 3.4 cm, volume approximately 36 mL. Left kidney measures approximately 7.2 x 4 x 4 cm, volume approximately 60 mL. Small-sized both kidneys with cortical thinning and multiple hypodense cystic lesions within, largest of approximate size 66 x 38 mm at the lower pole of left kidney. Advised further evaluation with ultrasound abdomen. No renal calculi. Vessels: Calcific atherosclerotic aorto-iliac plaques noted. Otherwise, the aorta, IVC and the mesenteric vessels cannot be commented in this unenhanced CT scan. Stomach and bowel: Bilateral inguinal herniae noted with defects measuring approximately 28 mm on the right side and 25 mm on the left side, with herniation of small bowel loops in the hernia sacs. No evidence of bowel dilatation or bowel wall thickening or any signs of inflammation. Hypodense fluid noted in the right inguinal canal and in the left inguinal canal extending inferiorly to the left scrotal sac, probable ascitic fluid/hydroceles. Long segment circumferential wall thickening involving the jejunal and proximal ileum loops in left lumbar region, suggestive of enteritis, infective/inflammatory etiology. The rest of the bowel loops are unremarkable. Mild free fluid and diffuse mesenteric fat stranding in abdomen and pelvis. Skeletal system: Degenerative changes in the visualized thoracolumbar spine. The pelvic bones are unremarkable. CT PELVIS Appendix: The appendix is not distinctly visualized. Colon: The ascending, transverse, descending, sigmoid colon and rectum are unremarkable. Urinary bladder: The urinary bladder is unremarkable. Pelvic organs: The prostate is normal in size with multiple radiotherapy beads within. No significant pelvic lymphadenopathy is identified. Subcutaneous fat stranding and hypodense material (likely fluid) noted in the bilateral lateral and posterior aspects of the abdominal wall, along with a tiny calcific focus in the subcutaneous plane of lower posterior abdominal wall. IMPRESSION: 1. Small-sized both kidneys with cortical thinning and multiple hypodense cystic lesions within, largest of approximate size 66 x 38 mm at the lower pole of left kidney. Advised further evaluation with ultrasound abdomen. 2. Long segment circumferential wall thickening involving the jejunal and proximal ileum loops in left lumbar region, suggestive of enteritis, infective/inflammatory etiology. 3. Mild ascites with diffuse mesenteric fat stranding in abdomen and pelvis, infective/inflammatory etiology. 4. Bilateral inguinal herniae. 5. Hypodense fluid noted in the right inguinal canal and in the left inguinal canal, extending inferiorly to the left scrotal sac, probable ascitic fluid/hydroceles. 6. Mild left pleural effusion. 7. No abdominal mass or adenopathy. 8. No free air. 9. Chronic and/or ancillary findings as described above. Electronically Signed 06/23/2024 04:22 Dk Lewis ATED BY: CHRISTINA REDD MD Labs Test 06/23/24 06:08 06/23/24 05:42 06/23/24 01:32 06/22/24 23:30 Range/Units Lactic Acid Level 1.7 0.4-2.0 mmol/L White Blood Count 9.1 # 4.4-10.8 10^3/uL Red Blood Count 3.26 L 4.5-5.90 10^6/uL Mean Corpuscular Volume 97.7 80.0-100.0 fL Mean Corpuscular Hemoglobin 31.0 28.0-32.0 pg Mean Corpuscular Hemoglobin Concent 31.8 L 32.0-36.0 g/dL Red Cell Distribution Width 18.6 H 11.8-14.3 % Platelet Count 141 140-450 10^3/uL Mean Platelet Volume 8.2 6.9-10.8 fL Neutrophils (%) (Auto) 37.0-80.0 % Lymphocytes (%) (Auto) 10.0-50.0 % Monocytes (%) (Auto) 0.0-12.0 % Basophils (%) (Auto) 0.0-2.0 % Neutrophils # (Auto) 1.6-8.6 10 ^3/uL Lymphocytes # (Auto) 0.4-5.4 10 ^3/uL Monocytes # (Auto) 0-1.3 10 ^3/uL Differential Total Cells Counted 79.0 100 Neutrophils % (Manual) 65 37.0-80.0 Band Neutrophils % (Manual) 0 Lymphocytes % (Manual) 14 10.0-50.0 Monocytes % (Manual) 0 0-12 Eosinophils % (Manual) 0 0-7 Basophils % (Manual) 0 0.0-2.0 Metamyelocytes % (manual) 0 Myelocytes % (Manual) 0 Promyelocytes % (Manual) 0 Blast Cells % (Manual) 0 Reactive Lymphocytes 0 Platelet Estimate Adequate Anisocytosis (manual) Slight Ovalocytes Few Schistocytes Few Test 06/22/24 19:03 Range/Units Prothrombin Time 11.9 H 9.3-11.8 sec Prothrombin Time INR 1.13 0.9-1.15 Activated Partial Thromboplast Time 26.1 24.5-34.5 SEC Sodium Level 138 # 136-145 mmol/L Potassium Level 4.8 3.5-5.1 mmol/L Chloride Level 101 98-107 mmol/L Carbon Dioxide Level 30 20-31 mmol/L Anion Gap 7 5-15 Blood Urea Nitrogen 33 H 9-23 mg/dL Creatinine 5.45 H 0.700-1.30 mg/dL Glomerular Filtration Rate Calc 10 >90 mL/min BUN/Creatinine Ratio 6.1 L 10.0-20.0 Serum Glucose 120 H 74-106 mg/dL Calcium Level 8.5 L 8.7-10.4 mg/dL Assessment/Plan Assessment/Plan Assessment GI bleed Diabetes mellitus End-stage renal disease, dialysis Hypertension Plan Admit the patient to telemetry to the hospitalist GI consultation Repeat H&H Resume home medications Continue treatment per orders. Plan discussed with: Patient My Orders Orders - NATALI CRISOSTOMO Procedure Category Date Status Time Pantoprazole PHA 06/23/24 In Process (Protonix) 10:00 Stool Occult Blood LAB 06/23/24 In Process 04:06 * [facility] CONS 06/23/24 Transmitted 04:06 Hemoglobin & LAB 06/23/24 In Process Hematocrit 04:06 Admit ADMIT 06/23/24 Transmitted 04:06 Ondansetron Hcl PHA 06/23/24 In Process (Zofran) 04:15 Condition: Fair [facility] 06/23/24 In Process 04:06 Bedrest With Bathroom [facility] 06/23/24 In Process Privileg 04:06 Nitroglycerin [facility] 06/23/24 In Process Sublingual (Ntrostat 04:15 Morphine Sulfate [facility] 06/23/24 In Process Injection 04:15 Stat Ekg For Chest [facility] 06/23/24 In Process Pain 04:06 Notify Md Of Changes [facility] 06/23/24 In Process From Base 04:06 Breakdown Man For [facility] 06/23/24 In Process 24 Hours 04:06 Emergency Dysrhythmia [facility] 06/23/24 In Process Protocol 04:06 Rhythm Strips Once [facility] 06/23/24 In Process Every Shift 04:06 Oxygen By Nasal RT 06/23/24 Transmitted Cannula 04:06 *Dr. [facility] 06/23/24 Transmitted -[place] 04:09 Date of Service: Jun 23, 2024 Billing Provider: NATALI CRISOSTOMO Common Visit Codes: [id number] INP/OBS CARE (HIGH) NATALI CRISOSTOMO Jun 23, 2024 06:36
[2024-06-23 06:48] LABS: Hematocrit 30.1 % (41.0-53.0); Hemoglobin 9.4 g/dL (13.5-17.5)
[2024-06-23 07:28] VITALS: O2SAT 100
--- NOTE | 2024-06-23 09:43 | DVHINCON2 ---
Date of service: Jun 23, 2024 Referring Physician Hospitalist Reason for Consultation End-stage renal disease History of Present Illness 88-year-old male past medical history of end-stage renal disease on hemodialysis, hypertension, anemia due chronic kidney disease, patient presents to the hospital with bright red blood per stool. Nurse notes bright red blood overnight. Per report patient had recent colonoscopy with polypectomy proximally three weeks ago. Past Medical History As above Allergies: Coded Allergies: Amlodipine (Verified Allergy, Unknown, 05/20/24) Home Meds Active Scripts Morphine Sulfate (Morphine Sulfate) 15 Mg Tab, 1 TAB PO TID PRN, #60 TAB Prov:DEBORAH MCCARTY MD 05/22/24 Atorvastatin Calcium (ATORVASTATIN CALCIUM) 20 Mg Tab, 40 MG PO HS for 20 Days, #40 TAB Prov:ESTELLA FREEMAN MD 02/19/19 Aspirin (Aspir-Low Ec) 81 Mg Tb, 81 MG PO DAILY for 20 Days, #60 Prov:ESTELLA FREEMAN MD 02/19/19 Reported Medications Baclofen (Baclofen) 10 Mg Tab, 10 MG PO TID, TAB 03/30/24 Apixaban Base (ELIQUIS) 2.5 Mg Tab, 2.5 MG PO BID, TAB 03/30/24 Simethicone (Simethicone) 80 Mg Chw, 80 MG PO Q6HPRN, MG 07/14/21 Sevelamer Carbonate (Renvela) 800 Mg Tab, 2 TAB PO TIDWM, #540 TAB 3 Refills 07/14/21 B-Complex W/ C & Folic Acid (Renal) Softgel Cap, 1 TAB PO DAILY, #30 CAP 5 Refills 07/14/21 Montelukast Sodium (Singulair) 5 Mg Chw, 2 TAB PO DAILY, #30 TAB 5 Refills 07/14/21 Metoprolol Succinate (Metoprolol Succinate Er) 50 Mg Tab, 50 MG PO DAILY for 30 Days, MG 07/14/21 Melatonin (KP MELATONIN) 3 Mg Tab, 5 MG PO HSPRN, TAB 07/14/21 Nifedipine (Nifedipine ER) 30 Mg Tab, 60 MG PO DAILY, TAB 07/14/21 Latanoprost (Xalatan) 0.005 % Milady, 1 DROP EACHEYE QPM, #2.5 ML 6 Refills 07/14/21 Guaifenesin-Codeine (Guaifenesin Ac) Ac Syp, 10 ML PO Q6HPRN PRN for FOR COUGH, #240 ML 07/14/21 Lanthanum Carbonate (Fosrenol) 1,000 Mg Chw, 1000 MG PO TIDWM, TAB.CHEW 07/14/21 Fluticasone Propionate (Fluticasone Propionate) 0.05 % Cre, 50 MCG LUKE DAILY for 30 Days, MCG 07/14/21 Cinacalcet Hydrochloride (Sensipar) 30 Mg Tab, 1 TAB PO MWF, #30 TAB 11 Refills 07/14/21 Brimonidine Tartrate (Brimonidine Tartrate) 0.15 % Milady, 1 DROP OP BID, DROP 07/14/21 Ferric Citrate (Auryxia) 210 Mg Tab, 210 MG PO TID, TAB 07/14/21 Acetaminophen (Acetaminophen) 325 Mg Tab, 500 MG PO TID PRN for MILD PAIN (1-3 PAIN SCALE) for 30 Days, MG 0 Refills 07/14/21 Current Medications Current Medications Medications (Trade) Dose Ordered Sig/Deann Route PRN Reason Start Time Stop Time Status Last Admin Pantoprazole Sodium (Protonix) 40 mg BID IV 06/23/24 10:00 Ondansetron HCl (Zofran) 4 mg Q4HP PRN IV NAUSEA / VOMITING 06/23/24 04:15 Nitroglycerin (Ntrostat Sublingual) 0.4 mg Q5MINP PRN SL FOR CHEST PAIN 06/23/24 04:15 Morphine Sulfate 2 mg Q30M PRN IV FOR CHEST PAIN 06/23/24 04:15 Family History: Cerebrovascular accident (CVA) G8 FATHER, Onset:Unknown Diabetes mellitus G8 FATHER, Onset:Unknown FH: hypertension G8 FATHER, Onset:Unknown Hypertension G8 FATHER, Onset:Unknown Review of Systems Blood in stool H&P Exam Vital Signs/I&O Vital Sign Date Time Temp Pulse Resp B/P (MAP) Pulse Ox O2 Delivery O2 Flow Rate FiO2 06/23/24 08:00 97.5 71 15 111/44 (66) 100 97.5 06/23/24 07:28 Nasal Cannula* 2 28 Physical Exam Elderly male Not in overt distress Hard of hearing No pitting edema Labs/Diagnostic Data Labs/Diagnostic Data Laboratory Tests Test 06/23/24 06:08 11/11/24 05:42 06/23/24 01:32 06/22/24 23:30 Range/Units Hemoglobin 9.4 L 10.1 L 13.5-17.5 g/dL Hematocrit 30.1 L 31.8 L 41.0-53.0 % Stool Occult Blood Positive Negative Stool Occult Blood Sample #3 Negative Lactic Acid Level 1.7 0.4-2.0 mmol/L White Blood Count 9.1 # 4.4-10.8 10^3/uL Red Blood Count 3.26 L 4.5-5.90 10^6/uL Mean Corpuscular Volume 97.7 80.0-100.0 fL Mean Corpuscular Hemoglobin 31.0 28.0-32.0 pg Mean Corpuscular Hemoglobin Concent 31.8 L 32.0-36.0 g/dL Red Cell Distribution Width 18.6 H 11.8-14.3 % Platelet Count 141 140-450 10^3/uL Mean Platelet Volume 8.2 6.9-10.8 fL Neutrophils (%) (Auto) 37.0-80.0 % Lymphocytes (%) (Auto) 10.0-50.0 % Monocytes (%) (Auto) 0.0-12.0 % Basophils (%) (Auto) 0.0-2.0 % Neutrophils # (Auto) 1.6-8.6 10 ^3/uL Lymphocytes # (Auto) 0.4-5.4 10 ^3/uL Monocytes # (Auto) 0-1.3 10 ^3/uL Differential Total Cells Counted 79.0 100 Neutrophils % (Manual) 65 37.0-80.0 Band Neutrophils % (Manual) 0 Lymphocytes % (Manual) 14 10.0-50.0 Monocytes % (Manual) 0 0-12 Eosinophils % (Manual) 0 0-7 Basophils % (Manual) 0 0.0-2.0 Metamyelocytes % (manual) 0 Myelocytes % (Manual) 0 Promyelocytes % (Manual) 0 Blast Cells % (Manual) 0 Reactive Lymphocytes 0 Platelet Estimate Adequate Anisocytosis (manual) Slight Ovalocytes Few Schistocytes Few Test 06/22/24 19:03 Range/Units Prothrombin Time 11.9 H 9.3-11.8 sec Prothrombin Time INR 1.13 0.9-1.15 Activated Partial Thromboplast Time 26.1 24.5-34.5 SEC Sodium Level 138 # 136-145 mmol/L Potassium Level 4.8 3.5-5.1 mmol/L Chloride Level 101 98-107 mmol/L Carbon Dioxide Level 30 20-31 mmol/L Anion Gap 7 5-15 Blood Urea Nitrogen 33 H 9-23 mg/dL Creatinine 5.45 H 0.700-1.30 mg/dL Glomerular Filtration Rate Calc 10 >90 mL/min BUN/Creatinine Ratio 6.1 L 10.0-20.0 Serum Glucose 120 H 74-106 mg/dL Calcium Level 8.5 L 8.7-10.4 mg/dL Assessment End-stage renal disease on hemodialysis Hypotension Anemia due to gastrointestinal losses Hyperkalemia Obtain renal panel Schedule hemodialysis today without fluid removal we will target mildly positive fluid balance today Gastroenterology Hold anticoagulation Rest of care as per primary medical team Plan discussed with: Patient ALVIN TAYLOR MD Jun 23, 2024 09:43
[2024-06-23] MEDS: HYDROCORTISONE ACET 25 MG RECTAL SUPP PR ONE (10:00)
[2024-06-23] MEDS: PANTOPRAZOLE 40 MG/10 ML VIAL INJ IV ONE (10:47)
[2024-06-23] MEDS: PANTOPRAZOLE 40 MG/10 ML VIAL INJ IV SCH (10:47)
--- NOTE | 2024-06-23 11:19 | DVHINCON2 ---
GI Consult Consult Note GI consult note Date of Consultation: 06/23/2024 Chief Complaint: GI bleed Referring Physician: Barak GOMEZ H&P: 88-year-old male admitted with red blood rectally. Patient has these symptoms for last three weeks No nausea or vomiting. No abdominal pain. No melena Patient treated with Eliquis for AFib and DVT, last dose last Sunday. Patient waiting to be dialyzed today Patient is status post endoscopy and colonoscopy by Dr. Mcdaniels, pathology report , added to chart tubular adenoma DATE OF OPERATION: 06/16/24 PROCEDURE: Colonoscopy with cold biopsy polypectomy. PREOPERATIVE INDICATION: The patient is a 88 -year-old male undergoing colonoscopy for history of anemia and GI bleed POSTOPERATIVE DIAGNOSES: 1. 3 less than 5 mm benign-appearing ascending colon polyps were seen and da do by cold biopsy forceps 2. 4 less than 5 mm benign-appearing polyps were seen and removed completely via cold biopsy forceps 3. 2+ engorged internal hemorrhoids otherwise normal examination up to the cecum and terminal ileum with no fresh or old blood in the colon PROCEDURE PERFORMED BY: Divine Mcdaniels M.D. Past Medical History: Atrial fibrillation, anemia, cancer, CHF, diabetes mellitus, end-stage renal disease, dyslipidemia and hypertension Past Surgical History: PTCA Social History: NO smoking, drinking ETOH and use of illegal drugs. Family History: Noncontributory Review of Systems: Constitutional: no fever, chill, weight loss HEENT: no eye pain, no hearing loss, no oral lesion, no scleral icterus Heart: no chest pain, no chest pressure Lung: no cough, no dyspnea with exertion Abdomen: see HPI Physical exam: General: NAD, AAOX3 Chest: lung leonardo clear to auscultation Heart: RRR, no murmur Abdomen: non-distended, no tenderness to palpation, +BS Labs: Labs Test 06/23/24 10:20 06/23/24 06:08 06/23/24 05:42 06/23/24 01:32 Range/Units Hemoglobin 9.4 L 13.5-17.5 g/dL Hematocrit 30.1 L 41.0-53.0 % Stool Occult Blood Positive Negative Stool Occult Blood Sample #3 Negative Lactic Acid Level 1.7 0.4-2.0 mmol/L Test 06/22/24 23:30 06/22/24 19:03 Range/Units White Blood Count 9.1 # 4.4-10.8 10^3/uL Red Blood Count 3.26 L 4.5-5.90 10^6/uL Mean Corpuscular Volume 97.7 80.0-100.0 fL Mean Corpuscular Hemoglobin 31.0 28.0-32.0 pg Mean Corpuscular Hemoglobin Concent 31.8 L 32.0-36.0 g/dL Red Cell Distribution Width 18.6 H 11.8-14.3 % Platelet Count 141 140-450 10^3/uL Mean Platelet Volume 8.2 6.9-10.8 fL Neutrophils (%) (Auto) 37.0-80.0 % Lymphocytes (%) (Auto) 10.0-50.0 % Monocytes (%) (Auto) 0.0-12.0 % Basophils (%) (Auto) 0.0-2.0 % Neutrophils # (Auto) 1.6-8.6 10 ^3/uL Lymphocytes # (Auto) 0.4-5.4 10 ^3/uL Monocytes # (Auto) 0-1.3 10 ^3/uL Differential Total Cells Counted 79.0 100 Neutrophils % (Manual) 65 37.0-80.0 Band Neutrophils % (Manual) 0 Lymphocytes % (Manual) 14 10.0-50.0 Monocytes % (Manual) 0 0-12 Eosinophils % (Manual) 0 0-7 Basophils % (Manual) 0 0.0-2.0 Metamyelocytes % (manual) 0 Myelocytes % (Manual) 0 Promyelocytes % (Manual) 0 Blast Cells % (Manual) 0 Reactive Lymphocytes 0 Platelet Estimate Adequate Anisocytosis (manual) Slight Ovalocytes Few Schistocytes Few Prothrombin Time 11.9 H 9.3-11.8 sec Prothrombin Time INR 1.13 0.9-1.15 Activated Partial Thromboplast Time 26.1 24.5-34.5 SEC Imaging: CT abdomen pelvis IMPRESSION: 1. Small-sized both kidneys with cortical thinning and multiple hypodense cystic lesions within, largest of approximate size 66 x 38 mm at the lower pole of left kidney. Advised further evaluation with ultrasound abdomen. 2. Long segment circumferential wall thickening involving the jejunal and proximal ileum loops in left lumbar region, suggestive of enteritis, infecti ve/inflammatory etiology. 3. Mild ascites with diffuse mesenteric fat stranding in abdomen and pelvis, infective/inflammatory etiology. 4. Bilateral inguinal herniae. 5. Hypodense fluid noted in the right inguinal canal and in the left inguinal canal, extending inferiorly to the left scrotal sac, probable ascitic fluid/hydroceles. 6. Mild left pleural effusion. 7. No abdominal mass or adenopathy. 8. No free air. 9. Chronic and/or ancillary findings as described above. Assessment: GI bleed Internal hemorrhoids per last colonoscopy ESRD Anemia Plan: Discussed with Dr. Mcdaniels Monitor labs transfuse if hemoglobin less than seven Protonix Anusol HC suppository Flagyl 500 mg every 8 hours IV Clear liquid diet We will continue to monitor the patient Discussed plan with patient and RN Thank you for this consult Date of Service: Jun 23, 2024 Billing Provider: ABDULAZIZ MCCARTY Common Visit Codes: CONSULT ONLY Consultation Codes: [id number] CONSULT <45MIN ABDULAZIZ MCCARTY Jun 23, 2024 11:19
[2024-06-23] MEDS: SODIUM CHL 0.9% 1000 ML BAG XX ONE (11:20)
[2024-06-23 11:30] LABS: % Iron Saturation 22.5 % (20-55)
[2024-06-23 12:10] LABS: Chloride 103 mmol/L (98-107); Potassium 4.5 mmol/L (3.5-5.1); Sodium 136 mmol/L (136-145)
[2024-06-23 12:11] LABS: Anion Gap 8 (5-15); Carbon Dioxide 25 mmol/L (20-31)
[2024-06-23 12:12] LABS: Calcium 8.1 mg/dL (8.7-10.4)
[2024-06-23 12:16] LABS: Hepatitis B Surface Antigen Negative (Negative)
[2024-06-23 12:17] LABS: BUN/Creatinine Ratio 6.6 (10.0-20.0); Blood Urea Nitrogen 40 mg/dL (9-23); Glucose 86 mg/dL (74-106)
[2024-06-23 12:37] LABS: Hepatitis A Ab IgM Negative
[2024-06-23 12:38] LABS: Hepatitis B Core IgM Negative; Hepatitis C Antibody Negative (Negative)
[2024-06-23] MEDS: metroNIDAZOLE 500MG/100ML 100 ML IV SCH (15:53)
--- NOTE | 2024-06-23 16:05 | DVHPN2 ---
Subjective Patient denies any symptoms at this time Reviewed: Care Plan, H&P, Medications Changes from previous H/P or p: No Changes General: Per HPI Objective Vitals Vital Signs Date Time Temp Pulse Resp B/P (MAP) Pulse Ox O2 Delivery O2 Flow Rate FiO2 06/23/24 12:00 98.0 67 21 128/58 (81) 100 98.0 06/23/24 07:28 Nasal Cannula* 2 28 General Appearance: Alert, Oriented X3, Cooperative, No acute distress HEENT: Atraumatic, PERRLA, Other (Hard of hearing) Lungs: Clear to auscultation, Normal air movement Cardiovascular: Normal S1, Normal S2, Other (Atrial fibrillation) Abdomen: Normal bowel sounds, Soft, No tenderness Rectal: Deferred Genitourinary: No Apparent Abnormalities Musculoskeletal: Normal sensory function, Normal motor function Neuro: Normal gait, Normal speech Psych/Mental Status: Mental status NL, Mood NL Medications Current Medications Medications Dose Ordered Sig/Deann Route Start Time Stop Time Status Last Admin Dose Admin Pantoprazole Sodium 40 mg BID IV 06/23/24 10:00 06/23/24 10:47 40 MG Ondansetron HCl 4 mg Q4HP PRN IV 06/23/24 04:15 Nitroglycerin 0.4 mg Q5MINP PRN SL 06/23/24 04:15 Morphine Sulfate 2 mg Q30M PRN IV 06/23/24 04:15 Metronidazole 100 ml @ 100 mls/hr Q8HR IV 06/23/24 14:00 06/23/24 15:53 100 MLS/HR Laboratory Results Laboratory Tests 06/22/24 23:30 06/23/24 06:08 06/23/24 10:20 Chemistry Test 06/22/24 19:03 06/23/24 10:20 Calcium Level 8.5 mg/dL (8.7-10.4) L 8.1 mg/dL (8.7-10.4) L Coagulation Test 06/22/24 19:03 Prothrombin Time 11.9 sec (9.3-11.8) H Prothrombin Time INR 1.13 (0.9-1.15) Activated Partial Thromboplast Time 26.1 SEC (24.5-34.5) Labs and/or images reviewed: Labs reviewed by me, Image(s) reviewed by me Assessment/Plan Assessment/Plan Impression: -rectal bleeding, probably secondary to recent polypectomy with reinstitution of Eliquis -history of right upper extremity DVT -atrial fibrillation -anemia -end-stage renal disease with hemodialysis -primary hypertension -hepatitis-B Plan: -GI consultation obtained. Continue PPI -stop Eliquis -repeat DVT study of right upper extremity -nephrology consultation for ESRD and HD while in the hospital -continue antihypertensives -clear liquid diet -continue Flagyl -repeat labs in a.m. Total time spent with patient discussing and formulating plan of care: 35 minutes. This medical document was created using an electronic medical record system with [employer] dictation system. Although this document has been carefully reviewed, there may still be some phonetic and typographical errors. These areas are purely typographical due to imperfections of the software programs, and do not reflect any compromise in the patient's medical care. Plan discussed with: Patient, Other (RN) My Orders Orders - ANNETTA RUIZ NP Procedure Category Date Status Time Rt Upper Dvt US 06/23/24 Verified 15:58 Basic Metabolic Panel LAB 06/24/24 Verified 04:00 Hemoglobin & LAB 06/24/24 Verified Hematocrit 04:00 Date of Service: Jun 23, 2024 Billing Provider: ANNETTA RUIZ NP Common Visit Codes: [id number] INP/OBS CARE(HIGH) ANNETTA RUIZ NP Jun 23, 2024 16:05
--- NOTE | 2024-06-23 17:29 | DVH ---
Upper Extremity Venous Duplex Clinical History: History of DVT to RUE. Comparison: US BILAT LOWER DVT on DOS: 04/14/24, US LT UPPER DVT on DOS: 03/31/24, US RT UPPER DVT on DO S: 03/28/24 Technique: Duplex Doppler evaluation of the venous system of the RIGHT lower neck and upper extremity including color Doppler and spectral/pulsed waveform analysis was performed. Findings: The internal jugular vein demonstrates appropriate compressibility and waveform variability . The subclavian vein is patent on color Doppler evaluation without intraluminal thrombus and demonstra isabell waveform variability . The visualized portion of the brachiocephalic vein is patent on color Doppler evaluation without intr aluminal thrombus and demonstrates waveform variability . The axillary vein demonstrates appropriate compressibility and waveform variability . The brachial veins demonstrate appropriate compressibility and patency on Doppler evaluation. The basilic vein demonstrates appropriate compressibility and patency on Doppler evaluation. The cephalic vein demonstrates appropriate compressibility and patency on Doppler evaluation. Impression: 1. No venous thrombus identified in the RIGHT upper extremity vessels evaluated above. If clinical concern/symptoms persist or worsen, short-interval follow-up study is suggested.
[2024-06-23] MEDS: MORPHINE SULFATE INJ 2 MG/ml SYRG IV PRN (20:18)
[2024-06-23] MEDS: ONDANSETRON HCL 4 MG/2 ML VIAL IV PRN (20:20)
[2024-06-23 20:34] VITALS: PULSE 70; RESP 20; O2SAT 100
[2024-06-23 21:00] VITALS: BP 108/48; PULSE 82; RESP 17; TEMP 97.7; O2SAT 98
[2024-06-23] MEDS: EPOETIN ALFA-EPBX 10,000 UNIT/1ML VIAL SC ONE (22:24)
[2024-06-23 23:08] VITALS: BP 108/48; PULSE 82; RESP 17; TEMP 97.7; O2SAT 98
[2024-06-24] VITALS (7 sets, daily range): BP systolic 106–112; BP diastolic 46–57; PULSE 63–86; RESP 16–100; TEMP 97.2–98.1; O2SAT 94–100
[2024-06-24 06:56] LABS: Hematocrit 30.4 % (41.0-53.0); Hemoglobin 9.3 g/dL (13.5-17.5)
[2024-06-24 07:12] LABS: Chloride 103 mmol/L (98-107); Sodium 138 mmol/L (136-145)
[2024-06-24 07:13] LABS: Anion Gap 5 (5-15); Calcium 8.4 mg/dL (8.7-10.4); Carbon Dioxide 30 mmol/L (20-31)
[2024-06-24 07:18] LABS: BUN/Creatinine Ratio 3.9 (10.0-20.0); Blood Urea Nitrogen 16 mg/dL (9-23); Glucose 97 mg/dL (74-106)
--- NOTE | 2024-06-24 09:29 | DVHPN2 ---
Progress Note - Dictate Date Seen: Jun 24, 2024 Medical Necessity Reason Pt with a Central, PICC or Fol: No Subjective tolerated HD yesterday vital signs Vital Sign Date Time Temp Pulse Resp B/P (MAP) Pulse Ox O2 Delivery O2 Flow Rate FiO2 06/24/24 05:00 98.1 65 17 112/57 (75) 100 98.1 06/23/24 23:08 Nasal Cannula* 2 28 Total Intake and Output 06/23/24 06/23/24 06/24/24 15:00 23:00 07:00 Intake Total 250 ml 100 ml 150 ml Balance 250 ml 100 ml 150 ml medications Current Medications Medications Dose Ordered Sig/Deann Route Start Time Stop Time Status Last Admin Dose Admin Pantoprazole Sodium 40 mg BID IV 06/23/24 10:00 06/24/24 00:57 40 MG Ondansetron HCl 4 mg Q4HP PRN IV 06/23/24 04:15 06/23/24 20:20 4 MG Nitroglycerin 0.4 mg Q5MINP PRN SL 06/23/24 04:15 Morphine Sulfate 2 mg Q30M PRN IV 06/23/24 04:15 06/23/24 20:18 2 MG Metronidazole 100 ml @ 100 mls/hr Q8HR IV 06/23/24 14:00 06/24/24 05:51 100 MLS/HR objective Elderly male Not in overt distress Hard of hearing No pitting edema laboratory and microbiology Laboratory Tests 06/24/24 06:41 06/22/24 23:30 Test 06/24/24 06:41 Range/Units Serum Glucose 97 74-106 mg/dL Assessment/Plan End-stage renal disease on hemodialysis Hypotension Anemia due to gastrointestinal losses HD will continue while admitted epogen on clears rec renal diet once on solids Gastroenterology Plan discussed with: Patient ALVIN TAYLOR MD Jun 24, 2024 09:29
--- NOTE | 2024-06-24 13:39 | DVHPN2 ---
Subjective Patient denies any symptoms at this time Reviewed: Care Plan, H&P, Medications Changes from previous H/P or p: No Changes General: Per HPI Objective Vitals Vital Signs Date Time Temp Pulse Resp B/P (MAP) Pulse Ox O2 Delivery O2 Flow Rate FiO2 06/24/24 09:29 97.5 63 19 111/53 (72) 100 97.5 06/24/24 08:00 Nasal Cannula* 2 28 Intake/Output Intake and Output 06/24/24 07:00 Intake Total 500 ml Balance 500 ml Intake Oral 0 ml IV Total 250 ml Other 250 ml General Appearance: Alert, Oriented X3, Cooperative, No acute distress HEENT: Atraumatic, PERRLA, Other (Hard of hearing) Lungs: Clear to auscultation, Normal air movement Cardiovascular: Normal S1, Normal S2, Other (Atrial fibrillation) Abdomen: Normal bowel sounds, Soft, No tenderness Rectal: Deferred Genitourinary: No Apparent Abnormalities Musculoskeletal: Normal sensory function, Normal motor function Neuro: Normal gait, Normal speech Psych/Mental Status: Mental status NL, Mood NL Medications Current Medications Medications Dose Ordered Sig/Deann Route Start Time Stop Time Status Last Admin Dose Admin Pantoprazole Sodium 40 mg BID IV 06/23/24 10:00 06/24/24 10:35 40 MG Ondansetron HCl 4 mg Q4HP PRN IV 06/23/24 04:15 06/23/24 20:20 4 MG Nitroglycerin 0.4 mg Q5MINP PRN SL 06/23/24 04:15 Morphine Sulfate 2 mg Q30M PRN IV 06/23/24 04:15 06/23/24 20:18 2 MG Metronidazole 100 ml @ 100 mls/hr Q8HR IV 06/23/24 14:00 06/24/24 05:51 100 MLS/HR Laboratory Results Laboratory Tests 06/22/24 23:30 06/24/24 06:41 Chemistry Test 06/24/24 06:41 Calcium Level 8.4 mg/dL (8.7-10.4) L Labs and/or images reviewed: Labs reviewed by me, Image(s) reviewed by me Assessment/Plan Assessment/Plan Impression: -rectal bleeding, probably secondary to recent polypectomy with reinstitution of Eliquis -history of right upper extremity DVT -atrial fibrillation -anemia -end-stage renal disease with hemodialysis -primary hypertension -hepatitis-B Plan: Events: Patient continues to have blood-tinged stools. Patient has been off of Eliquis since prior to his colonoscopy/polypectomy. Bleeding probably secondary to colitis. H&H stable. Hemodynamically stable. -GI consultation obtained. Continue PPI -DVT study right upper extremity negative for thrombus. We will re-evaluate chads Vasc score at time of discharge given patient has persistent atrial fibrillation -nephrology consultation for ESRD and HD while in the hospital -continue antihypertensives -clear liquid diet -continue Flagyl -repeat labs in a.m. Total time spent with patient discussing and formulating plan of care: 35 minutes. This medical document was created using an electronic medical record system with [employer] dictation system. Although this document has been carefully reviewed, there may still be some phonetic and typographical errors. These areas are purely typographical due to imperfections of the software programs, and do not reflect any compromise in the patient's medical care. Plan discussed with: Patient, Other (RN) My Orders Orders - ANNETTA RUIZ NP Procedure Category Date Status Time Rt Upper Dvt US 06/23/24 Resulted 15:58 Insert Midline ORDERS 06/24/24 Transmitted 06:45 Date of Service: Jun 24, 2024 Billing Provider: ANNETTA RUIZ NP Common Visit Codes: [id number] INP/OBS CARE(HIGH) ANNETTA RUIZ NP Jun 24, 2024 13:39
--- NOTE | 2024-06-24 18:55 | DVHPN2 ---
Progress Note - Dictate Date Seen: Jun 24, 2024 Medical Necessity Reason Pt with a Central, PICC or Fol: No Subjective No new complaints Patient is sleeping comfortably Blood tinged fluid and bleeding likely from his engorged internal hemorrhoids vital signs Vital Sign Date Time Temp Pulse Resp B/P (MAP) Pulse Ox O2 Delivery O2 Flow Rate FiO2 06/24/24 17:00 97.2 68 22 108/57 (74) 100 97.2 06/24/24 08:00 Nasal Cannula* 2 28 Total Intake and Output 06/23/24 06/23/24 06/24/24 15:00 23:00 07:00 Intake Total 250 ml 100 ml 150 ml Balance 250 ml 100 ml 150 ml medications Current Medications Medications Dose Ordered Sig/Deann Route Start Time Stop Time Status Last Admin Dose Admin Pantoprazole Sodium 40 mg BID IV 06/23/24 10:00 06/24/24 10:35 40 MG Ondansetron HCl 4 mg Q4HP PRN IV 06/23/24 04:15 06/23/24 20:20 4 MG Nitroglycerin 0.4 mg Q5MINP PRN SL 06/23/24 04:15 Morphine Sulfate 2 mg Q30M PRN IV 06/23/24 04:15 06/23/24 20:18 2 MG Metronidazole 100 ml @ 100 mls/hr Q8HR IV 06/23/24 14:00 06/24/24 15:03 100 MLS/HR objective General: NAD, AAOX3 Chest: lung leonardo clear to auscultation Heart: RRR, no murmur Abdomen: non-distended, no tenderness to palpation, +BS laboratory and microbiology Laboratory Tests 06/24/24 06:41 06/22/24 23:30 Test 06/24/24 06:41 Range/Units Serum Glucose 97 74-106 mg/dL Problems(with codes): (1) Internal hemorrhoids (2) GI bleeding (3) Colon polyps (4) Weakness (5) Anemia Prognosis Plan Anusol HC rectal suppositories Stool softeners Avoid aspirin NSAIDs Supportive care Outpatient follow up with GI Services as needed Plan discussed with: Patient DUONG MCCULLOUGH MD Jun 24, 2024 18:55
[2024-06-24] MEDS: HYDROCORTISONE ACET 25 MG RECTAL SUPP PR SCH (22:00)
[2024-06-25] VITALS (10 sets, daily range): BP systolic 89–133; BP diastolic 42–93; PULSE 68–76; RESP 16–19; TEMP 97.6–98.4; O2SAT 92–100
[2024-06-25 05:27] LABS: Hematocrit 26.6 % (41.0-53.0); Hemoglobin 8.7 g/dL (13.5-17.5)
[2024-06-25 05:51] LABS: Anion Gap 11 (5-15); Carbon Dioxide 25 mmol/L (20-31); Chloride 102 mmol/L (98-107); Potassium 3.7 mmol/L (3.5-5.1); Sodium 138 mmol/L (136-145)
[2024-06-25 05:53] LABS: Calcium 8.5 mg/dL (8.7-10.4)
[2024-06-25 05:57] LABS: BUN/Creatinine Ratio 4.1 (10.0-20.0); Blood Urea Nitrogen 21 mg/dL (9-23); Glucose 90 mg/dL (74-106)
[2024-06-25] MEDS: SODIUM CHL 0.9% 1000 ML BAG XX ONE (07:00)
[2024-06-25] MEDS ORDERED: HYD25RS PR (11:40)
[2024-06-25] MEDS ORDERED: METR-344 PO (11:40)
--- NOTE | 2024-06-25 11:57 | DVHDS2 ---
Discharge Summary Date of Admission Jun 23, 2024 at 04:08 Date of Discharge: Jun 25, 2024 Admitting Diagnosis Rectal bleeding Labs/Diagnostic Data: Laboratory Results Test 06/25/24 04:36 06/24/24 22:10 06/23/24 11:18 06/23/24 10:20 Hemoglobin 8.7 g/dL (13.5-17.5) Hematocrit 26.6 % (41.0-53.0) Sodium Level 138 mmol/L (136-145) Potassium Level 3.7 mmol/L (3.5-5.1) Chloride Level 102 mmol/L (98-107) Carbon Dioxide Level 25 mmol/L (20-31) Anion Gap 11 (5-15) Blood Urea Nitrogen 21 mg/dL (9-23) Creatinine 5.16 mg/dL (0.700-1.30) Glomerular Filtration Rate Calc 10 mL/min (>90) BUN/Creatinine Ratio 4.1 (10.0-20.0) Serum Glucose 90 mg/dL (74-106) Calcium Level 8.5 mg/dL (8.7-10.4) POC Glucose 103 mg/dl (70-106) Ferritin 72.9 ng/mL (22-322) Hepatitis A IgM Antibody Negative Hepatitis B Surface Antigen Negative (Negative) Hepatitis B Core IgM Antibody Negative Hepatitis C Antibody Negative (Negative) Iron Level 62 ug/dL (65-175) Total Iron Binding Capacity 275 ug/dL (250-425) Percent Iron Saturation 22.5 % (20-55) Test 06/23/24 05:42 06/23/24 01:32 06/22/24 23:30 06/22/24 19:03 Stool Occult Blood Positive (Negative) Stool Occult Blood Sample #3 (Negative) Lactic Acid Level 1.7 mmol/L (0.4-2.0) White Blood Count 9.1 10^3/uL (4.4-10.8) Red Blood Count 3.26 10^6/uL (4.5-5.90) Mean Corpuscular Volume 97.7 fL (80.0-100.0) Mean Corpuscular Hemoglobin 31.0 pg (28.0-32.0) Mean Corpuscular Hemoglobin Concent 31.8 g/dL (32.0-36.0) Red Cell Distribution Width 18.6 % (11.8-14.3) Platelet Count 141 10^3/uL (140-450) Mean Platelet Volume 8.2 fL (6.9-10.8) Neutrophils (%) (Auto) % (37.0-80.0) Lymphocytes (%) (Auto) % (10.0-50.0) Monocytes (%) (Auto) % (0.0-12.0) Basophils (%) (Auto) % (0.0-2.0) Neutrophils # (Auto) 10 ^3/uL (1.6-8.6) Lymphocytes # (Auto) 10 ^3/uL (0.4-5.4) Monocytes # (Auto) 10 ^3/uL (0-1.3) Differential Total Cells Counted 79.0 (100) Neutrophils % (Manual) 65 (37.0-80.0) Band Neutrophils % (Manual) 0 Lymphocytes % (Manual) 14 (10.0-50.0) Monocytes % (Manual) 0 (0-12) Eosinophils % (Manual) 0 (0-7) Basophils % (Manual) 0 (0.0-2.0) Metamyelocytes % (manual) 0 Myelocytes % (Manual) 0 Promyelocytes % (Manual) 0 Blast Cells % (Manual) 0 Reactive Lymphocytes 0 Platelet Estimate Adequate Anisocytosis (manual) Slight Ovalocytes Few Schistocytes Few Prothrombin Time 11.9 sec (9.3-11.8) Prothrombin Time INR 1.13 (0.9-1.15) Activated Partial Thromboplast Time 26.1 SEC (24.5-34.5) Other Laboratory Tests 06/25/24 04:36 06/22/24 23:30 Brief Hx & Hospital Course: History of Present Illness 88-year-old presents for evaluation of GI bleed. Patient reports two day history of bright red blood noticing his stool. Of note he was discharged on 06/17/2024 with similar complaints and after undergoing an endoscopy which was essentially negative. Denies shortness or breath or chest pain. No other acute complaints. Course of hospitalization: Patient continues to have blood-tinged stools while in the hospital. Discussion was made with Dr. Mcdaniels, states that it was secondary to internal hemorrhoids. Patient's H&H has been stable. Patient will have diet advanced. Nephrology consultation has been placed for continuation of hemodialysis. Long discussion was made with the patient's family. Patient will be discharged home today, be continued on Flagyl 500 mg p.o. 3 times a day for five days for questionable colitis found on CT scan as well as continuation of Anusol suppositories. He will continue all previous home medications. At this time he is instructed to stay off of Eliquis until his rectal bleeding has resolved and has been given instructions by his PCP to restart his medications. The patient was agreeable with discharge plan. All questions answered. Physical exam General: Alert and Oriented x3. No acute distress. Well-nourished. Eyes: EOMI. Anicteric. HENT: Moist mucous membranes. Lungs: Clear to auscultation bilaterally. No accessory muscle use. Cardiovascular: Regular rate and rhythm. No murmur. No JVD. Abdomen: Soft, non-tender and non-distended. No palpable masses. Extremities: No edema. Non-tender. Skin: No rashes or lesions. Warm. Neurologic: No focal neurological deficits. CN II-XII grossly intact, but not individually tested. Psychiatric: Cooperative. Appropriate mood and affect. Total time spent with patient discussing and formulating plan of care: 35 minutes. This medical document was created using an electronic medical record system with [employer] dictation system. Although this document has been carefully reviewed, there may still be some phonetic and typographical errors. These areas are purely typographical due to imperfections of the software programs, and do not reflect any compromise in the patient's medical care. Consults/Reason for consult Gastroenterology: Rectal bleeding Nephrology: Hemodialysis Condition at Discharge: Guarded Final Diagnosis/Problems List Rectal Bleeding Secondary Diagnosis: -bleeding internal hemorrhoid -history of right upper extremity DVT -atrial fibrillation -anemia -end-stage renal disease with hemodialysis -primary hypertension -hepatitis-B Discharge Disposition: Home Discharge Instruct/Medications Diet: Renal Activity: No Restrictions, As Tolerated Follow Up/Referral: Follow up with establish HD chair time Follow up with PCP 1-2 weeks Medications: Continue all home medications. Flagyl 500 mg p.o. t.i.d. x5 days Anusol one tablet suppository daily x5 days or until rectal bleeding. 36 Discharge Statement: "Patient was advised to return to the ER or call 911 if any headaches, dizziness, shortness of breath, chest pain, abdominal pain, bleeding, fevers, or worsening of medical condition. Patient was counseled about treatment plan, medications, possible side effects, patientverbalized understanding. All questions were answered to the best of my ability. This discharge took greater then 30 minutes in planning, reviewing documentation, counseling the patient, and discussing with other team members." ASSESSMENT ASSESSMENT Assessment Rectal Bleeding Date of Service: Jun 25, 2024 Billing Provider: ANNETTA RUIZ NP Common Visit Codes: [id number] DISCH DAY >30min ANNETTA RUIZ NP Jun 25, 2024 11:57
--- NOTE | 2024-06-25 14:08 | DVHPN2 ---
Progress Note - Dictate Date Seen: Jun 25, 2024 Medical Necessity Reason Pt with a Central, PICC or Fol: No Subjective HD today vital signs Vital Sign Date Time Temp Pulse Resp B/P (MAP) Pulse Ox O2 Delivery O2 Flow Rate FiO2 06/25/24 13:19 104/42 (62) 06/25/24 12:44 98.2 76 17 99 98.2 06/25/24 08:00 Nasal Cannula* 2 28 Total Intake and Output 06/24/24 06/24/24 06/25/24 15:00 23:00 07:00 Intake Total 500 ml 250 ml Balance 500 ml 250 ml medications Current Medications Medications Dose Ordered Sig/Deann Route Start Time Stop Time Status Last Admin Dose Admin Pantoprazole Sodium 40 mg BID IV 06/23/24 10:00 06/24/24 10:35 40 MG Ondansetron HCl 4 mg Q4HP PRN IV 06/23/24 04:15 06/23/24 20:20 4 MG Nitroglycerin 0.4 mg Q5MINP PRN SL 06/23/24 04:15 Morphine Sulfate 2 mg Q30M PRN IV 06/23/24 04:15 06/23/24 20:18 2 MG Metronidazole 100 ml @ 100 mls/hr Q8HR IV 06/23/24 14:00 06/24/24 15:03 100 MLS/HR Hydrocortisone Acetate 25 mg Q12HR PA 06/24/24 22:00 06/25/24 10:25 25 MG objective Elderly male Not in overt distress Hard of hearing No pitting edema laboratory and microbiology Laboratory Tests 06/25/24 04:36 06/22/24 23:30 Test 06/25/24 04:36 Range/Units Serum Glucose 90 74-106 mg/dL Assessment/Plan End-stage renal disease on hemodialysis Hypotension Anemia due to gastrointestinal losses HD , while admitted epogen Gastroenterology Plan discussed with: Patient ALVIN TAYLOR MD Jun 25, 2024 14:07
--- NOTE | 2024-06-25 20:25 | DVHPN2 ---
Progress Note - Dictate Date Seen: Jun 25, 2024 Medical Necessity Reason Pt with a Central, PICC or Fol: No Subjective No new complaints Patient is awake alert No rectal bleeding today Blood tinged fluid and bleeding likely from his engorged internal hemorrhoids vital signs Vital Sign Date Time Temp Pulse Resp B/P (MAP) Pulse Ox O2 Delivery O2 Flow Rate FiO2 06/25/24 17:00 97.9 72 19 107/48 (67) 98 97.9 06/25/24 08:00 Nasal Cannula* 2 28 Total Intake and Output 06/24/24 06/24/24 06/25/24 15:00 23:00 07:00 Intake Total 500 ml 250 ml Balance 500 ml 250 ml medications Current Medications Medications Dose Ordered Sig/Deann Route Start Time Stop Time Status Last Admin Dose Admin Pantoprazole Sodium 40 mg BID IV 06/23/24 10:00 06/24/24 10:35 40 MG Ondansetron HCl 4 mg Q4HP PRN IV 06/23/24 04:15 06/23/24 20:20 4 MG Nitroglycerin 0.4 mg Q5MINP PRN SL 06/23/24 04:15 Morphine Sulfate 2 mg Q30M PRN IV 06/23/24 04:15 06/23/24 20:18 2 MG Metronidazole 100 ml @ 100 mls/hr Q8HR IV 06/23/24 14:00 06/24/24 15:03 100 MLS/HR Hydrocortisone Acetate 25 mg Q12HR WI 06/24/24 22:00 06/25/24 10:25 25 MG objective General: NAD, AAOX3 Chest: lung leonardo clear to auscultation Heart: RRR, no murmur Abdomen: non-distended, no tenderness to palpation, +BS laboratory and microbiology Laboratory Tests 06/25/24 04:36 06/22/24 23:30 Test 06/25/24 04:36 Range/Units Serum Glucose 90 74-106 mg/dL Problems(with codes): (1) Internal hemorrhoids (2) Colon polyps (3) Abnormal finding on GI tract imaging Prognosis Plan Advance diet as tolerated to renal diet For hemodialysis tomorrow Discharge planning after the above Plan discussed with: Patient, Other (Marek Montelongo and nurse) DUONG MCCULLOUGH MD Jun 25, 2024 20:25
[2024-06-25] MEDS ORDERED: EPOETIN ALFA-EPBX 10,000 UNIT/1ML VIAL SC ONE (21:00)
[2024-06-26 01:00] VITALS: BP 100/56; PULSE 91; RESP 16; TEMP 98.9; O2SAT 100
[2024-06-26 05:00] VITALS: BP 121/53; PULSE 83; RESP 16; TEMP 98.3; O2SAT 100
[2024-06-26 08:00] VITALS: PULSE 85
[2024-06-26 09:00] VITALS: BP 109/47; PULSE 88; RESP 20; TEMP 98.5; O2SAT 99
[2024-06-26] MEDS: SODIUM CHL 0.9% 1000 ML BAG XX ONE (09:00)
[2024-06-26 12:10] VITALS: BP 126/60; PULSE 86; RESP 18; TEMP 97.5; O2SAT 99
[2024-06-26 13:01] VITALS: BP 124/59; PULSE 78; RESP 18; TEMP 97.9
--- NOTE | 2024-06-26 13:31 | DVHPN2 ---
Subjective Patient denies any symptoms at this time Reviewed: Care Plan, H&P, Medications Changes from previous H/P or p: No Changes General: Per HPI Objective Vitals Vital Signs Date Time Temp Pulse Resp B/P (MAP) Pulse Ox O2 Delivery O2 Flow Rate FiO2 06/26/24 13:01 97.9 78 18 124/59 (80) 97.9 06/26/24 12:10 99 06/26/24 08:10 Nasal Cannula* 2 28 Intake/Output Intake and Output 06/26/24 06:59 Intake Total 800 ml Output Total 0 ml Balance 800 ml Intake Oral 800 ml Output Urine Total 0 ml # Bowel Movements 1 General Appearance: Alert, Oriented X3, Cooperative, No acute distress HEENT: Atraumatic, PERRLA, Other (Hard of hearing) Lungs: Clear to auscultation, Normal air movement Cardiovascular: Normal S1, Normal S2, Other (Atrial fibrillation) Abdomen: Normal bowel sounds, Soft, No tenderness Rectal: Deferred Genitourinary: No Apparent Abnormalities Musculoskeletal: Normal sensory function, Normal motor function Neuro: Normal gait, Normal speech Psych/Mental Status: Mental status NL, Mood NL Medications Current Medications Medications Dose Ordered Sig/Deann Route Start Time Stop Time Status Last Admin Dose Admin Pantoprazole Sodium 40 mg BID IV 06/23/24 10:00 06/24/24 10:35 40 MG Ondansetron HCl 4 mg Q4HP PRN IV 06/23/24 04:15 06/23/24 20:20 4 MG Nitroglycerin 0.4 mg Q5MINP PRN SL 06/23/24 04:15 Morphine Sulfate 2 mg Q30M PRN IV 06/23/24 04:15 06/23/24 20:18 2 MG Metronidazole 100 ml @ 100 mls/hr Q8HR IV 06/23/24 14:00 06/24/24 15:03 100 MLS/HR Hydrocortisone Acetate 25 mg Q12HR SD 06/24/24 22:00 06/25/24 10:25 25 MG Laboratory Results Laboratory Tests 06/22/24 23:30 06/25/24 04:36 Labs and/or images reviewed: Labs reviewed by me, Image(s) reviewed by me Assessment/Plan Assessment/Plan Impression: -rectal bleeding, probably secondary to recent polypectomy with reinstitution of Eliquis -history of right upper extremity DVT -atrial fibrillation -anemia -end-stage renal disease with hemodialysis -primary hypertension -hepatitis-B Plan: Events: Discharge held yesterday secondary to hemodialysis. Patient had HD today. Plans for DC today. -GI consultation obtained. Continue PPI -DVT study right upper extremity negative for thrombus. We will re-evaluate chads Vasc score at time of discharge given patient has persistent atrial fibrillation -nephrology consultation for ESRD and HD while in the hospital -continue antihypertensives Total time spent with patient discussing and formulating plan of care: 35 minutes. This medical document was created using an electronic medical record system with [employer] dictation system. Although this document has been carefully reviewed, there may still be some phonetic and typographical errors. These areas are purely typographical due to imperfections of the software programs, and do not reflect any compromise in the patient's medical care. Plan discussed with: Patient, Other (RN) Date of Service: Jun 26, 2024 Billing Provider: ANNETTA RUIZ NP Common Visit Codes: [id number] INP/OBS CARE(HIGH) ANNETTA RUIZ NP Jun 26, 2024 13:31
--- NOTE | 2024-06-26 14:40 | DVHPN2 ---
Progress Note - Dictate Date Seen: Jun 26, 2024 Medical Necessity Reason Pt with a Central, PICC or Fol: No Subjective HD today seen this am tolerated dialysis well vital signs Vital Sign Date Time Temp Pulse Resp B/P (MAP) Pulse Ox O2 Delivery O2 Flow Rate FiO2 06/26/24 13:01 97.9 78 18 124/59 (80) 97.9 06/26/24 12:10 99 06/26/24 08:10 Nasal Cannula* 2 28 Total Intake and Output 06/25/24 06/25/24 06/26/24 15:00 23:00 07:00 Intake Total 600 ml 200 ml Output Total 0 ml Balance 600 ml 200 ml objective Elderly male Not in overt distress Hard of hearing No pitting edema laboratory and microbiology Laboratory Tests 06/25/24 04:36 06/22/24 23:30 Test 06/25/24 04:36 Range/Units Serum Glucose 90 74-106 mg/dL Assessment/Plan End-stage renal disease on hemodialysis Hypotension Anemia due to gastrointestinal losses HD epogen Gastroenterology return to outpatient dialysis schedule after discharge Plan discussed with: Patient ALVIN TAYLOR MD Jun 26, 2024 14:40
--- NOTE | 2024-06-26 22:43 | DVHPN2 ---
Progress Note - Dictate Date Seen: Jun 26, 2024 (Patient seen at 8:00 a.m. Late entry) Medical Necessity Reason Pt with a Central, PICC or Fol: No Subjective No new complaints Patient is awake alert No rectal bleeding today Blood tinged fluid and bleeding likely from his engorged internal hemorrhoids Patient is tolerating a mechanical soft diet vital signs Vital Sign Date Time Temp Pulse Resp B/P (MAP) Pulse Ox O2 Delivery O2 Flow Rate FiO2 06/26/24 13:01 97.9 78 18 124/59 (80) 97.9 06/26/24 12:10 99 06/26/24 08:10 Nasal Cannula* 2 28 Total Intake and Output 06/25/24 06/25/24 06/26/24 15:00 23:00 07:00 Intake Total 600 ml 200 ml Output Total 0 ml Balance 600 ml 200 ml objective General: NAD, AAOX3 Chest: lung leonardo clear to auscultation Heart: RRR, no murmur Abdomen: non-distended, no tenderness to palpation, +BS laboratory and microbiology Laboratory Tests 06/25/24 04:36 06/22/24 23:30 Test 06/25/24 04:36 Range/Units Serum Glucose 90 74-106 mg/dL Problems(with codes): (1) ESRD (end stage renal disease) on dialysis (2) GIB (gastrointestinal bleeding) (3) Colon polyps (4) Colitis (5) Internal hemorrhoids Prognosis Plan Patient is scheduled for hemodialysis today Subsequently there was discharge planning He can follow up in my office as needed Once again thank you for allowing me to participate in the care of this patient Plan discussed with: Patient DUONG MCCULLOUGH MD Jun 26, 2024 22:43
== END 2024-06-26 13:40 | disposition home or self-care (01) | DRG 377 ==
LOC: ER 18:38 → EDBD 18:38 → TELE-WESTW 06-23 04:08 → TELE 06-23 04:08 → ER 06-23 04:09 → TELE-WESTW 06-23 21:02
PROVIDERS: ADMIT Nurse Practitioner; ATTEND Nurse Practitioner Acute Care
PROC: 5A1D70Z Performance of Urinary Filtration, Intermittent, Less than 6 Hours Per Day (ICD-10-PCS; principal; 2024-06-23)
PROC: 5A1D70Z Performance of Urinary Filtration, Intermittent, Less than 6 Hours Per Day (ICD-10-PCS; 2024-06-26)
DX: K92.2 Gastrointestinal hemorrhage, unspecified (principal); N18.6 End stage renal disease; B19.10 Unspecified viral hepatitis B without hepatic coma; I48.19 Other persistent atrial fibrillation; I13.2 Hypertensive heart and chronic kidney disease with heart failure and with stage 5 chronic kidney disease, or end stage renal disease; D64.9 Anemia, unspecified; E11.22 Type 2 diabetes mellitus with diabetic chronic kidney disease; E78.5 Hyperlipidemia, unspecified; E87.5 Hyperkalemia; K64.8 Other hemorrhoids; I50.9 Heart failure, unspecified; Z88.8 Allergy status to other drugs, medicaments and biological substances; Z98.61 Coronary angioplasty status; Z82.49 Family history of ischemic heart disease and other diseases of the circulatory system; Z82.3 Family history of stroke; Z83.3 Family history of diabetes mellitus; Z86.718 Personal history of other venous thrombosis and embolism; Z99.2 Dependence on renal dialysis
CPT/HCPCS: 36415; 80048; 80074; 82270; 82728; 82962; 83540; 83550; 83605; 85007; 85014; 85018; 85027; 85610; 85730; 86850; 86900; 86901; 90935; 93971; 96365; 96375; G0378; J2405; J2470; J3490

== ENCOUNTER 2024-09-05 17:58 | Emergency (ER) | payer OTHER, MEDICARE ==
[~2024-09-05] VITALS: Ht 167.6 cm; Wt 68.3 kg
[~2024-09-05 17:58] MED LIST changes: +HYD25RS PR; +METR-344 PO
--- NOTE | 2024-09-05 19:29 | ED.PDOC ---
Musculoskeletal HPI Comments 88-year-old male came to emergency room due to left shoulder pain. Patient states for the past few days he has been having shooting pains from the left side of his neck, down to his left shoulder, to his left elbow. Noted worsening of pains with neck movement Chief Complaint: Upper Extremity Time Seen by MD: 19:27 Primary Care Provider: UNKNOWN Reviewed Notes: Nurses Notes Allergies: Coded Allergies: Amlodipine (Verified Allergy, Unknown, 05/20/24) Home Meds Active Scripts Metronidazole (Flagyl) 500 Mg Tab, 1 TAB PO TID for 5 Days, #15 TAB Prov:ANNETTA RUIZ FINANCIAL ASSISTANCE ADVISOR 06/25/24 Hydrocortisone Acetate (ANUCORT-HC SUPPOSITORY) 25 Mg Sanchez, 25 MG MO DAILY for 5 Days, #5 SUPP Prov:ANNETTA RUIZ FINANCIAL ASSISTANCE ADVISOR 06/25/24 Morphine Sulfate (Morphine Sulfate) 15 Mg Tab, 1 TAB PO TID PRN, #60 TAB Prov:DEBORAH MCCARTY MD 05/22/24 Atorvastatin Calcium (ATORVASTATIN CALCIUM) 20 Mg Tab, 40 MG PO HS for 20 Days, #40 TAB Prov:ESTELLA FREEMAN MD 02/19/19 Aspirin (Aspir-Low Ec) 81 Mg Tb, 81 MG PO DAILY for 20 Days, #60 Prov:ESTELLA FREEMAN MD 02/19/19 Reported Medications Baclofen (Baclofen) 10 Mg Tab, 10 MG PO TID, TAB 03/30/24 Apixaban Base (ELIQUIS) 2.5 Mg Tab, 2.5 MG PO BID, TAB 03/30/24 Simethicone (Simethicone) 80 Mg Chw, 80 MG PO Q6HPRN, MG 07/14/21 Sevelamer Carbonate (Renvela) 800 Mg Tab, 2 TAB PO TIDWM, #540 TAB 3 Refills 07/14/21 B-Complex W/ C & Folic Acid (Renal) Softgel Cap, 1 TAB PO DAILY, #30 CAP 5 Refills 07/14/21 Montelukast Sodium (Singulair) 5 Mg Chw, 2 TAB PO DAILY, #30 TAB 5 Refills 07/14/21 Metoprolol Succinate (Metoprolol Succinate Er) 50 Mg Tab, 50 MG PO DAILY for 30 Days, MG 07/14/21 Melatonin (KP MELATONIN) 3 Mg Tab, 5 MG PO HSPRN, TAB 07/14/21 Nifedipine (Nifedipine ER) 30 Mg Tab, 60 MG PO DAILY, TAB 07/14/21 Latanoprost (Xalatan) 0.005 % Milady, 1 DROP EACHEYE QPM, #2.5 ML 6 Refills 07/14/21 Guaifenesin-Codeine (Guaifenesin Ac) Ac Syp, 10 ML PO Q6HPRN PRN for FOR COUGH, #240 ML 07/14/21 Lanthanum Carbonate (Fosrenol) 1,000 Mg Chw, 1000 MG PO TIDWM, TAB.CHEW 07/14/21 Fluticasone Propionate (Fluticasone Propionate) 0.05 % Cre, 50 MCG LUKE DAILY for 30 Days, MCG 07/14/21 Cinacalcet Hydrochloride (Sensipar) 30 Mg Tab, 1 TAB PO MWF, #30 TAB 11 Refills 07/14/21 Brimonidine Tartrate (Brimonidine Tartrate) 0.15 % Milady, 1 DROP OP BID, DROP 07/14/21 Ferric Citrate (Auryxia) 210 Mg Tab, 210 MG PO TID, TAB 07/14/21 Acetaminophen (Acetaminophen) 325 Mg Tab, 500 MG PO TID PRN for MILD PAIN (1-3 PAIN SCALE) for 30 Days, MG 0 Refills 07/14/21 Information Source: Patient Mode of Arrival: EMS Location: Left Extremity Location: Arm, Elbow, Shoulder Timing: Days Mechanism: Spontaneous Circumstances: Spontaneous Onset of Symptoms: Spontaneous Symptoms: Pain Associated signs and symptoms: Shoulder pain, Arm pain Past Medical History PAST MEDICAL HISTORY: AFIB, Anemia, Cancer, CHF, DM, ESRD, High Lipids, HTN Surgical History: PTCA Family History Family History: No family hx of DM, No family hx ofKidney timoteo, Family hx of stroke Social History Smoker: Non-Smoker Alcohol: Denies ETOH Use Drugs: Denies Drug Use Lives In: Home Constitutional: denies: chills, diaphoresis, fatigue, fever, malaise, sweats, weakness, others EENTM: denies: blurred vision, double vision, ear bleeding, ear discharge, ear drainage, ear pain, ear ringing, eye pain, eye redness, hearing loss, mouth pain, mouth swelling, nasal discharge, nose bleeding, nose congestion, nose pain, photophobia, tearing, throat pain, throat swelling, voice changes, others Respiratory: denies: cough, hemoptysis, orthopnea, SOB at rest, shortness of breath, SOB with excertion, stridor, wheezing, others Cardiovascular: denies: chest pain, dizzy spells, diaphoresis, Dyspnea on exertion, edema, irregular heart beat, left arm pain, lightheadedness, palpitations, PND, syncope, others Gastrointestinal: denies: abdomen distended, abdominal pain, blood streaked bowels, constipated, diarrhea, dysphagia, difficulty swallowing, hematemesis, melena, nausea, poor appetite, poor fluid intake, rectal bleeding, rectal pain, vomiting, others Genitourinary: denies: burning, dysuria, flank pain, frequency, hematuria, incontinence, penile discharge, penile sore, pain, testicle pain, testicle swelling, urgency, others Neurological: denies: dizziness, fainting, headache, left sided numbness, left sided weakness, numbness, paresthesia, pre-existing deficit, right sided numbness, right sided weakness, seizure, speech problems, tingling, tremors, weakness, others Musculoskeletal: reports: neck pain, others (Left shoulder, left arm); denies: back pain, gout, joint pain, joint swelling, muscle pain, muscle stiffness Integumetry: denies: bruises, change in color, change in hair/nails, dryness, laceration, lesions, lumps, rash, wounds, others Allergic/Immunocompromised: denies: Difficulty Healing, Frequent Infections, Hives, Itching, others Hematologic/Lymphatic: denies: anemia, blood clots, easy bleeding, easy brui sing, swollen glands, others Endocrine: denies: excessive hunger, excessive sweating, excessive thirst, ex cessive urination, flushing, intolerance to cold, intolerance to heat, unexplained weight gain, unexplained weight loss, others Psychiatric: denies: anxiety, bipolar disorder, depression, hopeless, panic disorder, schizophrenia, sleepless, suicidal, others Physical Exam General Appearance: No Apparent Distress, Normal HEENT: Normal ENT Inspection, Pharynx Normal, TMs Normal Neck: Full Range of Motion, Non-Tender, Normal, Normal Inspection Respiratory: Chest Non-Tender, Lungs Clear, No Accessory Muscle Use, No Res piratory Distress, Normal Breath Sounds Cardiovascular: No Edema, No JVD, No Murmur, No Gallop, Normal Peripheral Pulses, Regular Rate/Rhythm Breast Exam: Deferred Gastrointestinal: No Organomegaly, Non Tender, No Pulsatile Mass, Normal Bowel Sounds, Soft Genitalia: Deferred Pelvic: Deferred Rectal: Deferred Extremities: No calf tenderness, Normal capillary refill, Normal inspection, Normal range of motion, Non-tender, No pedal edema Musculoskeletal : Apperance: Normal Neurologic: Alert, creative project manager II-XII nml as Tested, No Motor Deficits, Normal Affect, Normal Mood, No Sensory Deficits Cerebellar Function: Normal Reflexes: Normal Skin: Dry, Normal Color, Warm Lymphatic: No Adenopathy Was a procedure done? Was a procedure done?: No Differential Diagnosis EXT Differential Diagnosis: Sprain, Dislocation, Strain X-Ray, Labs, Meds, VS Vital Signs Date Time Temp Pulse Resp B/P (MAP) Pulse Ox O2 Delivery O2 Flow Rate FiO2 09/05/24 20:24 97.4 76 18 119/68 (85) 100 97.4 09/05/24 20:24 76 18 100 Room Air* 0 21 09/05/24 18:20 98.0 75 18 109/64 (79) 96 Current Medications Medications (Trade) Dose Ordered Sig/Deann Route Start Time Stop Time Status Last Admin Acetaminophen (Tylenol Tablet) 650 mg ONCE ONCE PO 09/05/24 19:30 09/05/24 19:31 DC 09/05/24 20:23 Ketorolac Tromethamine (Toradol Injection) 15 mg ONCE ONCE IM 09/05/24 19:30 09/05/24 19:31 DC 09/05/24 20:23 Dexamethasone Sodium Phosphate (Decadron Injection) 10 mg ONCE ONCE IM 09/05/24 19:30 09/05/24 19:31 DC 09/05/24 20:23 Time of 1ST Reevaluation: 19:24 Reevaluation 1ST: Unchanged Patient Education/Counseling: Diagnosis, Treatment Family Education/Counseling: No Family Present Departure 1 Departure Time of Disposition: 21:02 (Patient likely with cervical radiculopathy. We will discharge patient home with outpatient follow up) Impression: Primary Impression: Cervical radiculopathy Disposition: 01 HOME / SELF CARE / HOMELESS Condition: Stable Referrals: IFRAH EMANUEL MD Additional Instructions: You have cervical radiculopathy. This is inflammation of your cervical nerve. For pain you can take the followinam: Ibuprofen 400mg with food Noon: Acetaminophen 1000mg 4pm: Ibuprofen 400mg with food 8pm: Acetaminophen 1000mg You can wear a soft collar for comfort. You were referred to neurology. Please call for an appointment. If your symptoms worsen or you have any other concerns then please return to the ER. Discharged With: Self Critical Care Note Critical Care Time?: No Stability Stability form required: No Heart Score Heart Score: Heart Score Response (Comments) Value History N/A 0 EKG N/A 0 Age N/A 0 Risk Factors N/A 0 Troponin N/A 0 Total 0 I personally scribed for GAETANO VARGAS MD ([email or web address]) on 09/05/24 at 19:29. Electronically submitted by Juan Antonio Tenorio ([email or web address]). GAETANO VARGAS MD Sep 05, 2024 19:29
[2024-09-05] MEDS: DexAMETHasone SOD PHOS 10MG/1ML VIAL INJ IM ONE (20:23)
[2024-09-05] MEDS: ACETAMINOPHEN 325 MG TAB PO ONE (20:23)
[2024-09-05] MEDS: KETOROLAC TROMETH 30 MG/ML 1ML VIAL IM ONE (20:23)
[2024-09-05 20:24] VITALS: PULSE 76; RESP 18; O2SAT 100
[2024-09-05 21:27] VITALS: BP 110/54; TEMP 97.8
[2024-09-05 21:28] VITALS: PULSE 71; RESP 18; O2SAT 100
== END 2024-09-05 21:31 | disposition home or self-care (01) ==
LOC: ER 17:58 → EDUNIT# 17:58 → EDBD 17:58 → ER 21:31
DX: M54.12 Radiculopathy, cervical region (principal); I48.91 Unspecified atrial fibrillation; I13.2 Hypertensive heart and chronic kidney disease with heart failure and with stage 5 chronic kidney disease, or end stage renal disease; I50.9 Heart failure, unspecified; N18.6 End stage renal disease; E11.22 Type 2 diabetes mellitus with diabetic chronic kidney disease; Z79.891 Long term (current) use of opiate analgesic
CPT/HCPCS: 96372; 99284; J1100; J1885

== ENCOUNTER 2024-10-23 10:39 | Inpatient (IN) | payer OTHER, MEDICARE ==
[~2024-10-23] VITALS: Ht 172.7 cm; Wt 67.5 kg
[2024-10-23 10:50] VITALS: PULSE 69; RESP 17; O2SAT 97
[2024-10-23] MEDS: DEXTROSE (50%) 50ML SYRG IV ONE ×3 (10:53→12:20)
--- NOTE | 2024-10-23 11:21 | ED.PDOC ---
History of present illness HPI Comments 89y M who presents to the ED via EMS for chief complaint of general weakness. Per EMS, pt lives with spouse states pt has been having generalized weakness and malaise for the past 2 days. Pt spouse called EMS today after noticing appeared altered. EMS arrived on scene and noted pt was altered and not answe ring any questions and after checking vitals, noted blood glucose in the 20s and was given 1 mg glucagon and brought to the ED . Pt spouse states pt missed dialysis yesterday due to his blood pressure being too low. Pt now in the ED, is altered and noted Accu check of 28 and is moving his eyes but not responding to questions. Pt now in the ED, has noted 02 sat of 99% after being placed on 4 L via nc, rr 20, BP of 123/50. Pt has noted history of DM, HTN, HLD and AFIB but is unknown it pt has been taking his medications. Chief Complaint: Hypoglycemia Time Seen by : 11:00 Primary Care Provider: UNKNOWN History of present illness: [employer] Generator Notes Allergies: Coded Allergies: Amlodipine (Verified Allergy, Unknown, 05/20/24) Home Meds Active Scripts Metronidazole (Flagyl) 500 Mg Tab, 1 TAB PO TID for 5 Days, #15 TAB Prov:ANNETTA RUIZ NP 06/25/24 Hydrocortisone Acetate (ANUCORT-HC SUPPOSITORY) 25 Mg Sanchez, 25 MG [place] DAILY for 5 Days, #5 SUPP Prov:ANNETTA RUIZ FITNESS PLAN COORDINATOR 06/25/24 Morphine Sulfate (Morphine Sulfate) 15 Mg Tab, 1 TAB PO TID PRN, #60 TAB Prov:DEBORAH MCCARTY MD 05/22/24 Atorvastatin Calcium (ATORVASTATIN CALCIUM) 20 Mg Tab, 40 MG PO HS for 20 Days, #40 TAB Prov:ESTELLA FREEMAN MD 02/19/19 Aspirin (Aspir-Low Ec) 81 Mg Tb, 81 MG PO DAILY for 20 Days, #60 Prov:ESTELLA FREEMAN MD 02/19/19 Reported Medications Baclofen (Baclofen) 10 Mg Tab, 10 MG PO TID, TAB 03/30/24 Apixaban Base (ELIQUIS) 2.5 Mg Tab, 2.5 MG PO BID, TAB 03/30/24 Simethicone (Simethicone) 80 Mg Chw, 80 MG PO Q6HPRN, MG 07/14/21 Sevelamer Carbonate (Renvela) 800 Mg Tab, 2 TAB PO TIDWM, #540 TAB 3 Refills 07/14/21 B-Complex W/ C & Folic Acid (Renal) Softgel Cap, 1 TAB PO DAILY, #30 CAP 5 Refills 07/14/21 Montelukast Sodium (Singulair) 5 Mg Chw, 2 TAB PO DAILY, #30 TAB 5 Refills 07/14/21 Metoprolol Succinate (Metoprolol Succinate Er) 50 Mg Tab, 50 MG PO DAILY for 30 Days, MG 07/14/21 Melatonin (KP MELATONIN) 3 Mg Tab, 5 MG PO HSPRN, TAB 07/14/21 Nifedipine (Nifedipine ER) 30 Mg Tab, 60 MG PO DAILY, TAB 07/14/21 Latanoprost (Xalatan) 0.005 % Milady, 1 DROP EACHEYE QPM, #2.5 ML 6 Refills 07/14/21 Guaifenesin-Codeine (Guaifenesin Ac) Ac Syp, 10 ML PO Q6HPRN PRN for FOR COUGH, #240 ML 07/14/21 Lanthanum Carbonate (Fosrenol) 1,000 Mg Chw, 1000 MG PO TIDWM, TAB.CHEW 07/14/21 Fluticasone Propionate (Fluticasone Propionate) 0.05 % Cre, 50 MCG LUKE DAILY for 30 Days, MCG 07/14/21 Cinacalcet Hydrochloride (Sensipar) 30 Mg Tab, 1 TAB PO MWF, #30 TAB 11 Refills 07/14/21 Brimonidine Tartrate (Brimonidine Tartrate) 0.15 % Milady, 1 DROP OP BID, DROP 07/14/21 Ferric Citrate (Auryxia) 210 Mg Tab, 210 MG PO TID, TAB 07/14/21 Acetaminophen (Acetaminophen) 325 Mg Tab, 500 MG PO TID PRN for MILD PAIN (1-3 PAIN SCALE) for 30 Days, MG 0 Refills 07/14/21 Information Source: Emergency Med Personnel Mode of Arrival: EMS Brought in by: EMS Past Medical History PAST MEDICAL HISTORY: AFIB, Anemia, Cancer, CHF, DM, ESRD, High Lipids, HTN Surgical History: PTCA Family History Family History: No family hx of DM, No family hx ofKidney timoteo, Family hx of stroke Social History Smoker: Non-Smoker Alcohol: Denies ETOH Use Drugs: Denies Drug Use Lives In: Home Constitutional: denies: chills, diaphoresis, fatigue, fever, malaise, sweats, weakness, others EENTM: denies: blurred vision, double vision, ear bleeding, ear discharge, ear drainage, ear pain, ear ringing, eye pain, eye redness, hearing loss, mouth pain, mouth swelling, nasal discharge, nose bleeding, nose congestion, nose pain, photophobia, tearing, throat pain, throat swelling, voice changes, others Respiratory: denies: cough, hemoptysis, orthopnea, SOB at rest, shortness of breath, SOB with excertion, stridor, wheezing, others Cardiovascular: denies: chest pain, dizzy spells, diaphoresis, Dyspnea on exertion, edema, irregular heart beat, left arm pain, lightheadedness, palpitations, PND, syncope, others Gastrointestinal: denies: abdomen distended, abdominal pain, blood streaked bowels, constipated, diarrhea, dysphagia, difficulty swallowing, hematemesis, melena, nausea, poor appetite, poor fluid intake, rectal bleeding, rectal pain, vomiting, others Genitourinary: denies: burning, dysuria, flank pain, frequency, hematuria, incontinence, penile discharge, penile sore, pain, testicle pain, testicle swelling, urgency, others Neurological: denies: dizziness, fainting, headache, left sided numbness, left sided weakness, numbness, paresthesia, pre-existing deficit, right sided numbness, right sided weakness, seizure, speech problems, tingling, tremors, weakness, others Musculoskeletal: denies: back pain, gout, joint pain, joint swelling, muscle pain, muscle stiffness, neck pain, others Integumetry: denies: bruises, change in color, change in hair/nails, dryness, laceration, lesions, lumps, rash, wounds, others Allergic/Immunocompromised: denies: Difficulty Healing, Frequent Infections, Hives, Itching, others Hematologic/Lymphatic: denies: anemia, blood clots, easy bleeding, easy bruising, swollen glands, others Endocrine: denies: excessive hunger, excessive sweating, excessive thirst, excessive urination, flushing, intolerance to cold, intolerance to heat, unexplained weight gain, unexplained weight loss, others Psychiatric: denies: anxiety, bipolar disorder, depression, hopeless, panic disorder, schizophrenia, sleepless, suicidal, others Unable to Obtain due to: Altered Mental Status All Other Systems: Reviewed and Negative Physical Exam General Appearance: No Apparent Distress HEENT: PERRL/EOMI Neck: Full Range of Motion, Normal Inspection Respiratory: Lungs Clear, No Accessory Muscle Use, No Respiratory Distress, Normal Breath Sounds Cardiovascular: No Edema, No JVD, Regular Rate/Rhythm Breast Exam: Deferred Gastrointestinal: Non Tender, Soft Genitalia: Normal Pelvic: Deferred Rectal: Deferred Extremities: Normal inspection, Normal range of motion, Non-tender, No pedal edema Neurologic: Other (Somnolent, does not answer questions, withdraws from painful stimulus, moves all extremities) Cerebellar Function: NOT DONE Reflexes: NOT DONE Skin: Dry, Normal Color, Warm Lymphatic: NOT DONE Was a procedure done? Was a procedure done?: No Differential Diagnosis (DM) Differential Diagnosis: Electrolyte Abnormality, Encephalopathy, Hypoglycemia, UTI Other Differential Diagnosis Fluid overload, PNA, sepsis, arrhythmia, MA, CVA, TIA, uremia, electrolyte imbalance, among others X-Ray, Labs, Meds, VS Vital Signs Date Time Temp Pulse Resp B/P (MAP) Pulse Ox O2 Delivery O2 Flow Rate FiO2 10/23/24 11:22 97.8 77 20 123/50 (74) 99 Lab Test 10/23/24 12:08 10/23/24 11:17 10/23/24 11:15 10/23/24 11:02 Range/Units POC Glucose 39 *L 28 *L 70-106 mg/dl White Blood Count 11.3 H 4.4-10.8 10^3/uL Red Blood Count 4.34 L 4.5-5.90 10^6/uL Hemoglobin 11.5 L 13.5-17.5 g/dL Hematocrit 40.7 L 41.0-53.0 % Mean Corpuscular Volume 93.9 80.0-100.0 fL Mean Corpuscular Hemoglobin 26.4 L 28.0-32.0 pg Mean Corpuscular Hemoglobin Concent 28.2 L 32.0-36.0 g/dL Red Cell Distribution Width 25.2 H 11.8-14.3 % Platelet Count 122 L 140-450 10^3/uL Mean Platelet Volume 9.0 6.9-10.8 fL Neutrophils (%) (Auto) 37.0-80.0 % Lymphocytes (%) (Auto) 10.0-50.0 % Monocytes (%) (Auto) 0.0-12.0 % Basophils (%) (Auto) 0.0-2.0 % Neutrophils # (Auto) 1.6-8.6 10 ^3/uL Lymphocytes # (Auto) 0.4-5.4 10 ^3/uL Monocytes # (Auto) 0-1.3 10 ^3/uL Differential Total Cells Counted 100.0 100 Neutrophils % (Manual) 67 37.0-80.0 Band Neutrophils % (Manual) 0 Lymphocytes % (Manual) 9 L 10.0-50.0 Monocytes % (Manual) 21 H 0-12 Eosinophils % (Manual) 0 0-7 Basophils % (Manual) 0 0.0-2.0 Metamyelocytes % (manual) 0 Myelocytes % (Manual) 0 Promyelocytes % (Manual) 0 Blast Cells % (Manual) 3 Reactive Lymphocytes 0 Platelet Estimate Decreased Anisocytosis (manual) Moderate Lactic Acid Level 7.9 *H 0.4-2.0 mmol/L B-Type Natriuretic Peptide 1539.22 0-100 pg/mL Sodium Level 136 136-145 mmol/L Potassium Level 5.1 3.5-5.1 mmol/L Chloride Level 98 98-107 mmol/L Carbon Dioxide Level 17 L 20-31 mmol/L Anion Gap 21 H 5-15 Blood Urea Nitrogen 14 9-23 mg/dL Creatinine 3.73 H 0.700-1.30 mg/dL Glomerular Filtration Rate Calc 15 >90 mL/min BUN/Creatinine Ratio 3.8 L 10.0-20.0 Serum Glucose 33 *L 74-106 mg/dL Calcium Level 9.0 8.7-10.4 mg/dL Total Bilirubin 1.1 H 0.2-1.0 mg/dL Aspartate Amino Transferase (AST) 39 13-40 U/L Alanine Aminotransferase (ALT) 10 7-40 U/L Alkaline Phosphatase 195 H 46-116 U/L Total Protein 7.9 5.7-8.2 g/dL Albumin 4.4 3.2-4.8 g/dL Current Medications Medications (Trade) Dose Ordered Sig/Deann Route Start Time Stop Time Status Last Admin Dextrose 50 ml ONCE ONCE IV 10/23/24 10:45 10/23/24 10:46 DC 10/23/24 10:53 Dextrose 50 ml ONCE ONCE IV 10/23/24 11:30 10/23/24 11:31 DC 10/23/24 11:41 Dextrose 1,000 ml @ 100 mls/hr Q10H ONCE IV 10/23/24 11:45 10/23/24 21:44 10/23/24 11:50 [place] [address] Ph: [phone] DIAGNOSTIC IMAGING Diagnostic Imaging Report : [id number] Signed PATIENT: CONSUELO GIL ACCT: [id number] UNIT: [id number] : 1935 LOC: ER ROOM / BED: / AGE / SEX: 89 / M ADM STATUS: REG ER SERVICE 1043 ORDERING PHYSICIAN: DEISY POWELL MD PROCEDURE(s): CXRP - CHEST PORTABLE REASON: hypogly ORDER NUMBER(s): [id number], ACCESSION NUMBER(s): [id number] INDICATION: hypogly TECHNIQUE: Frontal view of the chest. COMPARISON: XY CHEST PORTABLE on DOS: 06/09/24, XY CHEST PORTABLE on DOS: 05/20/24, XY CHEST PORTABLE on DOS: 04/19/24, XY CHEST PORTABLE on DOS: 04/13/24, XY CHEST XRAY 1 VIEW on DOS: 03/26/24 FINDINGS: . The heart and mediastinal contours are grossly unremarkable. There is no evidence of pleural disease. The lungs are clear. The bony structures of the chest are intact without fracture. IMPRESSION: 1. No evidence of acute disease. ATED BY: DOMINICK DAVIS MD DICTATED DATE/TIME: 10/23/241126 SIGNED BY: DOMINICK DAVIS MD SIGNED DATE/TIME: 10/23/241126 CC: X-Ray, Labs, Meds, VS Comment 89-year-old male with a history of AFib, hypertension, diabetes, CHF, end-stage renal disease on dialysis brought in by EMS from home with altered mental status and found to be hypoglycemic Vitals remarkable for BP 123/50 Exam remarkable for lethargy, no verbal answers to questions, withdrawal from painful stimuli Rhythm strip independently interpreted by me: AFib, rate 77 CT head: Pending Chest x-ray IMPRESSION: 1. No evidence of acute disease. CBC remarkable for WBC 11.3, platelets 122, metabolic panel remarkable for CO2 17, creatinine 3.73, glucose 83, repeat serial Accu-Cheks 28, 28 and 39 Lactate 7.9, BNP 1539.22, troponins pending Patient received oral glucagon administered by EMS Patient treated with the following in the ED: D50 1 amp x4, D10 infusion, Zosyn 4.5 g IV, vancomycin per pharmacy IV. 30 cc/kilogram sepsis bolus not administered due to the patient's history of end- stage renal disease and missed dialysis yesterday. Aggressive fluid hydration could cause harm. Evaluation, patient is able to verbalize and was asking why he was in the hospital. Vitals were stable. Plan is to admit the patient for lactate trend to rule out sepsis, IV antibiotics and blood glucose correction and monitoring. Time of 1ST Reevaluation: 11:30 Reevaluation 1ST: Unchanged Time of 2ND Reevaluation: 12:42 Reevaluation 2ND: Improved Patient Education/Counseling: Other (pt altered) Family Education/Counseling: No Family Present Additional Information -Reviewed patient's previous visit(s): - The following tests were ordered, and results were reviewed by me: cbc, cmp, bnp, chest x-ray, ua, ekg, lactic acid, blood culture, - Additional information was gathered from interviewing the following independent Historian: EMS - I reviewed and agreed with the following test results read by other provider:radiologist - I discussed treatments and results with medical personnel and: patient Comprehensive systems review obtained and negative except for what is stated in the HPI. Departure 1 Departure Time of Disposition: 12:42 Impression: Primary Impression: Hypoglycemia Additional Impressions: Metabolic encephalopathy Elevated lactic acid level Disposition: ADMITTED INPATIENT Admit to: Tele Condition: Guarded Critical Care Note Critical Care Time?: Yes (45 min-critical care time only) Critical care comment: Critical care time including multiple bedside re-evaluations, review of lab and imaging studies, and discussion of the case with the admitting provider. Patient is high risk for metabolic decompensation. Stability Stability form required: No Heart Score Heart Score: Heart Score Response (Comments) Value History N/A 0 EKG N/A 0 Age N/A 0 Risk Factors N/A 0 Troponin N/A 0 Total 0 I personally scribed for DEISY POWELL MD ([facility]) on 10/23/24 at 11:21. Electronically submitted by Bridget Mares ([facility] I personally scribed for DEISY POWELL MD ([facility]) on 10/23/24 at 11:39. Electronically submitted by Bridget Mares ([facility] I personally scribed for DEISY POWELL MD ([facility]) on 10/23/24 at 11:56. Electronically submitted by Bridget Mares ([facility] DEISY POWELL MD Oct 23, 2024 11:21
[2024-10-23] MEDS ORDERED: DEXTROSE 10% 250 ML Bag IV ONE (11:30)
--- NOTE | 2024-10-23 11:30 | DVH ---
INDICATION: hypogly TECHNIQUE: Frontal view of the chest. COMPARISON: XY CHEST PORTABLE on DOS: 06/09/24, XY CHEST PORTABLE on DOS: 05/20/24, XY CHEST PORTABLE on DOS: 04/19/24, XY CHEST PORTABLE on DOS: 04/13/24, XY CHEST XRAY 1 VIEW on DOS: 03/26/24 FINDINGS: . The heart and mediastinal contours are grossly unremarkable. There is no evidence of pleural disea se. The lungs are clear. The bony structures of the chest are intact without fracture. IMPRESSION: 1. No evidence of acute disease.
[2024-10-23 11:32] LABS: Alanine Aminotransferase 10 U/L (7-40); Albumin 4.4 g/dL (3.2-4.8); Aspartate Aminotransferase 39 U/L (13-40); Blood Urea Nitrogen 14 mg/dL (9-23); Total Protein 7.9 g/dL (5.7-8.2)
[2024-10-23 11:32] LABS: Hemoglobin 11.5 g/dL (13.5-17.5)
[2024-10-23 11:33] LABS: Bilirubin, Total 1.1 mg/dL (0.2-1.0)
[2024-10-23 11:34] LABS: Hematocrit 40.7 % (41.0-53.0); Mean Corpuscular Hemoglobin 26.4 pg (28.0-32.0); Mean Corpuscular Hgb Conc. 28.2 g/dL (32.0-36.0); Mean Corpuscular Volume 93.9 fL (80.0-100.0); Platelet Count (auto) 122 10^3/uL (140-450); Red Blood Cells 4.34 10^6/uL (4.5-5.90); White Blood Cell 11.3 10^3/uL (4.4-10.8)
[2024-10-23 11:38] LABS: Red Cell Distribution Width 25.2 % (11.8-14.3)
[2024-10-23 11:39] LABS: Band Neutrophils % (manual) 0; Basophils % (manual) 0 (0.0-2.0); Eosinophils % (manual) 0 (0-7); Metamyelocytes % 0; Myelocytes % 0; Promyelocytes % 0; Reactive Lymphocytes 0
[2024-10-23 11:43] LABS: Chloride 98 mmol/L (98-107)
[2024-10-23 11:48] LABS: Anion Gap 21 (5-15); Carbon Dioxide 17 mmol/L (20-31); Potassium 5.1 mmol/L (3.5-5.1); Sodium 136 mmol/L (136-145)
[2024-10-23] MEDS: DEXTROSE 10% 1,000 ML IV ONE (11:50)
[2024-10-23 11:53] LABS: Alkaline Phosphatase 195 U/L (46-116)
[2024-10-23 11:57] LABS: Glucose 33 mg/dL (74-106)
[2024-10-23 11:58] LABS: BUN/Creatinine Ratio 3.8 (10.0-20.0)
[2024-10-23 12:04] LABS: Lactic Acid w/Reflex 7.9 mmol/L (0.4-2.0)
[2024-10-23 12:18] LABS: Anisocytosis Moderate; Blast Cells 3; Lymphocytes % (manual) 9 (10.0-50.0); Monocytes % (manual) 21 (0-12); Platelet Estimate Decreased
[2024-10-23] MEDS ORDERED: VANCOMYCIN PER PHARMACY 0 MG IV SCH (12:45)
[2024-10-23] MEDS: PIPERACILLIN-TAZO 4.5GM 100 ML IV ONE (13:17)
--- NOTE | 2024-10-23 13:21 | DVH ---
EXAM: CT HEAD WITHOUT CONTRAST HISTORY: aloc COMPARISON: CT HEAD WITHOUT CONTRAST on DOS: 03/23/24, CT HEAD WITHOUT CONTRAST on DOS: 03/20/24 TECHNIQUE: Axial images of the head were obtained and reformatted in coronal and sagittal planes. All CT scans at this medical facility are performed using dose modulation techniques as appropriate t o a performed exam including the following: Automated exposure control was utilized; adjustment of th e MA and/or KV according to patient size; and use of iterative reconstruction technique. CT Dose: CTDI volume is 48 mGy. Dose-length product is 863 mGy*cm FINDINGS: There is no evidence of acute intracranial hemorrhage, mass, mass effect midline shift. There is no h ydrocephalus or extra-axial fluid collection. There is moderate age concordant parenchymal volume los s. There are chronic microvascular ischemic changes in the supratentorial white matter. Dukes-white m atter differentiation is maintained. The visualized paranasal sinuses and mastoid air cells are clear. The calvarium is intact. IMPRESSION: 1. No acute intracranial process. HS:Y
--- NOTE | 2024-10-23 13:24 | DVHHP2 ---
Admitting Diagnosis: hypoglycemia Patient Family History: Cerebrovascular accident (CVA) G8 FATHER, Onset:Unknown Diabetes mellitus G8 FATHER, Onset:Unknown FH: hypertension G8 FATHER, Onset:Unknown Hypertension G8 FATHER, Onset:Unknown Allergies: Coded Allergies: Amlodipine (Verified Allergy, Unknown, 05/20/24) Home Meds Active Scripts Metronidazole (Flagyl) 500 Mg Tab, 1 TAB PO TID for 5 Days, #15 TAB Prov:ANNETTA RUIZ PROCESSING CLERK 06/25/24 Hydrocortisone Acetate (ANUCORT-HC SUPPOSITORY) 25 Mg Sanchez, 25 MG [place] DAILY for 5 Days, #5 SUPP Prov:ANNETTA RUIZ PROCESSING CLERK 06/25/24 Morphine Sulfate (Morphine Sulfate) 15 Mg Tab, 1 TAB PO TID PRN, #60 TAB Prov:DEBORAH MCCARTY MD 05/22/24 Atorvastatin Calcium (ATORVASTATIN CALCIUM) 20 Mg Tab, 40 MG PO HS for 20 Days, #40 TAB Prov:ESTELLA FREEMAN MD 02/19/19 Aspirin (Aspir-Low Ec) 81 Mg Tb, 81 MG PO DAILY for 20 Days, #60 Prov:ESTELLA FREEMAN MD 02/19/19 Reported Medications Baclofen (Baclofen) 10 Mg Tab, 10 MG PO TID, TAB 03/30/24 Apixaban Base (ELIQUIS) 2.5 Mg Tab, 2.5 MG PO BID, TAB 03/30/24 Simethicone (Simethicone) 80 Mg Chw, 80 MG PO Q6HPRN, MG 07/14/21 Sevelamer Carbonate (Renvela) 800 Mg Tab, 2 TAB PO TIDWM, #540 TAB 3 Refills 07/14/21 B-Complex W/ C & Folic Acid (Renal) Softgel Cap, 1 TAB PO DAILY, #30 CAP 5 Refills 07/14/21 Montelukast Sodium (Singulair) 5 Mg Chw, 2 TAB PO DAILY, #30 TAB 5 Refills 07/14/21 Metoprolol Succinate (Metoprolol Succinate Er) 50 Mg Tab, 50 MG PO DAILY for 30 Days, MG 07/14/21 Melatonin (KP MELATONIN) 3 Mg Tab, 5 MG PO HSPRN, TAB 07/14/21 Nifedipine (Nifedipine ER) 30 Mg Tab, 60 MG PO DAILY, TAB 07/14/21 Latanoprost (Xalatan) 0.005 % Milady, 1 DROP EACHEYE QPM, #2.5 ML 6 Refills 07/14/21 Guaifenesin-Codeine (Guaifenesin Ac) Ac Syp, 10 ML PO Q6HPRN PRN for FOR COUGH, #240 ML 07/14/21 Lanthanum Carbonate (Fosrenol) 1,000 Mg Chw, 1000 MG PO TIDWM, TAB.CHEW 07/14/21 Fluticasone Propionate (Fluticasone Propionate) 0.05 % Cre, 50 MCG LUKE DAILY for 30 Days, MCG 07/14/21 Cinacalcet Hydrochloride (Sensipar) 30 Mg Tab, 1 TAB PO MWF, #30 TAB 11 Refills 07/14/21 Brimonidine Tartrate (Brimonidine Tartrate) 0.15 % Milady, 1 DROP OP BID, DROP 07/14/21 Ferric Citrate (Auryxia) 210 Mg Tab, 210 MG PO TID, TAB 07/14/21 Acetaminophen (Acetaminophen) 325 Mg Tab, 500 MG PO TID PRN for MILD PAIN (1-3 PAIN SCALE) for 30 Days, MG 0 Refills 07/14/21 Current Medications Current Medications Medications (Trade) Dose Ordered Sig/Deann Route PRN Reason Start Time Stop Time Status Last Admin Vancomycin HCl 0 ml @ 0 mls/hr UD IV 10/23/24 12:45 Piperacillin Sod/ Tazobactam Sod 100 ml @ 100 mls/hr BID IV 10/23/24 22:00 UNV Sodium Chloride (Saline Lock Ns) 10 ml Q8HR IV 10/23/24 22:00 Docusate Sodium (Colace Capsule) 100 mg BIDPRN PRN PO FOR CONSTIPATION 10/23/24 14:15 Acetaminophen (Tylenol Tablet) 650 mg Q6HP PRN PO PAIN SCALE 1-3 OR TEMP>100.4 10/23/24 14:15 Acetaminophen/ Hydrocodone Bitart (Rhine 5/325MG Tab) 1 tab Q4HP PRN PO MODERATE PAIN (4-6 PAIN SCALE) 10/23/24 14:15 Hydromorphone HCl (Dilaudid Injection) 0.5 mg Q4HP PRN IV SEVERE PAIN (7-10 PAIN SCALE) 10/23/24 14:15 Ondansetron HCl (Zofran) 4 mg Q4HP PRN IV NAUSEA / VOMITING 10/23/24 14:15 Piperacillin Sod/ Tazobactam Sod 100 ml @ 25 mls/hr Q12H IV 10/23/24 15:00 Apixaban (Eliquis) 2.5 mg BID PO 10/23/24 22:00 Aspirin (Ecotrin Enteric Coated Tablet) 81 mg DAILY PO 10/24/24 10:00 Atorvastatin Calcium (Lipitor) 40 mg HS PO 10/23/24 22:00 Latanoprost (Xalatan) 1 drop QPM EACHEYE 10/23/24 18:00 Metoprolol Succinate (Toprol Xl) 50 mg DAILY PO 10/24/24 10:00 Nifedipine (Procardia Xl (Time-Release)) 60 mg DAILY PO 10/24/24 10:00 UNV Dimethicone (Mylicon Tab) 80 mg Q6HPRN PO 10/23/24 18:00 Patient Own Medication 1 tab DAILY PO 10/24/24 10:00 UNV Patient Own Medication 1 drop BID OP 10/23/24 22:00 UNV Patient Own Medication 210 mg TID PO 10/23/24 22:00 UNV Patient Own Medication 50 mcg DAILY LUKE 10/24/24 10:00 UNV Patient Own Medication 1,000 mg TIDWM PO 10/23/24 18:00 UNV Patient Own Medication 5 mg HSPRN PO 10/23/24 22:00 UNV Patient Own Medication 2 tab DAILY PO 10/24/24 10:00 UNV Patient Own Medication 2 tab TIDWM PO 10/23/24 18:00 UNV Vital Signs Vital Signs Date Time Temp Pulse Resp B/P (MAP) Pulse Ox O2 Delivery O2 Flow Rate FiO2 10/23/24 13:13 74 10/23/24 11:22 97.8 20 123/50 (74) 99 Physical Exam General-89 years old male, well nourished well developed. No apparent distress HEENT-atraumatic normocephalic Heart-irregularly irregular Lungs clear to auscultate bilaterally Abdomen soft, mild discomfort, nondistended Musculoskeletal-pedal edema, no cyanosis. left AVF palpable thrill Neuro-AO x3, answer questions, strenth and sensation intact. Results Labs Test 10/23/24 13:26 10/23/24 13:20 10/23/24 11:17 10/23/24 11:02 Range/Units Lactic Acid Level 9.5 *H 0.4-2.0 mmol/L Troponin I High Sensitivity 382 *H </=54 ng/L POC Glucose 145 H 70-106 mg/dl White Blood Count 11.3 H 4.4-10.8 10^3/uL Red Blood Count 4.34 L 4.5-5.90 10^6/uL Hemoglobin 11.5 L 13.5-17.5 g/dL Hematocrit 40.7 L 41.0-53.0 % Mean Corpuscular Volume 93.9 80.0-100.0 fL Mean Corpuscular Hemoglobin 26.4 L 28.0-32.0 pg Mean Corpuscular Hemoglobin Concent 28.2 L 32.0-36.0 g/dL Red Cell Distribution Width 25.2 H 11.8-14.3 % Platelet Count 122 L 140-450 10^3/uL Mean Platelet Volume 9.0 6.9-10.8 fL Neutrophils (%) (Auto) 37.0-80.0 % Lymphocytes (%) (Auto) 10.0-50.0 % Monocytes (%) (Auto) 0.0-12.0 % Basophils (%) (Auto) 0.0-2.0 % Neutrophils # (Auto) 1.6-8.6 10 ^3/uL Lymphocytes # (Auto) 0.4-5.4 10 ^3/uL Monocytes # (Auto) 0-1.3 10 ^3/uL Differential Total Cells Counted 100.0 100 Neutrophils % (Manual) 67 37.0-80.0 Band Neutrophils % (Manual) 0 Lymphocytes % (Manual) 9 L 10.0-50.0 Monocytes % (Manual) 21 H 0-12 Eosinophils % (Manual) 0 0-7 Basophils % (Manual) 0 0.0-2.0 Metamyelocytes % (manual) 0 Myelocytes % (Manual) 0 Promyelocytes % (Manual) 0 Blast Cells % (Manual) 3 Reactive Lymphocytes 0 Platelet Estimate Decreased Anisocytosis (manual) Moderate B-Type Natriuretic Peptide 1539.22 0-100 pg/mL Sodium Level 136 136-145 mmol/L Potassium Level 5.1 3.5-5.1 mmol/L Chloride Level 98 98-107 mmol/L Carbon Dioxide Level 17 L 20-31 mmol/L Anion Gap 21 H 5-15 Blood Urea Nitrogen 14 9-23 mg/dL Creatinine 3.73 H 0.700-1.30 mg/dL Glomerular Filtration Rate Calc 15 >90 mL/min BUN/Creatinine Ratio 3.8 L 10.0-20.0 Serum Glucose 33 *L 74-106 mg/dL Calcium Level 9.0 8.7-10.4 mg/dL Total Bilirubin 1.1 H 0.2-1.0 mg/dL Aspartate Amino Transferase (AST) 39 13-40 U/L Alanine Aminotransferase (ALT) 10 7-40 U/L Alkaline Phosphatase 195 H 46-116 U/L Total Protein 7.9 5.7-8.2 g/dL Albumin 4.4 3.2-4.8 g/dL Primary Diagnosis Hypoglycemia Leukocytosis rule out infection elevated trop r/o acs Lactic acidosis Plan Chest x-ray is clear Start D10 NS for hypoglycemia pt denies antihyperglycemic medication Hemodialysis session Sunday. Nephrology consult for hemodialysis on 10/24 Zosyn for possible intra-abdominal infection check bcx, sputum cx, UA and UCx check ct abd/pelv Trend lactic acid Trend troponin Check echo of the heart cardiology consult for elevated trop r/o acs neuro check Full code renal diet eliquis for dvt ppi for gi ppx Plan discussed with: Patient Problems List: (1) Elevated troponin (2) ESRD on dialysis Status: Acute (3) Generalized weakness Status: Acute Date of Service: Oct 23, 2024 Billing Provider: KULWINDER THOMAS MD Common Visit Codes: [id number] INP/OBS CARE (HIGH) KULWINDER THOMAS MD Oct 23, 2024 13:24
[2024-10-23] MEDS ORDERED: D5W/SOD CHLO 0.9% 1,000 ML IV ONE (13:30)
--- NOTE | 2024-10-23 13:36 | ECG ---
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
[2024-10-23] MEDS: ASPirin 325 MG TAB PO ONE (13:44)
[2024-10-23] MEDS ORDERED: ONDANSETRON HCL 4 MG/2 ML VIAL IV PRN (14:15)
[2024-10-23] MEDS ORDERED: HYDROcodone-ACET 5/325MG TAB PO PRN (14:15)
[2024-10-23] MEDS ORDERED: HYDROmorphone HCL 2 MG/ML VL/or syr IV PRN (14:15)
[2024-10-23] MEDS: VANCOMYCIN 500mg/100mL 100 ML IV ONE (14:36)
[2024-10-23] MEDS ORDERED: PIPERACILLIN-TAZOB 3.375GM 100 ML IV SCH (15:00)
--- NOTE | 2024-10-23 15:53 | DVHINCON2 ---
TIEN REYNOLDS [facility] 10/23/24 1553: Date Seen: Oct 23, 2024 Referring Physician MD Leon Reason for Consultation Elevated troponin History of Present Illness This is an 89-year-old male patient who presents to emergency room with chief complaint of altered level of consciousness. At the time of assessment, the patient was alert and oriented x3 and able to answer all questions appropriately. Per the patient he states he was brought in for "low blood sugar". According to records, the patient became altered at home so his called 911. When EMS arrived, the patient was found to have blood glucose levels as low as 20's. He was brought to the emergency room for further evaluation. Cardiology is now being consulted at this time for elevated troponin level. Initial twelve lead electrocardiogram reveals atrial fibrillation with right bundle branch block. The patient denies any cardiac symptoms. Initial troponin level of 280ng/L. Significant past medical history includes congestive heart failure, atrial fibrillation (on Eliquis), n onsustained ventricular tachycardia, history of DVT of the right radial vein, severe pulmonary hypertension, hypertension, dyslipidemia, type 2 diabetes mellitus, COPD with home O2, and end-stage renal disease on hemodialysis. The patient denies following up with a mortuary operations manager in the outpatient setting. Past Medical History Past medical history reviewed. No other significant than mentioned above. Past Surgical History Dialysis access Cataract surgery Family History: Cerebrovascular accident (CVA) G8 FATHER, Onset:Unknown Diabetes mellitus G8 FATHER, Onset:Unknown FH: hypertension G8 FATHER, Onset:Unknown Hypertension G8 FATHER, Onset:Unknown Family History Family history reviewed. Social History Denies the use of tobacco, alcohol or illicit drugs. Allergies: Coded Allergies: Amlodipine (Verified Allergy, Unknown, 05/20/24) Home Meds Active Scripts Metronidazole (Flagyl) 500 Mg Tab, 1 TAB PO TID for 5 Days, #15 TAB Prov:ANNETTA RUIZ [employer]IST [employer] 06/25/24 Hydrocortisone Acetate (ANUCORT-HC SUPPOSITORY) 25 Mg Sanchez, 25 MG MO DAILY for 5 Days, #5 SUPP Prov:ANNETTA RUIZ ARTIST [employer]NE[employer] 06/25/24 Morphine Sulfate (Morphine Sulfate) 15 Mg Tab, 1 TAB PO TID PRN, #60 TAB Prov:DEBORAH MCCARTY MD 05/22/24 Atorvastatin Calcium (ATORVASTATIN CALCIUM) 20 Mg Tab, 40 MG PO HS for 20 Days, #40 TAB Prov:ESTELLA FREEMAN MD 02/19/19 Aspirin (Aspir-Low Ec) 81 Mg Tb, 81 MG PO DAILY for 20 Days, #60 Prov:ESTELLA FREEMAN MD 02/19/19 Reported Medications Baclofen (Baclofen) 10 Mg Tab, 10 MG PO TID, TAB 03/30/24 Apixaban Base (ELIQUIS) 2.5 Mg Tab, 2.5 MG PO BID, TAB 03/30/24 Simethicone (Simethicone) 80 Mg Chw, 80 MG PO Q6HPRN, MG 07/14/21 Sevelamer Carbonate (Renvela) 800 Mg Tab, 2 TAB PO TIDWM, #540 TAB 3 Refills 07/14/21 B-Complex W/ C & Folic Acid (Renal) Softgel Cap, 1 TAB PO DAILY, #30 CAP 5 Refills 07/14/21 Montelukast Sodium (Singulair) 5 Mg Chw, 2 TAB PO DAILY, #30 TAB 5 Refills 07/14/21 Metoprolol Succinate (Metoprolol Succinate Er) 50 Mg Tab, 50 MG PO DAILY for 30 Days, MG 07/14/21 Melatonin (KP MELATONIN) 3 Mg Tab, 5 MG PO HSPRN, TAB 07/14/21 Nifedipine (Nifedipine ER) 30 Mg Tab, 60 MG PO DAILY, TAB 07/14/21 Latanoprost (Xalatan) 0.005 % Milady, 1 DROP EACHEYE QPM, #2.5 ML 6 Refills 07/14/21 Guaifenesin-Codeine (Guaifenesin Ac) Ac Syp, 10 ML PO Q6HPRN PRN for FOR COUGH, #240 ML 07/14/21 Lanthanum Carbonate (Fosrenol) 1,000 Mg Chw, 1000 MG PO TIDWM, TAB.CHEW 07/14/21 Fluticasone Propionate (Fluticasone Propionate) 0.05 % Cre, 50 MCG LUKE DAILY for 30 Days, MCG 07/14/21 Cinacalcet Hydrochloride (Sensipar) 30 Mg Tab, 1 TAB PO MWF, #30 TAB 11 Refills 07/14/21 Brimonidine Tartrate (Brimonidine Tartrate) 0.15 % Milady, 1 DROP OP BID, DROP 07/14/21 Ferric Citrate (Auryxia) 210 Mg Tab, 210 MG PO TID, TAB 07/14/21 Acetaminophen (Acetaminophen) 325 Mg Tab, 500 MG PO TID PRN for MILD PAIN (1-3 PAIN SCALE) for 30 Days, MG 0 Refills 07/14/21 Home Meds Home medications reviewed. Current Medications Current Medications Medications (Trade) Dose Ordered Sig/Deann Route PRN Reason Start Time Stop Time Status Last Admin Vancomycin HCl 0 ml @ 0 mls/hr UD IV 10/23/24 12:45 Piperacillin Sod/ Tazobactam Sod 100 ml @ 100 mls/hr BID IV 10/23/24 22:00 UNV Sodium Chloride (Saline Lock Ns) 10 ml Q8HR IV 10/23/24 22:00 Docusate Sodium (Colace Capsule) 100 mg BIDPRN PRN PO FOR CONSTIPATION 10/23/24 14:15 Acetaminophen (Tylenol Tablet) 650 mg Q6HP PRN PO PAIN SCALE 1-3 OR TEMP>100.4 10/23/24 14:15 Acetaminophen/ Hydrocodone Bitart ([place] 5/325MG Tab) 1 tab Q4HP PRN PO MODERATE PAIN (4-6 PAIN SCALE) 10/23/24 14:15 Hydromorphone HCl (Dilaudid Injection) 0.5 mg Q4HP PRN IV SEVERE PAIN (7-10 PAIN SCALE) 10/23/24 14:15 Ondansetron HCl (Zofran) 4 mg Q4HP PRN IV NAUSEA / VOMITING 10/23/24 14:15 Piperacillin Sod/ Tazobactam Sod 100 ml @ 25 mls/hr Q12H IV 10/23/24 15:00 Apixaban (Eliquis) 2.5 mg BID PO 10/23/24 22:00 Aspirin (Ecotrin Enteric Coated Tablet) 81 mg DAILY PO 10/24/24 10:00 Atorvastatin Calcium (Lipitor) 40 mg HS PO 10/23/24 22:00 Latanoprost (Xalatan) 1 drop QPM EACHEYE 10/23/24 18:00 Metoprolol Succinate (Toprol Xl) 50 mg DAILY PO 10/24/24 10:00 Nifedipine (Procardia Xl (Time-Release)) 60 mg DAILY PO 10/24/24 10:00 Future Hold Dimethicone (Mylicon Tab) 80 mg Q6HPRN PO 10/23/24 18:00 Patient Own Medication 1 tab DAILY PO 10/24/24 10:00 UNV Patient Own Medication 1 drop BID OP 10/23/24 22:00 Patient Own Medication 210 mg TID PO 10/23/24 22:00 Patient Own Medication 50 mcg DAILY EACHNOSTRI 10/24/24 10:00 Patient Own Medication 1,000 mg TIDWM PO 10/23/24 18:00 Patient Own Medication 5 mg HSPRN PRN PO sleep 10/23/24 22:00 Patient Own Medication 2 tab DAILY PO 10/24/24 10:00 UNV Patient Own Medication 2 tab TIDWM PO 10/23/24 18:00 UNV Multivit/Ca Carb/ B Cmplx/FA/Prenat (Nephro-Sharon Tablet) 1 tab DAILY PO 10/24/24 10:00 Sevelamer HCl (Renagel) 1,600 mg TIDWM PO 10/23/24 18:00 Montelukast Sodium (Singulair Tablet) 10 mg DAILY PO 10/24/24 10:00 Review of Systems Constitutional: No symptom reported Ears, Nose, & Throat: No symptom reported Eyes: No symptom reported Neurological: Altered level of mentation Pulmonary/Respiratory: No symptoms reported Cardiovascular: No symptom reported Gastrointestinal: No symptom reported Genitourinary: No symptom reported Musculoskeletal: No symptom reported Skin: No symptom reported Psychiatric: No symptom reported Endocrine: No symptom reported Hematologic/Lymphatic: No symptom reported Vital Signs Vital Signs Date Time Temp Pulse Resp B/P (MAP) Pulse Ox O2 Delivery O2 Flow Rate FiO2 10/23/24 14:00 97.7 66 15 134/59 (84) 98 97.7 10/23/24 10:50 Nasal Cannula* 4 36 Physical Exam General Appearance: Cooperative. Frail Pulmonary/Respiratory: Clear, bilateral breaths sounds. Cardiovascular/Chest: Irregular rate and rhythm. Peripheral Pulses: 2+ Radial (R). 2+ Radial (L). 1+ Pedal (R). 1+ Pedal (L) Abdominal Exam: Normal bowel sounds. Ankle Exam: 3+ pitting edema Lower extremities: 4+ pitting edema Neuro/Mental Status: A/OX4, coherent. Thoughts/Psych: Normal thought pattern. Appropriate mood and affect. Good judgment and insight. Appearance: No acute distress. Skin Exam: Normal inspection. Normal color. Warm and dry. Labs/Diagnostic Data Labs Test 10/23/24 15:09 10/23/24 13:26 10/23/24 11:17 10/23/24 11:02 Range/Units POC Glucose 263 H 70-106 mg/dl Lactic Acid Level 9.5 *H 0.4-2.0 mmol/L Troponin I High Sensitivity 382 *H </=54 ng/L White Blood Count 11.3 H 4.4-10.8 10^3/uL Red Blood Count 4.34 L 4.5-5.90 10^6/uL Hemoglobin 11.5 L 13.5-17.5 g/dL Hematocrit 40.7 L 41.0-53.0 % Mean Corpuscular Volume 93.9 80.0-100.0 fL Mean Corpuscular Hemoglobin 26.4 L 28.0-32.0 pg Mean Corpuscular Hemoglobin Concent 28.2 L 32.0-36.0 g/dL Red Cell Distribution Width 25.2 H 11.8-14.3 % Platelet Count 122 L 140-450 10^3/uL Mean Platelet Volume 9.0 6.9-10.8 fL Neutrophils (%) (Auto) 37.0-80.0 % Lymphocytes (%) (Auto) 10.0-50.0 % Monocytes (%) (Auto) 0.0-12.0 % Basophils (%) (Auto) 0.0-2.0 % Neutrophils # (Auto) 1.6-8.6 10 ^3/uL Lymphocytes # (Auto) 0.4-5.4 10 ^3/uL Monocytes # (Auto) 0-1.3 10 ^3/uL Differential Total Cells Counted 100.0 100 Neutrophils % (Manual) 67 37.0-80.0 Band Neutrophils % (Manual) 0 Lymphocytes % (Manual) 9 L 10.0-50.0 Monocytes % (Manual) 21 H 0-12 Eosinophils % (Manual) 0 0-7 Basophils % (Manual) 0 0.0-2.0 Metamyelocytes % (manual) 0 Myelocytes % (Manual) 0 Promyelocytes % (Manual) 0 Blast Cells % (Manual) 3 Reactive Lymphocytes 0 Platelet Estimate Decreased Anisocytosis (manual) Moderate B-Type Natriuretic Peptide 1539.22 0-100 pg/mL Sodium Level 136 136-145 mmol/L Potassium Level 5.1 3.5-5.1 mmol/L Chloride Level 98 98-107 mmol/L Carbon Dioxide Level 17 L 20-31 mmol/L Anion Gap 21 H 5-15 Blood Urea Nitrogen 14 9-23 mg/dL Creatinine 3.73 H 0.700-1.30 mg/dL Glomerular Filtration Rate Calc 15 >90 mL/min BUN/Creatinine Ratio 3.8 L 10.0-20.0 Serum Glucose 33 *L 74-106 mg/dL Calcium Level 9.0 8.7-10.4 mg/dL Total Bilirubin 1.1 H 0.2-1.0 mg/dL Aspartate Amino Transferase (AST) 39 13-40 U/L Alanine Aminotransferase (ALT) 10 7-40 U/L Alkaline Phosphatase 195 H 46-116 U/L Total Protein 7.9 5.7-8.2 g/dL Albumin 4.4 3.2-4.8 g/dL Assessment NSTEMI, likely type II Unspecified atrial fibrillation, on low-dose Eliquis at home Chronic HFpEF, NYHA class II History of nonsustained ventricular tachycardia Hx of DVT of the right radial vein (03/28/24) Hypoglycemia Sepsis Pulmonary hypertension, severe degree Tricuspid valve regurgitation, severe degree Hypertension Dyslipidemia COPD Type 2 diabetes mellitus ESRD on HD Plan/Recommendation We will continue with the following plan/recommendations (Dr. Baker): Patient seen and examined at bedside with . Transthoracic echocardiogram reveals EF 60-65%, RVSP 55 mmHg. Elevated troponin level likely secondary to demand ischemia as patient was noted to have elevated lactic leve ls, elevated white blood cell count,derangement in glucose levels, and is a end- stage renal failure patient on hemodialysis. [id number] VASc score: 6 points, continue low-dose NOAC therapy as tolerated. There is no further inpatient cardiac workup indicated at this time. Please reconsult if needed. Thank you for allowing us to care for this patient. Please call with any questions or concerns. Critical care time spent: 42 minutes This medical document was created using an electronic medical record system with voice recognition software and computerized dictation system. Although this document has been carefully reviewed, there might still be some phonetic and typographical errors. Occasional wrong-word or ``sound-alike substitutions may have occurred due to the inherent limitations of voice recognition software. These areas are purely typographical due to imperfections of the software programs and do not reflect any compromise in the patient's medical care. Please read the chart carefully and recognize, using context, where these substitutions have occurred. Plan discussed with: Patient NYHA Physical activity limitations: Class3(Marked) ordinary (activity causes symtoms) Date of Service: Oct 23, 2024 Billing Provider: TIEN REYNOLDS Cardiology Common Codes: 36309-[id number] INP/OBS CARE (High) Cardiology Consultation Codes: 86019-[id number] CONSULT <45MIN ANAID BAKER DO 10/23/242156: Date Seen: Oct 23, 2024 Family History: Cerebrovascular accident (CVA) G8 FATHER, Onset:Unknown Diabetes mellitus G8 FATHER, Onset:Unknown FH: hypertension G8 FATHER, Onset:Unknown Hypertension G8 FATHER, Onset:Unknown Allergies: Coded Allergies: Amlodipine (Verified Allergy, Unknown, 05/20/24) Home Meds Active Scripts Metronidazole (Flagyl) 500 Mg Tab, 1 TAB PO TID for 5 Days, #15 TAB Prov:ANNETTA RUIZ NP 06/25/24 Hydrocortisone Acetate (ANUCORT-HC SUPPOSITORY) 25 Mg Sanchez, 25 MG MO DAILY for 5 Days, #5 SUPP Prov:ANNETTA RUIZ NP 06/25/24 Morphine Sulfate (Morphine Sulfate) 15 Mg Tab, 1 TAB PO TID PRN, #60 TAB Prov:DEBORAH MCCARTY MD 05/22/24 Atorvastatin Calcium (ATORVASTATIN CALCIUM) 20 Mg Tab, 40 MG PO HS for 20 Days, #40 TAB Prov:ESTELLA FREEMAN MD 02/19/19 Aspirin (Aspir-Low Ec) 81 Mg Tb, 81 MG PO DAILY for 20 Days, #60 Prov:ESTELLA FREEMAN MD 02/19/19 Reported Medications Baclofen (Baclofen) 10 Mg Tab, 10 MG PO TID, TAB 03/30/24 Apixaban Base (ELIQUIS) 2.5 Mg Tab, 2.5 MG PO BID, TAB 03/30/24 Simethicone (Simethicone) 80 Mg Chw, 80 MG PO Q6HPRN, MG 07/14/21 Sevelamer Carbonate (Renvela) 800 Mg Tab, 2 TAB PO TIDWM, #540 TAB 3 Refills 07/14/21 B-Complex W/ C & Folic Acid (Renal) Softgel Cap, 1 TAB PO DAILY, #30 CAP 5 Refills 07/14/21 Montelukast Sodium (Singulair) 5 Mg Chw, 2 TAB PO DAILY, #30 TAB 5 Refills 07/14/21 Metoprolol Succinate (Metoprolol Succinate Er) 50 Mg Tab, 50 MG PO DAILY for 30 Days, MG 07/14/21 Melatonin (KP MELATONIN) 3 Mg Tab, 5 MG PO HSPRN, TAB 07/14/21 Nifedipine (Nifedipine ER) 30 Mg Tab, 60 MG PO DAILY, TAB 07/14/21 Latanoprost (Xalatan) 0.005 % Milady, 1 DROP EACHEYE QPM, #2.5 ML 6 Refills 07/14/21 Guaifenesin-Codeine (Guaifenesin Ac) Ac Syp, 10 ML PO Q6HPRN PRN for FOR COUGH, #240 ML 07/14/21 Lanthanum Carbonate (Fosrenol) 1,000 Mg Chw, 1000 MG PO TIDWM, TAB.CHEW 07/14/21 Fluticasone Propionate (Fluticasone Propionate) 0.05 % Cre, 50 MCG LUKE DAILY for 30 Days, MCG 07/14/21 Cinacalcet Hydrochloride (Sensipar) 30 Mg Tab, 1 TAB PO MWF, #30 TAB 11 Refills 07/14/21 Brimonidine Tartrate (Brimonidine Tartrate) 0.15 % Milady, 1 DROP OP BID, DROP 07/14/21 Ferric Citrate (Auryxia) 210 Mg Tab, 210 MG PO TID, TAB 07/14/21 Acetaminophen (Acetaminophen) 325 Mg Tab, 500 MG PO TID PRN for MILD PAIN (1-3 PAIN SCALE) for 30 Days, MG 0 Refills 07/14/21 Plan/Recommendation The patient was seen and examined with Tien Reynolds NP. I agree with her Assessment and Plan which was formulated with me. Plan discussed with: Patient Date of Service: Oct 23, 2024 Billing Provider: ANAID BAKER DO Cardiology Common Codes: [id number] INP/OBS CARE (High) TIEN REYNOLDS Oct 23, 2024 15:53 ANAID BAKER DO Oct 23, 2024 21:57
--- NOTE | 2024-10-23 15:57 | DVH ---
Exam: CT CT AB PEL WO CON-NO ORAL OR IV History: assess for intra-abdominal infection Comparison Study: CT CT AB PEL WO CON-NO ORAL OR IV on DOS: 06/22/24, CT CT AB PEL WO CON-NO ORAL OR IV on DOS: 06/08/24, CT CT AB PEL WO CON-NO ORAL OR IV on DOS: 05/20/24 TECHNIQUE: Multidetector CT of the abdomen and pelvis was performed from lung bases to pubic symphysi s. Imaging was performed without IV contrast. Axial, coronal, and sagittal multiplanar reformats were obtained from the axial data set by the technologist. RADIATION DOSE: DLP 948.25 mGy.cm; CTDI vol 19.81 mGy. Findings: Limited evaluation given noncontrast technique. Lungs: Trace bilateral pleural effusions. Mild bilateral lower lobe nodular consolidations. Heart: Cardiomegaly. No pericardial effusion. Liver: Unremarkable. Gallbladder: Unremarkable. Spleen: Unremarkable Pancreas: Unremarkable Adrenals: Unremarkable Kidneys: Bilateral renal atrophy and renal cysts. GI tract: Unremarkable : Bilateral hydroceles. Brachytherapy seeds in the prostate. Vasculature: Mild aortoiliac atherosclerosis. Right femoral central line terminates near the proximal internal iliac vein. Lymphadenopathy: Absent Peritoneum: Mild volume ascites. Musculoskeletal: Moderate multilevel degenerative changes of the thoracolumbar spine Soft tissues: Mild anasarca. Impression: 1. Limited evaluation given noncontrast technique. 2. No acute abdominopelvic abnormalities. 3. Mild bilateral lower lobe nodular consolidations favored to reflect an infectious / inflammatory e tiology. 4. Trace bilateral pleural effusions. 5. Cardiomegaly.
[2024-10-23 16:13] LABS: COVID19 ANTIGEN SOFIA FIA NEGATIVE (NEGATIVE)
[2024-10-23 16:14] LABS: Rapid Influenza A Negative (Negative); Rapid Influenza B Negative (Negative)
[2024-10-23] MEDS: D5W/SOD CHLO 0.9% 1,000 ML IV SCH (17:00)
[2024-10-23] MEDS: SEVELAMER 800 MG TAB PO SCH (17:44)
[2024-10-23] MEDS: SIMETHICONE 80 MG CHEWABLE TABLET PO SCH (17:45)
[2024-10-23 17:52] VITALS: BP 120/72; PULSE 69; RESP 16; TEMP 96.1; O2SAT 100
[2024-10-23] MEDS: LATANOPROST 0.005 % OPTH(EYE) SOL 2.5ML EACHEYE SCH (18:00)
[2024-10-23] MEDS: LANTHANUM CARBONATE 1000 MG PO SCH (18:00)
[2024-10-23] MEDS ORDERED: PATIENTS OWN MEDICATION (Sevelamer Carbonate (Renvela) 2 TAB) PO SCH (18:00)
--- NOTE | 2024-10-23 18:22 | DVHSR ---
APPROVED REPORT EXAM: Two-dimensional and M-mode echocardiogram with Doppler and color Doppler. Blood Pressure: 123/50 mmHg INDICATION Elevated Trop RISK FACTORS Height: 5'8", Weight: 138 DIMENSIONS LVDd3.3 (3.8-5.7cm)LA (2D)3.8 (1.9-4.0cm)Aortic Root3.1 (2.0-3.7cm) LVDs1.9 (2.5-4.0cm)LA (MM) (1.9-4.0cm)Aortic Cusp Exc1.1 (1.5-2.0cm) EF (%) 75.0 (55-70%)Rt. Atrium5.3 (1.9-4.0cm)Asc. Aorta3.4 cm IVSd0.9 (0.7-1.1cm)RV (D)5.6 (1.8-2.4cm) PWd1.1 (0.7-1.1cm) Mitral Valve MitralMitral Stenosis E/A ratio0.02D MVAcm2 Aortic Valve Aortic ValveAortic Stenosis V20.92m/Eren Peak GR.3mmHg LVOT Diameter2.1 (1.8-2.4cm)Doppler AVAcm2 Pulmonic Valve V20.48m/s Tricuspid Valve TR Velocity3.07m/s [id number] Other Information Quality : Technically LimitedRhythm : Technically limited study due to body habitus. Conclusion Compressed LV size with preserved systolic function. LVEF 60-65%. D-shaped septum. Severely enlarged RV with severely reduced systolic function. Moderate RA enlargement. Mild LA enlargement. Trileaflet aortic valve with mild sclerosis. No or AI. Mild MAC with trace MR. No MS. Severe TR. RVSP estimated at 55 mmHg based on RAP of 15 mmHg. [id number] PI. Dilated and noncollapsing IVC. No significant pericardial effusion.
[2024-10-23 21:00] VITALS: BP 103/58; PULSE 70; RESP 14; TEMP 97.3; O2SAT 98
[2024-10-23] MEDS ORDERED: DEXTROSE (50%) 50ML SYRG IV PRN (21:15)
[2024-10-23] MEDS: APIXABAN 2.5 MG TAB PO SCH (21:20)
[2024-10-23] MEDS: PIPERACILLIN-TAZOB 3.375GM 100 ML IV SCH (21:20)
[2024-10-23] MEDS: ATORVASTATIN 20 MG TAB PO SCH (21:20)
[2024-10-23] MEDS: SODIUM CHLOR 0.9% PF (SALINE LOCK) 10ML VIAL/SYR IV SCH (21:21)
[2024-10-23] MEDS: InsuLIN REG 1unit/0.01ml Soln (100units/ml) SC SCH (21:39)
[2024-10-23] MEDS ORDERED: PIPERACILLIN-TAZO 4.5GM 100 ML IV SCH ×2 (22:00)
[2024-10-23] MEDS: BRIMONIDINE 0.15% OP SCH (22:00)
[2024-10-23] MEDS ORDERED: PIPERACILLIN-TAZOB 2.25GM 50 ML IV SCH (22:00)
[2024-10-23] MEDS: ACCU-CHEK COMFORT CURVE STRIP VI SCH (22:03)
[2024-10-24] VITALS (12 sets, daily range): BP systolic 73–153; BP diastolic 33–73; PULSE 55–101; RESP 14–99; TEMP 97.4–97.8; O2SAT 19–99
[2024-10-24] MEDS: MIDODRINE HCL 10 MG TAB PO ONE ×2 (01:45→04:58)
[2024-10-24] MEDS: MIDODRINE HCL 10 MG TAB PO SCH (05:00)
[2024-10-24 05:42] LABS: Hematocrit 28.7 % (41.0-53.0); Hemoglobin 9.3 g/dL (13.5-17.5); Mean Corpuscular Hemoglobin 27.9 pg (28.0-32.0); Mean Corpuscular Hgb Conc. 32.5 g/dL (32.0-36.0); Mean Corpuscular Volume 85.8 fL (80.0-100.0); Platelet Count (auto) 117 10^3/uL (140-450); Red Blood Cells 3.35 10^6/uL (4.5-5.90); Red Cell Distribution Width 24.6 % (11.8-14.3); White Blood Cell 10.6 10^3/uL (4.4-10.8)
[2024-10-24 05:49] LABS: Basophils % (manual) 0 (0.0-2.0); Blast Cells 0; Eosinophils % (manual) 0 (0-7); Metamyelocytes % 0; Myelocytes % 0; Promyelocytes % 0; Reactive Lymphocytes 0
[2024-10-24 05:58] LABS: Alanine Aminotransferase 17 U/L (7-40); Albumin 3.5 g/dL (3.2-4.8); Anion Gap 12 (5-15); BUN/Creatinine Ratio 4.9 (10.0-20.0); Bilirubin, Total 0.7 mg/dL (0.2-1.0); Blood Urea Nitrogen 22 mg/dL (9-23); Carbon Dioxide 25 mmol/L (20-31); Chloride 99 mmol/L (98-107); Potassium 4.6 mmol/L (3.5-5.1); Sodium 136 mmol/L (136-145); Total Protein 6.4 g/dL (5.7-8.2)
[2024-10-24 06:17] LABS: Alkaline Phosphatase 149 U/L (46-116); Aspartate Aminotransferase 47 U/L (13-40); Calcium 8.3 mg/dL (8.7-10.4); Glucose 115 mg/dL (74-106)
[2024-10-24] MEDS ORDERED: SODIUM CHL 0.9% 1000 ML BAG XX ONE (07:00)
[2024-10-24 08:03] LABS: Band Neutrophils % (manual) 6; Lymphocytes % (manual) 17 (10.0-50.0); Monocytes % (manual) 11 (0-12)
[2024-10-24 08:04] LABS: Anisocytosis Slight; Platelet Estimate Decreased
[2024-10-24 08:35] LABS: INR 2.06 (0.9-1.15); Partial Thromboplastin Time 43.3 SEC (24.5-34.5); Prothrombin Time 20.3 sec (9.3-11.8)
[2024-10-24] MEDS: MONTELUKAST SODIUM 10 MG TAB PO SCH (08:56)
[2024-10-24] MEDS: B-COMPLEX W/ C & FOLIC ACID(NEPHROVITE TAB) PO SCH (08:58)
[2024-10-24] MEDS: ASPirin-EC 81 mg tab PO SCH (08:58)
[2024-10-24] MEDS ORDERED: NIFEdipine ER 30 MG TAB PO SCH (10:00)
[2024-10-24] MEDS ORDERED: METOPROLOL SUCCINATE XL 50 MG TAB PO SCH (10:00)
[2024-10-24] MEDS ORDERED: [UNRECOGNIZED DRUG - OTHER] PO SCH (10:00)
[2024-10-24] MEDS ORDERED: B COMPLEX PO SCH (10:00)
[2024-10-24] MEDS: FLUTICASONE PROPIONATE 50 MCG EACHNOSTRI SCH (10:00)
[2024-10-24] MEDS ORDERED: FOLIC ACID PO SCH (10:00)
[2024-10-24] MEDS ORDERED: MONTELUKAST SODIUM PO SCH (10:00)
[2024-10-24 10:11] LABS: Lactic Acid w/Reflex 3.2 mmol/L (0.4-2.0)
--- NOTE | 2024-10-24 10:30 | DVHCONRES ---
Date Seen: Oct 24, 2024 Resident Creating Document: SARAH WU RESIDENT Referring Physician Dr. Quintero Reason for Consultation ESRD on hemodialysis Sunday. History of Present Illness Mr. 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 He was alert and oriented upon assessment. EMS found his blood glucose levels in the 20s at home. He was brought in for further evaluation, and cardiology was consulted for an elevated troponin level of 280 ng/L. An ECG showed atrial fibrillation with right bundle branch block. The patient denies any cardiac symptoms and has not followed up with a chip crusher operator. His past surgical history includes dialysis access and cataract surgery. Last dialysis in Sun no fluid was out due to hypertension, 10/22. Past Medical History Unspecified atrial fibrillation, on low-dose Eliquis at home Chronic HFpEF, NYHA class II History of nonsustained ventricular tachycardia Hx of DVT of the right radial vein (03/28/24) Pulmonary hypertension, severe degree Tricuspid valve regurgitation, severe degree Hypertension Dyslipidemia COPD Type 2 diabetes mellitus ESRD on HD Past Surgical History Dialysis access Cataract surgery Family History: Cerebrovascular accident (CVA) G8 FATHER, Onset:Unknown Diabetes mellitus G8 FATHER, Onset:Unknown FH: hypertension G8 FATHER, Onset:Unknown Hypertension G8 FATHER, Onset:Unknown Social History Lives at home with , no oxygen at home. Allergies: Coded Allergies: Amlodipine (Verified Allergy, Unknown, 05/20/24) Home Meds Active Scripts Metronidazole (Flagyl) 500 Mg Tab, 1 TAB PO TID for 5 Days, #15 TAB Prov:ANNETTA RUIZ PODIATRY TEACHER 06/25/24 Hydrocortisone Acetate (ANUCORT-HC SUPPOSITORY) 25 Mg Sanchez, 25 MG [place] DAILY for 5 Days, #5 SUPP Prov:SALANNETTA METZ PODIATRY TEACHER 06/25/24 Morphine Sulfate (Morphine Sulfate) 15 Mg Tab, 1 TAB PO TID PRN, #60 TAB Prov:MCCARTY,DEBORAH M MD 05/22/24 Atorvastatin Calcium (ATORVASTATIN CALCIUM) 20 Mg Tab, 40 MG PO HS for 20 Days, #40 TAB Prov:ESTELLA FREEMAN MD 02/19/19 Aspirin (Aspir-Low Ec) 81 Mg Tb, 81 MG PO DAILY for 20 Days, #60 Prov:ESTELLA FREEMAN MD 02/19/19 Reported Medications Baclofen (Baclofen) 10 Mg Tab, 10 MG PO TID, TAB 03/30/24 Apixaban Base (ELIQUIS) 2.5 Mg Tab, 2.5 MG PO BID, TAB 03/30/24 Simethicone (Simethicone) 80 Mg Chw, 80 MG PO Q6HPRN, MG 07/14/21 Sevelamer Carbonate (Renvela) 800 Mg Tab, 2 TAB PO TIDWM, #540 TAB 3 Refills 07/14/21 B-Complex W/ C & Folic Acid (Renal) Softgel Cap, 1 TAB PO DAILY, #30 CAP 5 Refills 07/14/21 Montelukast Sodium (Singulair) 5 Mg Chw, 2 TAB PO DAILY, #30 TAB 5 Refills 07/14/21 Metoprolol Succinate (Metoprolol Succinate Er) 50 Mg Tab, 50 MG PO DAILY for 30 Days, MG 07/14/21 Melatonin (KP MELATONIN) 3 Mg Tab, 5 MG PO HSPRN, TAB 07/14/21 Nifedipine (Nifedipine ER) 30 Mg Tab, 60 MG PO DAILY, TAB 07/14/21 Latanoprost (Xalatan) 0.005 % Milady, 1 DROP EACHEYE QPM, #2.5 ML 6 Refills 07/14/21 Guaifenesin-Codeine (Guaifenesin Ac) Ac Syp, 10 ML PO Q6HPRN PRN for FOR COUGH, #240 ML 07/14/21 Lanthanum Carbonate (Fosrenol) 1,000 Mg Chw, 1000 MG PO TIDWM, TAB.CHEW 07/14/21 Fluticasone Propionate (Fluticasone Propionate) 0.05 % Cre, 50 MCG LUKE DAILY for 30 Days, MCG 07/14/21 Cinacalcet Hydrochloride (Sensipar) 30 Mg Tab, 1 TAB PO MWF, #30 TAB 11 Refills 07/14/21 Brimonidine Tartrate (Brimonidine Tartrate) 0.15 % Milady, 1 DROP OP BID, DROP 07/14/21 Ferric Citrate (Auryxia) 210 Mg Tab, 210 MG PO TID, TAB 07/14/21 Acetaminophen (Acetaminophen) 325 Mg Tab, 500 MG PO TID PRN for MILD PAIN (1-3 PAIN SCALE) for 30 Days, MG 0 Refills 07/14/21 Current Medications Current Medications Medications (Trade) Dose Ordered Sig/Deann Route PRN Reason Start Time Stop Time Status Last Admin Vancomycin HCl 0 ml @ 0 mls/hr UD IV 10/23/24 12:45 Piperacillin Sod/ Tazobactam Sod 100 ml @ 100 mls/hr BID IV 10/23/24 22:00 UNV Sodium Chloride (Saline Lock Ns) 10 ml Q8HR IV 10/23/24 22:00 10/24/24 05:46 Docusate Sodium (Colace Capsule) 100 mg BIDPRN PRN PO FOR CONSTIPATION 10/23/24 14:15 Acetaminophen (Tylenol Tablet) 650 mg Q6HP PRN PO PAIN SCALE 1-3 OR TEMP>100.4 10/23/24 14:15 Acetaminophen/ Hydrocodone Bitart ([place] 5/325MG Tab) 1 tab Q4HP PRN PO MODERATE PAIN (4-6 PAIN SCALE) 10/23/24 14:15 10/24/24 07:55 DC Hydromorphone HCl (Dilaudid Injection) 0.5 mg Q4HP PRN IV SEVERE PAIN (7-10 PAIN SCALE) 10/23/24 14:15 10/24/24 07:55 DC Ondansetron HCl (Zofran) 4 mg Q4HP PRN IV NAUSEA / VOMITING 10/23/24 14:15 Piperacillin Sod/ Tazobactam Sod 100 ml @ 25 mls/hr Q12H IV 10/23/24 15:00 10/23/24 16:20 DC Apixaban (Eliquis) 2.5 mg BID PO 10/23/24 22:00 10/24/24 08:58 Aspirin (Ecotrin Enteric Coated Tablet) 81 mg DAILY PO 10/24/24 10:00 10/24/24 08:58 Atorvastatin Calcium (Lipitor) 40 mg HS PO 10/23/24 22:00 10/23/24 21:20 Latanoprost (Xalatan) 1 drop QPM EACHEYE 10/23/24 18:00 Metoprolol Succinate (Toprol Xl) 50 mg DAILY PO 10/24/24 10:00 10/24/24 07:55 DC Nifedipine (Procardia Xl (Time-Release)) 60 mg DAILY PO 10/24/24 10:00 10/23/24 16:20 DC Dimethicone (Mylicon Tab) 80 mg Q6HPRN PO 10/23/24 18:00 10/24/24 05:00 Patient Own Medication 1 tab DAILY PO 10/24/24 10:00 UNV Patient Own Medication 1 drop BID OP 10/23/24 22:00 Patient Own Medication 210 mg TID PO 10/23/24 22:00 Patient Own Medication 50 mcg DAILY EACHNOSTRI 10/24/24 10:00 Patient Own Medication 1,000 mg TIDWM PO 10/23/24 18:00 Patient Own Medication 5 mg HSPRN PRN PO sleep 10/23/24 22:00 Patient Own Medication 2 tab DAILY PO 10/24/24 10:00 UNV Patient Own Medication 2 tab TIDWM PO 10/23/24 18:00 UNV Multivit/Ca Carb/ B Cmplx/FA/Prenat (Nephro-Sharon Tablet) 1 tab DAILY PO 10/24/24 10:00 10/24/24 08:58 Sevelamer HCl (Renagel) 1,600 mg TIDWM PO 10/23/24 18:00 10/24/24 08:56 Montelukast Sodium (Singulair Tablet) 10 mg DAILY PO 10/24/24 10:00 10/24/24 08:56 Piperacillin Sod/ Tazobactam Sod 100 ml @ 25 mls/hr Q8HR IV 10/23/24 22:00 10/23/24 16:55 DC Dextrose/Sodium Chloride 1,000 ml @ 100 mls/hr Q10H IV 10/23/24 16:30 10/23/24 17:00 Piperacillin Sod/ Tazobactam Sod 50 ml @ 12.5 mls/hr Q12HR IV 10/23/24 22:00 UNV Piperacillin Sod/ Tazobactam Sod 100 ml @ 25 mls/hr Q12HR IV 10/23/24 22:00 10/24/24 08:56 Diagnostic Test (Pha) (Accu-Chek Comfort Curve T) 1 strip ACHS 10/23/24 22:00 10/24/24 06:29 Insulin Human Regular (InsuLIN R) ACHS SC 10/23/24 22:00 10/23/24 21:39 Dextrose 50 ml UD PRN IV Blood Sugar LESS THAN 60 10/23/24 21:15 Midodrine (Proamatine Tablet) 10 mg TID@0600,1200,1800 PO 10/24/24 06:00 10/24/24 05:00 Review of Systems HEENT:Normal, CVS:Normal, RESPIRATORY:Normal, GI:Normal, :Normal, MSK:Normal, NEURO:Normal Vital Signs Vital Signs Date Time Temp Pulse Resp B/P (MAP) Pulse Ox O2 Delivery O2 Flow Rate FiO2 10/24/24 06:34 62 80/51 (61) 10/24/24 05:00 97.4 14 98 97.4 10/23/24 20:00 Nasal Cannula* 3 32 Physical Exam GENERAL:Normal, HEENT:Normal, NECK:Normal, LUNGS:Normal 2-3L nc, CVS:Normal, left arm fistula, ABDOMEN:Normal, MSK:Abnormal, left arm fistula noted, SKIN:Normal, NEURO:Normal, :Normal Labs/Diagnostic Data Labs Test 10/24/24 09:24 10/24/24 06:20 10/24/24 05:04 10/23/24 15:40 Range/Units Lactic Acid Level 3.2 *H 0.4-2.0 mmol/L POC Glucose 105 70-106 mg/dl White Blood Count 10.6 4.4-10.8 10^3/uL Red Blood Count 3.35 L 4.5-5.90 10^6/uL Hemoglobin 9.3 #L 13.5-17.5 g/dL Hematocrit 28.7 #L 41.0-53.0 % Mean Corpuscular Volume 85.8 # 80.0-100.0 fL Mean Corpuscular Hemoglobin 27.9 L 28.0-32.0 pg Mean Corpuscular Hemoglobin Concent 32.5 32.0-36.0 g/dL Red Cell Distribution Width 24.6 H 11.8-14.3 % Platelet Count 117 L 140-450 10^3/uL Mean Platelet Volume 9.1 6.9-10.8 fL Neutrophils (%) (Auto) 37.0-80.0 % Lymphocytes (%) (Auto) 10.0-50.0 % Monocytes (%) (Auto) 0.0-12.0 % Basophils (%) (Auto) 0.0-2.0 % Neutrophils # (Auto) 1.6-8.6 10 ^3/uL Lymphocytes # (Auto) 0.4-5.4 10 ^3/uL Monocytes # (Auto) 0-1.3 10 ^3/uL Differential Total Cells Counted 100.0 100 Neutrophils % (Manual) 66 37.0-80.0 Band Neutrophils % (Manual) 6 Lymphocytes % (Manual) 17 10.0-50.0 Monocytes % (Manual) 11 0-12 Eosinophils % (Manual) 0 0-7 Basophils % (Manual) 0 0.0-2.0 Metamyelocytes % (manual) 0 Myelocytes % (Manual) 0 Promyelocytes % (Manual) 0 Blast Cells % (Manual) 0 Reactive Lymphocytes 0 Platelet Estimate Decreased Anisocytosis (manual) Slight Prothrombin Time 20.3 H 9.3-11.8 sec Prothrombin Time INR 2.06 H 0.9-1.15 Activated Partial Thromboplast Time 43.3 H 24.5-34.5 SEC Sodium Level 136 136-145 mmol/L Potassium Level 4.6 3.5-5.1 mmol/L Chloride Level 99 98-107 mmol/L Carbon Dioxide Level 25 20-31 mmol/L Anion Gap 12 5-15 Blood Urea Nitrogen 22 9-23 mg/dL Creatinine 4.49 H 0.700-1.30 mg/dL Glomerular Filtration Rate Calc 12 >90 mL/min BUN/Creatinine Ratio 4.9 L 10.0-20.0 Serum Glucose 115 H 74-106 mg/dL Calcium Level 8.3 L 8.7-10.4 mg/dL Magnesium Level 2.1 1.6-2.6 mg/dL Total Bilirubin 0.7 0.2-1.0 mg/dL Aspartate Amino Transferase (AST) 47 H 13-40 U/L Alanine Aminotransferase (ALT) 17 7-40 U/L Alkaline Phosphatase 149 H 46-116 U/L Total Protein 6.4 5.7-8.2 g/dL Albumin 3.5 3.2-4.8 g/dL Vitamin B12 Level > 4000 H 211-911 pg/mL Vitamin D 25-Hydroxy 92.4 30.0-100 ng/mL Thyroid Stimulating Hormone (TSH) 1.92 0.55-4.78 uIU/mL Random Vancomycin Level 6.6 5-10 ug/mL Troponin I High Sensitivity 602 *H </=54 ng/L Test 10/23/24 15:00 10/23/24 11:17 Range/Units Influenza Type A Antigen Negative Negative Influenza Type B Antigen Negative Negative SARS-CoV-2 Antigen (Rapid) Negative NEGATIVE B-Type Natriuretic Peptide 1539.22 0-100 pg/mL Assessment Nephrology Consult Note: Assessment: # ESRD on hemodialysis, aneuric, MWF # anemia of chronic disease # Thromobcytopenia # type 2 NSTEMI # nspecified atrial fibrillation, on low-dose Eliquis at home # hronic HFpEF, NYHA class II #Hx of DVT of the right radial vein (03/28/24) #Hypoglycemia likely due to poor oral intake #Severe Sepsis with lactic acidosis 3.2, on abx. #H/o essential Hypertension #Dyslipidemia #COPD #Type 2 diabetes mellitus target Findings: #GFR:12 #Creatinine: 4.49 #I&O: 300 IN ANEURIC #HD fistula L arm last dialysis 10/22, no fluid out. Plan/Recommendation #Hemodialysis to be arranged today. order in. S/p HD Epogen. #Avoid hypoglycemics: target BG 140-180 as per NICE-Sugar Trial. #Strict I&O and check Daily weight, Avoid Nephrotoxics, Avoid hyper/hypo tension #Daily BMP, Serum Phosphorus, PTH Labs, iron panel, and Correct electrolytes. continue renal diet. #Sevelamer 1600 TID continue. #Following Dr. Jordan's Group: [facility] outpatient [facility]itime, continue. #Continue antibiotics and if needed vasopressor support to keep MAP >65 #Continue treatment as per primary team and continue abx. Thank you for the opportunity to follow up on your patient. In case of any question feel free to reach out to the Nephrology team. Discussed with Nephrology attending Dr. Jordan. Plan discussed with: Patient, Spouse, Other (primary team. RN) Labs/Diagnostic Data Laboratory Tests Test 10/24/24 09:24 10/24/24 06:20 10/24/24 05:04 10/24/24 01:50 Range/Units Lactic Acid Level 3.2 *H 0.4-2.0 mmol/L POC Glucose 105 188 H 70-106 mg/dl White Blood Count 10.6 4.4-10.8 10^3/uL Red Blood Count 3.35 L 4.5-5.90 10^6/uL Hemoglobin 9.3 #L 13.5-17.5 g/dL Hematocrit 28.7 #L 41.0-53.0 % Mean Corpuscular Volume 85.8 # 80.0-100.0 fL Mean Corpuscular Hemoglobin 27.9 L 28.0-32.0 pg Mean Corpuscular Hemoglobin Concent 32.5 32.0-36.0 g/dL Red Cell Distribution Width 24.6 H 11.8-14.3 % Platelet Count 117 L 140-450 10^3/uL Mean Platelet Volume 9.1 6.9-10.8 fL Neutrophils (%) (Auto) 37.0-80.0 % Lymphocytes (%) (Auto) 10.0-50.0 % Monocytes (%) (Auto) 0.0-12.0 % Basophils (%) (Auto) 0.0-2.0 % Neutrophils # (Auto) 1.6-8.6 10 ^3/uL Lymphocytes # (Auto) 0.4-5.4 10 ^3/uL Monocytes # (Auto) 0-1.3 10 ^3/uL Differential Total Cells Counted 100.0 100 Neutrophils % (Manual) 66 37.0-80.0 Band Neutrophils % (Manual) 6 Lymphocytes % (Manual) 17 10.0-50.0 Monocytes % (Manual) 11 0-12 Eosinophils % (Manual) 0 0-7 Basophils % (Manual) 0 0.0-2.0 Metamyelocytes % (manual) 0 Myelocytes % (Manual) 0 Promyelocytes % (Manual) 0 Blast Cells % (Manual) 0 Reactive Lymphocytes 0 Platelet Estimate Decreased Anisocytosis (manual) Slight Prothrombin Time 20.3 H 9.3-11.8 sec Prothrombin Time INR 2.06 H 0.9-1.15 Activated Partial Thromboplast Time 43.3 H 24.5-34.5 SEC Sodium Level 136 136-145 mmol/L Potassium Level 4.6 3.5-5.1 mmol/L Chloride Level 99 98-107 mmol/L Carbon Dioxide Level 25 20-31 mmol/L Anion Gap 12 5-15 Blood Urea Nitrogen 22 9-23 mg/dL Creatinine 4.49 H 0.700-1.30 mg/dL Glomerular Filtration Rate Calc 12 >90 mL/min BUN/Creatinine Ratio 4.9 L 10.0-20.0 Serum Glucose 115 H 74-106 mg/dL Calcium Level 8.3 L 8.7-10.4 mg/dL Magnesium Level 2.1 1.6-2.6 mg/dL Total Bilirubin 0.7 0.2-1.0 mg/dL Aspartate Amino Transferase (AST) 47 H 13-40 U/L Alanine Aminotransferase (ALT) 17 7-40 U/L Alkaline Phosphatase 149 H 46-116 U/L Total Protein 6.4 5.7-8.2 g/dL Albumin 3.5 3.2-4.8 g/dL Vitamin B12 Level > 4000 H 211-911 pg/mL Vitamin D 25-Hydroxy 92.4 30.0-100 ng/mL Thyroid Stimulating Hormone (TSH) 1.92 0.55-4.78 uIU/mL Random Vancomycin Level 6.6 5-10 ug/mL Test 10/23/24 20:58 10/23/24 16:17 10/23/24 15:40 10/23/24 15:09 Range/Units POC Glucose 270 H 268 H 263 H 70-106 mg/dl Troponin I High Sensitivity 602 *H </=54 ng/L Test 10/23/24 15:00 10/23/24 13:26 10/23/24 13:20 10/23/24 12:08 Range/Units Influenza Type A Antigen Negative Negative Influenza Type B Antigen Negative Negative SARS-CoV-2 Antigen (Rapid) Negative NEGATIVE Lactic Acid Level 9.5 *H 0.4-2.0 mmol/L Troponin I High Sensitivity 382 *H </=54 ng/L POC Glucose 145 H 39 *L 70-106 mg/dl Test 10/23/24 11:17 10/23/24 11:15 10/23/24 11:02 Range/Units White Blood Count 11.3 H 4.4-10.8 10^3/uL Red Blood Count 4.34 L 4.5-5.90 10^6/uL Hemoglobin 11.5 L 13.5-17.5 g/dL Hematocrit 40.7 L 41.0-53.0 % Mean Corpuscular Volume 93.9 80.0-100.0 fL Mean Corpuscular Hemoglobin 26.4 L 28.0-32.0 pg Mean Corpuscular Hemoglobin Concent 28.2 L 32.0-36.0 g/dL Red Cell Distribution Width 25.2 H 11.8-14.3 % Platelet Count 122 L 140-450 10^3/uL Mean Platelet Volume 9.0 6.9-10.8 fL Neutrophils (%) (Auto) 37.0-80.0 % Lymphocytes (%) (Auto) 10.0-50.0 % Monocytes (%) (Auto) 0.0-12.0 % Basophils (%) (Auto) 0.0-2.0 % Neutrophils # (Auto) 1.6-8.6 10 ^3/uL Lymphocytes # (Auto) 0.4-5.4 10 ^3/uL Monocytes # (Auto) 0-1.3 10 ^3/uL Differential Total Cells Counted 100.0 100 Neutrophils % (Manual) 67 37.0-80.0 Band Neutrophils % (Manual) 0 Lymphocytes % (Manual) 9 L 10.0-50.0 Monocytes % (Manual) 21 H 0-12 Eosinophils % (Manual) 0 0-7 Basophils % (Manual) 0 0.0-2.0 Metamyelocytes % (manual) 0 Myelocytes % (Manual) 0 Promyelocytes % (Manual) 0 Blast Cells % (Manual) 3 Reactive Lymphocytes 0 Platelet Estimate Decreased Anisocytosis (manual) Moderate Lactic Acid Level 7.9 *H 0.4-2.0 mmol/L B-Type Natriuretic Peptide 1539.22 0-100 pg/mL POC Glucose 28 *L 70-106 mg/dl Sodium Level 136 136-145 mmol/L Potassium Level 5.1 3.5-5.1 mmol/L Chloride Level 98 98-107 mmol/L Carbon Dioxide Level 17 L 20-31 mmol/L Anion Gap 21 H 5-15 Blood Urea Nitrogen 14 9-23 mg/dL Creatinine 3.73 H 0.700-1.30 mg/dL Glomerular Filtration Rate Calc 15 >90 mL/min BUN/Creatinine Ratio 3.8 L 10.0-20.0 Serum Glucose 33 *L 74-106 mg/dL Calcium Level 9.0 8.7-10.4 mg/dL Total Bilirubin 1.1 H 0.2-1.0 mg/dL Aspartate Amino Transferase (AST) 39 13-40 U/L Alanine Aminotransferase (ALT) 10 7-40 U/L Alkaline Phosphatase 195 H 46-116 U/L Troponin I High Sensitivity 280 *H </=54 ng/L Total Protein 7.9 5.7-8.2 g/dL Albumin 4.4 3.2-4.8 g/dL SARAH WU RESIDENT Oct 24, 2024 10:30
[2024-10-24 12:20] LABS: % Iron Saturation 13.4 % (20-55)
--- NOTE | 2024-10-24 13:11 | DVHPN2 ---
Reviewed: Care Plan, H&P, Labs, Medications, Previous Orders, Radiology Changes from previous H/P or p: No Changes Objective Vitals Vital Signs Date Time Temp Pulse Resp B/P (MAP) Pulse Ox O2 Delivery O2 Flow Rate FiO2 10/24/24 06:34 62 80/51 (61) 10/24/24 05:00 97.4 14 98 97.4 10/23/24 20:00 Nasal Cannula* 3 32 Intake/Output Intake and Output 10/24/24 07:00 Intake Total 300 ml Balance 300 ml Intake Oral 0 ml IV Total 300 ml Medications Current Medications Medications Dose Ordered Sig/Deann Route Start Time Stop Time Status Last Admin Dose Admin Vancomycin HCl 0 ml @ 0 mls/hr UD IV 10/23/24 12:45 Piperacillin Sod/ Tazobactam Sod 100 ml @ 100 mls/hr BID IV 10/23/24 22:00 UNV Sodium Chloride 10 ml Q8HR IV 10/23/24 22:00 10/24/24 05:46 10 ML Docusate Sodium 100 mg BIDPRN PRN PO 10/23/24 14:15 Acetaminophen 650 mg Q6HP PRN PO 10/23/24 14:15 Ondansetron HCl 4 mg Q4HP PRN IV 10/23/24 14:15 Apixaban 2.5 mg BID PO 10/23/24 22:00 10/24/24 08:58 2.5 MG Aspirin 81 mg DAILY PO 10/24/24 10:00 10/24/24 08:58 81 MG Atorvastatin Calcium 40 mg HS PO 10/23/24 22:00 10/23/24 21:20 40 MG Latanoprost 1 drop QPM EACHEYE 10/23/24 18:00 Dimethicone 80 mg Q6HPRN PO 10/23/24 18:00 10/24/24 05:00 80 MG Patient Own Medication 1 tab DAILY PO 10/24/24 10:00 UNV Patient Own Medication 1 drop BID OP 10/23/24 22:00 Patient Own Medication 210 mg TID PO 10/23/24 22:00 Patient Own Medication 50 mcg DAILY EACHNOSTRI 10/24/24 10:00 Patient Own Medication 1,000 mg TIDWM PO 10/23/24 18:00 Patient Own Medication 5 mg HSPRN PRN PO 10/23/24 22:00 Patient Own Medication 2 tab DAILY PO 10/24/24 10:00 UNV Patient Own Medication 2 tab TIDWM PO 10/23/24 18:00 UNV Multivit/Ca Carb/ B Cmplx/FA/Prenat 1 tab DAILY PO 10/24/24 10:00 10/24/24 08:58 1 TAB Sevelamer HCl 1,600 mg TIDWM PO 10/23/24 18:00 10/24/24 08:56 1,600 MG Montelukast Sodium 10 mg DAILY PO 10/24/24 10:00 10/24/24 08:56 10 MG Dextrose/Sodium Chloride 1,000 ml @ 100 mls/hr Q10H IV 10/23/24 16:30 10/23/24 17:00 100 MLS/HR Piperacillin Sod/ Tazobactam Sod 50 ml @ 12.5 mls/hr Q12HR IV 10/23/24 22:00 UNV Piperacillin Sod/ Tazobactam Sod 100 ml @ 25 mls/hr Q12HR IV 10/23/24 22:00 10/24/24 08:56 25 MLS/HR Diagnostic Test (Pha) 1 strip ACHS 10/23/24 22:00 10/24/24 06:29 1 STRIP Insulin Human Regular ACHS SC 10/23/24 22:00 10/23/24 21:39 6 UNITS Dextrose 50 ml UD PRN IV 10/23/24 21:15 Midodrine 10 mg TID@0600,1200,1800 PO 10/24/24 06:00 10/24/24 05:00 10 MG Laboratory Results Laboratory Tests 10/24/24 05:04 Chemistry Test 10/24/24 05:04 Albumin 3.5 g/dL (3.2-4.8) Calcium Level 8.3 mg/dL (8.7-10.4) L Magnesium Level 2.1 mg/dL (1.6-2.6) Phosphorus Level 4.8 mg/dL (2.4-5.1) Total Protein 6.4 g/dL (5.7-8.2) Coagulation Test 10/24/24 05:04 Prothrombin Time 20.3 sec (9.3-11.8) H Prothrombin Time INR 2.06 (0.9-1.15) H Activated Partial Thromboplast Time 43.3 SEC (24.5-34.5) H LFT Test 10/24/24 05:04 Alanine Aminotransferase (ALT) 17 U/L (7-40) Alkaline Phosphatase 149 U/L (46-116) H Aspartate Amino Transferase (AST) 47 U/L (13-40) H Total Bilirubin 0.7 mg/dL (0.2-1.0) HgA1c, TSH Test 10/24/24 05:04 Thyroid Stimulating Hormone (TSH) 1.92 uIU/mL (0.55-4.78) Microbiology Microbiology Date/Time Source Procedure Growth Status 10/23/24 11:17 Blood Blood Culture - Preliminary NO GROWTH AFTER 24 HOURS OF INCUBATION. Resulted Labs and/or images reviewed: Labs reviewed by me, Image(s) reviewed by me Assessment/Plan Assessment/Plan Septic shock with the altered mental status hypoglycemia new lactic acidosis secondary to pneumonia: Blood cultures Bilateral community-acquired pneumonia: Zosyn vancomycin NSTEMI, likely type II, cardiology consult appreciated Unspecified atrial fibrillation, on low-dose Eliquis at home Chronic HFpEF, NYHA class II History of nonsustained ventricular tachycardia Hx of DVT of the right radial vein (03/28/24) Hypoglycemia Sepsis Pulmonary hypertension, severe degree Tricuspid valve regurgitation, severe degree Hypertension Dyslipidemia COPD Type 2 diabetes mellitus ESRD on HD nephrology consult Time spent 70 minutes Patient is full code Advanced care planning time 20 minutes Plan discussed with: Patient My Orders Orders - DEBORAH MCCARTY MD Procedure Category Date Status Time Blood Culture MARTELL 10/24/24 Verified 13:07 Date of Service: Oct 24, 2024 Billing Provider: DEBORAH MCCARTY MD Common Visit Codes: [id number] CARE 30-74 MIN DEBORAH MCCARTY MD Oct 24, 2024 13:11
[2024-10-24] MEDS: VANCOMYCIN 1GM/250ML KIT 250 ML IV ONE (14:58)
[2024-10-25] VITALS (8 sets, daily range): BP systolic 94–121; BP diastolic 41–53; PULSE 59–83; RESP 16–18; TEMP 97.6–98.7; O2SAT 98–100
[2024-10-25] MEDS: ACETAMINOPHEN 325 MG TAB PO PRN (03:18)
[2024-10-25 07:04] LABS: Hematocrit 28.5 % (41.0-53.0); Hemoglobin 9.2 g/dL (13.5-17.5); Mean Corpuscular Hemoglobin 27.5 pg (28.0-32.0); Mean Corpuscular Hgb Conc. 32.3 g/dL (32.0-36.0); Mean Corpuscular Volume 85.1 fL (80.0-100.0); Platelet Count (auto) 121 10^3/uL (140-450); Red Blood Cells 3.35 10^6/uL (4.5-5.90); Red Cell Distribution Width 24.5 % (11.8-14.3); White Blood Cell 10.1 10^3/uL (4.4-10.8)
[2024-10-25 07:30] LABS: Albumin 3.5 g/dL (3.2-4.8); Anion Gap 10 (5-15); BUN/Creatinine Ratio 4.7 (10.0-20.0); Blood Urea Nitrogen 18 mg/dL (9-23); Carbon Dioxide 29 mmol/L (20-31); Chloride 99 mmol/L (98-107); Potassium 3.5 mmol/L (3.5-5.1); Sodium 138 mmol/L (136-145); Total Protein 6.3 g/dL (5.7-8.2)
[2024-10-25 07:31] LABS: Basophils % (manual) 0 (0.0-2.0); Bilirubin, Total 0.9 mg/dL (0.2-1.0); Blast Cells 0; Eosinophils % (manual) 0 (0-7); Metamyelocytes % 0; Myelocytes % 0; Promyelocytes % 0; Reactive Lymphocytes 0
[2024-10-25 07:32] LABS: Alanine Aminotransferase 61 U/L (7-40); Alkaline Phosphatase 146 U/L (46-116); Aspartate Aminotransferase 138 U/L (13-40); Calcium 8.3 mg/dL (8.7-10.4); Glucose 117 mg/dL (74-106)
--- NOTE | 2024-10-25 08:30 | DVHPN2 ---
Reviewed: Care Plan, H&P, Labs, Medications, Previous Orders, Radiology Changes from previous H/P or p: No Changes Objective Vitals Vital Signs Date Time Temp Pulse Resp B/P (MAP) Pulse Ox O2 Delivery O2 Flow Rate FiO2 10/25/24 05:00 97.6 60 18 97/47 (64) 98 97.6 10/24/24 20:00 Nasal Cannula* 3 32 Intake/Output Intake and Output 10/25/24 07:00 Intake Total 530 ml Balance 530 ml Intake Oral 330 ml IV Total 200 ml Medications Current Medications Medications Dose Ordered Sig/Deann Route Start Time Stop Time Status Last Admin Dose Admin Vancomycin HCl 0 ml @ 0 mls/hr UD IV 10/23/24 12:45 Piperacillin Sod/ Tazobactam Sod 100 ml @ 100 mls/hr BID IV 10/23/24 22:00 UNV Sodium Chloride 10 ml Q8HR IV 10/23/24 22:00 10/25/24 06:14 10 ML Docusate Sodium 100 mg BIDPRN PRN PO 10/23/24 14:15 Acetaminophen 650 mg Q6HP PRN PO 10/23/24 14:15 10/25/24 03:18 650 MG Ondansetron HCl 4 mg Q4HP PRN IV 10/23/24 14:15 Apixaban 2.5 mg BID PO 10/23/24 22:00 10/24/24 21:41 2.5 MG Aspirin 81 mg DAILY PO 10/24/24 10:00 10/24/24 08:58 81 MG Atorvastatin Calcium 40 mg HS PO 10/23/24 22:00 10/24/24 21:41 40 MG Latanoprost 1 drop QPM EACHEYE 10/23/24 18:00 Dimethicone 80 mg Q6HPRN PO 10/23/24 18:00 10/25/24 05:11 80 MG Patient Own Medication 1 tab DAILY PO 10/24/24 10:00 UNV Patient Own Medication 1 drop BID OP 10/23/24 22:00 Patient Own Medication 210 mg TID PO 10/23/24 22:00 Patient Own Medication 50 mcg DAILY EACHNOSTRI 10/24/24 10:00 Patient Own Medication 1,000 mg TIDWM PO 10/23/24 18:00 Patient Own Medication 5 mg HSPRN PRN PO 10/23/24 22:00 Patient Own Medication 2 tab DAILY PO 10/24/24 10:00 UNV Patient Own Medication 2 tab TIDWM PO 10/23/24 18:00 UNV Multivit/Ca Carb/ B Cmplx/FA/Prenat 1 tab DAILY PO 10/24/24 10:00 10/24/24 08:58 1 TAB Sevelamer HCl 1,600 mg TIDWM PO 10/23/24 18:00 10/24/24 17:37 1,600 MG Montelukast Sodium 10 mg DAILY PO 10/24/24 10:00 10/24/24 08:56 10 MG Dextrose/Sodium Chloride 1,000 ml @ 100 mls/hr Q10H IV 10/23/24 16:30 10/23/24 17:00 100 MLS/HR Piperacillin Sod/ Tazobactam Sod 50 ml @ 12.5 mls/hr Q12HR IV 10/23/24 22:00 UNV Piperacillin Sod/ Tazobactam Sod 100 ml @ 25 mls/hr Q12HR IV 10/23/24 22:00 10/24/24 21:40 25 MLS/HR Diagnostic Test (Pha) 1 strip ACHS 10/23/24 22:00 10/25/24 06:14 1 STRIP Insulin Human Regular ACHS SC 10/23/24 22:00 10/23/24 21:39 6 UNITS Dextrose 50 ml UD PRN IV 10/23/24 21:15 Midodrine 10 mg TID@0600,1200,1800 PO 10/24/24 06:00 10/25/24 05:11 10 MG Laboratory Results Laboratory Tests 10/25/24 05:23 Chemistry Test 10/25/24 05:23 Albumin 3.5 g/dL (3.2-4.8) Calcium Level 8.3 mg/dL (8.7-10.4) L Total Protein 6.3 g/dL (5.7-8.2) LFT Test 10/25/24 05:23 Alanine Aminotransferase (ALT) 61 U/L (7-40) H Alkaline Phosphatase 146 U/L (46-116) H Aspartate Amino Transferase (AST) 138 U/L (13-40) H Total Bilirubin 0.9 mg/dL (0.2-1.0) Microbiology Microbiology Date/Time Source Procedure Growth Status 10/23/24 11:17 Blood Blood Culture - Preliminary NO GROWTH AFTER 24 HOURS OF INCUBATION. Resulted Labs and/or images reviewed: Labs reviewed by me, Image(s) reviewed by me Assessment/Plan Assessment/Plan Septic shock with altered mental status hypoglycemia lactic acidosis secondary to pneumonia: Blood cultures Bilateral community-acquired pneumonia: Zosyn vancomycin NSTEMI, likely type II, cardiology consult appreciated Unspecified atrial fibrillation, on low-dose Eliquis at home Chronic HFpEF, NYHA class II History of nonsustained ventricular tachycardia Hx of DVT of the right radial vein (03/28/24) Hypoglycemia Sepsis Pulmonary hypertension, severe degree Tricuspid valve regurgitation, severe degree Hypertension Dyslipidemia COPD Type 2 diabetes mellitus ESRD on HD nephrology consult Time spent 50 minutes Patient is full code Advanced care planning time 20 minutes Plan discussed with: Patient My Orders Orders - DEBORAH MCCARTY MD Procedure Category Date Status Time Blood Culture MARTELL 10/24/24 In Process 13:07 Mrsa Screen MARTELL 10/25/24 Uncollected 01:10 Date of Service: Oct 25, 2024 Billing Provider: DEBORAH MCCARTY MD Common Visit Codes: [id number] INP/OBS CARE(HIGH) DEBORAH MCCARTY MD Oct 25, 2024 08:30
[2024-10-25 09:30] LABS: Anisocytosis Slight; Band Neutrophils % (manual) 7; Lymphocytes % (manual) 8 (10.0-50.0); Monocytes % (manual) 19 (0-12); Platelet Estimate Decreased
[2024-10-25 09:31] LABS: Target Cell FEW
[2024-10-25] MEDS: DOCUSATE SOD 100 MG CAP PO PRN (15:04)
[2024-10-26] VITALS (7 sets, daily range): BP systolic 102–127; BP diastolic 35–50; PULSE 60–88; RESP 16–20; TEMP 97.5–98.7; O2SAT 92–100
[2024-10-26 07:05] LABS: Hematocrit 29.2 % (41.0-53.0); Hemoglobin 9.2 g/dL (13.5-17.5); Mean Corpuscular Hemoglobin 27.1 pg (28.0-32.0); Mean Corpuscular Hgb Conc. 31.6 g/dL (32.0-36.0); Mean Corpuscular Volume 85.7 fL (80.0-100.0); Platelet Count (auto) 121 10^3/uL (140-450); Red Cell Distribution Width 24.3 % (11.8-14.3); White Blood Cell 7.5 10^3/uL (4.4-10.8)
[2024-10-26 07:12] LABS: Band Neutrophils % (manual) 0; Basophils % (manual) 0 (0.0-2.0); Blast Cells 0; Metamyelocytes % 0; Myelocytes % 0; Promyelocytes % 0; Reactive Lymphocytes 0
[2024-10-26 07:28] LABS: Albumin 3.5 g/dL (3.2-4.8); Anion Gap 12 (5-15); BUN/Creatinine Ratio 5.8 (10.0-20.0); Bilirubin, Total 0.8 mg/dL (0.2-1.0); Carbon Dioxide 28 mmol/L (20-31); Potassium 3.9 mmol/L (3.5-5.1); Sodium 138 mmol/L (136-145); Total Protein 6.2 g/dL (5.7-8.2)
[2024-10-26 07:31] LABS: Alanine Aminotransferase 61 U/L (7-40); Alkaline Phosphatase 137 U/L (46-116); Aspartate Aminotransferase 112 U/L (13-40); Blood Urea Nitrogen 29 mg/dL (9-23); Calcium 8.4 mg/dL (8.7-10.4); Chloride 98 mmol/L (98-107); Glucose 106 mg/dL (74-106)
--- NOTE | 2024-10-26 07:58 | DVHPN2 ---
Reviewed: Care Plan, H&P, Labs, Medications, Previous Orders, Radiology Changes from previous H/P or p: No Changes Objective Vitals Vital Signs Date Time Temp Pulse Resp B/P (MAP) Pulse Ox O2 Delivery O2 Flow Rate FiO2 10/26/24 05:00 98.7 71 17 104/39 (60) 100 98.7 10/25/24 20:00 Nasal Cannula* 3 32 Intake/Output Intake and Output 10/26/24 07:00 Intake Total 815 ml Balance 815 ml Intake Oral 615 ml IV Total 200 ml Medications Current Medications Medications Dose Ordered Sig/Deann Route Start Time Stop Time Status Last Admin Dose Admin Vancomycin HCl 0 ml @ 0 mls/hr UD IV 10/23/24 12:45 Piperacillin Sod/ Tazobactam Sod 100 ml @ 100 mls/hr BID IV 10/23/24 22:00 UNV Sodium Chloride 10 ml Q8HR IV 10/23/24 22:00 10/26/24 05:39 10 ML Docusate Sodium 100 mg BIDPRN PRN PO 10/23/24 14:15 10/25/24 21:39 100 MG Acetaminophen 650 mg Q6HP PRN PO 10/23/24 14:15 10/25/24 21:24 650 MG Ondansetron HCl 4 mg Q4HP PRN IV 10/23/24 14:15 Apixaban 2.5 mg BID PO 10/23/24 22:00 10/25/24 21:06 2.5 MG Aspirin 81 mg DAILY PO 10/24/24 10:00 10/25/24 11:07 81 MG Atorvastatin Calcium 40 mg HS PO 10/23/24 22:00 10/25/24 21:06 40 MG Latanoprost 1 drop QPM EACHEYE 10/23/24 18:00 Dimethicone 80 mg Q6HPRN PO 10/23/24 18:00 10/26/24 05:37 80 MG Patient Own Medication 1 tab DAILY PO 10/24/24 10:00 UNV Patient Own Medication 1 drop BID OP 10/23/24 22:00 Patient Own Medication 210 mg TID PO 10/23/24 22:00 Patient Own Medication 50 mcg DAILY EACHNOSTRI 10/24/24 10:00 Patient Own Medication 1,000 mg TIDWM PO 10/23/24 18:00 Patient Own Medication 5 mg HSPRN PRN PO 10/23/24 22:00 Patient Own Medication 2 tab DAILY PO 10/24/24 10:00 UNV Patient Own Medication 2 tab TIDWM PO 10/23/24 18:00 UNV Multivit/Ca Carb/ B Cmplx/FA/Prenat 1 tab DAILY PO 10/24/24 10:00 10/25/24 11:07 1 TAB Sevelamer HCl 1,600 mg TIDWM PO 10/23/24 18:00 10/24/24 17:37 1,600 MG Montelukast Sodium 10 mg DAILY PO 10/24/24 10:00 10/25/24 11:07 10 MG Dextrose/Sodium Chloride 1,000 ml @ 100 mls/hr Q10H IV 10/23/24 16:30 10/23/24 17:00 100 MLS/HR Piperacillin Sod/ Tazobactam Sod 50 ml @ 12.5 mls/hr Q12HR IV 10/23/24 22:00 UNV Piperacillin Sod/ Tazobactam Sod 100 ml @ 25 mls/hr Q12HR IV 10/23/24 22:00 10/25/24 21:10 25 MLS/HR Diagnostic Test (Pha) 1 strip ACHS 10/23/24 22:00 10/26/24 06:09 1 STRIP Insulin Human Regular ACHS SC 10/23/24 22:00 10/25/24 17:08 2 UNITS Dextrose 50 ml UD PRN IV 10/23/24 21:15 Midodrine 10 mg TID@0600,1200,1800 PO 10/24/24 06:00 10/26/24 05:39 10 MG Laboratory Results Laboratory Tests 10/26/24 06:26 Chemistry Test 10/26/24 06:26 Albumin 3.5 g/dL (3.2-4.8) Calcium Level 8.4 mg/dL (8.7-10.4) L Total Protein 6.2 g/dL (5.7-8.2) LFT Test 10/26/24 06:26 Alanine Aminotransferase (ALT) 61 U/L (7-40) H Alkaline Phosphatase 137 U/L (46-116) H Aspartate Amino Transferase (AST) 112 U/L (13-40) H Total Bilirubin 0.8 mg/dL (0.2-1.0) Microbiology Microbiology Date/Time Source Procedure Growth Status 10/25/24 01:14 Nose MRSA Screen - Final Complete 10/24/24 19:10 Blood Blood Culture - Preliminary NO GROWTH AFTER 24 HOURS OF INCUBATION. Resulted Labs and/or images reviewed: Labs reviewed by me, Image(s) reviewed by me Assessment/Plan Assessment/Plan Septic shock with altered mental status hypoglycemia lactic acidosis secondary to pneumonia: Blood cultures negative Bilateral community-acquired pneumonia: Zosyn vancomycin NSTEMI, likely type II, cardiology consult appreciated Unspecified atrial fibrillation, on low-dose Eliquis at home Chronic HFpEF, NYHA class II History of nonsustained ventricular tachycardia Hx of DVT of the right radial vein (03/28/24) Hypoglycemia Pulmonary hypertension, severe degree Tricuspid valve regurgitation, severe degree Hypertension Dyslipidemia COPD Type 2 diabetes mellitus ESRD on HD nephrology consult Time spent 50 minutes Patient is full code Advanced care planning time 20 minutes Plan discussed with: Patient Date of Service: Oct 26, 2024 Billing Provider: DEBORAH MCCARTY MD Common Visit Codes: [id number] INP/OBS CARE(HIGH) DEBORAH MCCARTY MD Oct 26, 2024 07:58
[2024-10-26 08:30] LABS: Anisocytosis Slight; Eosinophils % (manual) 2 (0-7); Lymphocytes % (manual) 10 (10.0-50.0); Monocytes % (manual) 22 (0-12); Platelet Estimate Decreased
--- NOTE | 2024-10-26 10:46 | DVHPN2 ---
Progress Note - Dictate Date Seen: Oct 26, 2024 Medical Necessity Reason Pt with a Central, PICC or Fol: No Subjective Resting comfortably this morning vital signs Vital Sign Date Time Temp Pulse Resp B/P (MAP) Pulse Ox O2 Delivery O2 Flow Rate FiO2 10/26/24 09:00 97.9 68 16 108/46 (66) 100 97.9 10/25/24 20:00 Nasal Cannula* 3 32 Total Intake and Output 10/25/24 10/25/24 10/26/24 15:00 23:00 07:00 Intake Total 640 ml 175 ml Balance 640 ml 175 ml medications Current Medications Medications Dose Ordered Sig/Deann Route Start Time Stop Time Status Last Admin Dose Admin Vancomycin HCl 0 ml @ 0 mls/hr UD IV 10/23/24 12:45 Piperacillin Sod/ Tazobactam Sod 100 ml @ 100 mls/hr BID IV 10/23/24 22:00 UNV Sodium Chloride 10 ml Q8HR IV 10/23/24 22:00 10/26/24 05:39 10 ML Docusate Sodium 100 mg BIDPRN PRN PO 10/23/24 14:15 10/25/24 21:39 100 MG Acetaminophen 650 mg Q6HP PRN PO 10/23/24 14:15 10/25/24 21:24 650 MG Ondansetron HCl 4 mg Q4HP PRN IV 10/23/24 14:15 Apixaban 2.5 mg BID PO 10/23/24 22:00 10/25/24 21:06 2.5 MG Aspirin 81 mg DAILY PO 10/24/24 10:00 10/25/24 11:07 81 MG Atorvastatin Calcium 40 mg HS PO 10/23/24 22:00 10/25/24 21:06 40 MG Latanoprost 1 drop QPM EACHEYE 10/23/24 18:00 Dimethicone 80 mg Q6HPRN PO 10/23/24 18:00 10/26/24 05:37 80 MG Patient Own Medication 1 tab DAILY PO 10/24/24 10:00 UNV Patient Own Medication 1 drop BID OP 10/23/24 22:00 Patient Own Medication 210 mg TID PO 10/23/24 22:00 Patient Own Medication 50 mcg DAILY EACHNOSTRI 10/24/24 10:00 Patient Own Medication 1,000 mg TIDWM PO 10/23/24 18:00 Patient Own Medication 5 mg HSPRN PRN PO 10/23/24 22:00 Patient Own Medication 2 tab DAILY PO 10/24/24 10:00 UNV Patient Own Medication 2 tab TIDWM PO 10/23/24 18:00 UNV Multivit/Ca Carb/ B Cmplx/FA/Prenat 1 tab DAILY PO 10/24/24 10:00 10/25/24 11:07 1 TAB Sevelamer HCl 1,600 mg TIDWM PO 10/23/24 18:00 10/24/24 17:37 1,600 MG Montelukast Sodium 10 mg DAILY PO 10/24/24 10:00 10/25/24 11:07 10 MG Dextrose/Sodium Chloride 1,000 ml @ 100 mls/hr Q10H IV 10/23/24 16:30 10/23/24 17:00 100 MLS/HR Piperacillin Sod/ Tazobactam Sod 50 ml @ 12.5 mls/hr Q12HR IV 10/23/24 22:00 UNV Piperacillin Sod/ Tazobactam Sod 100 ml @ 25 mls/hr Q12HR IV 10/23/24 22:00 10/25/24 21:10 25 MLS/HR Diagnostic Test (Pha) 1 strip ACHS 10/23/24 22:00 10/26/24 06:09 1 STRIP Insulin Human Regular ACHS SC 10/23/24 22:00 10/25/24 17:08 2 UNITS Dextrose 50 ml UD PRN IV 10/23/24 21:15 Midodrine 10 mg TID@0600,1200,1800 PO 10/24/24 06:00 10/26/24 05:39 10 MG objective Gen: nad heent: nc/at, mmm lungs: cta anteriorly cvs: no rub abd: soft, bowel sounds audible ext: + edema skin: no rash laboratory and microbiology Laboratory Tests 10/26/24 06:26 Test 10/26/24 06:26 Range/Units Serum Glucose 106 74-106 mg/dL Assessment/Plan IMP: 1) ESRD on dialysis 2) acute on chronic systolic and diastolic heart failure 3) hypertension 4) 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 Plan discussed with: RIGOBERTO Macedo MD Oct 26, 2024 10:46
[2024-10-26] MEDS: VANCOMYCIN 750MG KIT 100 ML IV ONE (11:43)
[2024-10-27] VITALS (8 sets, daily range): BP systolic 106–142; BP diastolic 50–71; PULSE 60–80; RESP 18–20; TEMP 97.3–98.2; O2SAT 90–100
[2024-10-27] MEDS ORDERED: ALBUMIN 25% 100 ML IV PRN (07:00)
[2024-10-27] MEDS ORDERED: SODIUM CHL 0.9% 1000 ML BAG XX ONE (07:00)
[2024-10-27 07:20] LABS: Hematocrit 30.2 % (41.0-53.0); Hemoglobin 9.5 g/dL (13.5-17.5); Mean Corpuscular Hgb Conc. 31.5 g/dL (32.0-36.0); Mean Corpuscular Volume 85.8 fL (80.0-100.0); Platelet Count (auto) 123 10^3/uL (140-450); Red Blood Cells 3.53 10^6/uL (4.5-5.90); White Blood Cell 7.3 10^3/uL (4.4-10.8)
[2024-10-27 07:29] LABS: Albumin 3.4 g/dL (3.2-4.8); Anion Gap 13 (5-15); BUN/Creatinine Ratio 5.1 (10.0-20.0); Carbon Dioxide 26 mmol/L (20-31); Chloride 99 mmol/L (98-107); Glucose 101 mg/dL (74-106); Potassium 4.2 mmol/L (3.5-5.1); Sodium 138 mmol/L (136-145); Total Protein 6.4 g/dL (5.7-8.2)
[2024-10-27 07:30] LABS: Alanine Aminotransferase 41 U/L (7-40); Alkaline Phosphatase 124 U/L (46-116); Aspartate Aminotransferase 60 U/L (13-40); Bilirubin, Total 0.8 mg/dL (0.2-1.0); Blood Urea Nitrogen 32 mg/dL (9-23); Calcium 8.5 mg/dL (8.7-10.4)
[2024-10-27 07:46] LABS: Band Neutrophils % (manual) 0; Basophils % (manual) 0 (0.0-2.0); Metamyelocytes % 0; Myelocytes % 0; Promyelocytes % 0; Reactive Lymphocytes 0; Red Cell Distribution Width 24.5 % (11.8-14.3)
--- NOTE | 2024-10-27 08:26 | DVHPN2 ---
Reviewed: Care Plan, H&P, Labs, Medications, Previous Orders, Radiology Changes from previous H/P or p: No Changes Objective Vitals Vital Signs Date Time Temp Pulse Resp B/P (MAP) Pulse Ox O2 Delivery O2 Flow Rate FiO2 10/27/24 05:00 98.2 60 18 106/52 (70) 96 98.2 10/26/24 20:00 Nasal Cannula* 3 32 Intake/Output Intake and Output 10/27/24 07:00 Intake Total 800 ml Balance 800 ml Intake Oral 500 ml IV Total 300 ml Medications Current Medications Medications Dose Ordered Sig/Deann Route Start Time Stop Time Status Last Admin Dose Admin Vancomycin HCl 0 ml @ 0 mls/hr UD IV 10/23/24 12:45 Piperacillin Sod/ Tazobactam Sod 100 ml @ 100 mls/hr BID IV 10/23/24 22:00 UNV Sodium Chloride 10 ml Q8HR IV 10/23/24 22:00 10/27/24 05:51 10 ML Docusate Sodium 100 mg BIDPRN PRN PO 10/23/24 14:15 10/25/24 21:39 100 MG Acetaminophen 650 mg Q6HP PRN PO 10/23/24 14:15 10/25/24 21:24 650 MG Ondansetron HCl 4 mg Q4HP PRN IV 10/23/24 14:15 Apixaban 2.5 mg BID PO 10/23/24 22:00 10/26/24 22:18 2.5 MG Aspirin 81 mg DAILY PO 10/24/24 10:00 10/26/24 11:13 81 MG Atorvastatin Calcium 40 mg HS PO 10/23/24 22:00 10/26/24 22:18 40 MG Latanoprost 1 drop QPM EACHEYE 10/23/24 18:00 Dimethicone 80 mg Q6HPRN PO 10/23/24 18:00 10/27/24 05:53 80 MG Patient Own Medication 1 tab DAILY PO 10/24/24 10:00 UNV Patient Own Medication 1 drop BID OP 10/23/24 22:00 Patient Own Medication 210 mg TID PO 10/23/24 22:00 Patient Own Medication 50 mcg DAILY EACHNOSTRI 10/24/24 10:00 Patient Own Medication 1,000 mg TIDWM PO 10/23/24 18:00 Patient Own Medication 5 mg HSPRN PRN PO 10/23/24 22:00 Patient Own Medication 2 tab DAILY PO 10/24/24 10:00 UNV Patient Own Medication 2 tab TIDWM PO 10/23/24 18:00 UNV Multivit/Ca Carb/ B Cmplx/FA/Prenat 1 tab DAILY PO 10/24/24 10:00 10/26/24 11:13 1 TAB Sevelamer HCl 1,600 mg TIDWM PO 10/23/24 18:00 10/24/24 17:37 1,600 MG Montelukast Sodium 10 mg DAILY PO 10/24/24 10:00 10/26/24 11:14 10 MG Dextrose/Sodium Chloride 1,000 ml @ 100 mls/hr Q10H IV 10/23/24 16:30 10/23/24 17:00 100 MLS/HR Piperacillin Sod/ Tazobactam Sod 50 ml @ 12.5 mls/hr Q12HR IV 10/23/24 22:00 UNV Piperacillin Sod/ Tazobactam Sod 100 ml @ 25 mls/hr Q12HR IV 10/23/24 22:00 10/26/24 22:18 25 MLS/HR Diagnostic Test (Pha) 1 strip ACHS 10/23/24 22:00 10/27/24 05:56 1 STRIP Insulin Human Regular ACHS SC 10/23/24 22:00 10/25/24 17:08 2 UNITS Dextrose 50 ml UD PRN IV 10/23/24 21:15 Midodrine 10 mg TID@0600,1200,1800 PO 10/24/24 06:00 10/27/24 05:52 10 MG Albumin Human 100 ml @ 100 mls/hr PRN PRN IV 10/27/24 07:00 10/27/24 23:59 Laboratory Results Laboratory Tests 10/27/24 06:21 Chemistry Test 10/27/24 06:21 Albumin 3.4 g/dL (3.2-4.8) Calcium Level 8.5 mg/dL (8.7-10.4) L Total Protein 6.4 g/dL (5.7-8.2) LFT Test 10/27/24 06:21 Alanine Aminotransferase (ALT) 41 U/L (7-40) H Alkaline Phosphatase 124 U/L (46-116) H Aspartate Amino Transferase (AST) 60 U/L (13-40) H Total Bilirubin 0.8 mg/dL (0.2-1.0) Microbiology Microbiology Date/Time Source Procedure Growth Status 10/25/24 01:14 Nose MRSA Screen - Final Complete 10/24/24 19:10 Blood Blood Culture - Preliminary NO GROWTH AFTER 48 HOURS OF INCUBATION. Resulted Labs and/or images reviewed: Labs reviewed by me, Image(s) reviewed by me Assessment/Plan Assessment/Plan Septic shock with altered mental status hypoglycemia lactic acidosis secondary to pneumonia: Blood cultures negative Acute hypoxic respiratory failure: Oxygen by nasal cannula Bilateral community-acquired pneumonia: Zosyn vancomycin NSTEMI, likely type II, cardiology consult appreciated ESRD on hemodialysis, Nephrology consult for Dr. Jordan Unspecified atrial fibrillation, on low-dose Eliquis at home Chronic HFpEF, NYHA class II History of nonsustained ventricular tachycardia Hx of DVT of the right radial vein (03/28/24) Hypoglycemia Pulmonary hypertension, severe degree Tricuspid valve regurgitation, severe degree Hypertension Dyslipidemia COPD Type 2 diabetes mellitus Josie test negative COVID test negative, Chest x-ray ordered Time spent 50 minutes Patient is full code Advanced care planning time 20 minutes Plan discussed with: Patient Date of Service: Oct 27, 2024 Billing Provider: DEBORAH MCCARTY MD Common Visit Codes: [id number] INP/OBS CARE(HIGH) DEBORAH MCCARTY MD Oct 27, 2024 08:26
[2024-10-27 09:54] LABS: Anisocytosis Moderate; Blast Cells 7; Eosinophils % (manual) 6 (0-7); Lymphocytes % (manual) 5 (10.0-50.0); Monocytes % (manual) 29 (0-12); Platelet Estimate Decreased
--- NOTE | 2024-10-27 10:21 | DVHPNRES ---
Progress Note Date Seen: Oct 27, 2024 Resident Creating Document: SARAH WU RESIDENT Medical Necessity Reason Pt with a Central, PICC or Fol: No Subjective Patient reports: Feels better Review of Systems: HEENT:Normal, CVS:Normal, RESPIRATORY:Abnormal (still on 3-4 L NC), GI:Normal, :Normal, MSK:Normal, NEURO:Normal Objective vital signs Vital Sign Date Time Temp Pulse Resp B/P (MAP) Pulse Ox O2 Delivery O2 Flow Rate FiO2 10/27/24 08:55 97.8 80 20 142/71 (94) 95 97.8 10/26/24 20:00 Nasal Cannula* 3 32 Total Intake and Output 10/26/24 10/26/24 10/27/24 15:00 23:00 07:00 Intake Total 100 ml 600 ml 100 ml Balance 100 ml 600 ml 100 ml medications Current Medications Medications Dose Ordered Sig/Deann Route Start Time Stop Time Status Last Admin Dose Admin Vancomycin HCl 0 ml @ 0 mls/hr UD IV 10/23/24 12:45 Piperacillin Sod/ Tazobactam Sod 100 ml @ 100 mls/hr BID IV 10/23/24 22:00 UNV Sodium Chloride 10 ml Q8HR IV 10/23/24 22:00 10/27/24 05:51 10 ML Docusate Sodium 100 mg BIDPRN PRN PO 10/23/24 14:15 10/25/24 21:39 100 MG Acetaminophen 650 mg Q6HP PRN PO 10/23/24 14:15 10/25/24 21:24 650 MG Ondansetron HCl 4 mg Q4HP PRN IV 10/23/24 14:15 Apixaban 2.5 mg BID PO 10/23/24 22:00 10/26/24 22:18 2.5 MG Aspirin 81 mg DAILY PO 10/24/24 10:00 10/26/24 11:13 81 MG Atorvastatin Calcium 40 mg HS PO 10/23/24 22:00 10/26/24 22:18 40 MG Latanoprost 1 drop QPM EACHEYE 10/23/24 18:00 Dimethicone 80 mg Q6HPRN PO 10/23/24 18:00 10/27/24 05:53 80 MG Patient Own Medication 1 tab DAILY PO 10/24/24 10:00 UNV Patient Own Medication 1 drop BID OP 10/23/24 22:00 Patient Own Medication 210 mg TID PO 10/23/24 22:00 Patient Own Medication 50 mcg DAILY EACHNOSTRI 10/24/24 10:00 Patient Own Medication 1,000 mg TIDWM PO 10/23/24 18:00 Patient Own Medication 5 mg HSPRN PRN PO 10/23/24 22:00 Patient Own Medication 2 tab DAILY PO 10/24/24 10:00 UNV Patient Own Medication 2 tab TIDWM PO 10/23/24 18:00 UNV Multivit/Ca Carb/ B Cmplx/FA/Prenat 1 tab DAILY PO 10/24/24 10:00 10/26/24 11:13 1 TAB Sevelamer HCl 1,600 mg TIDWM PO 10/23/24 18:00 10/24/24 17:37 1,600 MG Montelukast Sodium 10 mg DAILY PO 10/24/24 10:00 10/26/24 11:14 10 MG Dextrose/Sodium Chloride 1,000 ml @ 100 mls/hr Q10H IV 10/23/24 16:30 10/23/24 17:00 100 MLS/HR Piperacillin Sod/ Tazobactam Sod 50 ml @ 12.5 mls/hr Q12HR IV 10/23/24 22:00 UNV Piperacillin Sod/ Tazobactam Sod 100 ml @ 25 mls/hr Q12HR IV 10/23/24 22:00 10/26/24 22:18 25 MLS/HR Diagnostic Test (Pha) 1 strip ACHS 10/23/24 22:00 10/27/24 05:56 1 STRIP Insulin Human Regular ACHS SC 10/23/24 22:00 10/25/24 17:08 2 UNITS Dextrose 50 ml UD PRN IV 10/23/24 21:15 Midodrine 10 mg TID@0600,1200,1800 PO 10/24/24 06:00 10/27/24 05:52 10 MG Albumin Human 100 ml @ 100 mls/hr PRN PRN IV 10/27/24 07:00 10/27/24 23:59 Examination GENERAL:Normal, HEENT:Normal, NECK:Normal, LUNGS: 3-4L nc b/l basal rales, CVS:Normal, left arm fistula, ABDOMEN:Normal, MSK:Abnormal, 1+ pitting edema b/l, left arm fistula noted, SKIN:Normal, NEURO:Normal, :Normal laboratory and microbiology Laboratory Tests 10/27/24 06:21 Test 10/27/24 06:21 Range/Units Serum Glucose 101 74-106 mg/dL Microbiology Date/Time Source Procedure Growth Status 10/25/24 01:14 Nose MRSA Screen - Final Complete 10/24/24 19:10 Blood Blood Culture - Preliminary NO GROWTH AFTER 48 HOURS OF INCUBATION. Resulted Labs and/or images reviewed: Labs reviewed by me, Image(s) reviewed by me Problem List/Assessment/Plan Problem List/Assessment/Plan Mr. 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 He was alert and oriented upon assessment. EMS found his blood glucose levels in the 20s at home. His past surgical history includes dialysis access and cataract surgery. Last dialysis prior to hospitalization in [place] no fluid was out due to hypotension 10/22, this AM tolerated HD well. Assessment: # ESRD on hemodialysis, aneuric, MWF # anemia of chronic disease # Thrombocytopenia # type 2 NSTEMI # nonspecified atrial fibrillation, on low-dose Eliquis at home # Chronic HFpEF, NYHA class II # Hx of DVT of the right radial vein (03/28/24) # Hypoglycemia likely due to poor oral intake # Severe Sepsis with lactic acidosis improved, on abx. # H/o essential Hypertension # Dyslipidemia # COPD presented with acute hypoxic respiratory failure on 3 L NC. # type 2 diabetes mellitus. Findings: # GFR:12>15>11>8 # Creatinine: 4.49>3.80>4.99>6.22 # last 24 hr I&O: 800 IN ANEURIC # HD fistula L arm last dialysis this AM 10/27 3 L UF out. tolerated well. # Mild positive fluid balance Plan/Recommendation: # Hemodialysis next on 10/29, S/p HD Epogen. We will arrange. # Strict I&O and check Daily weight, Avoid Nephrotoxics, Avoid hyper/hypo tension # Daily BMP, Serum Phosphorus, PTH Labs, iron panel, and Correct electrolytes. continue renal diet. # Sevelamer 1600 TID continue, midodrine 10 mg tid and as needed albumin support during HD. # Following Dr. Jordan[facility]: MWF outpatient charitime, continue. # Continue antibiotics and if needed vasopressor support to keep MAP >65 and continue treatment as per primary team and continue abx. Thank you for the opportunity to follow up on your patient. In case of any question feel free to reach out to the Nephrology team. Discussed with Nephrology attending Dr. Freeman. Addendum Patient seen and examined, plan discussed with resident. Agree with above, we will follow closely Plan discussed with: Patient, Spouse, Other (Primary team, RN) Dietary Evaluation Review Recommendations by RD: Protein Supplementation Comments: 1) Initiate Nepro tid 2) Encourage optimal PO intake 3) Refer to outpatient RD/CD[facility] for diabetes education d/t persistent hypoglycemia 4) Advise patient to have fast-acting carbohydrates accessible such as honey, jelly beans, peppermints, gummy bears, glucose tablets/gels, etc. Once BG is above 70, follow with protein to help stabilize. Expected Outcomes/Goals: 1) appetite and labs to improve 2) f/u in 3-5 days SARAH WU Oct 27, 2024 10:21 ESTELLA FREEMAN MD Oct 27, 2024 16:02
--- NOTE | 2024-10-27 13:37 | DVH ---
EXAM: XY CHEST XRAY 1 VIEW Indication: pain, Pneumonia Technique: Single frontal view of the chest was obtained Comparison: XY CHEST PORTABLE on DOS: 10/23/24, XY CHEST PORTABLE on DOS: 06/09/24, XY CHEST PORTABLE on DOS: 05/20/24, XY CHEST PORTABLE on DOS: 04/19/24, XY CHEST PORTABLE on DOS: 04/13/24 FINDINGS: Lines and Tubes: None Lungs: No focal consolidation. Pleura: No effusion. No pneumothorax. Cardiomediastinal contours: Unremarkable. Atherosclerotic vascular calcifications of the thoracic ao rta are noted. Bones: No acute osseous abnormality. IMPRESSION: No acute cardiopulmonary disease.
[2024-10-27] MEDS ORDERED: MELATONIN 5 MG TAB PO PRN (22:00)
[2024-10-28] VITALS (9 sets, daily range): BP systolic 108–127; BP diastolic 50–63; PULSE 64–79; RESP 18–20; TEMP 97.1–98.3; O2SAT 90–100
--- NOTE | 2024-10-28 08:41 | DVHPN2 ---
Reviewed: Care Plan, H&P, Labs, Medications, Previous Orders, Radiology Changes from previous H/P or p: No Changes Objective Vitals Vital Signs Date Time Temp Pulse Resp B/P (MAP) Pulse Ox O2 Delivery O2 Flow Rate FiO2 10/28/24 05:00 97.6 73 18 110/53 (72) 94 97.6 10/27/24 20:00 Nasal Cannula* 4 36 Intake/Output Intake and Output 10/28/24 07:00 Intake Total 800 ml Output Total 0 ml Balance 800 ml Intake Oral 600 ml IV Total 200 ml Output Urine Total 0 ml Medications Current Medications Medications Dose Ordered Sig/Deann Route Start Time Stop Time Status Last Admin Dose Admin Vancomycin HCl 0 ml @ 0 mls/hr UD IV 10/23/24 12:45 Piperacillin Sod/ Tazobactam Sod 100 ml @ 100 mls/hr BID IV 10/23/24 22:00 UNV Sodium Chloride 10 ml Q8HR IV 10/23/24 22:00 10/28/24 06:08 10 ML Docusate Sodium 100 mg BIDPRN PRN PO 10/23/24 14:15 10/28/24 06:23 100 MG Acetaminophen 650 mg Q6HP PRN PO 10/23/24 14:15 10/27/24 11:01 650 MG Ondansetron HCl 4 mg Q4HP PRN IV 10/23/24 14:15 Apixaban 2.5 mg BID PO 10/23/24 22:00 10/27/24 21:34 2.5 MG Aspirin 81 mg DAILY PO 10/24/24 10:00 10/27/24 10:21 81 MG Atorvastatin Calcium 40 mg HS PO 10/23/24 22:00 10/27/24 21:34 40 MG Latanoprost 1 drop QPM EACHEYE 10/23/24 18:00 Dimethicone 80 mg Q6HPRN PO 10/23/24 18:00 10/28/24 06:16 80 MG Patient Own Medication 1 tab DAILY PO 10/24/24 10:00 UNV Patient Own Medication 1 drop BID OP 10/23/24 22:00 Patient Own Medication 210 mg TID PO 10/23/24 22:00 Patient Own Medication 50 mcg DAILY EACHNOSTRI 10/24/24 10:00 Patient Own Medication 1,000 mg TIDWM PO 10/23/24 18:00 Patient Own Medication 2 tab DAILY PO 10/24/24 10:00 UNV Patient Own Medication 2 tab TIDWM PO 10/23/24 18:00 UNV Multivit/Ca Carb/ B Cmplx/FA/Prenat 1 tab DAILY PO 10/24/24 10:00 10/27/24 10:21 1 TAB Sevelamer HCl 1,600 mg TIDWM PO 10/23/24 18:00 10/24/24 17:37 1,600 MG Montelukast Sodium 10 mg DAILY PO 10/24/24 10:00 10/27/24 10:21 10 MG Dextrose/Sodium Chloride 1,000 ml @ 100 mls/hr Q10H IV 10/23/24 16:30 10/23/24 17:00 100 MLS/HR Piperacillin Sod/ Tazobactam Sod 50 ml @ 12.5 mls/hr Q12HR IV 10/23/24 22:00 UNV Piperacillin Sod/ Tazobactam Sod 100 ml @ 25 mls/hr Q12HR IV 10/23/24 22:00 10/27/24 22:00 25 MLS/HR Diagnostic Test (Pha) 1 strip ACHS 10/23/24 22:00 10/28/24 06:08 1 STRIP Insulin Human Regular ACHS SC 10/23/24 22:00 10/27/24 17:46 2 UNITS Dextrose 50 ml UD PRN IV 10/23/24 21:15 Midodrine 10 mg TID@0600,1200,1800 PO 10/24/24 06:00 10/28/24 06:16 10 MG Melatonin 5 mg QHSP PRN PO 10/27/24 22:00 Laboratory Results Laboratory Tests 10/27/24 06:21 Microbiology Microbiology Date/Time Source Procedure Growth Status 10/25/24 01:14 Nose MRSA Screen - Final Complete 10/24/24 19:10 Blood Blood Culture - Preliminary NO GROWTH AFTER 72 HOURS OF INCUBATION. Resulted Labs and/or images reviewed: Labs reviewed by me, Image(s) reviewed by me Assessment/Plan Assessment/Plan Septic shock with altered mental status hypoglycemia lactic acidosis secondary to pneumonia: Blood cultures negative Acute hypoxic respiratory failure: Oxygen by nasal cannula Bilateral community-acquired pneumonia: Zosyn vancomycin NSTEMI, likely type II, cardiology consult appreciated, Troponins trending up: 280, 602, 892; will request Cardiology for re-evaluation ESRD on hemodialysis, Nephrology consult for Dr. Jordan Unspecified atrial fibrillation, on low-dose Eliquis at home Chronic HFpEF, NYHA class II History of nonsustained ventricular tachycardia Hx of DVT of the right radial vein (03/28/24) Hypoglycemia Pulmonary hypertension, severe degree Tricuspid valve regurgitation, severe degree Hypertension Dyslipidemia COPD Type 2 diabetes mellitus Josie test negative COVID test negative, Chest x-ray negative Dr Helms from [place] spoke to me on 10/27/2024 requesting for transfer patient to [place], advised to repeat troponin to make sure they are trending down. Better troponin went up to 892, requested Cardiology for re-evaluation Time spent 50 minutes Patient is full code Advanced care planning time 20 minutes Plan discussed with: Patient My Orders Orders - DEBORAH MCCARTY MD Procedure Category Date Status Time Troponin-I Hs LAB 10/28/24 Transmitted 08:34 Troponin-I Hs LAB 10/28/24 Transmitted 09:34 Troponin-I Hs LAB 10/28/24 Transmitted 11:34 * Cardiology Consult CONS 10/28/24 Transmitted 08:34 Date of Service: Oct 28, 2024 Billing Provider: DEBORAH MCCARTY MD Common Visit Codes: [id number] INP/OBS CARE(HIGH) DEBORAH MCCARTY MD Oct 28, 2024 08:41
--- NOTE | 2024-10-28 09:04 | DVHPN2 ---
[facility] 0904: Consult Progress Note Date Seen: Oct 28, 2024 Subjective Other Systems: No overnight cardiac events reported Objective vital signs Vital Sign Date Time Temp Pulse Resp B/P (MAP) Pulse Ox O2 Delivery O2 Flow Rate FiO2 10/28/24 05:00 97.6 73 18 110/53 (72) 94 97.6 10/27/24 20:00 Nasal Cannula* 4 36 Total Intake and Output 10/27/24 10/27/24 10/28/24 15:00 23:00 07:00 Intake Total 100 ml 350 ml 350 ml Output Total 0 ml Balance 100 ml 350 ml 350 ml medications Current Medications Medications Dose Ordered Sig/Deann Route Start Time Stop Time Status Last Admin Dose Admin Vancomycin HCl 0 ml @ 0 mls/hr UD IV 10/23/24 12:45 Piperacillin Sod/ Tazobactam Sod 100 ml @ 100 mls/hr BID IV 10/23/24 22:00 UNV Sodium Chloride 10 ml Q8HR IV 10/23/24 22:00 10/28/24 06:08 10 ML Docusate Sodium 100 mg BIDPRN PRN PO 10/23/24 14:15 10/28/24 06:23 100 MG Acetaminophen 650 mg Q6HP PRN PO 10/23/24 14:15 10/27/24 11:01 650 MG Ondansetron HCl 4 mg Q4HP PRN IV 10/23/24 14:15 Apixaban 2.5 mg BID PO 10/23/24 22:00 10/27/24 21:34 2.5 MG Aspirin 81 mg DAILY PO 10/24/24 10:00 10/27/24 10:21 81 MG Atorvastatin Calcium 40 mg HS PO 10/23/24 22:00 10/27/24 21:34 40 MG Latanoprost 1 drop QPM EACHEYE 10/23/24 18:00 Dimethicone 80 mg Q6HPRN PO 10/23/24 18:00 10/28/24 06:16 80 MG Patient Own Medication 1 tab DAILY PO 10/24/24 10:00 UNV Patient Own Medication 1 drop BID OP 10/23/24 22:00 Patient Own Medication 210 mg TID PO 10/23/24 22:00 Patient Own Medication 50 mcg DAILY EACHNOSTRI 10/24/24 10:00 Patient Own Medication 1,000 mg TIDWM PO 10/23/24 18:00 Patient Own Medication 2 tab DAILY PO 10/24/24 10:00 UNV Patient Own Medication 2 tab TIDWM PO 10/23/24 18:00 UNV Multivit/Ca Carb/ B Cmplx/FA/Prenat 1 tab DAILY PO 10/24/24 10:00 10/27/24 10:21 1 TAB Sevelamer HCl 1,600 mg TIDWM PO 10/23/24 18:00 10/24/24 17:37 1,600 MG Montelukast Sodium 10 mg DAILY PO 10/24/24 10:00 10/27/24 10:21 10 MG Dextrose/Sodium Chloride 1,000 ml @ 100 mls/hr Q10H IV 10/23/24 16:30 10/23/24 17:00 100 MLS/HR Piperacillin Sod/ Tazobactam Sod 50 ml @ 12.5 mls/hr Q12HR IV 10/23/24 22:00 UNV Piperacillin Sod/ Tazobactam Sod 100 ml @ 25 mls/hr Q12HR IV 10/23/24 22:00 10/27/24 22:00 25 MLS/HR Diagnostic Test (Pha) 1 strip ACHS 10/23/24 22:00 10/28/24 06:08 1 STRIP Insulin Human Regular ACHS SC 10/23/24 22:00 10/27/24 17:46 2 UNITS Dextrose 50 ml UD PRN IV 10/23/24 21:15 Midodrine 10 mg TID@0600,1200,1800 PO 10/24/24 06:00 10/28/24 06:16 10 MG Melatonin 5 mg QHSP PRN PO 10/27/24 22:00 Examination: GENERAL:Abnormal (Chronically ill), LUNGS:Normal, CVS:Normal (A- fib controlled rate), NEURO:Abnormal (Somnolent) laboratory and microbiology Laboratory Tests 10/27/24 06:21 Test 10/27/24 06:21 Range/Units Serum Glucose 101 74-106 mg/dL Problem List/Assessment/Plan Problem List/Assessment/Plan Sepsis NSTEMI, likely type II secondary to above Paroxysmal atrial fibrillation, on low-dose Eliquis at home Chronic compensated HFpEF, NYHA class II History of nonsustained ventricular tachycardia Hx of DVT of the right radial vein (03/28/24) Pulmonary hypertension, severe degree Tricuspid valve regurgitation, severe degree Type 2 diabetes mellitus with hypoglycemic events Hypertension Dyslipidemia COPD ESRD on HD ?Lower GI bleed, +FOBT Plan/Recommendation (Dr. Baker) Transthoracic echocardiogram revealed EF 60-65% RVSP 55 mmHg. 12-lead electrocardiograms reviewed including an atrial fibrillation rhythm with an associated right bundle branch block and ST segment depression to anteroseptal leads. These changes are similar from those from previous admissions. Troponin levels completed including peak and fall levels. Elevated troponin levels likely secondary to demand ischemia including elevated lactic levels, elevated white blood cell count, derangement in glucose levels, and end-stage renal failure on hemodialysis. Currently on low-dose Eliquis ([id number] VASc score: 6 points). Consider GI work-up as FOBT is positive. There is no further cardiac work-up indicated at this time. Kindly call if in need to re-consult. Thank you for allowing us to participate in this patient's care. This medical document was created using an electronic medical record system with voice recognition software and computerized dictation system. Although this document has been carefully reviewed, there might still be some phonetic and typographical errors. Occasional wrong-word or ``sound-alike substitutions may have occurred due to the inherent limitations of voice recognition software. These areas are purely typographical due to imperfections of the software programs and do not reflect any compromise in the patient's medical care. Please read the chart carefully and recognize, using context, where these substitutions have occurred. Plan discussed with: Patient, Other Dietary Evaluation Review Recommendations by RD: Protein Supplementation Comments: 1) Initiate Nepro tid 2) Encourage optimal PO intake 3) Refer to outpatient RD/CDCES for diabetes education d/t persistent hypoglycemia 4) Advise patient to have fast-acting carbohydrates accessible such as honey, jelly beans, peppermints, gummy bears, glucose tablets/gels, etc. Once BG is above 70, follow with protein to help stabilize. Expected Outcomes/Goals: 1) appetite and labs to improve 2) f/u in 3-5 days Date of Service: Oct 28, 2024 Billing Provider: KRISTINE SPRING Cardiology Common Codes: [id number] HOSP CARE(ANAID Meza DO 10/28/241946: Consult Progress Note Problem List/Assessment/Plan Problem List/Assessment/Plan The patient was seen and discussed with Kristine Spring NP. I agree with her Assessment and Plan, which was formulated with me. Plan discussed with: Patient Billing Provider: ANAID BAKER DO Cardiology Common Codes: [id number] [facility] CARE([facility] Oct 28, 2024 09:04 ANAID BAKER DO Oct 28, 2024 19:47
[2024-10-28 11:07] LABS: Mean Corpuscular Volume 85.1 fL (80.0-100.0); White Blood Cell 7.7 10^3/uL (4.4-10.8)
[2024-10-28 11:10] LABS: Hematocrit 29.6 % (41.0-53.0); Hemoglobin 9.4 g/dL (13.5-17.5); Mean Corpuscular Hemoglobin 26.9 pg (28.0-32.0); Mean Corpuscular Hgb Conc. 31.6 g/dL (32.0-36.0); Platelet Count (auto) 128 10^3/uL (140-450); Red Blood Cells 3.48 10^6/uL (4.5-5.90)
[2024-10-28 11:12] LABS: Alanine Aminotransferase 35 U/L (7-40); Albumin 3.3 g/dL (3.2-4.8); Anion Gap 8 (5-15); BUN/Creatinine Ratio 4.4 (10.0-20.0); Blood Urea Nitrogen 23 mg/dL (9-23); Chloride 100 mmol/L (98-107); Potassium 3.6 mmol/L (3.5-5.1); Sodium 141 mmol/L (136-145); Total Protein 6.1 g/dL (5.7-8.2)
[2024-10-28 11:13] LABS: Bilirubin, Total 0.7 mg/dL (0.2-1.0)
[2024-10-28 11:18] LABS: Alkaline Phosphatase 126 U/L (46-116); Aspartate Aminotransferase 40 U/L (13-40); Calcium 8.3 mg/dL (8.7-10.4); Carbon Dioxide 33 mmol/L (20-31); Glucose 122 mg/dL (74-106)
[2024-10-28 11:20] LABS: Red Cell Distribution Width 24.4 % (11.8-14.3)
[2024-10-28 11:21] LABS: Basophils % (manual) 0 (0.0-2.0); Blast Cells 0; Metamyelocytes % 0; Myelocytes % 0; Promyelocytes % 0; Reactive Lymphocytes 0
[2024-10-28 12:12] LABS: Anisocytosis Moderate; Band Neutrophils % (manual) 1; Eosinophils % (manual) 10 (0-7); Lymphocytes % (manual) 18 (10.0-50.0); Monocytes % (manual) 18 (0-12)
[2024-10-28 12:13] LABS: Platelet Estimate Decreased; Tear Drop Cells MODERATE
--- NOTE | 2024-10-28 14:20 | DVHPN2 ---
Progress Note Date Seen: Oct 28, 2024 Medical Necessity Reason Pt with a Central, PICC or Fol: No Subjective Patient reports: Other Review of Systems: Deferred Objective vital signs Vital Sign Date Time Temp Pulse Resp B/P (MAP) Pulse Ox O2 Delivery O2 Flow Rate FiO2 10/28/24 13:00 97.6 74 20 127/55 (79) 100 97.6 10/28/24 08:00 Nasal Cannula* 3 32 Total Intake and Output 10/27/24 10/27/24 10/28/24 15:00 23:00 07:00 Intake Total 100 ml 350 ml 350 ml Output Total 0 ml Balance 100 ml 350 ml 350 ml medications Current Medications Medications Dose Ordered Sig/Deann Route Start Time Stop Time Status Last Admin Dose Admin Vancomycin HCl 0 ml @ 0 mls/hr UD IV 10/23/24 12:45 Piperacillin Sod/ Tazobactam Sod 100 ml @ 100 mls/hr BID IV 10/23/24 22:00 UNV Sodium Chloride 10 ml Q8HR IV 10/23/24 22:00 10/28/24 06:08 10 ML Docusate Sodium 100 mg BIDPRN PRN PO 10/23/24 14:15 10/28/24 06:23 100 MG Acetaminophen 650 mg Q6HP PRN PO 10/23/24 14:15 10/27/24 11:01 650 MG Ondansetron HCl 4 mg Q4HP PRN IV 10/23/24 14:15 Apixaban 2.5 mg BID PO 10/23/24 22:00 10/28/24 11:21 2.5 MG Aspirin 81 mg DAILY PO 10/24/24 10:00 10/28/24 11:21 81 MG Atorvastatin Calcium 40 mg HS PO 10/23/24 22:00 10/27/24 21:34 40 MG Latanoprost 1 drop QPM EACHEYE 10/23/24 18:00 Dimethicone 80 mg Q6HPRN PO 10/23/24 18:00 10/28/24 12:16 80 MG Patient Own Medication 1 tab DAILY PO 10/24/24 10:00 UNV Patient Own Medication 1 drop BID OP 10/23/24 22:00 Patient Own Medication 210 mg TID PO 10/23/24 22:00 Patient Own Medication 50 mcg DAILY EACHNOSTRI 10/24/24 10:00 Patient Own Medication 1,000 mg TIDWM PO 10/23/24 18:00 Patient Own Medication 2 tab DAILY PO 10/24/24 10:00 UNV Patient Own Medication 2 tab TIDWM PO 10/23/24 18:00 UNV Multivit/Ca Carb/ B Cmplx/FA/Prenat 1 tab DAILY PO 10/24/24 10:00 10/28/24 11:21 1 TAB Sevelamer HCl 1,600 mg TIDWM PO 10/23/24 18:00 10/24/24 17:37 1,600 MG Montelukast Sodium 10 mg DAILY PO 10/24/24 10:00 10/28/24 11:21 10 MG Piperacillin Sod/ Tazobactam Sod 50 ml @ 12.5 mls/hr Q12HR IV 10/23/24 22:00 UNV Piperacillin Sod/ Tazobactam Sod 100 ml @ 25 mls/hr Q12HR IV 10/23/24 22:00 10/28/24 11:20 25 MLS/HR Diagnostic Test (Pha) 1 strip ACHS 10/23/24 22:00 10/28/24 11:21 1 STRIP Insulin Human Regular ACHS SC 10/23/24 22:00 10/27/24 17:46 2 UNITS Dextrose 50 ml UD PRN IV 10/23/24 21:15 Midodrine 10 mg TID@0600,1200,1800 PO 10/24/24 06:00 10/28/24 12:16 10 MG Melatonin 5 mg QHSP PRN PO 10/27/24 22:00 Examination: GENERAL:Abnormal, LUNGS:Abnormal, MSK:Abnormal laboratory and microbiology Laboratory Tests 10/28/24 10:30 Test 10/28/24 10:30 Range/Units Serum Glucose 122 H 74-106 mg/dL Microbiology Date/Time Source Procedure Growth Status 10/25/24 01:14 Nose MRSA Screen - Final Complete 10/24/24 19:10 Blood Blood Culture - Preliminary NO GROWTH AFTER 72 HOURS OF INCUBATION. Resulted Problem List/Assessment/Plan Problem List/Assessment/Plan Assessment: # ESRD on hemodialysis,, MWF # anemia of chronic disease # Thrombocytopenia # type 2 NSTEMI # nonspecified atrial fibrillation, on low-dose Eliquis at home # Chronic HFpEF, NYHA class II # Hx of DVT of the right radial vein (03/28/24) # Hypoglycemia likely due to poor oral intake # Severe Sepsis with lactic acidosis improved, on abx. # H/o essential Hypertension # Dyslipidemia # COPD presented with acute hypoxic respiratory failure on 3 L NC. # type 2 diabetes mellitus. Plan/Recommendation: HD tomorrow julia with HD Plan discussed with: Other My Orders My Orders Orders - ESTELLA FREEMAN MD Procedure Category Date Status Time Communication Order ORDERS 10/28/24 Transmitted 14:17 Dietary Evaluation Review Recommendations by RD: Protein Supplementation Comments: 1) Initiate Nepro tid 2) Encourage optimal PO intake 3) Refer to outpatient RD/CDCES for diabetes education d/t persistent hypoglycemia 4) Advise patient to have fast-acting carbohydrates accessible such as honey, jelly beans, peppermints, gummy bears, glucose tablets/gels, etc. Once BG is above 70, follow with protein to help stabilize. Expected Outcomes/Goals: 1) appetite and labs to improve 2) f/u in 3-5 days ESTELLA FREEMAN MD Oct 28, 2024 14:20
--- NOTE | 2024-10-28 14:26 | ECG ---
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
[2024-10-28] MEDS: VANCOMYCIN 500mg/100mL 100 ML IV ONE (15:44)
[2024-10-29 01:00] VITALS: BP_SYST 101; BP_SYST 93; BP_DIAS 50; PULSE 54; PULSE 80; RESP 20; TEMP 96.8; O2SAT 98; O2SAT 99
[2024-10-29 05:00] VITALS: BP 129/64; PULSE 71; RESP 18; TEMP 97.5; O2SAT 100
--- NOTE | 2024-10-29 07:53 | DVHPN2 ---
Reviewed: Care Plan, H&P, Labs, Medications, Previous Orders, Radiology Changes from previous H/P or p: No Changes Objective Vitals Vital Signs Date Time Temp Pulse Resp B/P (MAP) Pulse Ox O2 Delivery O2 Flow Rate FiO2 10/29/24 05:00 97.5 71 18 129/64 (85) 100 97.5 10/28/24 20:00 Nasal Cannula* 4 36 Intake/Output Intake and Output 10/29/24 07:00 Intake Total 550 ml Balance 550 ml Intake Oral 350 ml IV Total 200 ml Medications Current Medications Medications Dose Ordered Sig/Deann Route Start Time Stop Time Status Last Admin Dose Admin Vancomycin HCl 0 ml @ 0 mls/hr UD IV 10/23/24 12:45 Piperacillin Sod/ Tazobactam Sod 100 ml @ 100 mls/hr BID IV 10/23/24 22:00 UNV Sodium Chloride 10 ml Q8HR IV 10/23/24 22:00 10/29/24 06:03 10 ML Docusate Sodium 100 mg BIDPRN PRN PO 10/23/24 14:15 10/28/24 18:44 100 MG Acetaminophen 650 mg Q6HP PRN PO 10/23/24 14:15 10/27/24 11:01 650 MG Ondansetron HCl 4 mg Q4HP PRN IV 10/23/24 14:15 Apixaban 2.5 mg BID PO 10/23/24 22:00 10/28/24 11:21 2.5 MG Aspirin 81 mg DAILY PO 10/24/24 10:00 10/28/24 11:21 81 MG Atorvastatin Calcium 40 mg HS PO 10/23/24 22:00 10/28/24 21:27 40 MG Latanoprost 1 drop QPM EACHEYE 10/23/24 18:00 Dimethicone 80 mg Q6HPRN PO 10/23/24 18:00 10/29/24 05:59 80 MG Patient Own Medication 1 tab DAILY PO 10/24/24 10:00 UNV Patient Own Medication 1 drop BID OP 10/23/24 22:00 Patient Own Medication 210 mg TID PO 10/23/24 22:00 Patient Own Medication 50 mcg DAILY EACHNOSTRI 10/24/24 10:00 Patient Own Medication 1,000 mg TIDWM PO 10/23/24 18:00 Patient Own Medication 2 tab DAILY PO 10/24/24 10:00 UNV Patient Own Medication 2 tab TIDWM PO 10/23/24 18:00 UNV Multivit/Ca Carb/ B Cmplx/FA/Prenat 1 tab DAILY PO 10/24/24 10:00 10/28/24 11:21 1 TAB Sevelamer HCl 1,600 mg TIDWM PO 10/23/24 18:00 10/24/24 17:37 1,600 MG Montelukast Sodium 10 mg DAILY PO 10/24/24 10:00 10/28/24 11:21 10 MG Piperacillin Sod/ Tazobactam Sod 50 ml @ 12.5 mls/hr Q12HR IV 10/23/24 22:00 UNV Piperacillin Sod/ Tazobactam Sod 100 ml @ 25 mls/hr Q12HR IV 10/23/24 22:00 10/28/24 21:27 25 MLS/HR Diagnostic Test (Pha) 1 strip ACHS 10/23/24 22:00 10/29/24 06:04 1 STRIP Insulin Human Regular ACHS SC 10/23/24 22:00 10/28/24 17:06 3 UNITS Dextrose 50 ml UD PRN IV 10/23/24 21:15 Midodrine 10 mg TID@0600,1200,1800 PO 10/24/24 06:00 10/29/24 05:59 10 MG Melatonin 5 mg QHSP PRN PO 10/27/24 22:00 Laboratory Results Laboratory Tests 10/28/24 10:30 Chemistry Test 10/28/24 10:30 Albumin 3.3 g/dL (3.2-4.8) Calcium Level 8.3 mg/dL (8.7-10.4) L Total Protein 6.1 g/dL (5.7-8.2) LFT Test 10/28/24 10:30 Alanine Aminotransferase (ALT) 35 U/L (7-40) Alkaline Phosphatase 126 U/L (46-116) H Aspartate Amino Transferase (AST) 40 U/L (13-40) Total Bilirubin 0.7 mg/dL (0.2-1.0) Microbiology Microbiology Date/Time Source Procedure Growth Status 10/25/24 01:14 Nose MRSA Screen - Final Complete 10/24/24 19:10 Blood Blood Culture - Preliminary NO GROWTH AFTER 72 HOURS OF INCUBATION. Resulted Labs and/or images reviewed: Labs reviewed by me, Image(s) reviewed by me Assessment/Plan Assessment/Plan Septic shock with altered mental status hypoglycemia lactic acidosis secondary to pneumonia: Blood cultures negative Acute hypoxic respiratory failure: Oxygen by nasal cannula Bilateral community-acquired pneumonia: Zosyn vancomycin NSTEMI, likely type II, cardiology consult appreciated, Slightly elevated troponin levels secondary to demand ischemia ESRD on hemodialysis, Nephrology consult for Dr. Jordan Unspecified atrial fibrillation, on low-dose Eliquis at home Chronic HFpEF, NYHA class II History of nonsustained ventricular tachycardia Hx of DVT of the right radial vein (03/28/24) Hypoglycemia Pulmonary hypertension, severe degree Tricuspid valve regurgitation, severe degree Hypertension Dyslipidemia COPD Type 2 diabetes mellitus Josie test negative COVID test negative, Chest x-ray negative Dr Helms from [place] spoke to me on 10/27/2024 requesting for transfer patient to [place] Time spent 50 minutes Patient is full code Advanced care planning time 20 minutes Plan discussed with: Patient My Orders Orders - DEBORAH MCCARTY MD Procedure Category Date Status Time * Cardiology Consult CONS 10/28/24 Transmitted 08:34 Date of Service: Oct 29, 2024 Billing Provider: DEBORAH MCCARTY MD Common Visit Codes: [id number] INP/OBS CARE(HIGH) DEBORAH MCCARTY MD Oct 29, 2024 07:53
[2024-10-29 08:00] VITALS: PULSE 68; O2SAT 98
--- NOTE | 2024-10-29 08:00 | DVHDS2 ---
Discharge Summary Date of Admission Oct 23, 2024 at 14:02 Date of Discharge: Oct 29, 2024 Admitting Diagnosis Shortness of breath Wounds: Hemodialysis Labs/Diagnostic Data: Laboratory Results Test 10/29/24 06:02 10/28/24 11:48 10/28/24 10:30 10/25/24 05:23 POC Glucose 90 mg/dl (70-106) Troponin I High Sensitivity 444 ng/L (</=54) White Blood Count 7.7 10^3/uL (4.4-10.8) Red Blood Count 3.48 10^6/uL (4.5-5.90) Hemoglobin 9.4 g/dL (13.5-17.5) Hematocrit 29.6 % (41.0-53.0) Mean Corpuscular Volume 85.1 fL (80.0-100.0) Mean Corpuscular Hemoglobin 26.9 pg (28.0-32.0) Mean Corpuscular Hemoglobin Concent 31.6 g/dL (32.0-36.0) Red Cell Distribution Width 24.4 % (11.8-14.3) Platelet Count 128 10^3/uL (140-450) Mean Platelet Volume 8.6 fL (6.9-10.8) Neutrophils (%) (Auto) % (37.0-80.0) Lymphocytes (%) (Auto) % (10.0-50.0) Monocytes (%) (Auto) % (0.0-12.0) Basophils (%) (Auto) % (0.0-2.0) Neutrophils # (Auto) 10 ^3/uL (1.6-8.6) Lymphocytes # (Auto) 10 ^3/uL (0.4-5.4) Monocytes # (Auto) 10 ^3/uL (0-1.3) Differential Total Cells Counted 100.0 (100) Neutrophils % (Manual) 53 (37.0-80.0) Band Neutrophils % (Manual) 1 Lymphocytes % (Manual) 18 (10.0-50.0) Monocytes % (Manual) 18 (0-12) Eosinophils % (Manual) 10 (0-7) Basophils % (Manual) 0 (0.0-2.0) Metamyelocytes % (manual) 0 Myelocytes % (Manual) 0 Promyelocytes % (Manual) 0 Blast Cells % (Manual) 0 Reactive Lymphocytes 0 Platelet Estimate Decreased Anisocytosis (manual) Moderate Tear Drop Cells Moderate Sodium Level 141 mmol/L (136-145) Potassium Level 3.6 mmol/L (3.5-5.1) Chloride Level 100 mmol/L (98-107) Carbon Dioxide Level 33 mmol/L (20-31) Anion Gap 8 (5-15) Blood Urea Nitrogen 23 mg/dL (9-23) Creatinine 5.25 mg/dL (0.700-1.30) Glomerular Filtration Rate Calc 10 mL/min (>90) BUN/Creatinine Ratio 4.4 (10.0-20.0) Serum Glucose 122 mg/dL (74-106) Calcium Level 8.3 mg/dL (8.7-10.4) Total Bilirubin 0.7 mg/dL (0.2-1.0) Aspartate Amino Transferase (AST) 40 U/L (13-40) Alanine Aminotransferase (ALT) 35 U/L (7-40) Alkaline Phosphatase 126 U/L (46-116) Total Protein 6.1 g/dL (5.7-8.2) Albumin 3.3 g/dL (3.2-4.8) Random Vancomycin Level 20.3 ug/mL (5-10) Target Cells Few Test 10/24/24 11:41 10/24/24 09:24 10/24/24 05:04 10/23/24 15:00 Lactic Acid Level 1.9 mmol/L (0.4-2.0) Iron Level 36 ug/dL (65-175) Total Iron Binding Capacity 268 ug/dL (250-425) Percent Iron Saturation 13.4 % (20-55) Ferritin 157.1 ng/mL (22-322) Prothrombin Time 20.3 sec (9.3-11.8) Prothrombin Time INR 2.06 (0.9-1.15) Activated Partial Thromboplast Time 43.3 SEC (24.5-34.5) Phosphorus Level 4.8 mg/dL (2.4-5.1) Magnesium Level 2.1 mg/dL (1.6-2.6) Vitamin B12 Level > 4000 pg/mL (211-911) Vitamin D 25-Hydroxy 92.4 ng/mL (30.0-100) Thyroid Stimulating Hormone (TSH) 1.92 uIU/mL (0.55-4.78) Influenza Type A Antigen Negative (Negative) Influenza Type B Antigen Negative (Negative) SARS-CoV-2 Antigen (Rapid) Negative (NEGATIVE) Test 10/23/24 11:17 B-Type Natriuretic Peptide 1539.22 pg/mL (0-100) Other Laboratory Tests 10/28/24 10:30 Brief Hx & Hospital Course: 89-year-old male with multiple medical problems including ESRD on hemodialysis CHF history of DVT in the right radial vein pulmonary hypertension tricuspid valve regurgitation hypertension hyperlipidemia COPD type 2 diabetes non STEMI type 2 came in for shortness of breaths. Found to have septic shock with altered mental status hypoglycemia and lactic acidosis secondary to community- acquired pneumonia blood cultures negative pneumonia treated with the Zosyn and vancomycin received hemodialysis troponin is elevated from 200-800 gradually coming down seen by cardiology advised patient has non STEMI type 2 and elevated troponin secondary to the sepsis and ESRD. Josie test negative COVID test negative chest x-ray negative. Patient being transferred to the NH for further care. Dr. Helms from NH called me on Sunday and advised the patient to be transferred to NH orders placed accordingly General condition poor but stable at the time of transfer. Consults/Reason for consult Cardiology Nephrology Operations or Procedures Hemodialysis Condition at Discharge: Fair Final Diagnosis/Problems List Septic shock with altered mental status hypoglycemia lactic acidosis secondary to pneumonia: Blood cultures negative Acute hypoxic respiratory failure: Oxygen by nasal cannula Bilateral community-acquired pneumonia: Zosyn vancomycin NSTEMI, likely type II, cardiology consult appreciated, Slightly elevated troponin levels secondary to demand ischemia ESRD on hemodialysis, Nephrology consult for Dr. Jordan Unspecified atrial fibrillation, on low-dose Eliquis at home Chronic HFpEF, NYHA class II History of nonsustained ventricular tachycardia Hx of DVT of the right radial vein (03/28/24) Hypoglycemia Pulmonary hypertension, severe degree Tricuspid valve regurgitation, severe degree Hypertension Dyslipidemia COPD Type 2 diabetes mellitus Josie test negative COVID test negative, Chest x-ray negative Discharge Disposition: Acute Care Facility Discharge Instruct/Medications Diet: Renal Activity: Bed rest Follow Up/Referral: Follow up with the NH Medications: see list 39 (Time taken for discharge summary 39 minutes) Discharge Statement: "Patient was advised to return to the ER or call 911 if any headaches, dizziness, shortness of breath, chest pain, abdominal pain, bleeding, fevers, or worsening of medical condition. Patient was counseled about treatment plan, medications, possible side effects, patientverbalized understanding. All questions were answered to the best of my ability. This discharge took greater then 30 minutes in planning, reviewing documentation, counseling the patient, and discussing with other team members." ASSESSMENT ASSESSMENT Hospital Course Uneventful Assessment Septic shock with altered mental status hypoglycemia lactic acidosis secondary to pneumonia: Blood cultures negative Acute hypoxic respiratory failure: Oxygen by nasal cannula Bilateral community-acquired pneumonia: Zosyn vancomycin NSTEMI, likely type II, cardiology consult appreciated, Slightly elevated troponin levels secondary to demand ischemia ESRD on hemodialysis, Nephrology consult for Dr. Jordan Unspecified atrial fibrillation, on low-dose Eliquis at home Chronic HFpEF, NYHA class II History of nonsustained ventricular tachycardia Hx of DVT of the right radial vein (03/28/24) Hypoglycemia Pulmonary hypertension, severe degree Tricuspid valve regurgitation, severe degree Hypertension Dyslipidemia COPD Type 2 diabetes mellitus Josie test negative COVID test negative, Chest x-ray negative Date of Service: Oct 29, 2024 Billing Provider: DEBORAH MCCARTY MD Common Visit Codes: 70504-ESE/OBS DISCH DAY >30min DEBORAH MCCARTY MD Oct 29, 2024 08:00
[2024-10-29 09:00] VITALS: BP 102/62; PULSE 80; RESP 16; TEMP 98; O2SAT 95
[2024-10-29 13:00] VITALS: BP 125/62; PULSE 84; RESP 18; TEMP 98.1; O2SAT 96
[2024-10-29 15:47] LABS: COVID19 ANTIGEN SOFIA FIA NEGATIVE (NEGATIVE)
[2024-10-29 17:00] VITALS: BP 119/53; PULSE 72; RESP 16; TEMP 97.6; O2SAT 92
--- NOTE | 2024-10-29 17:30 | DVHPN2 ---
Progress Note Date Seen: Oct 29, 2024 Medical Necessity Reason Pt with a Central, PICC or Fol: No Subjective Review of Systems: Deferred Objective vital signs Vital Sign Date Time Temp Pulse Resp B/P (MAP) Pulse Ox O2 Delivery O2 Flow Rate FiO2 10/29/24 09:00 98.0 80 16 102/62 (75) 95 98.0 10/28/24 20:00 Nasal Cannula* 4 36 Total Intake and Output 10/28/24 10/28/24 10/29/24 15:00 23:00 07:00 Intake Total 100 ml 100 ml 350 ml Balance 100 ml 100 ml 350 ml medications Current Medications Medications Dose Ordered Sig/Deann Route Start Time Stop Time Status Last Admin Dose Admin Vancomycin HCl 0 ml @ 0 mls/hr UD IV 10/23/24 12:45 Piperacillin Sod/ Tazobactam Sod 100 ml @ 100 mls/hr BID IV 10/23/24 22:00 UNV Sodium Chloride 10 ml Q8HR IV 10/23/24 22:00 10/29/24 12:58 10 ML Docusate Sodium 100 mg BIDPRN PRN PO 10/23/24 14:15 10/28/24 18:44 100 MG Acetaminophen 650 mg Q6HP PRN PO 10/23/24 14:15 10/29/24 11:33 650 MG Ondansetron HCl 4 mg Q4HP PRN IV 10/23/24 14:15 Apixaban 2.5 mg BID PO 10/23/24 22:00 10/28/24 11:21 2.5 MG Aspirin 81 mg DAILY PO 10/24/24 10:00 10/28/24 11:21 81 MG Atorvastatin Calcium 40 mg HS PO 10/23/24 22:00 10/28/24 21:27 40 MG Latanoprost 1 drop QPM EACHEYE 10/23/24 18:00 Dimethicone 80 mg Q6HPRN PO 10/23/24 18:00 10/29/24 12:54 80 MG Patient Own Medication 1 tab DAILY PO 10/24/24 10:00 UNV Patient Own Medication 1 drop BID OP 10/23/24 22:00 Patient Own Medication 210 mg TID PO 10/23/24 22:00 Patient Own Medication 50 mcg DAILY EACHNOSTRI 10/24/24 10:00 Patient Own Medication 1,000 mg TIDWM PO 10/23/24 18:00 Patient Own Medication 2 tab DAILY PO 10/24/24 10:00 UNV Patient Own Medication 2 tab TIDWM PO 10/23/24 18:00 UNV Multivit/Ca Carb/ B Cmplx/FA/Prenat 1 tab DAILY PO 10/24/24 10:00 10/29/24 11:04 1 TAB Sevelamer HCl 1,600 mg TIDWM PO 10/23/24 18:00 10/29/24 12:54 1,600 MG Montelukast Sodium 10 mg DAILY PO 10/24/24 10:00 10/29/24 11:04 10 MG Piperacillin Sod/ Tazobactam Sod 50 ml @ 12.5 mls/hr Q12HR IV 10/23/24 22:00 UNV Piperacillin Sod/ Tazobactam Sod 100 ml @ 25 mls/hr Q12HR IV 10/23/24 22:00 10/29/24 11:07 25 MLS/HR Diagnostic Test (Pha) 1 strip ACHS 10/23/24 22:00 10/29/24 17:19 1 STRIP Insulin Human Regular ACHS SC 10/23/24 22:00 10/28/24 17:06 3 UNITS Dextrose 50 ml UD PRN IV 10/23/24 21:15 Midodrine 10 mg TID@0600,1200,1800 PO 10/24/24 06:00 10/29/24 12:54 10 MG Melatonin 5 mg QHSP PRN PO 10/27/24 22:00 Examination: LUNGS:Abnormal, MSK:Abnormal laboratory and microbiology Laboratory Tests 10/28/24 10:30 Test 10/28/24 10:30 Range/Units Serum Glucose 122 H 74-106 mg/dL Microbiology Date/Time Source Procedure Growth Status 10/25/24 01:14 Nose MRSA Screen - Final Complete 10/24/24 19:10 Blood Blood Culture - Preliminary NO GROWTH AFTER 72 HOURS OF INCUBATION. Resulted Problem List/Assessment/Plan Problem List/Assessment/Plan Assessment: # ESRD on hemodialysis,, MWF # anemia of chronic disease # Thrombocytopenia # type 2 NSTEMI # nonspecified atrial fibrillation, on low-dose Eliquis at home # Chronic HFpEF, NYHA class II # Hx of DVT of the right radial vein (03/28/24) # Hypoglycemia likely due to poor oral intake # Severe Sepsis with lactic acidosis improved, on abx. # H/o essential Hypertension # Dyslipidemia # COPD presented with acute hypoxic respiratory failure on 3 L NC. # type 2 diabetes mellitus. Plan/Recommendation: HD TODAY julia with [facility] noted Plan discussed with: Patient, Other My Orders My Orders Orders - ESTELLA FREEMAN MD Procedure Category Date Status Time Hepatitis B Surface LAB 10/29/24 In Process Antigen 04:33 Dietary Evaluation Review Recommendations by RD: Protein Supplementation Comments: 1) Initiate Nepro tid 2) Encourage optimal PO intake 3) Refer to outpatient RD/CDCES for diabetes education d/t persistent hypoglycemia 4) Advise patient to have fast-acting carbohydrates accessible such as honey, jelly beans, peppermints, gummy bears, glucose tablets/gels, etc. Once BG is above 70, follow with protein to help stabilize. Expected Outcomes/Goals: 1) appetite and labs to improve 2) f/u in 3-5 days ESTELLA FREEMAN MD Oct 29, 2024 17:30
== END 2024-10-29 18:40 | disposition short-term general hospital (02) | DRG 871 ==
LOC: EDBD 10:39 → ER 10:39 → OVERFLOW 14:02 → TELE-CENTR 17:32
PROVIDERS: ADMIT Family Medicine; ATTEND Family Medicine
PROC: 5A1D70Z Performance of Urinary Filtration, Intermittent, Less than 6 Hours Per Day (ICD-10-PCS; principal; 2024-10-24)
PROC: 5A1D70Z Performance of Urinary Filtration, Intermittent, Less than 6 Hours Per Day (ICD-10-PCS; 2024-10-27)
PROC: 5A1D70Z Performance of Urinary Filtration, Intermittent, Less than 6 Hours Per Day (ICD-10-PCS; 2024-10-29)
DX: A41.9 Sepsis, unspecified organism (principal); G93.41 Metabolic encephalopathy; I21.A1 Myocardial infarction type 2; J96.01 Acute respiratory failure with hypoxia; J18.9 Pneumonia, unspecified organism; R65.21 Severe sepsis with septic shock; N18.6 End stage renal disease; I50.43 Acute on chronic combined systolic (congestive) and diastolic (congestive) heart failure; I13.2 Hypertensive heart and chronic kidney disease with heart failure and with stage 5 chronic kidney disease, or end stage renal disease; E87.20 Acidosis, unspecified; I47.20 Ventricular tachycardia, unspecified; J44.0 Chronic obstructive pulmonary disease with (acute) lower respiratory infection; E11.22 Type 2 diabetes mellitus with diabetic chronic kidney disease; E11.649 Type 2 diabetes mellitus with hypoglycemia without coma; E78.5 Hyperlipidemia, unspecified; I27.20 Pulmonary hypertension, unspecified; D69.6 Thrombocytopenia, unspecified; Z20.822 Contact with and (suspected) exposure to COVID-19; I48.0 Paroxysmal atrial fibrillation; I45.10 Unspecified right bundle-branch block; I36.1 Nonrheumatic tricuspid (valve) insufficiency; Z99.2 Dependence on renal dialysis; Z88.8 Allergy status to other drugs, medicaments and biological substances; Z79.899 Other long term (current) drug therapy; Z79.82 Long term (current) use of aspirin; Z79.1 Long term (current) use of non-steroidal anti-inflammatories (NSAID); Z86.73 Personal history of transient ischemic attack (TIA), and cerebral infarction without residual deficits; Z82.49 Family history of ischemic heart disease and other diseases of the circulatory system; Z79.01 Long term (current) use of anticoagulants; Z86.718 Personal history of other venous thrombosis and embolism; Z82.3 Family history of stroke; Z83.3 Family history of diabetes mellitus
CPT/HCPCS: 36415; 70450; 71045; 74176; 80053; 80202; 82306; 82607; 82728; 82962; 83540; 83550; 83605; 83735; 83880; 84100; 84443; 84484; 85007; 85027; 85610; 85730; 87040; 87081; 87340; 87426; 87804; 90935; 93005; 93306; 97110; 97116; 97163; 97530; 99291; G0378; J1815; J2543

== ENCOUNTER 2024-11-03 17:55 | Emergency (ER) | payer OTHER, MEDICARE ==
[~2024-11-03] VITALS: Ht 167.6 cm; Wt 70.0 kg
--- NOTE | 2024-11-03 18:42 | ED.PDOC ---
History of Present Illness HPI Comments 89 y/o M is BIBA for c/o left-AV dialysis fistula replacement, today. Patient reports on completing his scheduled dialysis, earlier, today, and then noticing his fistula being dislodged and bleeding from site at around 1600. He reports on having hemodialysis M/W/F and no events that he is able to recall between his dialysis and onset of symptoms that could have resulted in its dislodgement. Prior to arrival, EMS placed a pressure-dressing to site, with success in controlling bleeding, in addition to placing a 20left-AC. Patient endorse no associated symptoms, such as lightheadedness, weakness, numbness, dizziness, or fatigue. Chief Complaint: Tube Replacement Time Seen by MD: 18:30 Primary Care Provider: UNKNOWN Reviewed Notes: Nurses Notes, Smocking Machine Operator Notes, Medications, Allergies Allergies: Coded Allergies: Amlodipine (Verified Allergy, Unknown, 05/20/24) Home Meds Active Scripts Metronidazole (Flagyl) 500 Mg Tab, 1 TAB PO TID for 5 Days, #15 TAB Prov:ANNETTA RUIZ [employer]ORATORY EQUIPMENT INSTALLER 06/25/24 Hydrocortisone Acetate (ANUCORT-HC SUPPOSITORY) 25 Mg Sanchez, 25 MG NE DAILY for 5 Days, #5 SUPP Prov:ANNETTA RUIZ [employer]ORATORY EQUIPMENT INSTALLER 06/25/24 Morphine Sulfate (Morphine Sulfate) 15 Mg Tab, 1 TAB PO TID PRN, #60 TAB Prov:DEBORAH MCCARTY MD 05/22/24 Atorvastatin Calcium (ATORVASTATIN CALCIUM) 20 Mg Tab, 40 MG PO HS for 20 Days, #40 TAB Prov:ESTELLA FREEMAN MD 02/19/19 Aspirin (Aspir-Low Ec) 81 Mg Tb, 81 MG PO DAILY for 20 Days, #60 Prov:ESTELLA FREEMAN MD 02/19/19 Reported Medications Baclofen (Baclofen) 10 Mg Tab, 10 MG PO TID, TAB 03/30/24 Apixaban Base (ELIQUIS) 2.5 Mg Tab, 2.5 MG PO BID, TAB 03/30/24 Simethicone (Simethicone) 80 Mg Chw, 80 MG PO Q6HPRN, MG 07/14/21 Sevelamer Carbonate (Renvela) 800 Mg Tab, 2 TAB PO TIDWM, #540 TAB 3 Refills 07/14/21 B-Complex W/ C & Folic Acid (Renal) Softgel Cap, 1 TAB PO DAILY, #30 CAP 5 Refills 07/14/21 Montelukast Sodium (Singulair) 5 Mg Chw, 2 TAB PO DAILY, #30 TAB 5 Refills 07/14/21 Metoprolol Succinate (Metoprolol Succinate Er) 50 Mg Tab, 50 MG PO DAILY for 30 Days, MG 07/14/21 Melatonin (KP MELATONIN) 3 Mg Tab, 5 MG PO HSPRN, TAB 07/14/21 Nifedipine (Nifedipine ER) 30 Mg Tab, 60 MG PO DAILY, TAB 07/14/21 Latanoprost (Xalatan) 0.005 % Milady, 1 DROP EACHEYE QPM, #2.5 ML 6 Refills 07/14/21 Guaifenesin-Codeine (Guaifenesin Ac) Ac Syp, 10 ML PO Q6HPRN PRN for FOR COUGH, #240 ML 07/14/21 Lanthanum Carbonate (Fosrenol) 1,000 Mg Chw, 1000 MG PO TIDWM, TAB.CHEW 07/14/21 Fluticasone Propionate (Fluticasone Propionate) 0.05 % Cre, 50 MCG LUKE DAILY for 30 Days, MCG 07/14/21 Cinacalcet Hydrochloride (Sensipar) 30 Mg Tab, 1 TAB PO MWF, #30 TAB 11 Refills 07/14/21 Brimonidine Tartrate (Brimonidine Tartrate) 0.15 % Milady, 1 DROP OP BID, DROP 07/14/21 Ferric Citrate (Auryxia) 210 Mg Tab, 210 MG PO TID, TAB 07/14/21 Acetaminophen (Acetaminophen) 325 Mg Tab, 500 MG PO TID PRN for MILD PAIN (1-3 PAIN SCALE) for 30 Days, MG 0 Refills 07/14/21 Information Source: Patient, Emergency Med Personnel Mode of Arrival: EMS Severity: Moderate Timing: Hours Duration: Since onset Prehospital treatment: 12 Lead EKG, Commercial Collections Specialist, Other (pressure dressing, 18G LAC) Past Medical History PAST MEDICAL HISTORY: AFIB, Anemia, Cancer, CHF, DM, ESRD, High Lipids, HTN Surgical History: PTCA Family History Family History: No family hx of DM, No family hx ofKidney timoteo, Family hx of stroke Social History Smoker: Non-Smoker Alcohol: Denies ETOH Use Drugs: Denies Drug Use Lives In: Home All Other Systems: Reviewed and Negative (Comprehensive review of systems are negative unless otherwise stated in HPI) Physical Exam General Appearance: No Apparent Distress, Normal, Other HEENT: Normal ENT Inspection, Pharynx Normal, TMs Normal Neck: Full Range of Motion, Non-Tender, Normal, Normal Inspection Respiratory: Chest Non-Tender, Lungs Clear, No Accessory Muscle Use, No Respiratory Distress, Normal Breath Sounds Cardiovascular: No Edema, No JVD, No Murmur, No Gallop, Normal Peripheral Pulses, Regular Rate/Rhythm Breast Exam: Deferred Gastrointestinal: No Organomegaly, Non Tender, No Pulsatile Mass, Normal Bowel Sounds, Soft Genitalia: Deferred Pelvic: Deferred Rectal: Deferred Extremities: No calf tenderness, Normal capillary refill, Normal inspection, Normal range of motion, Non-tender, No pedal edema, Other (left AV fistula site, bleeding well-controlled ) Musculoskeletal : Apperance: Normal Neurologic: Alert, bed teacher II-XII nml as Tested, No Motor Deficits, Normal Affect, Normal Mood, No Sensory Deficits Cerebellar Function: Normal Reflexes: Normal Skin: Dry, Normal Color, Warm Lymphatic: No Adenopathy Was a procedure done? Was a procedure done?: No Differential Dx Considerations may include: AV fistula dislodgement X-Ray, Labs, Meds, VS Vital Signs Date Time Temp Pulse Resp B/P (MAP) Pulse Ox O2 Delivery O2 Flow Rate FiO2 11/03/24 18:35 98.4 80 14 106/50 (68) 100 98.4 11/03/24 18:35 Nasal Cannula* 2 28 11/03/24 17:57 98.1 80 15 89/47 (61) 99 98.1 Time of 1ST Reevaluation: 19:00 Reevaluation 1ST: Unchanged Patient Education/Counseling: Diagnosis, Treatment Family Education/Counseling: No Family Present Departure 1 Departure Time of Disposition: 19:41 (Patient's AV fistula stop bleeding. We will discharge patient home with outpatient follow up) Impression: Primary Impression: Hemorrhage of surgically-created arteriovenous fistula Qualified Codes: T82.838A - Hemorrhage due to vascular prosthetic devices, implants and grafts, initial encounter Disposition: HOME / SELF CARE / HOMELESS Condition: Stable Discharged With: Self Critical Care Note Critical Care Time?: No Stability Stability form required: No Heart Score Heart Score: Heart Score Response (Comments) Value History N/A 0 EKG N/A 0 Age N/A 0 Risk Factors N/A 0 Troponin N/A 0 Total 0 I personally scribed for GAETANO VARGAS MD ([email or web address]) on 11/03/24 at 18:42. Electronically submitted by Marcell Acuna ([email or web address]). GAETANO VARGAS MD Nov 03, 2024 18:42
[2024-11-03 19:30] VITALS: PULSE 80; RESP 18; TEMP 98.5; O2SAT 97
[2024-11-03 20:00] VITALS: BP 103/49; PULSE 81; RESP 14; O2SAT 99
== END 2024-11-03 20:31 | disposition home or self-care (01) ==
LOC: EDBD 17:55 → ER 17:55
DX: T82.838A Hemorrhage due to vascular prosthetic devices, implants and grafts, initial encounter (principal); I13.2 Hypertensive heart and chronic kidney disease with heart failure and with stage 5 chronic kidney disease, or end stage renal disease; E11.22 Type 2 diabetes mellitus with diabetic chronic kidney disease; I50.9 Heart failure, unspecified; N18.6 End stage renal disease; I48.91 Unspecified atrial fibrillation; Z99.2 Dependence on renal dialysis; Z79.82 Long term (current) use of aspirin; Z79.899 Other long term (current) drug therapy; Z88.8 Allergy status to other drugs, medicaments and biological substances; Y84.1 Kidney dialysis as the cause of abnormal reaction of the patient, or of later complication, without mention of misadventure at the time of the procedure

== ENCOUNTER 2025-07-06 10:53 | Emergency (ER) | payer OTHER, MEDICARE ==
[~2025-07-06] VITALS: Ht 172.7 cm; Wt 68.0 kg
[2025-07-06 11:27] VITALS: TEMP 98
[2025-07-06 11:33] VITALS: PULSE 81; RESP 14; O2SAT 93
--- NOTE | 2025-07-06 13:03 | ED.PDOC ---
Musculoskeletal HPI Comments 89M BIBA w/ prior MHx of High Lipids, HTN, ESRD(M, W, F) and the c/c of dialysis port is bleeding. Pt reports on having had his dialysis done earlier today and started to bleed from his dialysis port on the left arm for 1 hr before EMS was called. Pt did have a pressure dressing that was placed. Pt currently has no ble eding at this time. Denies any symptoms at this time. Patient denies any CP, SOB, dizziness, numbness, weakness, tingling, fever, chills, or recent fall. Chief Complaint: Tube Replacement Time Seen by MD: 13:00 Primary Care Provider: UNKNOWN Reviewed Notes: Nurses Notes, Medications, Allergies Allergies: Coded Allergies: Amlodipine (Verified Allergy, Unknown, 05/20/24) Home Meds Active Scripts Metronidazole (Flagyl) 500 Mg Tab, 1 TAB PO TID for 5 Days, #15 TAB Prov:ANNETTA RUIZ SLATE CUTTER 06/25/24 Hydrocortisone Acetate (ANUCORT-HC SUPPOSITORY) 25 Mg Sanchez, 25 MG PA DAILY for 5 Days, #5 SUPP Prov:ANNETTA RUIZ SLATE CUTTER 06/25/24 Morphine Sulfate (Morphine Sulfate) 15 Mg Tab, 1 TAB PO TID PRN, #60 TAB Prov:DEBORAH MCCARTY MD 05/22/24 Atorvastatin Calcium (ATORVASTATIN CALCIUM) 20 Mg Tab, 40 MG PO HS for 20 Days, #40 TAB Prov:ESTELLA FREEMAN MD 02/19/19 Aspirin (Aspir-Low Ec) 81 Mg Tb, 81 MG PO DAILY for 20 Days, #60 Prov:ESTELLA FREEMAN MD 02/19/19 Reported Medications Baclofen (Baclofen) 10 Mg Tab, 10 MG PO TID, TAB 03/30/24 Apixaban Base (ELIQUIS) 2.5 Mg Tab, 2.5 MG PO BID, TAB 03/30/24 Simethicone (Simethicone) 80 Mg Chw, 80 MG PO Q6HPRN, MG 07/14/21 Sevelamer Carbonate (Renvela) 800 Mg Tab, 2 TAB PO TIDWM, #540 TAB 3 Refills 07/14/21 B-Complex W/ C & Folic Acid (Renal) Softgel Cap, 1 TAB PO DAILY, #30 CAP 5 Refil ls 07/14/21 Montelukast Sodium (Singulair) 5 Mg Chw, 2 TAB PO DAILY, #30 TAB 5 Refills 07/14/21 Metoprolol Succinate (Metoprolol Succinate Er) 50 Mg Tab, 50 MG PO DAILY for 30 Days, MG 07/14/21 Melatonin (KP MELATONIN) 3 Mg Tab, 5 MG PO HSPRN, TAB 07/14/21 Nifedipine (Nifedipine ER) 30 Mg Tab, 60 MG PO DAILY, TAB 07/14/21 Latanoprost (Xalatan) 0.005 % Milady, 1 DROP EACHEYE QPM, #2.5 ML 6 Refills 07/14/21 Guaifenesin-Codeine (Guaifenesin Ac) Ac Syp, 10 ML PO Q6HPRN PRN for FOR COUGH, #240 ML 07/14/21 Lanthanum Carbonate (Fosrenol) 1,000 Mg Chw, 1000 MG PO TIDWM, TAB.CHEW 07/14/21 Fluticasone Propionate (Fluticasone Propionate) 0.05 % Cre, 50 MCG LUKE DAILY for 30 Days, MCG 07/14/21 Cinacalcet Hydrochloride (Sensipar) 30 Mg Tab, 1 TAB PO MWF, #30 TAB 11 Refills 07/14/21 Brimonidine Tartrate (Brimonidine Tartrate) 0.15 % Milady, 1 DROP OP BID, DROP 07/14/21 Ferric Citrate (Auryxia) 210 Mg Tab, 210 MG PO TID, TAB 07/14/21 Acetaminophen (Acetaminophen) 325 Mg Tab, 500 MG PO TID PRN for MILD PAIN (1-3 PAIN SCALE) for 30 Days, MG 0 Refills 07/14/21 Information Source: Patient, Emergency Med Personnel, Spouse Mode of Arrival: EMS Location: Left Extremity Location: Arm Timing: Minutes Prehospital treatment: None Severity: Moderate Able to Move Extremity: Yes Bear Weight: Fully Pain: Moderate Hand Dominance: Right Mechanism: Spontaneous Circumstances: Spontaneous Onset of Symptoms: Spontaneous DVT Risk Factors: NONE Associated signs and symptoms: None Past Medical History PAST MEDICAL HISTORY: ESRD (M, W, F), High Lipids, HTN Surgical History: PTCA Family History Family History: Reviewed,noncontributory to illness, Unknown Social History Smoker: Non-Smoker Alcohol: Denies ETOH Use Drugs: Denies Drug Use Lives In: Home Constitutional: denies: chills, diaphoresis, fatigue, fever, malaise, sweats, weakness, others EENTM: denies: blurred vision, double vision, ear bleeding, ear discharge, ear drainage, ear pain, ear ringing, eye pain, eye redness, hearing loss, mouth pain, mouth swelling, nasal discharge, nose bleeding, nose congestion, nose pain, photophobia, tearing, throat pain, throat swelling, voice changes, others Respiratory: denies: cough, hemoptysis, orthopnea, SOB at rest, shortness of breath, SOB with excertion, stridor, wheezing, others Cardiovascular: denies: chest pain, dizzy spells, diaphoresis, Dyspnea on exertion, edema, irregular heart beat, left arm pain, lightheadedness, palpitations, PND, syncope, others Gastrointestinal: denies: abdomen distended, abdominal pain, blood streaked bowels, constipated, diarrhea, dysphagia, difficulty swallowing, hematemesis, melena, nausea, poor appetite, poor fluid intake, rectal bleeding, rectal pain, vomiting, others Genitourinary: denies: burning, dysuria, flank pain, frequency, hematuria, incontinence, penile discharge, penile sore, pain, testicle pain, testicle swelling, urgency, others Neurological: denies: dizziness, fainting, headache, left sided numbness, left sided weakness, numbness, paresthesia, pre-existing deficit, right sided numbness, right sided weakness, seizure, speech problems, tingling, tremors, weakness, others Musculoskeletal: denies: back pain, gout, joint pain, joint swelling, muscle pain, muscle stiffness, neck pain, others Integumetry: reports: others (bleeding from dialysis port); denies: bruises, change in color, change in hair/nails, dryness, laceration, lesions, lumps, rash, wounds Allergic/Immunocompromised: denies: Difficulty Healing, Frequent Infections, Hives, Itching, others Hematologic/Lymphatic: denies: anemia, blood clots, easy bleeding, easy bruising, swollen glands, others Endocrine: denies: excessive hunger, excessive sweating, excessive thirst, excessive urination, flushing, intolerance to cold, intolerance to heat, unexplained weight gain, unexplained weight loss, others Psychiatric: denies: anxiety, bipolar disorder, depression, hopeless, panic disorder, schizophrenia, sleepless, suicidal, others All Other Systems: Reviewed and Negative Physical Exam General Appearance: No Apparent Distress, Thin HEENT: Normal ENT Inspection, PERRL/EOMI, Pharynx Normal, TMs Normal Neck: Full Range of Motion, Non-Tender, Normal, Normal Inspection Respiratory: Chest Non-Tender, Lungs Clear, No Accessory Muscle Use, No Respiratory Distress, Normal Breath Sounds Cardiovascular: No Edema, No JVD, No Murmur, No Gallop, Normal Peripheral Pulses, Regular Rate/Rhythm Breast Exam: Deferred Gastrointestinal: No Organomegaly, Non Tender, No Pulsatile Mass, Normal Bowel Sounds, Soft Genitalia: Deferred Pelvic: Deferred Rectal: Deferred Extremities: No calf tenderness, Normal capillary refill, Normal inspection, Normal range of motion, Non-tender, No pedal edema, Other (Patient bleeding from the shunt after pressure bleeding stopped) Musculoskeletal : Apperance: Normal Neurologic: Alert, librarian assistant II-XII nml as Tested, No Motor Deficits, Normal Affect, Normal Mood, No Sensory Deficits Cerebellar Function: NOT DONE Reflexes: NOT DONE Skin: Dry, Normal Color, Warm Peripheral Pulses: 1+ carotid (R), 1+ carotid (L) Lymphatic: No Adenopathy Was a procedure done? Was a procedure done?: No Differential Diagnosis EXT Differential Diagnosis: Laceration, Neurovascular injury Other Differential Diagnosis Bleeding from the dialysis shunt X-Ray, Labs, Meds, VS Vital Signs Date Time Temp Pulse Resp B/P (MAP) Pulse Ox O2 Delivery O2 Flow Rate FiO2 07/06/25 13:29 87 19 121/64 (83) 92 07/06/25 11:33 81 14 93 Room Air* 0 21 07/06/25 11:27 98.0 80 15 107/48 (67) 93 98.0 07/06/25 11:01 98.2 98 16 156/72 98 98.2 X-Ray, Labs, Meds, VS Comment Patient dressing was applied forearm abrasion hour and now the there is no more bleeding another pressure dressing will be applied and the patient will be discharged home Time of 1ST Reevaluation: 13:30 Reevaluation 1ST: Unchanged Reevaluation 2ND: Improved Consultation: PCP, Other (Medicine Technologist) Patient Education/Counseling: Diagnosis, Treatment, Prognosis, Need For Follow Up Family Education/Counseling: Diagnosis, Treatment, Prognosis, Need For Follow Up, Other (Spouse at bedside) Departure 1 Departure Time of Disposition: 13:31 Impression: Primary Impression: Bleeding from dialysis shunt Qualified Codes: T82.838A - Hemorrhage due to vascular prosthetic devices, implants and grafts, initial encounter Disposition: HOME / SELF CARE / HOMELESS Condition: Fair Additional Instructions: Keep the pressure dressing until you have next dialysis Discharged With: Self, Spouse Critical Care Note Critical Care Time?: No Stability Stability form required: No Heart Score Heart Score: Heart Score Response (Comments) Value History N/A 0 EKG N/A 0 Age >65 2 Risk Factors >3 or Hx ASHD 2 Troponin N/A 0 Total 4 I personally scribed for BRUCE YEBOAH MD ([email or web address]) on 07/06/25 at 13:03. Electronically submitted by Adiel Leigh ([email or web address]). BRUCE YEBOAH MD Jul 06, 2025 13:03
[2025-07-06 13:29] VITALS: BP 121/64; PULSE 87; RESP 19; O2SAT 92
== END 2025-07-06 13:56 | disposition home or self-care (01) ==
LOC: EDBD 10:53 → ER 10:53
DX: T82.838A Hemorrhage due to vascular prosthetic devices, implants and grafts, initial encounter (principal); I12.0 Hypertensive chronic kidney disease with stage 5 chronic kidney disease or end stage renal disease; N18.6 End stage renal disease; Z79.82 Long term (current) use of aspirin; Z79.899 Other long term (current) drug therapy; Z88.8 Allergy status to other drugs, medicaments and biological substances; Z99.2 Dependence on renal dialysis; X58.XXXA Exposure to other specified factors, initial encounter; Y93.89 Activity, other specified; Y92.89 Other specified places as the place of occurrence of the external cause; Y99.8 Other external cause status